=== PATIENT | female | born 1930 | race Caucasian/White ===

== ENCOUNTER 2017-10-07 18:07 | Inpatient (IN) | payer OTHER, BC ==
[2017-10-07] MEDS ORDERED: METOPROLOL TARTRATE 5 MG/5 ML VIAL IVPUSH ONE (18:26)
[2017-10-07] MEDS ORDERED: METOPROLOL TARTRATE 5 MG/5 ML VIAL ONE (18:34)
--- NOTE | 2017-10-07 18:34 | PDOC ---
Attending Attestation - Resident Resident Name: JovanmicahelJoey - ED Attending Attestation I have performed the following: I have examined & evaluated the patient, The case was reviewed & discussed with the resident, I agree w/resident's findings & plan, Exceptions are as noted - HPI HPI: 10/07/17 18:33 86-year-old female in no onset rapid A. fib. Brought in by ambulance from Dr. Martínez's office. Patient has complaint of dyspnea. She states she's had intermittently for the past 2 weeks. Past medical history significant for coronary artery disease, hypertension, hypothyroidism and glaucoma. PCP is Dr. Bailee Lopez - Physicial Exam PE: 10/07/17 18:33 Alert and conversant, 86-year-old female presents with complaint of dyspnea. Head normocephalic/atraumatic. Neck is supple, no JVD. Lungs clear to auscultation. There is no wheezing and no Rales CVS tachycardia. Abdomen protuberant but nontender. skin she has intertrigo underneath her left breast abd protuberant ,nontender no cva tenderness ext no pitting edema neuro axox3,moving all extremities ,motor strenght 5/5 b/l psych appropriate - Medical Decision Making 10/07/17 18:45 Impressions: new onset A. fib. Plan anticoagulation, beta blockers, also Cardizem, EKG, coronary skin, CBC, comp, coags and admit tele
--- NOTE | 2017-10-07 18:37 | PDOC ---
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 The patient states that she's had 2 weeks of mild lightheadedness and mild shortness of breath with exertion. She denies any CP, fever, chills, nausea, vomiting, cough, rashes or swelling. Past History - Past Medical History Allergies/Adverse Reactions: Allergies Allergy/AdvReac Type Severity Reaction Status Date / Time No Known Allergies Allergy Verified 07/12/15 10:25 Home Medications: Ambulatory Orders Amlodipine Besylate/Benazepril [Lotrel 5-20 mg Capsule] 20 mg PO BID 09/03/12 Ca Cmb No.1/Vit D3/B-6/FA/B12 [Vitamin D3 1,000 Unit Tablet] 1 each PO DAILY Calcium Carbonate/Vitamin D3 [[place] 500-Vit D3 200 Tablet] 1 each PO DAILY 09/03 Cyanocobalamin/FA/Pyridoxine [B Complex-Folic Acid Tablet] 1 each PO DAILY 09/03 Isosorbide Mononitrate [Isosorbide Mononitrate ER] 30 mg PO DAILY 09/03/12 Levothyroxine [Synthroid -] 125 mcg PO DAILY 09/03/12 Meclizine HCl [Antivert -] 25 mg PO TID PRN #20 tablet 09/03/12 Metoprolol Succinate [Toprol XL -] 25 mg PO DAILY 09/03/12 Pitavastatin Calcium [Livalo] 2 mg PO DAILY 09/03/12 Anemia: No Asthma: No Cancer: No Cardiac Disorders: No CVA: No COPD: No CHF: No Dementia: No Diabetes: No GI Disorders: No Disorders: No HTN: Yes Hypercholesterolemia: No Liver Disease: No Seizures: No Thyroid Disease: Yes - Surgical History Abdominal Surgery: Yes (hernia sx) - Suicide/Smoking/Psychosocial Hx Smoking Status: No Smoking History: Never smoked Have you smoked in the past 12 months: No Number of Cigarettes Smoked Daily: 0 Hx Alcohol Use: No Drug/Substance Use Hx: No Substance Use Type: None Hx Substance Use Treatment: No Review of Systems - Review of Systems Able to Perform ROS?: Yes Comments:: 10/07/17 18:35 GENERAL/CONSTITUTIONAL: No fever or chills. No weakness. HEAD, EYES, EARS, NOSE AND THROAT: No change in vision. No ear pain or discharge. No sore throat. CARDIOVASCULAR: Positive for lightheadedness. No chest pain or palpitations. RESPIRATORY: Positive for shortness of breath. No cough, wheezing, or hemoptysis. GASTROINTESTINAL: No nausea, vomiting, diarrhea, constipation, or abdominal pain. GENITOURINARY: No dysuria, frequency, hematuria, or change in urination. MUSCULOSKELETAL: No joint or muscle swelling or pain. No neck or back pain. SKIN: No rash or lesions. NEUROLOGIC: No headache, numbness, tingling, weakness, loss of consciousness, or change in strength/sensation. ENDOCRINE: No increased thirst. No abnormal weight change. HEMATOLOGIC/LYMPHATIC: No anemia, easy bleeding, or history of blood clots. ALLERGIC/IMMUNOLOGIC: No hives or skin allergy. Is the patient limited Spanish proficient: No *Physical Exam - Physical Exam Comments: 10/07/17 18:37 GENERAL: Well developed, well nourished. Awake and alert. No acute distress. HEENT: Normocephalic, atraumatic. Hearing grossly normal. Moist mucous membranes. PERRLA, EOMI. No conjunctival pallor. Sclera are non-icteric. NECK: Supple. Full ROM. CARDIOVASCULAR: Regular rate and rhythm. No murmurs, rubs, or gallops. PULMONARY: No evidence of respiratory distress. Lungs clear to auscultation bilaterally. No wheezing, rales or rhonchi. ABDOMINAL: Soft. Non-tender. Non-distended. No rebound or guarding. MUSCULOSKELETAL: Normal range of motion at all joints. No bony deformities or tenderness. EXTREMITIES: No cyanosis. No clubbing. 2+ pitting edema. No calf tenderness or swelling. SKIN: Warm and dry. Normal capillary refill. No rashes. No jaundice. NEUROLOGICAL: Alert, awake, appropriate. Cranial nerves 2-12 intact. Normal speech. Gait is normal without ataxia. PSYCHIATRIC: Cooperative. Good eye contact. Appropriate mood and affect. Heart Score/ECG Review #1 ECG reviewed & interpreted by me at: 18:36 General ECG Interpretation: Sinus Rhythm, Normal Rate, Normal Intervals, No acute ischemic changes Compared to previous ECG there are: Changes noted 10/07/17 18:38 A-fib w/ vent rate 145 (RVR) MI - QRS 64 QRc 484 L axis deviation New onset a-fib Prior is 05/2014 which was NSR No ADILIA or STD noted. No signs of acute ischemia. 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 She was not given any medications. Estimated onset was 2 weeks ago. She has mild symptoms of SOB and lightheadedness. Pending labs. Will give 5 metoprolol t IVP and monitor HR. 10/07/17 19:59 Pt responded to metoprolol IVP. Given PO 25 metoprolol. Case d/w Dr. Martínez at bedside. 10/07/17 20:04 I have endorsed the pt to Dr. Vaughn for admission. Dr. Martínez recommends adding diltiazem for rate control. Order placed. 10/07/17 20:55 I have discussed the pt with Dr. Bragg, ICU resident, for admission to ICU because of heparin drip and cardizem drip. *DC/Admit/Observation/Transfer Diagnosis at time of Disposition: New onset atrial fibrillation - Discharge Dispostion Condition at time of disposition: Guarded Decision to Admit order: Yes - Referrals Referrals: Jane Vaughn [Primary Care Provider] - - Patient Instructions - Post Discharge Activity
[2017-10-07 18:46] LABS: BASO % 0.5 % (0-2.0); EOS % 0.7 % (0-4.5); HEMATOCRIT 43.6 % (32.4-45.2); HEMOGLOBIN 14.2 GM/dL (10.7-15.3); LYMPH % 19.3 % (8-40); MCH 29.5 pg (25.7-33.7); MCHC 32.7 g/dl (32.0-36.0); MEAN CELL VOLUME 90.3 fl (80-96); MEAN PLT VOLUME 8.4 fl (7.5-11.1); MONO % 8.4 % (3.8-10.2); NEUT % 71.1 % (42.8-82.8); PLATELET COUNT 308 K/MM3 (134-434); RBC 4.83 M/mm3 (3.60-5.2); RDW 14.1 % (11.6-15.6); WHITE BLOOD COUNT 9.3 K/mm3 (4.0-10.0)
[2017-10-07] MEDS ORDERED: METOPROLOL TARTRATE 25 MG TABLET (FP) PO ONE (18:48)
[2017-10-07] MEDS ORDERED: METOPROLOL TARTRATE 25 MG TABLET (FP) ONE (18:57)
[2017-10-07 18:59] LABS: INR 1.15 (0.82-1.09)
[2017-10-07 19:09] LABS: ALBUMIN 3.4 g/dl (3.4-5.0); ANION GAP 9 (8-16); BILIRUBIN,TOTAL 0.4 mg/dL (0.2-1.0); BLOOD UREA NITROGEN 23 mg/dL (7-18); CALCIUM 8.8 mg/dL (8.5-10.1); CHLORIDE 111 mmol/L (98-107); CO2 25 mmol/L (21-32); CREATININE 0.8 mg/dL (0.55-1.02); GLUCOSE,RANDOM 130 mg/dL (74-106); POTASSIUM 3.9 mmol/L (3.5-5.1); SGOT/AST 11 U/L (15-37); SGPT/ALT 21 U/L (12-78); SODIUM 145 mmol/L (136-145); TOT PROT 6.6 g/dl (6.4-8.2)
[2017-10-07 19:11] LABS: ALK PHOS 91 U/L (45-117); N-TERMINAL BNP 1664.38 pg/ml (5-450)
[2017-10-07] MEDS ORDERED: FUROSEMIDE 40 MG/4 ML INJECTABLE VIAL IVPUSH ONE (19:32)
[2017-10-07] MEDS ORDERED: FUROSEMIDE 40 MG/4 ML INJECTABLE VIAL ONE (19:49)
[2017-10-07] MEDS ORDERED: dilTIAZem HCL 50 MG/10 ML - 10 ML VIAL IVPUSH ONE (20:02)
[2017-10-07] MEDS ORDERED: dilTIAZem HCL 125 MG/25 ML - 25 ML VIAL ONE (20:08)
[2017-10-07] MEDS ORDERED: HEPARIN NA (PORCINE) 5,000 UNITS/ML 1ML VIAL IVPUSH PRN ×2 (20:17)
[2017-10-07] MEDS ORDERED: MECLIZINE HCL 25 MG TABLET (FP) PO PRN (20:33)
[2017-10-07] MEDS ORDERED: HEPARIN NA (PORCINE) 5,000 UNITS/ML 1ML VIAL ONE (21:19)
[2017-10-07] MEDS ORDERED: HEPARIN INFUSION - 25,000 UNITS/500 ML INFUS.BAG IVPB ONE (21:19)
--- NOTE | 2017-10-07 21:41 | CONSULT ---
Consultation: REQUESTING PROVIDER: CONSULT REQUEST: We have been asked to medically evaluate this patient for ( intensive care). 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 Patient states that she is feeling lightheaded and sob from 1 year which is progressively getting worse. Get sob on taking 4 stairs up. Denies paroxysmal nocturanal dyspnea, orthopnea, sleeps with one pillow. Denies palpitations, chest pain, swelling in legs. Denies change in frequency and burning micturation , denies change in weight, blood in stool or diarrhoea, Don't know when was last TSH was checked. States she is complaint with her meds. Denies fever and hills. In er got of Metoprolol push and po 25 mg and later on started on cardiazem drip , HR decreased from 160 to 130 PMH as above PSH eye surgery and left wrist surgery. social: non smoker, no alcohol REVIEW OF SYSTEMS: as above PHYSICAL EXAMINATION Vital Signs - 24 hr 10/07/17 10/07/17 10/07/17 18:30 18:45 18:59 Temperature 98 F Pulse Rate 147 H Pulse Rate [ 110 H Apical] Respiratory 20 22 Rate Blood Pressure 120/93 120/93 Blood Pressure 123/86 [Right Arm] O2 Sat by Pulse 96 98 100 Oximetry (%) 10/07/17 20:12 Temperature Pulse Rate Pulse Rate [ 138 H Apical] Respiratory 22 Rate Blood Pressure Blood Pressure 120/91 [Right Arm] O2 Sat by Pulse 96 Oximetry (%) GENERAL: Awake, alert, and fully oriented, in no acute distress. HEAD: Normal with no signs of trauma. EYES: chronic swelling of right eye NECK: Normal range of motion, supple without lymphadenopathy, JVD, or masses. LUNGS: Breath sounds equal, clear to auscultation bilaterally, decrease air entry at bases, mild crackels at base No accessory muscle use. HEART: irregularly irregular, no murmur ABDOMEN: Soft, nontender, not distended, normoactive bowel sounds, no guarding, no rebound, no masses. UPPER EXTREMITIES: 2+ pulses, warm, well-perfused. No cyanosis. LOWER EXTREMITIES: 2+ pulses, warm, well-perfused. No calf tenderness. peripheral edema 1+ PSYCHIATRIC: Cooperative. Good eye contact. Appropriate mood and affect. SKIN: Warm, dry, Laboratory Results - last 24 hr 10/07/17 10/07/17 10/07/17 18:40 18:40 18:40 WBC 9.3 RBC 4.83 Hgb 14.2 Hct 43.6 MCV 90.3 MCH 29.5 MCHC 32.7 RDW 14.1 Plt Count 308 MPV 8.4 Absolute Neuts (auto) 6.6 Neutrophils % 71.1 Lymphocytes % 19.3 Monocytes % 8.4 Eosinophils % 0.7 Basophils % 0.5 Nucleated RBC % 0 PT with INR 13.00 INR 1.15 H PTT (Actin FS) Sodium 145 Potassium 3.9 Chloride 111 H Carbon Dioxide 25 Anion Gap 9 BUN 23 H Creatinine 0.8 Creat Clearance w eGFR > 60 Random Glucose 130 H Calcium 8.8 Total Bilirubin 0.4 AST 11 L ALT 21 Alkaline Phosphatase 91 Creatine Kinase 36 Troponin I < 0.02 B-Natriuretic Peptide 1664.38 H Total Protein 6.6 Albumin 3.4 10/07/17 18:40 WBC RBC Hgb Hct MCV MCH MCHC RDW Plt Count MPV Absolute Neuts (auto) Neutrophils % Lymphocytes % Monocytes % Eosinophils % Basophils % Nucleated RBC % PT with INR INR PTT (Actin FS) 29.4 Sodium Potassium Chloride Carbon Dioxide Anion Gap BUN Creatinine Creat Clearance w eGFR Random Glucose Calcium Total Bilirubin AST ALT Alkaline Phosphatase Creatine Kinase Troponin I B-Natriuretic Peptide Total Protein Albumin Active Medications Generic Name Dose Route Start Last Admin Trade Name Freq PRN Reason Stop Dose Admin Atorvastatin Calcium 10 mg 10/07/17 22:00 Lipitor - PO HS CLAUDIA Heparin Sodium (Porcine) 1,000 unit 10/07/17 20:17 Heparin - IVPUSH PRN PRN Heparin Heparin Sodium (Porcine) 5,000 unit 10/07/17 20:17 Heparin - IVPUSH PRN PRN Heparin Diltiazem HCl 125 mg/ Sodium 125 mls @ 5 mls/hr 10/07/17 20:15 Chloride IVPB TITR [facility] Protocol 5 MG/HR Heparin Sodium/Dextrose 25,000 units in 500 mls @ 20 mls/hr 10/07/17 20:30 Heparin Infusion - IVPB TITR [facility] Protocol 1,000 UNITS/HR Isosorbide Mononitrate 30 mg 10/08/17 10:00 Imdur - PO DAILY CLAUDIA Levothyroxine Sodium 125 mcg 10/08/17 07:00 Synthroid - PO DAILY@0700 CLAUDIA Meclizine HCl 25 mg 10/07/17 20:33 Antivert - PO Q8H PRN VERTIGO Metoprolol Succinate 25 mg 10/08/17 10:00 Toprol Xl - PO DAILY CLAUDIA ASSESSMENT/PLAN: new afib with sob with diastolic heart failure. pulmonary edema. ?Left ventricle diastolic dysfunction htn hld hypothyroidism glaucoma Plan cardiac monitoring rate control on cardiazem drip keep below 110 AC , heparin drip, with aptt monitoring and watch for bleed. ECHO Thyroid function test. daily weight. low salt diet. monitor intake and output. cardiology consult. UA repeat CXR in am oxygen to keep spo2> 90. keep head end elevated. spirometry. monitor viatls. icu care. Dispo: We will continue to follow the patient. Thank you for this consultative opportunity. Visit type - Emergency Visit Emergency Visit: Yes ED Registration Date: 10/07/17 Care time: The patient presented to the Emergency Department on the above date and was hospitalized for further evaluation of their emergent condition. - New Patient This patient is new to me today: Yes Date on this admission: 10/08/17 - Critical Care Critical Care patient: Yes Total Critical Care Time (in minutes): 45 Critical Care Statement: The care of this patient involved high complexity decision making to prevent further life threatening deterioration of the patient 's condition and/or to evaluate & treat vital organ system(s) failure or risk of failure.
[2017-10-07] MEDS: DILTIAZEM INJECTION 125 MG in SODIUM CHLORIDE 100 ML IVPB SCH (21:44)
[2017-10-07] MEDS: HEPARIN INFUSION - 25,000 UNITS/500 ML INFUS.BAG IVPB SCH (21:45)
[2017-10-07 22:43] LABS: URINE APPEARANCE CLEAR; URINE BILIRUBIN NEGATIVE (<2.0 mg/dL); URINE COLOR STRAW; URINE GLUCOSE (UA) NEGATIVE (NEGATIVE); URINE KETONE NEGATIVE (NEGATIVE); URINE NITRITE NEGATIVE (NEGATIVE); URINE PROTEIN NEGATIVE (NEGATIVE); URINE UROBILINOGEN NEGATIVE mg/dL (0.2-1.0)
[2017-10-07 22:44] LABS: URINE LEUK ESTERASE 1+ (NEGATIVE)
[2017-10-07] MEDS ORDERED: ACETAMINOPHEN 325 MG TABLET (FP) PO ONE (22:44)
[2017-10-07 22:46] LABS: EPI CELLS RARE /HPF (FEW); URINE HYALINE CAST 3 /lpf; URINE MUCUS RARE
[2017-10-07] MEDS ORDERED: ATORVASTATIN CA 10 MG TABLET (FP) ONE (22:57)
[2017-10-07] MEDS ORDERED: ACETAMINOPHEN 325 MG TABLET (FP) ONE (22:57)
[2017-10-08] MEDS: ATORVASTATIN CA 10 MG TABLET (FP) PO SCH ×2 (00:05→22:16)
[2017-10-08] MEDS ORDERED: LEVOTHYROXINE NA 125 MCG TABLET (FP) PO SCH (07:00)
--- NOTE | 2017-10-08 09:45 | CONS ---
DATE OF CONSULTATION: 10/07/2017 TIME OF CONSULTATION: 7:30 p.m. to 9:20 p.m. LOCATION: Emergency room. CHIEF COMPLAINT: 1. Postural lightheadedness. 2. Recent onset of dyspnea with exertion. The patient is an 86-year-old female who hails from [place], has longstanding history of hypertension, hypertensive cardiovascular disease, hypercholesterolemia, history of glaucoma, hypothyroidism, history of vertigo. Patient noticed that she was becoming progressively lightheaded on standing and would feel that she may fall down. She also started becoming dyspneic on exertion and decided to the office for an evaluation. Patient was found to be in atrial fibrillation with a rapid ventricular response. She denies having chest pain or discomfort either at rest or with exertion. There is no history of paroxysmal nocturnal dyspnea or orthopnea. According to her son, she was able to walk only short distances before becoming dyspneic. There is no history of diabetes mellitus. PAST HISTORY: As mentioned in the history of present illness. History of fracture of the left wrist. 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 SURGICAL HISTORY: Status post left cataract extraction. History of section x1. History of a buckle involving the right eye. SOCIAL HISTORY: She is a . She is retired, has 2 sons and 2 daughters who are healthy. One of the daughters has Farrell syndrome. She has never smoked and does not drink. FAMILY HISTORY: Father at age 79 of unknown cause. Mother at age 75 of a brain tumor. She was the only child. ALLERGIES: None reported. MEDICATION: Patient presented a list which included the following medications. 1. Amlodipine 5 mg 2 tablets p.o. daily. 2. Livalo 2 mg 1 tablet 3 times a week. 3. Synthroid, dose is uncertain, but previously, she was on 125 mcg p.o. daily. 4. Isosorbide mononitrate 30 mg p.o. daily. 5. Aspirin 81 mg p.o. daily. 6. She is on ophthalmic solutions for glaucoma, names are not available. REVIEW OF SYSTEMS: Constitutional: No history of chills, fever, or night sweats reported. No history of unintentional weight loss. HEENT: No history of headaches. History of blindness involving the right eye. History of disruption of the buckle with recurring episodes of extrusion of pieces of the buckle associated with excessive tearing. No history of epistaxis or hoarseness. No history of tinnitus. History of deafness involving the right ear. Respiratory: No history of cough, expectoration, or hemoptysis. See history of present illness. Cardiovascular: See history of present illness. Gastrointestinal: No history of nausea, vomiting, melena, or hematemesis. No history of change in bowel habits and denies having abdominal pain or discomfort. Neurological: History of lightheadedness. No history of focal weakness. No history of seizures. Genitourinary: No history of dysuria, frequency, or hematuria. Endocrine: See history of present illness. No history of polyuria or polydipsia. No history of intolerance to cold or warm weather. Musculoskeletal: History of arthritis involving both shoulders and hands. Hematological: No history of anemia, ecchymosis, or bleeding. Lymphatics: No history of lymphadenopathy. PHYSICAL EXAMINATION: General: An 86-year-old, alert female was in moderate distress. No pallor, cyanosis, clubbing, or jaundice. Vital Signs: Blood pressure 120/91 mmHg. Pulse 138 beats per minute and irregularly irregular. Respirations 22 beats per minute. Oxygen saturation 96% on 2 L of oxygen. Neck: Supple. No jugular venous distention. Hepatojugular reflux was negative. Carotids were 2+. Upstrokes were normal. No bruits were appreciated. There was no thyromegaly. Heart: PMI was not localized. No heaves or thrills. Heart sounds were distant. No murmur or gallops were appreciated. Lungs: Fine crepitations at the right base. Abdomen: Obese, soft, and nontender. No hepatosplenomegaly or palpable masses were felt. Bowel sounds were active. No bruits were heard. Extremities: No calf tenderness or dependent edema. Femoral pulses were 1+ to 2+. Dorsalis pedis pulses: The left was 2+. Right was 1+. Posterior tibial pulses could not be palpated. LABORATORY DATA: CBC: WBC count 9300. Hemoglobin was 14.2 g. Platelet count was 308.000. Differential was grossly normal. Chemistry: Sodium 145, potassium 3.9, chloride 111. CO2 of 25. BUN 23. Creatinine 0.8 mg/dL. Random glucose 130 mg/dL. Liver function tests were grossly normal. Her troponins were less than 0.02. BNP was elevated at 1664.38. X-ray chest was reported to have cardiomegaly, possible mild congestion. ECG revealed atrial fibrillation with rapid ventricular response, left axis deviation consistent with left anterior hemiblock, early transition in V1 and V2, generalized low voltage. Nonspecific ST and T-wave abnormalities. No previous ECG was available for comparison. IMPRESSION: 1. New-onset atrial fibrillation with rapid ventricular response. 2. Left ventricular failure was precipitated by atrial fibrillation/rapid ventricular response. 3. Hypertension, hypertensive cardiovascular disease. 4. Hypothyroidism, on replacement therapy. 5. History of hypercholesterolemia. 6. Coronary artery disease needs exclusion. 7. History of osteoarthritis. 8. Glaucoma. 9. Postural lightheadedness, most likely related to postural change in blood pressure precipitated by atrial fibrillation. 10. Exogenous obesity. RECOMMENDATIONS: 1. I concur with the use of IV furosemide. 2. Rate control with IV Cardizem, followed by Cardizem drip. 3. Heparinization. 4. Serial EKG and enzymes. 5. Further suggestions will depend upon the results of the above-mentioned tests. PROGNOSIS: Guarded. Thank you for your referral. Yours sincerely, HOLLI NG M.D. [id number]
[2017-10-08 09:57] LABS: BASO % 0.7 % (0-2.0); EOS % 0.9 % (0-4.5); HEMATOCRIT 45.1 % (32.4-45.2); HEMOGLOBIN 14.9 GM/dL (10.7-15.3); LYMPH % 14.5 % (8-40); MCH 30.1 pg (25.7-33.7); MCHC 33.1 g/dl (32.0-36.0); MEAN CELL VOLUME 90.9 fl (80-96); MEAN PLT VOLUME 9.3 fl (7.5-11.1); MONO % 7.5 % (3.8-10.2); NEUT % 76.4 % (42.8-82.8); PLATELET COUNT 277 K/MM3 (134-434); RBC 4.96 M/mm3 (3.60-5.2); RDW 14.3 % (11.6-15.6); WHITE BLOOD COUNT 13.9 K/mm3 (4.0-10.0)
[2017-10-08] MEDS ORDERED: PATIENT'S OWN MEDICATION (NON-FORMULARY) (Pitavastatin Calcium [Livalo] 2 MG) PO SCH (10:00)
[2017-10-08 10:11] LABS: CHLORIDE 109 mmol/L (98-107); SODIUM 144 mmol/L (136-145)
[2017-10-08 10:26] LABS: ALBUMIN 3.5 g/dl (3.4-5.0); ALK PHOS 96 U/L (45-117); ANION GAP 12 (8-16); BILIRUBIN,TOTAL 0.7 mg/dL (0.2-1.0); BLOOD UREA NITROGEN 19 mg/dL (7-18); CALCIUM 9.1 mg/dL (8.5-10.1); CO2 23 mmol/L (21-32); CREATININE 0.7 mg/dL (0.55-1.02); GLUCOSE,RANDOM 106 mg/dL (74-106); PHOSPHOROUS 3.7 mg/dL (2.5-4.9); SGPT/ALT 21 U/L (12-78); TOT PROT 7.1 g/dl (6.4-8.2)
[2017-10-08 10:28] LABS: MAGNESIUM 2.1 mg/dL (1.8-2.4); POTASSIUM 3.9 mmol/L (3.5-5.1); SGOT/AST 18 U/L (15-37)
[2017-10-08] MEDS ORDERED: dilTIAZem HCL 25 MG/5 ML - 5 ML VIAL ONE ×2 (10:47→20:21)
--- NOTE | 2017-10-08 10:50 | HP ---
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 The patient states that she's had 2 weeks of mild lightheadedness and mild shortness of breath with exertion. She denies any CP, fever, chills, nausea, vomiting, cough, rashes or swelling. History Source: Patient Limitations to Obtaining History: No Limitations - Past Medical History Cardiovascular: Yes: CAD, HTN Endocrine: Yes: Hypothyroidism - Past Surgical History Past Surgical History: Yes: Hernia Repair - Smoking History Smoking history: Never smoked Have you smoked in the past 12 months: No Aproximately how many cigarettes per day: 0 - Alcohol/Substance Use Hx Alcohol Use: No History of Substance Use: reports: None - Social History Usual Living Arrangement: Yes: Alone ADL: Independent History of Recent Travel: No Home Medications - Allergies Allergies/Adverse Reactions: Allergies Allergy/AdvReac Type Severity Reaction Status Date / Time No Known Allergies Allergy Verified 07/12/15 10:25 - Home Medications Home Medications: Ambulatory Orders Amlodipine Besylate/Benazepril [Lotrel 5-20 mg Capsule] 20 mg PO BID 09/03/12 Ca Cmb No.1/Vit D3/B-6/FA/B12 [Vitamin D3 1,000 Unit Tablet] 1 each PO DAILY Calcium Carbonate/Vitamin D3 [[place] 500-Vit D3 200 Tablet] 1 each PO DAILY 09/03 Cyanocobalamin/FA/Pyridoxine [B Complex-Folic Acid Tablet] 1 each PO DAILY 09/03 Isosorbide Mononitrate [Isosorbide Mononitrate ER] 30 mg PO DAILY 09/03/12 Levothyroxine [Synthroid -] 125 mcg PO DAILY 09/03/12 Meclizine HCl [Antivert -] 25 mg PO TID PRN #20 tablet 09/03/12 Metoprolol Succinate [Toprol XL -] 25 mg PO DAILY 09/03/12 Pitavastatin Calcium [Livalo] 2 mg PO DAILY 09/03/12 Family Disease History - Family Disease History Family History: Unremarkable Review of Systems - Review of Systems Constitutional: denies: Chills, Fever Eyes: denies: Blind Spots, Blurred Vision HENT: denies: Difficult Swallowing, Ear Pain Neck: denies: Stiffness, Tenderness Cardiovascular: reports: Palpitations. denies: Chest Pain, Shortness of Breath Respiratory: denies: Cough, SOB Gastrointestinal: denies: Abdominal Pain, Bloating, Constipation, Diarrhea, Vomiting Genitourinary: denies: Burning, Dysuria, Flank Pain, Frequency Musculoskeletal: denies: Back Pain, Joint Pain Integumentary: denies: Bruising, Eczema, Rash, Wound Neurological: reports: Dizziness. denies: Change in LOC, Change in Speech, Confusion, Pre-Existing Deficit, Seizure, Syncope, Tremors, Weakness Endocrine: denies: Unexplained Weight Gain, Unexplained Weight Loss Hematology/Lymphatic: denies: Easily Bruised, Excessive Bleeding Psychiatric: denies: Altered Sleep Pattern, Anxiety, Depression, Suicidal Physical Examination Vital Signs: Vital Signs Temperature 98.8 F 10/08/17 06:00 Pulse Rate 102 H 10/08/17 08:00 Respiratory Rate 22 10/08/17 08:00 Blood Pressure 127/114 10/08/17 08:00 O2 Sat by Pulse Oximetry (%) 99 10/08/17 04:16 Constitutional: Yes: No Distress, Calm Eyes: Yes: Conjunctiva Clear, Other (R exophtalmia chronic after trauma many years ago) HENT: Yes: Atraumatic Neck: Yes: Supple Cardiovascular: Yes: Tachycardia, Pulse Irregular. No: Regular Rate and Rhythm Respiratory: Yes: Regular, CTA Bilaterally. No: Wheezes Gastrointestinal: Yes: Soft. No: Distention, Tenderness Renal/: No: CVA Tenderness - Left, CVA Tenderness - Right, Hematuria Musculoskeletal: No: Back Pain, Joint Swelling Extremities: No: Calf Tenderness, Cold, Cool, Cyanosis Edema: No Peripheral Pulses WNL: Yes Integumentary: No: Bruising, Rash, Venous Stasis Changes Neurological: Yes: WNL, Alert, Oriented ...Motor Strength: WNL Psychiatric: Yes: WNL, Alert, Oriented. No: Agitated, Suicidal Ideation Labs: CBC, BMP 10/08/17 09:10 10/08/17 09:10 Imaging - Results Chest X-ray: Report Reviewed Other: Report Reviewed Assessment/Plan 86F with a PMH of Vertigo, HTN, CAD, Hypothyroidism, who presents to the ER from her public health service officer's office for new onset rapid a-fib. IV cardizem, IV heaprin admit to ICU/CCU tests meds consults reviewed and d/w pt cardiology eval check TFTs check echocardiogram f/u labs d/w pt and staff prognosis guarded T luisito 80 min
[2017-10-08] MEDS: metoPROLOL SUCCINATE 25 MG TAB.SR.24H (FP) PO SCH (11:10)
[2017-10-08] MEDS: ISOSORBIDE MONONITRATE 30 MG TAB.SR.24H (FP) PO SCH (11:10)
[2017-10-08] MEDS: FUROSEMIDE 40 MG/4 ML INJECTABLE VIAL IVPUSH SCH (11:10)
[2017-10-08] MEDS: MUPIROCIN 2% TOPICAL OINTMENT FOR DECOLONIZATION NS SCH ×2 (11:10→22:17)
--- NOTE | 2017-10-08 11:39 | PN ---
Teaching Attending Note Name of Resident: Dilshad Ricketts ATTENDING PHYSICIAN STATEMENT I saw and evaluated the patient. I reviewed the resident's note and discussed the case with the resident. I agree with the resident's findings and plan as documented. SUBJECTIVE: Patient seen and examined in the ICU. Awake and alert. Reports breathing is better. No CP. Remains on IV Cardizem for rate control. Intake & Output 10/05/17 10/06/17 10/07/17 10/08/17 23:59 23:59 23:59 23:59 Intake Total 110 Output Total 0 Balance 110 Weight 216 lb 214 lb 8 oz Last Vital Signs Temp Pulse Resp BP Pulse Ox 98.8 F 102 H 22 127/114 99 10/08/17 06:00 10/08/17 08:00 10/08/17 08:00 10/08/17 08:00 10/08/17 04:16 Active Medications Atorvastatin Calcium (Lipitor -) 10 mg PO HS CLAUDIA Last Admin: 10/08/17 00:05 Dose: Not Given Chlorhexidine Gluconate (Hibiclens For Decolonization -) 1 applic TP HS CLAUDIA Furosemide (Lasix Injection -) 40 mg IVPUSH DAILY CLAUDIA Last Admin: 10/08/17 11:10 Dose: 40 mg Heparin Sodium (Porcine) (Heparin -) 1,000 unit IVPUSH PRN PRN PRN Reason: Heparin Heparin Sodium (Porcine) (Heparin -) 5,000 unit IVPUSH PRN PRN PRN Reason: Heparin Last Admin: 10/07/17 21:45 Dose: 5,000 unit Diltiazem HCl 125 mg/ Sodium (Chloride) 125 mls @ 5 mls/hr IVPB TITR CLAUDIA; Protocol Last Titration: 10/08/17 04:10 Dose: 10 mg/hr, 10 mls/hr Heparin Sodium/Dextrose (Heparin Infusion -) 25,000 units in 500 mls @ 20 mls/ hr IVPB TITR CLAUDIA; Protocol Last Admin: 10/07/17 21:45 Dose: 1,000 units/hr, 20 mls/hr Isosorbide Mononitrate (Imdur -) 30 mg PO DAILY CLAUDIA Last Admin: 10/08/17 11:10 Dose: 30 mg Levothyroxine Sodium (Synthroid -) 125 mcg PO DAILY@0700 CLAUDIA Last Admin: 10/08/17 07:36 Dose: 125 mcg Meclizine HCl (Antivert -) 25 mg PO Q8H PRN PRN Reason: VERTIGO Metoprolol Succinate (Toprol Xl -) 25 mg PO DAILY [facility] Last Admin: 10/08/17 11:10 Dose: 25 mg Miconazole Nitrate (Miconazole Nitrate) 1 applic TP BID [facility] Mupirocin (Bactroban Ointment (For Decolonization) -) 1 applic NS BID [facility] Stop: 10/13/17 09:59 Last Admin: 10/08/17 11:10 Dose: 1 applic GENERAL: Awake, alert, and fully oriented, in no acute distress. HEAD: Normal with no signs of trauma. EYES: chronic swelling of right eye NECK: Normal range of motion, supple without lymphadenopathy, JVD, or masses. LUNGS: Bibasilar rales, no wheeze. No accessory muscle use. HEART: irregularly irregular, no murmur ABDOMEN: Soft, nontender, not distended, normoactive bowel sounds, no guarding, no rebound, no masses. UPPER EXTREMITIES: 2+ pulses, warm, well-perfused. No cyanosis. LOWER EXTREMITIES: 2+ pulses, warm, well-perfused. No calf tenderness. peripheral edema 1+ PSYCHIATRIC: Cooperative. Good eye contact. Appropriate mood and affect. SKIN: Warm, dry, Laboratory Results - last 24 hr 10/07/17 10/07/17 10/07/17 18:40 18:40 18:40 WBC 9.3 RBC 4.83 Hgb 14.2 Hct 43.6 MCV 90.3 MCH 29.5 MCHC 32.7 RDW 14.1 Plt Count 308 MPV 8.4 Absolute Neuts (auto) 6.6 Neutrophils % 71.1 Lymphocytes % 19.3 Monocytes % 8.4 Eosinophils % 0.7 Basophils % 0.5 Nucleated RBC % 0 PT with INR 13.00 INR 1.15 H PTT (Actin FS) Sodium 145 Potassium 3.9 Chloride 111 H Carbon Dioxide 25 Anion Gap 9 BUN 23 H Creatinine 0.8 Creat Clearance w eGFR > 60 Random Glucose 130 H Calcium 8.8 Phosphorus Magnesium Total Bilirubin 0.4 AST 11 L ALT 21 Alkaline Phosphatase 91 Creatine Kinase 36 Troponin I < 0.02 B-Natriuretic Peptide 1664.38 H Total Protein 6.6 Albumin 3.4 TSH Free T4 Urine Color Urine Appearance Urine pH Ur Specific [place] Urine Protein Urine Glucose (UA) Urine Ketones Urine Blood Urine Nitrite Urine Bilirubin Urine Urobilinogen Ur Leukocyte Esterase Urine WBC (Auto) Urine RBC (Auto) Ur Epithelial Cells Hyaline Casts Urine Mucus 10/07/17 10/07/17 10/08/17 18:40 22:25 03:55 WBC RBC Hgb Hct MCV MCH MCHC RDW Plt Count MPV Absolute Neuts (auto) Neutrophils % Lymphocytes % Monocytes % Eosinophils % Basophils % Nucleated RBC % PT with INR INR PTT (Actin FS) 29.4 55.9 H D Sodium Potassium Chloride Carbon Dioxide Anion Gap BUN Creatinine Creat Clearance w eGFR Random Glucose Calcium Phosphorus Magnesium Total Bilirubin AST ALT Alkaline Phosphatase Creatine Kinase Troponin I B-Natriuretic Peptide Total Protein Albumin TSH Free T4 Urine Color Straw Urine Appearance Clear Urine pH 5.0 Ur Specific [place] 1.008 Urine Protein Negative Urine Glucose (UA) Negative Urine Ketones Negative Urine Blood 1+ H Urine Nitrite Negative Urine Bilirubin Negative Urine Urobilinogen Negative Ur Leukocyte Esterase 1+ H D Urine WBC (Auto) 7 Urine RBC (Auto) 1 Ur Epithelial Cells Rare Hyaline Casts 3 Urine Mucus Rare 10/08/17 10/08/17 10/08/17 09:10 09:10 09:19 WBC 13.9 H RBC 4.96 Hgb 14.9 Hct 45.1 MCV 90.9 MCH 30.1 MCHC 33.1 RDW 14.3 Plt Count 277 MPV 9.3 D Absolute Neuts (auto) 10.6 Neutrophils % 76.4 Lymphocytes % 14.5 D Monocytes % 7.5 Eosinophils % 0.9 Basophils % 0.7 Nucleated RBC % 0 PT with INR INR PTT (Actin FS) Sodium 144 Potassium 3.9 Chloride 109 H Carbon Dioxide 23 Anion Gap 12 BUN 19 H Creatinine 0.7 Creat Clearance w eGFR > 60 Random Glucose 106 Calcium 9.1 Phosphorus 3.7 Cancelled Magnesium 2.1 Cancelled Total Bilirubin 0.7 AST 18 ALT 21 Alkaline Phosphatase 96 Creatine Kinase 72 Cancelled Troponin I < 0.02 Cancelled B-Natriuretic Peptide Total Protein 7.1 Albumin 3.5 TSH 0.84 Free T4 1.68 H Urine Color Urine Appearance Urine pH Ur Specific [place] Urine Protein Urine Glucose (UA) Urine Ketones Urine Blood Urine Nitrite Urine Bilirubin Urine Urobilinogen Ur Leukocyte Esterase Urine WBC (Auto) Urine RBC (Auto) Ur Epithelial Cells Hyaline Casts Urine Mucus ASSESSMENT/PLAN: New onset AFib Pulmonary edema. HTN HPL Hypothyroidism Glaucoma Plan Rate control on cardiazem drip keep below 110 AC with heparin drip Check ECHO Check thyroid function test. Daily weight. Strict I & O Follow CXR O2 to maintain saturation Cardiology consult Dr Ruvalcaba Critical care time spent in reviewing chart, evaluating patient and formulating plan - 36 minutes.
[2017-10-08] MEDS: MICONAZOLE NITRATE 28 GM TUBE TP SCH ×2 (12:00→22:17)
--- NOTE | 2017-10-08 12:01 | ECHO ---
Name: DAVE LINDA Exam:Adult Echocardiogram Study Date: 10/08/2017 08:07 AM Age: 86 yrs Reason For Study: NEW ATRIAL FIBRILLATION Height: 65 in Weight: 216 lb BSA: 2.0 m2 BP: 127/114 mmHg MMode/2D Measurements & Calculations IVSd: 0.87 cm Ao root diam: 3.2 cm LVIDd: 5.6 cm LA dimension: 4.1 cm LVIDs: 3.8 cm LVPWd: 0.84 cm EDV(Teich): 152.3 ml TAPSE: 1.3 cm ESV(Teich): 63.6 ml RV S Marco Antonio: 8.4 cm/sec Doppler Measurements & Calculations MV E max marco antonio: 108.2 cm/sec Ao V2 max: 118.1 cm/sec MV A max marco antonio: 37.8 cm/sec Ao max P.6 mmHg MV E/A: 2.9 Ao V2 mean: 71.9 cm/sec MV dec time: 0.23 sec Ao mean P.6 mmHg Ao V2 VTI: 20.8 cm AI P1/2t: 522.6 msec AI max marco antonio: 380.1 cm/sec LV V1 max P.7 mmHg AI max P.8 mmHg LV V1 mean P.91 mmHg LV V1 max: 64.8 cm/sec AI dec slope: 213.0 cm/sec2 LV V1 mean: 44.6 cm/sec LV V1 VTI: 12.1 cm MR max marco antonio: 452.7 cm/sec TR max marco antonio: 282.7 cm/sec MR max P.0 mmHg TR max P.2 mmHg PI end-d marco antonio: 183.2 cm/sec Med Peak E' Marco Antonio: 5.7 cm/sec Med E/e': 19.1 Lat Peak E' Marco Antonio: 5.3 cm/sec Lat E/e': 20.6 Procedure A two-dimensional transthoracic echocardiogram with color flow and Doppler was performed. The study w as technically difficult with many images being suboptimal in quality. The patient was in atrial fibrill ation with controlled ventricular rate during the exam. Left Ventricle The left ventricle is not well visualized. Left ventricular systolic function is grossly normal. Right Ventricle The right ventricle is not well visualized. The right ventricular systolic function is grossly normal . Atria The left atrium is mildly dilated. The right atrium is moderately dilated. Mitral Valve The mitral valve is not well visualized. There is mild mitral annular calcification. There is no mitr al regurgitation noted. Tricuspid Valve The tricuspid valve is not well visualized, but is grossly normal. There is mild tricuspid regurgitat ion. Aortic Valve The aortic valve is not well visualized. The aortic valve opens well. The aortic valve is trileaflet. Trace aortic regurgitation. Pulmonic Valve The pulmonic valve is not well visualized. The pulmonic valve is not well seen, but is grossly normal . There is no pulmonic valvular regurgitation. Great Vessels The aortic root is normal size. Pericardium/Pleura Possible small pericardial effusion versus anterior fat pad that is not well visualized. Interpretation Summary The study was technically difficult with many images being suboptimal in quality. Possible small pericardial effusion versus anterior fat pad that is not well visualized. Left ventricular systolic function is grossly normal. The right ventricular systolic function is grossly normal. The left atrium is mildly dilated. The right atrium is moderately dilated. There is mild mitral annular calcification. There is mild tricuspid regurgitation. The aortic valve opens well. Trace aortic regurgitation. MD Da Espinosa 10/08/2017 12:00 PM
--- NOTE | 2017-10-08 12:14 | PN ---
Physical Exam: SUBJECTIVE: Patient is an 86 y/o lady seen and examined today in icu for afib. Resting in bed comfortably. Denies cp, magallon, sob, dizziness, nausea, confusion, or vomiting. OBJECTIVE: Vital Signs Period Temp Pulse Resp BP Sys/[place] Pulse Ox Last 24 Hr 98 F-98.8 F 96-147 18-25 106-143/63-114 92-100 GENERAL: AAOx3. HEAD: NC/AT EYES: RIGHT EYE ERYTHEMA, GLAUCOMA. ENT: MMM NECK: No JVD. LUNGS: Decreased BS at bases. HEART: Irregular ABDOMEN: Nt, ND, No HSM. EXTREMITIES: No CCE. NEUROLOGICAL: No Neuro Deficits PSYCH: Normal mood, normal affect. SKIN: Warm, no edema. Laboratory Results - last 24 hr 10/07/17 10/07/17 10/07/17 18:40 18:40 18:40 WBC 9.3 RBC 4.83 Hgb 14.2 Hct 43.6 MCV 90.3 MCH 29.5 MCHC 32.7 RDW 14.1 Plt Count 308 MPV 8.4 Absolute Neuts (auto) 6.6 Neutrophils % 71.1 Lymphocytes % 19.3 Monocytes % 8.4 Eosinophils % 0.7 Basophils % 0.5 Nucleated RBC % 0 PT with INR 13.00 INR 1.15 H PTT (Actin FS) Sodium 145 Potassium 3.9 Chloride 111 H Carbon Dioxide 25 Anion Gap 9 BUN 23 H Creatinine 0.8 Creat Clearance w eGFR > 60 Random Glucose 130 H Calcium 8.8 Phosphorus Magnesium Total Bilirubin 0.4 AST 11 L ALT 21 Alkaline Phosphatase 91 Creatine Kinase 36 Troponin I < 0.02 B-Natriuretic Peptide 1664.38 H Total Protein 6.6 Albumin 3.4 TSH Free T4 Urine Color Urine Appearance Urine pH Ur Specific [place] Urine Protein Urine Glucose (UA) Urine Ketones Urine Blood Urine Nitrite Urine Bilirubin Urine Urobilinogen Ur Leukocyte Esterase Urine WBC (Auto) Urine RBC (Auto) Ur Epithelial Cells Hyaline Casts Urine Mucus 10/07/17 10/07/17 10/08/17 18:40 22:25 03:55 WBC RBC Hgb Hct MCV MCH MCHC RDW Plt Count MPV Absolute Neuts (auto) Neutrophils % Lymphocytes % Monocytes % Eosinophils % Basophils % Nucleated RBC % PT with INR INR PTT (Actin FS) 29.4 55.9 H D Sodium Potassium Chloride Carbon Dioxide Anion Gap BUN Creatinine Creat Clearance w eGFR Random Glucose Calcium Phosphorus Magnesium Total Bilirubin AST ALT Alkaline Phosphatase Creatine Kinase Troponin I B-Natriuretic Peptide Total Protein Albumin TSH Free T4 Urine Color Straw Urine Appearance Clear Urine pH 5.0 Ur Specific [place] 1.008 Urine Protein Negative Urine Glucose (UA) Negative Urine Ketones Negative Urine Blood 1+ H Urine Nitrite Negative Urine Bilirubin Negative Urine Urobilinogen Negative Ur Leukocyte Esterase 1+ H D Urine WBC (Auto) 7 Urine RBC (Auto) 1 Ur Epithelial Cells Rare Hyaline Casts 3 Urine Mucus Rare 10/08/17 10/08/17 10/08/17 09:10 09:10 09:19 WBC 13.9 H RBC 4.96 Hgb 14.9 Hct 45.1 MCV 90.9 MCH 30.1 MCHC 33.1 RDW 14.3 Plt Count 277 MPV 9.3 D Absolute Neuts (auto) 10.6 Neutrophils % 76.4 Lymphocytes % 14.5 D Monocytes % 7.5 Eosinophils % 0.9 Basophils % 0.7 Nucleated RBC % 0 PT with INR INR PTT (Actin FS) Sodium 144 Potassium 3.9 Chloride 109 H Carbon Dioxide 23 Anion Gap 12 BUN 19 H Creatinine 0.7 Creat Clearance w eGFR > 60 Random Glucose 106 Calcium 9.1 Phosphorus 3.7 Cancelled Magnesium 2.1 Cancelled Total Bilirubin 0.7 AST 18 ALT 21 Alkaline Phosphatase 96 Creatine Kinase 72 Cancelled Troponin I < 0.02 Cancelled B-Natriuretic Peptide Total Protein 7.1 Albumin 3.5 TSH 0.84 Free T4 1.68 H Urine Color Urine Appearance Urine pH Ur Specific [place] Urine Protein Urine Glucose (UA) Urine Ketones Urine Blood Urine Nitrite Urine Bilirubin Urine Urobilinogen Ur Leukocyte Esterase Urine WBC (Auto) Urine RBC (Auto) Ur Epithelial Cells Hyaline Casts Urine Mucus Active Medications Generic Name Dose Route Start Last Admin Trade Name Freq PRN Reason Stop Dose Admin Atorvastatin Calcium 10 mg 10/07/17 22:00 10/08/17 00:05 Lipitor - PO Not Given HS CLAUDIA Chlorhexidine Gluconate 1 applic 10/08/17 22:00 Hibiclens For Decolonization - TP HS CLAUDIA Furosemide 40 mg 10/08/17 10:00 10/08/17 11:10 Lasix Injection - IVPUSH 40 mg DAILY CLAUDIA Administration Heparin Sodium (Porcine) 1,000 unit 10/07/17 20:17 Heparin - IVPUSH PRN PRN Heparin Heparin Sodium (Porcine) 5,000 unit 10/07/17 20:17 10/07/17 21:45 Heparin - IVPUSH 5,000 unit PRN PRN Administration Heparin Diltiazem HCl 125 mg/ Sodium 125 mls @ 5 mls/hr 10/07/17 20:15 10/08/17 04:10 Chloride IVPB 10 mg/hr TITR CLAUDIA 10 mls/hr Titration Protocol 5 MG/HR Heparin Sodium/Dextrose 25,000 units in 500 mls @ 20 mls/hr 10/07/17 20:30 21:45 Heparin Infusion - IVPB 1,000 units/hr TITR CLAUDIA 20 mls/hr Administration Protocol 1,000 UNITS/HR Isosorbide Mononitrate 30 mg 10/08/17 10:00 10/08/17 11:10 Imdur - PO 30 mg DAILY CLAUDIA Administration Levothyroxine Sodium 125 mcg 10/08/17 07:00 10/08/17 07:36 Synthroid - PO 125 mcg DAILY@0700 CLAUDIA Administration Meclizine HCl 25 mg 10/07/17 20:33 Antivert - PO Q8H PRN VERTIGO Metoprolol Succinate 25 mg 10/08/17 10:00 10/08/17 11:10 Toprol Xl - PO 25 mg DAILY CLAUDIA Administration Miconazole Nitrate 1 applic 10/08/17 10:00 Miconazole Nitrate TP BID CLAUDIA Mupirocin 1 applic 10/08/17 10:00 10/08/17 11:10 Bactroban Ointment (For Decolonization) - NS 10/13/17 09:59 1 applic BID CLAUDIA Administration ASSESSMENT/PLAN: 86 y/o f with PMH of HTN, hld, hypothyroid, glaucoma R eye, was sent by her on awake counselor for new onset of afib with sob. Cardio AFib, HTN IV Cardizem for rate control. 125 mls @ 5 mls/hr Cardizem 240 MG PO Daily---> Started today. Toprol Xl 25 mg PO DAILY Isosorbide Mononitrate 30 mg PO Daily Furosemide 40 mg IVPUSH ECHO today 10/08/17 ---> Possible small pericardial effusion vs anterior fat pad that is not well visualized. Left atrium mildly dilated. Right atrium mildly dilated. Mild mitral annular calcification. Mild tricuspid regurg, Trace aortic regurgiation. EKG 10/07/17---> AFIB W/ RVR. LEFT AXIS DEVIATION. INFERIOR INFARCT (OLD) Endo: Hypothyroidism Synthroid 125 mcg PO Daily FEN No Fluids Monitor Electrolytes Regular Diet DVT ppx: Heparin gtt Dispo: Continue to monitor in icu Visit type - Emergency Visit Emergency Visit: Yes ED Registration Date: 10/07/17 Care time: The patient presented to the Emergency Department on the above date and was hospitalized for further evaluation of their emergent condition. - New Patient This patient is new to me today: Yes Date on this admission: 10/08/17 - Critical Care Critical Care patient: Yes Total Critical Care Time (in minutes): 36 Critical Care Statement: The care of this patient involved high complexity decision making to prevent further life threatening deterioration of the patient 's condition and/or to evaluate & treat vital organ system(s) failure or risk of failure.
[2017-10-08] MEDS ORDERED: ACETAMINOPHEN 325 MG TABLET (FP) PO PRN (12:17)
--- NOTE | 2017-10-08 13:55 | EKG ---
Test Reason : Blood Pressure : / mmHG Vent. Rate : 145 BPM Atrial Rate : 147 BPM P-R Int : 000 ms QRS Dur : 064 ms QT Int : 312 ms P-R-T Axes : 000 -43 055 degrees QTc Int : 484 ms ATRIAL FIBRILLATION WITH RAPID VENTRICULAR RESPONSE LEFT AXIS DEVIATION INFERIOR INFARCT (CITED ON OR BEFORE 03-SEP-2012) ABNORMAL ECG Confirmed by Nadeem Dukes MD ([id number]) on 10/08/2017 1:55:20 PM Referred By: Confirmed By:Nadeem Dukes MD
--- NOTE | 2017-10-08 19:45 | PN ---
Progress Note (short form) - Note Progress Note: 86 year old female admitted with new onset atrial fibrillation with rapid ventricular response and acute LV failure, known case of hypertension/HCVD, hypercholesterolemia and h/o hypothyroidism. No further SOB, no chest pain or discomfort. In atrial fib/flutter with controlled ventricular response. Active Medications Acetaminophen (Tylenol -) 325 mg PO Q4H PRN PRN Reason: PAIN LEVEL 6-10 Last Admin: 10/08/17 12:48 Dose: 325 mg Atorvastatin Calcium (Lipitor -) 10 mg PO HS [facility] Last Admin: 10/08/17 00:05 Dose: Not Given Chlorhexidine Gluconate (Hibiclens For Decolonization -) 1 applic TP HS [facility] Diltiazem HCl (Cardizem Cd -) 240 mg PO DAILY [facility] Last Admin: 10/08/17 12:47 Dose: 240 mg Furosemide (Lasix Injection -) 40 mg IVPUSH DAILY [facility] Last Admin: 10/08/17 11:10 Dose: 40 mg Heparin Sodium (Porcine) (Heparin -) 1,000 unit IVPUSH PRN PRN PRN Reason: Heparin Heparin Sodium (Porcine) (Heparin -) 5,000 unit IVPUSH PRN PRN PRN Reason: Heparin Last Admin: 10/07/17 21:45 Dose: 5,000 unit Diltiazem HCl 125 mg/ Sodium (Chloride) 125 mls @ 5 mls/hr IVPB TITR [facility]; Protocol Last Titration: 10/08/17 18:05 Dose: 12 mg/hr, 12 mls/hr Heparin Sodium/Dextrose (Heparin Infusion -) 25,000 units in 500 mls @ 20 mls/ hr IVPB TITR [facility]; Protocol Last Admin: 10/07/17 21:45 Dose: 1,000 units/hr, 20 mls/hr Isosorbide Mononitrate (Imdur -) 30 mg PO DAILY [facility] Last Admin: 10/08/17 11:10 Dose: 30 mg Levothyroxine Sodium (Synthroid -) 125 mcg PO DAILY@0700 [facility] Last Admin: 10/08/17 07:36 Dose: 125 mcg Meclizine HCl (Antivert -) 25 mg PO Q8H PRN PRN Reason: VERTIGO Metoprolol Succinate (Toprol Xl -) 25 mg PO DAILY [facility] Last Admin: 10/08/17 11:10 Dose: 25 mg Miconazole Nitrate (Miconazole Nitrate) 1 applic TP BID [facility] Last Admin: 10/08/17 12:00 Dose: Not Given Mupirocin (Bactroban Ointment (For Decolonization) -) 1 applic NS BID [facility] Stop: 10/13/17 09:59 Last Admin: 10/08/17 11:10 Dose: 1 applic 86 year old female in no acute distress, no pallor, no cyanosis, clubbing or jaundice. Last Vital Signs Temp Pulse Resp BP Pulse Ox 98.7 F 61 irregularly irregular 20 114/86 99 10/08/17 16:22 10/08/17 19:00 10/08/17 19:00 10/08/17 19:00 10/08/17 10:00 Intake & Output 10/05/17 10/06/17 10/07/17 10/08/17 23:59 23:59 23:59 23:59 Intake Total 110 Output Total 1999 Balance -1890 Weight 216 lb 214 lb 8 oz NECK: supple, no JVD, -ve HJR, carotids 2+, no bruits appreciated. HEART: PMI, not localised, no heaves or thrills. S1 is variable, S2 normal. grade I/ MAI at 2nd Rt. ICS, no diastolic murmur or gallops heard. LUNGS; Clear on auscultation. ABDOMEN: Soft, obese and nontender, no organomegaly or palppable masses felt. EXTERMITIES: No calf tenderness ot dependent edema. CBC, BMP 10/08/17 09:10 10/08/17 09:10 IMPRESSION: 1. New onset atrial fib, currently in controlled ventricular response. 2. Acute LV failure ppted by rapid vent. response. 3. Hypertension/HCVD. 4. Hypothyroidism, on relpacement therapy. RECOMMENDATIONS: 1.Would recommend coumadization rather than NOACs in this elderly and extremely obese lady. 2.Taper off IV cardizem starting in AM and metropolol, provided the ventricular response is controlled. 3.OOB in chair. 4.F/u EKG and BMP in am. Time Spent 45mins.
[2017-10-08] MEDS: DILTIAZEM INJECTION 125 MG in SODIUM CHLORIDE 100 ML IVPB SCH (20:25)
[2017-10-08] MEDS: HEPARIN INFUSION - 25,000 UNITS/500 ML INFUS.BAG IVPB SCH (20:29)
[2017-10-08] MEDS ORDERED: CHLORHEXIDINE GLUCONATE 4% CLEANSER FOR DECOLONIZATION TP SCH (22:00)
--- NOTE | 2017-10-09 00:13 | CONSULT ---
Consult Consult Specialty:: endocrine Referred by:: pcp Reason for Consultation:: hypothyroidism/ abnormal tfts - History of Present Illness Chief Complaint: palpitation History of Present Illness: 86 y/o f with PMH of HTN, hld, hypothyroid, glaucoma R eye, admitted with new onset of afib and dyspnea.she had been feeling lightheaded and sob occasionally , which is progressively getting worse , she sleeps with one pillow. Denies palpitations, chest pain, swelling in legs. Denies change in frequency and burning micturation, denies change in weight, or diarrhoea, she takes thyroid medication daily,. States she is complaint with her meds. Denies fever and chills. - History Source History Provided By: Patient - Past Medical History Cardio/Vascular: Yes: CAD, HTN Endocrine: Yes: Hypothyroidism - Past Surgical History Past Surgical History: Yes: Hernia Repair - Alcohol/Substance Use Hx Alcohol Use: No - Smoking History Smoking history: Never smoked Have you smoked in the past 12 months: No Aproximately how many cigarettes per day: 0 Home Medications - Allergies Allergies/Adverse Reactions: Allergies Allergy/AdvReac Type Severity Reaction Status Date / Time No Known Allergies Allergy Verified 07/12/15 10:25 - Home Medications Home Medications: Ambulatory Orders Amlodipine Besylate/Benazepril [Lotrel 5-20 mg Capsule] 20 mg PO BID 09/03/12 Ca Cmb No.1/Vit D3/B-6/FA/B12 [Vitamin D3 1,000 Unit Tablet] 1 each PO DAILY Calcium Carbonate/Vitamin D3 [[place] 500-Vit D3 200 Tablet] 1 each PO DAILY 09/03 Cyanocobalamin/FA/Pyridoxine [B Complex-Folic Acid Tablet] 1 each PO DAILY 09/03 Isosorbide Mononitrate [Isosorbide Mononitrate ER] 30 mg PO DAILY 09/03/12 Levothyroxine [Synthroid -] 125 mcg PO DAILY 09/03/12 Meclizine HCl [Antivert -] 25 mg PO TID PRN #20 tablet 09/03/12 Metoprolol Succinate [Toprol XL -] 25 mg PO DAILY 09/03/12 Pitavastatin Calcium [Livalo] 2 mg PO DAILY 09/03/12 Review of Systems - Review of Systems Constitutional: reports: Lethargy, Weakness Eyes: reports: No Symptoms HENT: reports: No Symptoms Neck: reports: No Symptoms Cardiovascular: reports: Shortness of Breath Respiratory: reports: Exercise Intolerance, SOB on Exertion Gastrointestinal: reports: Bloating Breasts: reports: No Symptoms Reported Musculoskeletal: reports: Muscle Weakness Endocrine: reports: Unexplained Weight Gain Physical Exam Vital Signs: Vital Signs Temperature 98.7 F 10/08/17 16:22 Pulse Rate 78 10/08/17 20:25 Respiratory Rate 20 10/08/17 19:00 Blood Pressure 110/58 10/08/17 20:25 O2 Sat by Pulse Oximetry (%) 99 10/08/17 22:00 Constitutional: Yes: Calm Eyes: Yes: EOM Intact HENT: Yes: Normocephalic Neck: Yes: Trachea Midline Cardiovascular: Yes: Pulse Irregular Respiratory: Yes: CTA Bilaterally Gastrointestinal: Yes: Normal Bowel Sounds ...Rectal Exam: Yes: Deferred Renal/: Yes: WNL Musculoskeletal: Yes: WNL Extremities: Yes: WNL Neurological: Yes: Alert, Oriented Labs: CBC, BMP 10/08/17 09:10 10/08/17 09:10 Problem List - Problems (1) Hypothyroidism Code(s): E03.9 - HYPOTHYROIDISM, UNSPECIFIED (2) New onset atrial fibrillation Code(s): I48.91 - UNSPECIFIED ATRIAL FIBRILLATION (3) Fall at home Code(s): W19.XXXA - UNSPECIFIED FALL, INITIAL ENCOUNTER; Y92.099 - UNSP PLACE IN [facility]IT[facility]IDENCE PL[facility] Qualifiers: Encounter type: initial encounter Qualified Code(s): W19.XXXA - Unspecified fall, initial encounter (4) Traumatic hematoma of forehead Code(s): S00.83XA - CONTUSION OF OTHER PART OF HEAD, INITIAL ENCOUNTER Qualifiers: Encounter type: initial encounter Qualified Code(s): S00.83XA - Contusion of other part of head, initial encounter (5) Vertigo Code(s): R42 - DIZZINESS AND GIDDINESS Assessment/Plan Current Active Problems hypothyroidism elise \ abnormal tfts likely euthyoid Abnormal Lab Results 10/08/17 10/08/17 10/08/17 03:55 09:10 09:10 WBC 13.9 H PTT (Actin FS) 55.9 H D Chloride 109 H BUN 19 H Free T4 1.68 H New onset atrial fibrillation (Acute) plan: reduce synthroid dose 100mcg give dose am alone
[2017-10-09 05:52] LABS: BASO % 0.4 % (0-2.0); EOS % 1.3 % (0-4.5); HEMATOCRIT 41.3 % (32.4-45.2); HEMOGLOBIN 13.7 GM/dL (10.7-15.3); LYMPH % 13.7 % (8-40); MCHC 33.3 g/dl (32.0-36.0); MEAN CELL VOLUME 90.2 fl (80-96); NEUT % 75.6 % (42.8-82.8); PLATELET COUNT 254 K/MM3 (134-434); RBC 4.58 M/mm3 (3.60-5.2); RDW 14.3 % (11.6-15.6); WHITE BLOOD COUNT 10.5 K/mm3 (4.0-10.0)
[2017-10-09 06:00] LABS: INR 1.14 (0.82-1.09); PROTHROMBIN TIME (PATIENT) 12.9 SEC (9.7-13.0)
[2017-10-09 06:14] LABS: ANION GAP 7 (8-16); BLOOD UREA NITROGEN 21 mg/dL (7-18); CALCIUM 8.4 mg/dL (8.5-10.1); CHLORIDE 105 mmol/L (98-107); CO2 29 mmol/L (21-32); GLUCOSE,RANDOM 108 mg/dL (74-106); POTASSIUM 3.6 mmol/L (3.5-5.1); SODIUM 141 mmol/L (136-145)
[2017-10-09 06:18] LABS: ALK PHOS 90 U/L (45-117); BILIRUBIN,TOTAL 0.5 mg/dL (0.2-1.0); CREATININE 0.7 mg/dL (0.55-1.02); PHOSPHOROUS 4.3 mg/dL (2.5-4.9); SGOT/AST 13 U/L (15-37); SGPT/ALT 21 U/L (12-78); TOT PROT 6.2 g/dl (6.4-8.2)
[2017-10-09] MEDS ORDERED: LEVOTHYROXINE NA 100 MCG TABLET (FP) PO SCH (07:00)
--- NOTE | 2017-10-09 07:08 | PN ---
Progress Note, Physician Chief Complaint: in ICU still tachycardic but HR better no CP/SOB; occasional palpitations no dizziness no BM x 2 days pt does not want any meds at this point, said she will drink water and eat fruits; no N/V/C/D/ abdominal pain. - Current Medication List Current Medications: Active Medications Acetaminophen (Tylenol -) 325 mg PO Q4H PRN PRN Reason: PAIN LEVEL 6-10 Last Admin: 10/08/17 12:48 Dose: 325 mg Atorvastatin Calcium (Lipitor -) 10 mg PO HS [facility] Last Admin: 10/08/17 22:16 Dose: 10 mg Chlorhexidine Gluconate (Hibiclens For Decolonization -) 1 applic TP HS [facility] Last Admin: 10/08/17 22:17 Dose: 1 applic Diltiazem HCl (Cardizem Cd -) 240 mg PO DAILY [facility] Last Admin: 10/08/17 12:47 Dose: 240 mg Furosemide (Lasix Injection -) 40 mg IVPUSH DAILY [facility] Last Admin: 10/08/17 11:10 Dose: 40 mg Heparin Sodium (Porcine) (Heparin -) 1,000 unit IVPUSH PRN PRN PRN Reason: Heparin Heparin Sodium (Porcine) (Heparin -) 5,000 unit IVPUSH PRN PRN PRN Reason: Heparin Last Admin: 10/07/17 21:45 Dose: 5,000 unit Heparin Sodium/Dextrose (Heparin Infusion -) 25,000 units in 500 mls @ 20 mls/ hr IVPB TITR [facility]; Protocol Last Admin: 10/08/17 20:29 Dose: 1,000 units/hr, 20 mls/hr Isosorbide Mononitrate (Imdur -) 30 mg PO DAILY [facility] Last Admin: 10/08/17 11:10 Dose: 30 mg Levothyroxine Sodium (Synthroid -) 100 mcg PO DAILY@0700 [facility] Last Admin: 10/09/17 06:44 Dose: 100 mcg Meclizine HCl (Antivert -) 25 mg PO Q8H PRN PRN Reason: VERTIGO Metoprolol Succinate (Toprol Xl -) 25 mg PO DAILY [facility] Last Admin: 10/08/17 11:10 Dose: 25 mg Miconazole Nitrate (Miconazole Nitrate) 1 applic TP BID [facility] Last Admin: 10/08/17 22:17 Dose: 1 applic Mupirocin (Bactroban Ointment (For Decolonization) -) 1 applic NS BID [facility] Stop: 10/13/17 09:59 Last Admin: 10/08/17 22:17 Dose: 1 applic - Objective Vital Signs: Vital Signs Temperature 98.8 F 10/09/17 06:00 Pulse Rate 69 10/09/17 06:00 Respiratory Rate 22 10/09/17 06:00 Blood Pressure 108/64 10/09/17 06:00 O2 Sat by Pulse Oximetry (%) 99 10/08/17 22:00 Constitutional: Yes: No Distress, Calm Eyes: Yes: Conjunctiva Clear HENT: Yes: Atraumatic Neck: Yes: Supple Cardiovascular: Yes: Tachycardia, Pulse Irregular. No: Regular Rate and Rhythm , JVD Respiratory: Yes: CTA Bilaterally Gastrointestinal: Yes: Soft. No: Distention, Tenderness Genitourinary: No: CVA Tenderness - Left, CVA Tenderness - Right Musculoskeletal: No: Joint Stiffness, Joint Swelling Extremities: No: Cold, Cool, Cyanosis Edema: No Integumentary: No: Rash, Venous Stasis Changes Neurological: Yes: WNL, Alert, Oriented ...Motor Strength: WNL Psychiatric: Yes: WNL, Alert, Oriented. 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 IV cardizem, IV heaprin admitted to ICU/CCU Pulm ICU f/u cardiology eval abNL TFT, adjust synthroid dose, endocrine eval constipation: high fiber diet; po water intake, if not better by tomorrow could add miralax/ colace check echocardiogram f/u labs and CXR d/w pt and staff prognosis guarded T luisito 36 min
[2017-10-09] MEDS: MICONAZOLE NITRATE 28 GM TUBE TP SCH ×2 (09:58→21:55)
[2017-10-09] MEDS: ISOSORBIDE MONONITRATE 30 MG TAB.SR.24H (FP) PO SCH (09:58)
[2017-10-09] MEDS: FUROSEMIDE 40 MG/4 ML INJECTABLE VIAL IVPUSH SCH (09:58)
[2017-10-09] MEDS: metoPROLOL SUCCINATE 25 MG TAB.SR.24H (FP) PO SCH (09:58)
[2017-10-09] MEDS: MUPIROCIN 2% TOPICAL OINTMENT FOR DECOLONIZATION NS SCH ×2 (09:59→21:54)
--- NOTE | 2017-10-09 10:28 | PN ---
Progress Note (short form) - Note Progress Note: 86 year old female admitted with new onset atrial fibrillation with rapid ventricular response and acute LV failure, known case of hypertension/HCVD, hypercholesterolemia and h/o hypothyroidism. Patient is out of bed in a chair, no SOB, chest pain or discomfort. Heart rate is well controlled. Patient has converted to sinus rhythm. Active Medications Acetaminophen (Tylenol -) 325 mg PO Q4H PRN PRN Reason: PAIN LEVEL 6-10 Last Admin: 10/08/17 12:48 Dose: 325 mg Atorvastatin Calcium (Lipitor -) 10 mg PO HS [facility] Last Admin: 10/08/17 22:16 Dose: 10 mg Chlorhexidine Gluconate (Hibiclens For Decolonization -) 1 applic TP HS [facility] Last Admin: 10/08/17 22:17 Dose: 1 applic Diltiazem HCl (Cardizem Cd -) 240 mg PO DAILY [facility] Last Admin: 10/09/17 09:58 Dose: 240 mg Furosemide (Lasix Injection -) 40 mg IVPUSH DAILY [facility] Last Admin: 10/09/17 09:58 Dose: 40 mg Heparin Sodium (Porcine) (Heparin -) 1,000 unit IVPUSH PRN PRN PRN Reason: Heparin Last Admin: 10/09/17 08:48 Dose: 1,000 unit Heparin Sodium (Porcine) (Heparin -) 5,000 unit IVPUSH PRN PRN PRN Reason: Heparin Last Admin: 10/07/17 21:45 Dose: 5,000 unit Heparin Sodium/Dextrose (Heparin Infusion -) 25,000 units in 500 mls @ 20 mls/ hr IVPB TITR [facility]; Protocol Last Titration: 10/09/17 08:30 Dose: 1,100 units/hr, 22 mls/hr Isosorbide Mononitrate (Imdur -) 30 mg PO DAILY [facility] Last Admin: 10/09/17 09:58 Dose: 30 mg Levothyroxine Sodium (Synthroid -) 100 mcg PO DAILY@0700 [facility] Last Admin: 10/09/17 06:44 Dose: 100 mcg Meclizine HCl (Antivert -) 25 mg PO Q8H PRN PRN Reason: VERTIGO Metoprolol Succinate (Toprol Xl -) 25 mg PO DAILY [facility] Last Admin: 10/09/17 09:58 Dose: 25 mg Miconazole Nitrate (Miconazole Nitrate) 1 applic TP BID [facility] Last Admin: 10/09/17 09:58 Dose: 1 applic Mupirocin (Bactroban Ointment (For Decolonization) -) 1 applic NS BID [facility] Stop: 10/13/17 09:59 Last Admin: 10/09/17 09:59 Dose: 1 applic 86 year old female in no acute distress, no pallor, no cyanosis, clubbing or jaundice. Last Vital Signs Temp Pulse Resp BP Pulse Ox 98.8 F 74 Irregularly Irregular 18 112/56 99 10/09/17 10:00 10/09/17 10:00 10/09/17 10:00 10/09/17 10:00 10/08/17 22:00 Intake & Output 10/06/17 10/07/17 10/08/17 10/09/17 23:59 23:59 23:59 23:59 Intake Total 210 550 Output Total 1999 Balance -1790 550 Weight 216 lb 214 lb 8 oz 212 lb 8 oz NECK: supple, no JVD, -ve HJR, carotids 2+, no bruits appreciated. HEART: PMI, not localized, no heaves or thrills. S1 and S2 normal. grade I/ systolic ejection murmur at 2nd right intercostal space no diastolic murmur or gallops heard. LUNGS; Clear on auscultation. ABDOMEN: Soft, obese and non-tender, no organomegaly or palpable masses felt. EXTREMITIES: No calf tenderness ot dependent edema. CBC, BMP 10/09/17 05:30 10/09/17 05:30 Laboratory Results - last 24 hr 10/08/17 10/08/17 10/09/17 09:10 09:10 05:30 WBC RBC Hgb Hct MCV MCH MCHC RDW Plt Count MPV Absolute Neuts (auto) Neutrophils % Lymphocytes % Monocytes % Eosinophils % Basophils % Nucleated RBC % PT with INR INR PTT (Actin FS) 44.3 H Sodium 144 Potassium 3.9 Chloride 109 H Carbon Dioxide 23 Anion Gap 12 BUN 19 H Creatinine 0.7 Creat Clearance w eGFR > 60 Random Glucose 106 Calcium 9.1 Phosphorus 3.7 Magnesium 2.1 Total Bilirubin 0.7 AST 18 ALT 21 Alkaline Phosphatase 96 Creatine Kinase 72 Troponin I < 0.02 Total Protein 7.1 Albumin 3.5 TSH 0.84 Free T4 1.68 H Free T3 2.4 10/09/17 10/09/17 10/09/17 05:30 05:30 05:30 WBC 10.5 H RBC 4.58 Hgb 13.7 Hct 41.3 MCV 90.2 MCH 30.0 MCHC 33.3 RDW 14.3 Plt Count 254 MPV 9.0 Absolute Neuts (auto) 7.9 Neutrophils % 75.6 Lymphocytes % 13.7 Monocytes % 9.0 Eosinophils % 1.3 Basophils % 0.4 Nucleated RBC % 0 PT with INR 12.90 INR 1.14 PTT (Actin FS) Sodium 141 Potassium 3.6 Chloride 105 Carbon Dioxide 29 Anion Gap 7 L BUN 21 H Creatinine 0.7 Creat Clearance w eGFR > 60 Random Glucose 108 H Calcium 8.4 L Phosphorus 4.3 Magnesium 2.0 Total Bilirubin 0.5 AST 13 L ALT 21 Alkaline Phosphatase 90 Creatine Kinase Troponin I Total Protein 6.2 L Albumin 3.0 L TSH Free T4 Free T3 IMPRESSION: 1. Paroxysmal atrial fibrillation, currently in controlled ventricular response. 2. Acute LV failure (resolved). Secondary to atrial fibrillation with rapid ventricular response. 3. Hypertension/HCVD. 4. Hypothyroidism, on replacement therapy. RECOMMENDATIONS: 1. Would recommend coumadization rather than NOACs in this elderly lady. 2. Repeat ECG. 3. Daily weight. 4. Could be transferred to telemetry. Documentation provided by Torrie Carr, acting as a medical record assistant for Herberth Martínez MD. Problem List - Problems (1) Hypertension Code(s): I10 - ESSENTIAL (PRIMARY) HYPERTENSION (2) Hypothyroidism Code(s): E03.9 - HYPOTHYROIDISM, UNSPECIFIED (3) New onset atrial fibrillation Code(s): I48.91 - UNSPECIFIED ATRIAL FIBRILLATION (4) Congestive heart failure Code(s): I50.9 - HEART FAILURE, UNSPECIFIED (5) Acute left ventricular failure Code(s): I50.1 - LEFT VENTRICULAR FAILURE, UNSPECIFIED (6) Mitral valve replaced Code(s): Z95.2 - PRESENCE OF PROSTHETIC HEART VALVE
[2017-10-09 11:10] VITALS: BMI 34.2
--- NOTE | 2017-10-09 11:30 | PN ---
Teaching Attending Note Name of Resident: Dilshad Ricketts ATTENDING PHYSICIAN STATEMENT I saw and evaluated the patient. I reviewed the resident's note and discussed the case with the resident. I agree with the resident's findings and plan as documented. SUBJECTIVE: Patient seen and examined in the ICU. Awake and alert. Reports breathing is better. Now in NSR. No CP. Currently off IV Cardizem. CXR: Improving CHF pattern Intake & Output 10/06/17 10/07/17 10/08/17 10/09/17 23:59 23:59 23:59 23:59 Intake Total 210 550 Output Total 1999 Balance -1790 550 Weight 216 lb 214 lb 8 oz 212 lb Last Vital Signs Temp Pulse Resp BP Pulse Ox 98.8 F 74 18 112/56 99 10/09/17 10:00 10/09/17 10:00 10/09/17 10:00 10/09/17 10:00 10/08/17 22:00 Active Medications Acetaminophen (Tylenol -) 325 mg PO Q4H PRN PRN Reason: PAIN LEVEL 6-10 Last Admin: 10/08/17 12:48 Dose: 325 mg Atorvastatin Calcium (Lipitor -) 10 mg PO HS [facility] Last Admin: 10/08/17 22:16 Dose: 10 mg Chlorhexidine Gluconate (Hibiclens For Decolonization -) 1 applic TP HS [facility] Last Admin: 10/08/17 22:17 Dose: 1 applic Diltiazem HCl (Cardizem Cd -) 240 mg PO DAILY [facility] Last Admin: 10/09/17 09:58 Dose: 240 mg Furosemide (Lasix Injection -) 40 mg IVPUSH DAILY [facility] Last Admin: 10/09/17 09:58 Dose: 40 mg Heparin Sodium (Porcine) (Heparin -) 1,000 unit IVPUSH PRN PRN PRN Reason: Heparin Last Admin: 10/09/17 08:48 Dose: 1,000 unit Heparin Sodium (Porcine) (Heparin -) 5,000 unit IVPUSH PRN PRN PRN Reason: Heparin Last Admin: 10/07/17 21:45 Dose: 5,000 unit Heparin Sodium/Dextrose (Heparin Infusion -) 25,000 units in 500 mls @ 20 mls/ hr IVPB TITR [facility]; Protocol Last Titration: 10/09/17 08:30 Dose: 1,100 units/hr, 22 mls/hr Isosorbide Mononitrate (Imdur -) 30 mg PO DAILY [facility] Last Admin: 10/09/17 09:58 Dose: 30 mg Levothyroxine Sodium (Synthroid -) 100 mcg PO DAILY@0700 [facility] Last Admin: 10/09/17 06:44 Dose: 100 mcg Meclizine HCl (Antivert -) 25 mg PO Q8H PRN PRN Reason: VERTIGO Metoprolol Succinate (Toprol Xl -) 25 mg PO DAILY [facility] Last Admin: 10/09/17 09:58 Dose: 25 mg Miconazole Nitrate (Miconazole Nitrate) 1 applic TP BID [facility] Last Admin: 10/09/17 09:58 Dose: 1 applic Mupirocin (Bactroban Ointment (For Decolonization) -) 1 applic NS BID [facility] Stop: 10/13/17 09:59 Last Admin: 10/09/17 09:59 Dose: 1 applic Warfarin Sodium (Coumadin -) 7.5 mg PO DAILY@1800 [facility] GENERAL: Awake, alert, and fully oriented, in no acute distress. HEAD: Normal with no signs of trauma. EYES: chronic swelling of right eye NECK: Normal range of motion, supple without lymphadenopathy, JVD, or masses. LUNGS: Bibasilar rales, no wheeze. No accessory muscle use. HEART: Regular S1S2, no murmur ABDOMEN: Soft, nontender, not distended, normoactive bowel sounds, no guarding, no rebound, no masses. UPPER EXTREMITIES: 2+ pulses, warm, well-perfused. No cyanosis. LOWER EXTREMITIES: 2+ pulses, warm, well-perfused. No calf tenderness. peripheral edema 1+ PSYCHIATRIC: Cooperative. Good eye contact. Appropriate mood and affect. SKIN: Warm, dry, Laboratory Results - last 24 hr 10/08/17 10/09/17 10/09/17 09:10 05:30 05:30 WBC 10.5 H RBC 4.58 Hgb 13.7 Hct 41.3 MCV 90.2 MCH 30.0 MCHC 33.3 RDW 14.3 Plt Count 254 MPV 9.0 Absolute Neuts (auto) 7.9 Neutrophils % 75.6 Lymphocytes % 13.7 Monocytes % 9.0 Eosinophils % 1.3 Basophils % 0.4 Nucleated RBC % 0 PT with INR INR PTT (Actin FS) 44.3 H Sodium Potassium Chloride Carbon Dioxide Anion Gap BUN Creatinine Creat Clearance w eGFR Random Glucose Calcium Phosphorus Magnesium Total Bilirubin AST ALT Alkaline Phosphatase Total Protein Albumin Free T3 2.4 10/09/17 10/09/17 05:30 05:30 WBC RBC Hgb Hct MCV MCH MCHC RDW Plt Count MPV Absolute Neuts (auto) Neutrophils % Lymphocytes % Monocytes % Eosinophils % Basophils % Nucleated RBC % PT with INR 12.90 INR 1.14 PTT (Actin FS) Sodium 141 Potassium 3.6 Chloride 105 Carbon Dioxide 29 Anion Gap 7 L BUN 21 H Creatinine 0.7 Creat Clearance w eGFR > 60 Random Glucose 108 H Calcium 8.4 L Phosphorus 4.3 Magnesium 2.0 Total Bilirubin 0.5 AST 13 L ALT 21 Alkaline Phosphatase 90 Total Protein 6.2 L Albumin 3.0 L Free T3 ASSESSMENT/PLAN: New onset AFib Pulmonary edema. HTN HPL Hypothyroidism Glaucoma Plan Titrate PO meds for rate control AC with heparin drip / coumadin bridge Daily weight. Strict I & O O2 to maintain saturation Cardiac Telemetry monitoring Dr Ruvalcaba Critical care time spent in reviewing chart, evaluating patient and formulating plan - 36 minutes.
--- NOTE | 2017-10-09 13:01 | EKG ---
Test Reason : Blood Pressure : / mmHG Vent. Rate : 074 BPM Atrial Rate : 074 BPM P-R Int : 202 ms QRS Dur : 070 ms QT Int : 428 ms P-R-T Axes : 071 -32 044 degrees QTc Int : 475 ms NORMAL SINUS RHYTHM LEFT AXIS DEVIATION INFERIOR INFARCT (CITED ON OR BEFORE 03-SEP-2012) ABNORMAL ECG WHEN COMPARED WITH ECG OF 07-OCT-2017 18:20, SINUS RHYTHM HAS REPLACED ATRIAL FIBRILLATION VENT. RATE HAS DECREASED BY 71 BPM PATIENT SITTING IN CHAIR DURING EKG Confirmed by JARROD RUBIO, LEWIS ([id number]) on 10/09/2017 1:01:15 PM Referred By: Halle TABARES Confirmed By:LEWIS GARAY MD
[2017-10-09] MEDS ORDERED: MECLIZINE HCL 25 MG TABLET (FP) PO PRN (16:49)
[2017-10-09] MEDS ORDERED: ACETAMINOPHEN 325 MG TABLET (FP) PO PRN (16:49)
[2017-10-09] MEDS ORDERED: HEPARIN NA (PORCINE) 5,000 UNITS/ML 1ML VIAL IVPUSH PRN ×4 (16:49)
[2017-10-09] MEDS: HEPARIN INFUSION - 25,000 UNITS/500 ML INFUS.BAG IVPB SCH (17:34)
[2017-10-09] MEDS ORDERED: WARFARIN NA 7.5 MG TABLET (FP) PO SCH ×2 (18:00)
--- NOTE | 2017-10-09 19:04 | PN ---
Physical Exam: SUBJECTIVE: Patient seen and examined OBJECTIVE: Pt seen and examined this am and evening in icu. Pt laying in bed w/ daughter at bedside. In very bright spirits. Complaining of food not having enough salt. Denies any cp, magallon, nausea, fever, sob. Vital Signs Period Temp Pulse Resp BP Sys/[place] Pulse Ox Last 24 Hr 98 F-98.8 F 61-78 18-24 86-128/47-86 99-99 GENERAL: AAOx3. Resting in bed comfortably. HEAD: NC/AT EYES: RIGHT EYE ERYTHEMA, GLAUCOMA. ENT: MMM NECK: No JVD. LUNGS: Decreased BS at bases. HEART: Irregular. ABDOMEN: Nt, ND, No HSM. EXTREMITIES: No CCE. NEUROLOGICAL: No Neuro Deficits PSYCH: Normal mood, normal affect. SKIN: Warm, no edema. Laboratory Results - last 24 hr 10/08/17 10/09/17 10/09/17 09:10 05:30 05:30 WBC 10.5 H RBC 4.58 Hgb 13.7 Hct 41.3 MCV 90.2 MCH 30.0 MCHC 33.3 RDW 14.3 Plt Count 254 MPV 9.0 Absolute Neuts (auto) 7.9 Neutrophils % 75.6 Lymphocytes % 13.7 Monocytes % 9.0 Eosinophils % 1.3 Basophils % 0.4 Nucleated RBC % 0 PT with INR INR PTT (Actin FS) 44.3 H Sodium Potassium Chloride Carbon Dioxide Anion Gap BUN Creatinine Creat Clearance w eGFR Random Glucose Calcium Phosphorus Magnesium Total Bilirubin AST ALT Alkaline Phosphatase Total Protein Albumin Free T3 2.4 10/09/17 10/09/17 10/09/17 05:30 05:30 15:20 WBC RBC Hgb Hct MCV MCH MCHC RDW Plt Count MPV Absolute Neuts (auto) Neutrophils % Lymphocytes % Monocytes % Eosinophils % Basophils % Nucleated RBC % PT with INR 12.90 INR 1.14 PTT (Actin FS) 56.8 H Sodium 141 Potassium 3.6 Chloride 105 Carbon Dioxide 29 Anion Gap 7 L BUN 21 H Creatinine 0.7 Creat Clearance w eGFR > 60 Random Glucose 108 H Calcium 8.4 L Phosphorus 4.3 Magnesium 2.0 Total Bilirubin 0.5 AST 13 L ALT 21 Alkaline Phosphatase 90 Total Protein 6.2 L Albumin 3.0 L Free T3 Active Medications Generic Name Dose Route Start Last Admin Trade Name Freq PRN Reason Stop Dose Admin Acetaminophen 325 mg 10/09/17 16:49 Tylenol - PO Q4H PRN PAIN LEVEL 6-10 Atorvastatin Calcium 10 mg 10/09/17 22:00 Lipitor - PO HS [facility] Chlorhexidine Gluconate 1 applic 10/09/17 22:00 Hibiclens For Decolonization - TP HS [facility] Diltiazem HCl 240 mg 10/10/17 10:00 Cardizem Cd - PO DAILY [facility] Furosemide 40 mg 10/10/17 10:00 Lasix Injection - IVPUSH DAILY [facility] Heparin Sodium (Porcine) 1,000 unit 10/09/17 16:49 Heparin - IVPUSH PRN PRN Heparin Heparin Sodium (Porcine) 5,000 unit 10/09/17 16:49 Heparin - IVPUSH PRN PRN Heparin Heparin Sodium/Dextrose 25,000 units in 500 mls @ 20 mls/hr 10/09/17 16:49 17:34 Heparin Infusion - IVPB 1,100 units/hr TITR [facility] 22 mls/hr Administration Protocol 1,000 UNITS/HR Isosorbide Mononitrate 30 mg 10/10/17 10:00 Imdur - PO DAILY [facility] Levothyroxine Sodium 100 mcg 10/10/17 07:00 Synthroid - PO DAILY@0700 [facility] Meclizine HCl 25 mg 10/09/17 16:49 Antivert - PO Q8H PRN [facility]O Metoprolol Succinate 25 mg 10/10/17 10:00 Toprol Xl - PO DAILY [facility] Miconazole Nitrate 1 applic 10/09/17 22:00 Miconazole Nitrate TP BID [facility] Mupirocin 1 applic 10/09/17 22:00 Bactroban Ointment (For Decolonization) - NS 10/13/17 09:59 BID [facility] Warfarin Sodium 7.5 mg 10/09/17 18:00 10/09/17 17:33 Coumadin - PO 7.5 mg DAILY@1800 [facility] Administration ASSESSMENT/PLAN: 86 y/o f with PMH of HTN, hld, hypothyroid, glaucoma R eye, was sent by her hair spring cutter for new onset of afib with sob. Cardio AFib, HTN IV Cardizem for rate control. 125 mls @ 5 mls/hr Cardizem 240 MG PO Daily---> Started today. Toprol Xl 25 mg PO DAILY Isosorbide Mononitrate 30 mg PO Daily Furosemide 40 mg IVPUSH EKG Today 10/09/17---> Left [place] Deviation, Inferior Infarct ( on/before 09/03/12) , Sinus rythm has replaced AFIB, Vent rate decreased by 71 BPM. TODAY---> Pt being bridged from heparin to warfarin per Dr Martínez. Pt not good candidate for NOAC due to weight. Chest X-Ray today---> lung bases appear better aerated compared to xray 10/07. Again noted is large heart with prominent left perihilar markings. Endo: Hypothyroidism Synthroid 125 mcg PO Daily FEN No Fluids Monitor Electrolytes Regular Diet DVT ppx: Heparin gtt 25,000 units in 500 mls @ 20 mls/hr Dispo: Pt to be transferred to telemetry. Visit type - Emergency Visit Emergency Visit: Yes ED Registration Date: 10/07/17 Care time: The patient presented to the Emergency Department on the above date and was hospitalized for further evaluation of their emergent condition. - New Patient This patient is new to me today: No - Critical Care Critical Care patient: Yes Total Critical Care Time (in minutes): 35 Critical Care Statement: The care of this patient involved high complexity decision making to prevent further life threatening deterioration of the patient 's condition and/or to evaluate & treat vital organ system(s) failure or risk of failure.
[2017-10-09] MEDS ORDERED: ATORVASTATIN CA 10 MG TABLET (FP) PO SCH (22:00)
[2017-10-09] MEDS ORDERED: CHLORHEXIDINE GLUCONATE 4% CLEANSER FOR DECOLONIZATION TP SCH (22:00)
[2017-10-10 06:33] LABS: BASO % 0.5 % (0-2.0); EOS % 2.6 % (0-4.5); HEMATOCRIT 38.8 % (32.4-45.2); LYMPH % 16.1 % (8-40); MCH 30.4 pg (25.7-33.7); MCHC 33.6 g/dl (32.0-36.0); MEAN CELL VOLUME 90.5 fl (80-96); MEAN PLT VOLUME 9.2 fl (7.5-11.1); MONO % 9.7 % (3.8-10.2); NEUT % 71.1 % (42.8-82.8); PLATELET COUNT 226 K/MM3 (134-434); RBC 4.29 M/mm3 (3.60-5.2); RDW 13.7 % (11.6-15.6)
[2017-10-10 06:43] LABS: INR 1.16 (0.82-1.09); PROTHROMBIN TIME (PATIENT) 13.1 SEC (9.7-13.0)
[2017-10-10 06:54] LABS: ALBUMIN 2.8 g/dl (3.4-5.0); ANION GAP 7 (8-16); BILIRUBIN,TOTAL 0.6 mg/dL (0.2-1.0); BLOOD UREA NITROGEN 21 mg/dL (7-18); CALCIUM 8.5 mg/dL (8.5-10.1); CHLORIDE 104 mmol/L (98-107); CO2 30 mmol/L (21-32); CREATININE 0.7 mg/dL (0.55-1.02); GLUCOSE,RANDOM 92 mg/dL (74-106); PHOSPHOROUS 3.8 mg/dL (2.5-4.9); POTASSIUM 3.7 mmol/L (3.5-5.1); SGOT/AST 8 U/L (15-37); SGPT/ALT 18 U/L (12-78); SODIUM 141 mmol/L (136-145); TOT PROT 5.8 g/dl (6.4-8.2)
[2017-10-10 06:58] LABS: ALK PHOS 85 U/L (45-117)
[2017-10-10] MEDS ORDERED: LEVOTHYROXINE NA 100 MCG TABLET (FP) PO SCH (07:00)
--- NOTE | 2017-10-10 07:37 | PN ---
Progress Note, Physician Chief Complaint: in ICU on IV heparin, HR better controlled on po toprol and cardizem; started po coumadin, will f/u INR CXR c/w mild CHF; on lasix po still no BM; will add miralax - Current Medication List Current Medications: Active Medications Acetaminophen (Tylenol -) 325 mg PO Q4H PRN PRN Reason: PAIN LEVEL 6-10 Atorvastatin Calcium (Lipitor -) 10 mg PO HS [facility] Last Admin: 10/09/17 21:54 Dose: 10 mg Chlorhexidine Gluconate (Hibiclens For Decolonization -) 1 applic TP HS [facility] Last Admin: 10/09/17 21:55 Dose: 1 applic Diltiazem HCl (Cardizem Cd -) 240 mg PO DAILY [facility] Furosemide (Lasix Injection -) 40 mg IVPUSH DAILY [facility] Heparin Sodium (Porcine) (Heparin -) 1,000 unit IVPUSH PRN PRN PRN Reason: Heparin Heparin Sodium (Porcine) (Heparin -) 5,000 unit IVPUSH PRN PRN PRN Reason: Heparin Heparin Sodium/Dextrose (Heparin Infusion -) 25,000 units in 500 mls @ 20 mls/ hr IVPB TITR [facility]; Protocol Last Admin: 10/09/17 17:34 Dose: 1,100 units/hr, 22 mls/hr Isosorbide Mononitrate (Imdur -) 30 mg PO DAILY [facility] Levothyroxine Sodium (Synthroid -) 100 mcg PO DAILY@0700 [facility] Last Admin: 10/10/17 06:35 Dose: 100 mcg Meclizine HCl (Antivert -) 25 mg PO Q8H PRN PRN Reason: VERTIGO Metoprolol Succinate (Toprol Xl -) 25 mg PO DAILY [facility] Miconazole Nitrate (Miconazole Nitrate) 1 applic TP BID [facility] Last Admin: 10/09/17 21:55 Dose: 1 applic Mupirocin (Bactroban Ointment (For Decolonization) -) 1 applic NS BID [facility] Stop: 10/13/17 09:59 Last Admin: 10/09/17 21:54 Dose: 1 applic Warfarin Sodium (Coumadin -) 7.5 mg PO DAILY@1800 [facility] Last Admin: 10/09/17 17:33 Dose: 7.5 mg - Objective Vital Signs: Vital Signs Temperature 98.1 F 10/10/17 06:00 Pulse Rate 69 07/26/18 06:00 Respiratory Rate 19 10/10/17 06:00 Blood Pressure 109/51 10/10/17 06:00 O2 Sat by Pulse Oximetry (%) 99 10/08/17 22:00 Constitutional: Yes: No Distress, Calm Eyes: Yes: Conjunctiva Clear HENT: Yes: Atraumatic Neck: Yes: Supple Cardiovascular: Yes: Pulse Irregular. No: Regular Rate and Rhythm, Tachycardia Respiratory: Yes: Diminished Gastrointestinal: Yes: Soft. No: Distention, Tenderness Genitourinary: No: CVA Tenderness - Left, CVA Tenderness - Right Musculoskeletal: No: Joint Stiffness, Joint Swelling Extremities: No: Cold, Cool, Cyanosis, Deformity Edema: No Integumentary: No: Rash, Skin Tear Neurological: Yes: WNL, Alert, Oriented ...Motor Strength: WNL Psychiatric: Yes: WNL, Alert, Oriented. No: Agitated, Suicidal Ideation Labs: CBC, BMP 10/10/17 05:30 10/10/17 05:30 INR, PTT INR 1.16 (0.82-1.09) H 10/10/17 05:30 - ....Imaging Other: Report Reviewed Assessment/Plan 86F with a PMH of Vertigo, HTN, CAD, Hypothyroidism, who presents to the ER from her stand in's office for new onset rapid a-fib. IV cardizem, IV heparin admitted to ICU/CCU Pulm ICU f/u, cardiology f/u coumadin per INR; IV heparin meanwhile constipation: add miralax or colace echocardiogram noted f/u labs and CXR d/w pt and staff prognosis guarded T luisito 38 min
[2017-10-10] MEDS ORDERED: PT OWN MED DRAWER 7, Y5N ONE (09:02)
[2017-10-10] MEDS: MUPIROCIN 2% TOPICAL OINTMENT FOR DECOLONIZATION NS SCH (09:11)
[2017-10-10] MEDS: MICONAZOLE NITRATE 28 GM TUBE TP SCH ×2 (09:17→21:19)
[2017-10-10] MEDS ORDERED: FUROSEMIDE 40 MG/4 ML INJECTABLE VIAL IVPUSH SCH (10:00)
[2017-10-10] MEDS ORDERED: metoPROLOL SUCCINATE 25 MG TAB.SR.24H (FP) PO SCH (10:00)
[2017-10-10] MEDS ORDERED: ISOSORBIDE MONONITRATE 30 MG TAB.SR.24H (FP) PO SCH (10:00)
--- NOTE | 2017-10-10 10:33 | PN ---
Progress Note (short form) - Note Progress Note: 86 year old female admitted with new onset atrial fibrillation with rapid ventricular response and acute LV failure, known case of hypertension/HCVD, hypercholesterolemia and h/o hypothyroidism. No Palpitations, SOB, chest pain or discomfort. remains in sinus rhythm. Active Medications Acetaminophen (Tylenol -) 325 mg PO Q4H PRN PRN Reason: PAIN LEVEL 6-10 Atorvastatin Calcium (Lipitor -) 10 mg PO HS [facility] Last Admin: 10/09/17 21:54 Dose: 10 mg Chlorhexidine Gluconate (Hibiclens For Decolonization -) 1 applic TP HS [facility] Last Admin: 10/09/17 21:55 Dose: 1 applic Diltiazem HCl (Cardizem Cd -) 240 mg PO DAILY [facility] Last Admin: 10/10/17 09:12 Dose: 240 mg Furosemide (Lasix Injection -) 40 mg IVPUSH DAILY [facility] Last Admin: 10/10/17 09:12 Dose: 40 mg Heparin Sodium (Porcine) (Heparin -) 1,000 unit IVPUSH PRN PRN PRN Reason: Heparin Heparin Sodium (Porcine) (Heparin -) 5,000 unit IVPUSH PRN PRN PRN Reason: Heparin Heparin Sodium/Dextrose (Heparin Infusion -) 25,000 units in 500 mls @ 20 mls/ hr IVPB TITR [facility]; Protocol Last Admin: 10/09/17 17:34 Dose: 1,100 units/hr, 22 mls/hr Isosorbide Mononitrate (Imdur -) 30 mg PO DAILY [facility] Last Admin: 10/10/17 09:12 Dose: 30 mg Levothyroxine Sodium (Synthroid -) 100 mcg PO DAILY@0700 [facility] Last Admin: 10/10/17 06:35 Dose: 100 mcg Meclizine HCl (Antivert -) 25 mg PO Q8H PRN PRN Reason: VERTIGO Metoprolol Succinate (Toprol Xl -) 25 mg PO DAILY [facility] Last Admin: 10/10/17 09:14 Dose: 25 mg Miconazole Nitrate (Miconazole Nitrate) 1 applic TP BID [facility] Last Admin: 10/10/17 09:17 Dose: 1 applic Mupirocin (Bactroban Ointment (For Decolonization) -) 1 applic NS BID [facility] Stop: 10/13/17 09:59 Last Admin: 10/10/17 09:11 Dose: 1 applic Warfarin Sodium (Coumadin -) 7.5 mg PO DAILY@1800 [facility] Last Admin: 10/09/17 17:33 Dose: 7.5 mg 86 year old female in no acute distress, no pallor, no cyanosis, clubbing or jaundice. Last Vital Signs Temp Pulse Resp BP Pulse Ox 98.1 F 73 23 115/60 99 10/10/17 06:00 10/10/17 08:00 10/10/17 08:16 10/10/17 08:00 10/10/17 08:26 Intake & Output 10/07/17 10/08/17 10/09/17 10/10/17 23:59 23:59 23:59 23:59 Intake Total 210 1130 720 Output Total 1999 Balance -1790 1130 720 Weight 216 lb 214 lb 8 oz 212 lb 213 lb 6.519 oz NECK: supple, no JVD, -ve HJR, carotids 2+, no bruits appreciated. HEART: PMI, not localized, no heaves or thrills. S1 and S2 normal. grade I/ systolic ejection murmur at 2nd right intercostal space no diastolic murmur or gallops heard. LUNGS; Clear on auscultation. ABDOMEN: Soft, obese and non-tender, no organomegaly or palpable masses felt. EXTREMITIES: No calf tenderness ot dependent edema. CBC, BMP 10/10/17 05:30 10/10/17 05:30 INR, PTT INR 1.16 (0.82-1.09) H 10/10/17 05:30 IMPRESSION: 1. Paroxysmal atrial fib, currently in sinus rhythm. 2. Acute LV failure (resolved). Secondary to atrial fibrillation with rapid ventricular response. 3. Hypertension/HCVD. 4. Hypothyroidism, on replacement therapy. RECOMMENDATIONS: 1. Would recommend coumadization rather than NOACs in this elderly lady. 2. Repeat ECG. 3. Daily weight. 4. Awaiting transfer to telemetry. Problem List - Problems (1) Hypertension Code(s): I10 - ESSENTIAL (PRIMARY) HYPERTENSION (2) Hypothyroidism Code(s): E03.9 - HYPOTHYROIDISM, UNSPECIFIED (3) New onset atrial fibrillation Code(s): I48.91 - UNSPECIFIED ATRIAL FIBRILLATION (4) Congestive heart failure Code(s): I50.9 - HEART FAILURE, UNSPECIFIED (5) Acute left ventricular failure Code(s): I50.1 - LEFT VENTRICULAR FAILURE, UNSPECIFIED (6) Mitral valve replaced Code(s): Z95.2 - PRESENCE OF PROSTHETIC HEART VALVE
--- NOTE | 2017-10-10 13:32 | PN ---
Teaching Attending Note Name of Resident: Dilshad Ricketts ATTENDING PHYSICIAN STATEMENT I saw and evaluated the patient. I reviewed the resident's note and discussed the case with the resident. I agree with the resident's findings and plan as documented. SUBJECTIVE: Patient seen and examined in the ICU. Awake and alert. Reports breathing is better. Remains in NSR. No CP. CXR: Poor film quality / no gross change 2 Intake & Output 10/07/17 10/08/17 10/09/17 10/10/17 23:59 23:59 23:59 23:59 Intake Total 210 1130 720 Output Total 1999 Balance -1790 1130 720 Weight 216 lb 214 lb 8 oz 212 lb 213 lb 6.519 oz Last Vital Signs Temp Pulse Resp BP Pulse Ox 98.1 F 73 23 115/60 99 10/10/17 06:00 10/10/17 08:00 10/10/17 08:16 10/10/17 08:00 10/10/17 08:26 Active Medications Acetaminophen (Tylenol -) 325 mg PO Q4H PRN PRN Reason: PAIN LEVEL 6-10 Atorvastatin Calcium (Lipitor -) 10 mg PO HS [facility] Last Admin: 10/09/17 21:54 Dose: 10 mg Chlorhexidine Gluconate (Hibiclens For Decolonization -) 1 applic TP HS [facility] Last Admin: 10/09/17 21:55 Dose: 1 applic Diltiazem HCl (Cardizem Cd -) 240 mg PO DAILY [facility] Last Admin: 10/10/17 09:12 Dose: 240 mg Furosemide (Lasix Injection -) 40 mg IVPUSH DAILY [facility] Last Admin: 10/10/17 09:12 Dose: 40 mg Heparin Sodium (Porcine) (Heparin -) 1,000 unit IVPUSH PRN PRN PRN Reason: Heparin Heparin Sodium (Porcine) (Heparin -) 5,000 unit IVPUSH PRN PRN PRN Reason: Heparin Heparin Sodium/Dextrose (Heparin Infusion -) 25,000 units in 500 mls @ 20 mls/ hr IVPB TITR [facility]; Protocol Last Titration: 10/10/17 07:00 Dose: 1,200 units/hr, 24 mls/hr Isosorbide Mononitrate (Imdur -) 30 mg PO DAILY [facility] Last Admin: 10/10/17 09:12 Dose: 30 mg Levothyroxine Sodium (Synthroid -) 100 mcg PO DAILY@0700 [facility] Last Admin: 10/10/17 06:35 Dose: 100 mcg Meclizine HCl (Antivert -) 25 mg PO Q8H PRN PRN Reason: VERTIGO Metoprolol Succinate (Toprol Xl -) 25 mg PO DAILY [facility] Last Admin: 10/10/17 09:14 Dose: 25 mg Miconazole Nitrate (Miconazole Nitrate) 1 applic TP BID [facility] Last Admin: 10/10/17 09:17 Dose: 1 applic Mupirocin (Bactroban Ointment (For Decolonization) -) 1 applic NS BID [facility] Stop: 10/13/17 09:59 Last Admin: 10/10/17 09:11 Dose: 1 applic Warfarin Sodium (Coumadin -) 7.5 mg PO DAILY@1800 [facility] Last Admin: 10/09/17 17:33 Dose: 7.5 mg GENERAL: Awake, alert, and fully oriented, in no acute distress. HEAD: Normal with no signs of trauma. EYES: chronic swelling of right eye NECK: Normal range of motion, supple without lymphadenopathy, JVD, or masses. LUNGS: Bibasilar rales, no wheeze. No accessory muscle use. HEART: Regular S1S2, no murmur ABDOMEN: Soft, nontender, not distended, normoactive bowel sounds, no guarding, no rebound, no masses. UPPER EXTREMITIES: 2+ pulses, warm, well-perfused. No cyanosis. LOWER EXTREMITIES: 2+ pulses, warm, well-perfused. No calf tenderness. peripheral edema 1+ PSYCHIATRIC: Cooperative. Good eye contact. Appropriate mood and affect. SKIN: Warm, dry, Laboratory Results - last 24 hr 10/09/17 10/10/17 10/10/17 15:20 05:30 05:30 WBC RBC Hgb Hct MCV MCH MCHC RDW Plt Count MPV Absolute Neuts (auto) Neutrophils % Lymphocytes % Monocytes % Eosinophils % Basophils % Nucleated RBC % PT with INR 13.10 H INR 1.16 H PTT (Actin FS) 56.8 H 48.1 H Sodium Potassium Chloride Carbon Dioxide Anion Gap BUN Creatinine Creat Clearance w eGFR Random Glucose Calcium Phosphorus Magnesium Total Bilirubin AST ALT Alkaline Phosphatase Total Protein Albumin 10/10/17 10/10/17 05:30 05:30 WBC 10.0 RBC 4.29 Hgb 13.0 Hct 38.8 MCV 90.5 MCH 30.4 MCHC 33.6 RDW 13.7 Plt Count 226 MPV 9.2 Absolute Neuts (auto) 7.1 Neutrophils % 71.1 Lymphocytes % 16.1 Monocytes % 9.7 Eosinophils % 2.6 D Basophils % 0.5 Nucleated RBC % 0 PT with INR INR PTT (Actin FS) Sodium 141 Potassium 3.7 Chloride 104 Carbon Dioxide 30 Anion Gap 7 L BUN 21 H Creatinine 0.7 Creat Clearance w eGFR > 60 Random Glucose 92 Calcium 8.5 Phosphorus 3.8 Magnesium 2.0 Total Bilirubin 0.6 AST 8 L ALT 18 Alkaline Phosphatase 85 Total Protein 5.8 L Albumin 2.8 L ASSESSMENT/PLAN: New onset AFib Pulmonary edema. HTN HPL Hypothyroidism Glaucoma Plan Titrate PO meds for rate control AC with heparin drip / coumadin bridge Daily weight. Strict I & O O2 to maintain saturation Cardiac Telemetry monitoring Dr Ruavlcaba Critical care time spent in reviewing chart, evaluating patient and formulating plan - 36 minutes.
[2017-10-10] MEDS: HEPARIN INFUSION - 25,000 UNITS/500 ML INFUS.BAG IVPB SCH (15:44)
[2017-10-10] MEDS ORDERED: HEPARIN NA (PORCINE) 5,000 UNITS/ML 1ML VIAL IVPUSH PRN ×5 (17:29→17:47)
[2017-10-10] MEDS ORDERED: HEPARIN INFUSION - 25,000 UNITS/500 ML INFUS.BAG IVPB SCH (17:29)
[2017-10-10] MEDS ORDERED: ACETAMINOPHEN 325 MG TABLET (FP) PO PRN (17:29)
[2017-10-10] MEDS ORDERED: MECLIZINE HCL 25 MG TABLET (FP) PO PRN (17:29)
[2017-10-10] MEDS: HEPARIN - 25,000 UNIT in SODIUM CHLORIDE 495 ML IV SCH (17:40)
--- NOTE | 2017-10-10 18:15 | PN ---
Physical Exam: SUBJECTIVE: Patient seen and examined today in icu. Pt sitting in chair at bedside. Offers no complaints. Denies cp, magallon, sob, lightheadedness, nausea, or vomiting. OBJECTIVE: Vital Signs Period Temp Pulse Resp BP Sys/Macias Pulse Ox Last 24 Hr 98.1 F-99.2 F 69-79 16-24 104-119/42-85 99-99 GENERAL: AAOx3. Sitting in chair comfortably. HEAD: NC/AT EYES: RIGHT EYE ERYTHEMA, GLAUCOMA. ENT: MMM NECK: No JVD. LUNGS: Decreased BS at bases. HEART: RRR, No MRG ABDOMEN: Nt, ND, No HSM. EXTREMITIES: No CCE. NEUROLOGICAL: No Neuro Deficits PSYCH: Normal mood, normal affect. SKIN: Warm, no edema. Laboratory Results - last 24 hr 10/10/17 10/10/17 10/10/17 05:30 05:30 05:30 WBC RBC Hgb Hct MCV MCH MCHC RDW Plt Count MPV Absolute Neuts (auto) Neutrophils % Lymphocytes % Monocytes % Eosinophils % Basophils % Nucleated RBC % PT with INR 13.10 H INR 1.16 H PTT (Actin FS) 48.1 H Sodium 141 Potassium 3.7 Chloride 104 Carbon Dioxide 30 Anion Gap 7 L BUN 21 H Creatinine 0.7 Creat Clearance w eGFR > 60 Random Glucose 92 Calcium 8.5 Phosphorus 3.8 Magnesium 2.0 Total Bilirubin 0.6 AST 8 L ALT 18 Alkaline Phosphatase 85 Total Protein 5.8 L Albumin 2.8 L 10/10/17 10/10/17 05:30 15:00 WBC 10.0 RBC 4.29 Hgb 13.0 Hct 38.8 MCV 90.5 MCH 30.4 MCHC 33.6 RDW 13.7 Plt Count 226 MPV 9.2 Absolute Neuts (auto) 7.1 Neutrophils % 71.1 Lymphocytes % 16.1 Monocytes % 9.7 Eosinophils % 2.6 D Basophils % 0.5 Nucleated RBC % 0 PT with INR INR PTT (Actin FS) 48.7 H Sodium Potassium Chloride Carbon Dioxide Anion Gap BUN Creatinine Creat Clearance w eGFR Random Glucose Calcium Phosphorus Magnesium Total Bilirubin AST ALT Alkaline Phosphatase Total Protein Albumin Active Medications Generic Name Dose Route Start Last Admin Trade Name Freq PRN Reason Stop Dose Admin Acetaminophen 325 mg 10/10/17 17:29 Tylenol - PO Q4H PRN PAIN LEVEL 6-10 Atorvastatin Calcium 10 mg 10/10/17 22:00 Lipitor - PO HS [facility] Diltiazem HCl 240 mg 10/11/17 10:00 Cardizem Cd - PO DAILY [facility] Furosemide 40 mg 10/11/17 10:00 Lasix Injection - IVPUSH DAILY [facility] Heparin Sodium (Porcine) 5,000 unit 10/10/17 17:29 Heparin - IVPUSH PRN PRN Heparin Heparin Sodium (Porcine) 1,000 unit 10/10/17 17:47 Heparin - IVPUSH PRN PRN Heparin Heparin Sodium (Porcine) 25, 500 mls @ 20 mls/hr 10/10/17 17:45 000 unit/ Sodium Chloride IV TITR [facility] Protocol 1,000 UNIT/HR Isosorbide Mononitrate 30 mg 10/11/17 10:00 Imdur - PO DAILY [facility] Levothyroxine Sodium 100 mcg 10/11/17 07:00 Synthroid - PO DAILY@0700 [facility] Meclizine HCl 25 mg 10/10/17 17:29 Antivert - PO Q8H PRN VERTIGO Metoprolol Succinate 25 mg 10/11/17 10:00 Toprol Xl - PO DAILY [facility] Miconazole Nitrate 1 applic 10/10/17 22:00 Miconazole Nitrate TP BID [facility] Warfarin Sodium 7.5 mg 10/10/17 18:00 Coumadin - PO DAILY@1800 [facility] ASSESSMENT/PLAN: 86 y/o f with PMH of HTN, hld, hypothyroid, glaucoma R eye, was sent by her data assistant for new onset of afib with sob. Cardio AFib, HTN Cardizem 240 MG PO Daily Toprol Xl 25 mg PO DAILY Isosorbide Mononitrate 30 mg PO Daily Furosemide 40 mg IVPUSH EKG 10/09/17---> Left [place] Deviation, Inferior Infarct ( on/before 09/03/12), Sinus rythm has replaced AFIB, Vent rate decreased by 71 BPM. Pt being bridged from heparin to warfarin per Dr Martínez. Pt not good candidate for NOAC due to weight. Chest X-Ray today 10/10/17---> Widened mediastinum w/ large heart. Apical lordotic projection, dense breast soft tissue, old rib trauma, left perihilar infiltrate. Endo: Hypothyroidism Synthroid 125 mcg PO Daily FEN No Fluids Monitor Electrolytes Regular Diet DVT ppx: Heparin gtt 25,000 units in 500 mls @ 20 mls/hr Dispo: Pt to be transferred to telemetry today. Visit type - Emergency Visit Emergency Visit: Yes ED Registration Date: 10/07/17 Care time: The patient presented to the Emergency Department on the above date and was hospitalized for further evaluation of their emergent condition. - New Patient This patient is new to me today: No - Critical Care Critical Care patient: Yes Total Critical Care Time (in minutes): 35 Critical Care Statement: The care of this patient involved high complexity decision making to prevent further life threatening deterioration of the patient 's condition and/or to evaluate & treat vital organ system(s) failure or risk of failure.
[2017-10-10] MEDS: WARFARIN NA 7.5 MG TABLET (FP) PO SCH (18:59)
[2017-10-10] MEDS: ATORVASTATIN CA 10 MG TABLET (FP) PO SCH (21:19)
[2017-10-11] MEDS: LEVOTHYROXINE NA 100 MCG TABLET (FP) PO SCH (06:26)
[2017-10-11 06:34] LABS: HEMATOCRIT 39.7 % (32.4-45.2); HEMOGLOBIN 13.4 GM/dL (10.7-15.3); MCH 30.2 pg (25.7-33.7); MCHC 33.8 g/dl (32.0-36.0); MEAN CELL VOLUME 89.2 fl (80-96); MEAN PLT VOLUME 8.5 fl (7.5-11.1); PLATELET COUNT 257 K/MM3 (134-434); RBC 4.45 M/mm3 (3.60-5.2); RDW 13.7 % (11.6-15.6); WHITE BLOOD COUNT 9.3 K/mm3 (4.0-10.0)
[2017-10-11 08:33] LABS: INR 1.24 (0.82-1.09)
[2017-10-11] MEDS ORDERED: PT OWN MED DRAWER 7, Y5N ONE (10:40)
[2017-10-11] MEDS: metoPROLOL SUCCINATE 25 MG TAB.SR.24H (FP) PO SCH (10:42)
[2017-10-11] MEDS: FUROSEMIDE 40 MG/4 ML INJECTABLE VIAL IVPUSH SCH (10:42)
[2017-10-11] MEDS: ISOSORBIDE MONONITRATE 30 MG TAB.SR.24H (FP) PO SCH (10:42)
[2017-10-11] MEDS: MICONAZOLE NITRATE 28 GM TUBE TP SCH ×2 (10:43→21:04)
--- NOTE | 2017-10-11 10:46 | PN ---
Progress Note (short form) - Note Progress Note: 86 year old female admitted with new onset atrial fibrillation with rapid ventricular response and acute LV failure, known case of hypertension/HCVD, hypercholesterolemia and h/o hypothyroidism. Transferred to telemetry.remains. No SOB, chest pain or discomfort.Tolerating her therapy and remains in sinus rhythm. Active Medications Acetaminophen (Tylenol -) 325 mg PO Q4H PRN PRN Reason: PAIN LEVEL 6-10 Last Admin: 10/10/17 19:19 Dose: 325 mg Atorvastatin Calcium (Lipitor -) 10 mg PO HS [facility] Last Admin: 10/10/17 21:19 Dose: 10 mg Diltiazem HCl (Cardizem Cd -) 240 mg PO DAILY [facility] Furosemide (Lasix Injection -) 40 mg IVPUSH DAILY [facility] Heparin Sodium (Porcine) (Heparin -) 5,000 unit IVPUSH PRN PRN PRN Reason: Heparin Heparin Sodium (Porcine) (Heparin -) 1,000 unit IVPUSH PRN PRN PRN Reason: Heparin Last Admin: 10/10/17 19:01 Dose: 1,000 unit Heparin Sodium (Porcine) 25, (000 unit/ Sodium Chloride) 500 mls @ 20 mls/hr IV TITR [facility]; Protocol Last Titration: 10/10/17 18:30 Dose: 1,300 unit/hr, 26 mls/hr Isosorbide Mononitrate (Imdur -) 30 mg PO DAILY [facility] Levothyroxine Sodium (Synthroid -) 100 mcg PO DAILY@0700 [facility] Last Admin: 10/11/17 06:26 Dose: 100 mcg Meclizine HCl (Antivert -) 25 mg PO Q8H PRN PRN Reason: VERTIGO Metoprolol Succinate (Toprol Xl -) 25 mg PO DAILY [facility] Miconazole Nitrate (Miconazole Nitrate) 1 applic TP BID [facility] Last Admin: 10/10/17 21:19 Dose: 1 applic Warfarin Sodium (Coumadin -) 7.5 mg PO DAILY@1800 [facility] Last Admin: 10/10/17 18:59 Dose: 7.5 mg 86 year old female in no acute distress, no pallor, no cyanosis, clubbing or jaundice. Last Vital Signs Temp Pulse Resp BP Pulse Ox 98.2 F 64 22 101/44 94 L 10/11/17 08:00 10/11/17 08:00 10/11/17 09:00 10/11/17 08:00 10/11/17 09:00 Intake & Output 10/08/17 10/09/17 10/10/17 10/11/17 23:59 23:59 23:59 23:59 Intake Total 210 1130 1010 362 Output Total 2000 1000 Balance -1790 1130 10 362 Weight 214 lb 8 oz 212 lb 213 lb 6.519 oz NECK: supple, no JVD, -ve HJR, carotids 2+, no bruits appreciated. HEART: PMI, not localized, no heaves or thrills. S1 and S2 normal. grade I/ systolic ejection murmur at 2nd right intercostal space no diastolic murmur or gallops heard. LUNGS; Clear on auscultation. ABDOMEN: Soft, obese and non-tender, no organomegaly or palpable masses felt. EXTREMITIES: No calf tenderness ot dependent edema. CBC, BMP 10/11/17 05:30 10/10/17 05:30 INR, PTT INR 1.24 (0.82-1.09) H 10/11/17 05:30 IMPRESSION: 1. Paroxysmal atrial fib, currently in sinus rhythm. 2. Acute LV failure (resolved). Secondary to atrial fibrillation with rapid ventricular response. 3. Hypertension/HCVD. 4. Hypothyroidism, on replacement therapy. RECOMMENDATIONS: 1. Coumadization in progress. 2. Increase ambulation with assistance. 3. Current therapy. Problem List - Problems (1) Hypertension Code(s): I10 - ESSENTIAL (PRIMARY) HYPERTENSION (2) Hypothyroidism Code(s): E03.9 - HYPOTHYROIDISM, UNSPECIFIED (3) New onset atrial fibrillation Code(s): I48.91 - UNSPECIFIED ATRIAL FIBRILLATION (4) Congestive heart failure Code(s): I50.9 - HEART FAILURE, UNSPECIFIED (5) Acute left ventricular failure Code(s): I50.1 - LEFT VENTRICULAR FAILURE, UNSPECIFIED (6) Mitral valve replaced Code(s): Z95.2 - PRESENCE OF PROSTHETIC HEART VALVE
--- NOTE | 2017-10-11 10:51 | PN ---
Progress Note, Physician History of Present Illness: PULMONARY ALERT,NO DISTRESS,-SOB,-CP - Current Medication List Current Medications: Active Medications Acetaminophen (Tylenol -) 325 mg PO Q4H PRN PRN Reason: PAIN LEVEL 6-10 Last Admin: 10/10/17 19:19 Dose: 325 mg Atorvastatin Calcium (Lipitor -) 10 mg PO HS [facility] Last Admin: 10/10/17 21:19 Dose: 10 mg Diltiazem HCl (Cardizem Cd -) 240 mg PO DAILY [facility] Last Admin: 10/11/17 10:42 Dose: 240 mg Furosemide (Lasix Injection -) 40 mg IVPUSH DAILY [facility] Last Admin: 10/11/17 10:42 Dose: 40 mg Heparin Sodium (Porcine) (Heparin -) 5,000 unit IVPUSH PRN PRN PRN Reason: Heparin Heparin Sodium (Porcine) (Heparin -) 1,000 unit IVPUSH PRN PRN PRN Reason: Heparin Last Admin: 10/10/17 19:01 Dose: 1,000 unit Heparin Sodium (Porcine) 25, (000 unit/ Sodium Chloride) 500 mls @ 20 mls/hr IV TITR [facility]; Protocol Last Titration: 10/10/17 18:30 Dose: 1,300 unit/hr, 26 mls/hr Isosorbide Mononitrate (Imdur -) 30 mg PO DAILY [facility] Last Admin: 10/11/17 10:42 Dose: 30 mg Levothyroxine Sodium (Synthroid -) 100 mcg PO DAILY@0700 [facility] Last Admin: 10/11/17 06:26 Dose: 100 mcg Meclizine HCl (Antivert -) 25 mg PO Q8H PRN PRN Reason: VERTIGO Metoprolol Succinate (Toprol Xl -) 25 mg PO DAILY [facility] Last Admin: 10/11/17 10:42 Dose: 25 mg Miconazole Nitrate (Miconazole Nitrate) 1 applic TP BID [facility] Last Admin: 10/11/17 10:43 Dose: 1 applic Warfarin Sodium (Coumadin -) 7.5 mg PO DAILY@1800 [facility] Last Admin: 10/10/17 18:59 Dose: 7.5 mg - Objective Vital Signs: Vital Signs Temperature 98.2 F 10/11/17 08:00 Pulse Rate 64 10/11/17 08:00 Respiratory Rate 22 10/11/17 09:00 Blood Pressure 101/44 10/11/17 08:00 O2 Sat by Pulse Oximetry (%) 94 L 10/11/17 09:00 Constitutional: Yes: Well Nourished, Calm Eyes: Yes: WNL HENT: Yes: WNL Neck: Yes: WNL Cardiovascular: Yes: Regular Rate and Rhythm, S1, S2 Gastrointestinal: Yes: Normal Bowel Sounds, Soft Extremities: Yes: WNL Edema: Yes Labs: CBC, BMP 10/11/17 05:30 10/10/17 05:30 INR, PTT INR 1.24 (0.82-1.09) H 10/11/17 05:30 - ....Imaging Chest X-ray: Report Reviewed, Image Reviewed (left perihilar infiltrate) Assessment/Plan ASSESSMENT/PLAN: New onset AFib Pulmonary edema resolved HTN HPL Hypothyroidism Glaucoma Plan Titrate PO meds for rate control AC with heparin drip / coumadin bridge Daily weight. Strict I & O O2 chest x-ray DR CARMONA
--- NOTE | 2017-10-11 10:51 | PN ---
Progress Note, Physician Chief Complaint: in bed NAD VSS afebrile no CP/SOB no palpitations, no BM yet will decide about miralax if she does not have BM today, prefers to increase dietary fibers - Current Medication List Current Medications: Active Medications Acetaminophen (Tylenol -) 325 mg PO Q4H PRN PRN Reason: PAIN LEVEL 6-10 Last Admin: 10/10/17 19:19 Dose: 325 mg Atorvastatin Calcium (Lipitor -) 10 mg PO HS [facility] Last Admin: 10/10/17 21:19 Dose: 10 mg Diltiazem HCl (Cardizem Cd -) 240 mg PO DAILY [facility] Last Admin: 10/11/17 10:42 Dose: 240 mg Furosemide (Lasix Injection -) 40 mg IVPUSH DAILY [facility] Last Admin: 10/11/17 10:42 Dose: 40 mg Heparin Sodium (Porcine) (Heparin -) 5,000 unit IVPUSH PRN PRN PRN Reason: Heparin Heparin Sodium (Porcine) (Heparin -) 1,000 unit IVPUSH PRN PRN PRN Reason: Heparin Last Admin: 10/10/17 19:01 Dose: 1,000 unit Heparin Sodium (Porcine) 25, (000 unit/ Sodium Chloride) 500 mls @ 20 mls/hr IV TITR [facility]; Protocol Last Titration: 10/10/17 18:30 Dose: 1,300 unit/hr, 26 mls/hr Isosorbide Mononitrate (Imdur -) 30 mg PO DAILY [facility] Last Admin: 10/11/17 10:42 Dose: 30 mg Levothyroxine Sodium (Synthroid -) 100 mcg PO DAILY@0700 [facility] Last Admin: 10/11/17 06:26 Dose: 100 mcg Meclizine HCl (Antivert -) 25 mg PO Q8H PRN PRN Reason: VERTIGO Metoprolol Succinate (Toprol Xl -) 25 mg PO DAILY [facility] Last Admin: 10/11/17 10:42 Dose: 25 mg Miconazole Nitrate (Miconazole Nitrate) 1 applic TP BID [facility] Last Admin: 10/11/17 10:43 Dose: 1 applic Warfarin Sodium (Coumadin -) 7.5 mg PO DAILY@1800 [facility] Last Admin: 10/10/17 18:59 Dose: 7.5 mg - Objective Vital Signs: Vital Signs Temperature 98.2 F 10/11/17 08:00 Pulse Rate 64 10/11/17 08:00 Respiratory Rate 22 10/11/17 09:00 Blood Pressure 101/44 10/11/17 08:00 O2 Sat by Pulse Oximetry (%) 94 L 10/11/17 09:00 Constitutional: Yes: No Distress, Calm Eyes: Yes: Conjunctiva Clear HENT: Yes: Atraumatic Neck: Yes: Supple Cardiovascular: Yes: Pulse Irregular. No: Regular Rate and Rhythm Respiratory: Yes: CTA Bilaterally Gastrointestinal: Yes: Soft. No: Tenderness Genitourinary: No: CVA Tenderness - Left, CVA Tenderness - Right Musculoskeletal: No: Joint Stiffness, Joint Swelling Extremities: No: Cold, Cool Edema: No Integumentary: No: Rash, Skin Tear, Venous Stasis Changes Neurological: Yes: WNL, Alert, Oriented ...Motor Strength: WNL Psychiatric: Yes: WNL, Alert, Oriented. 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 IV cardizem, IV heparin telemetry 4w Pulm ICU f/u, cardiology f/u IV plasix CHF coumadin per INR; IV heparin meanwhile constipation: d/w pt will add miralax or colace prn if dietary fibers do not help echocardiogram noted f/u labs and CXR d/w pt and staff prognosis guarded
[2017-10-11] MEDS: WARFARIN NA 7.5 MG TABLET (FP) PO SCH (17:37)
[2017-10-11] MEDS: HEPARIN - 25,000 UNIT in SODIUM CHLORIDE 495 ML IV SCH (19:45)
[2017-10-11] MEDS: ATORVASTATIN CA 10 MG TABLET (FP) PO SCH (21:04)
[2017-10-12 06:49] LABS: HEMATOCRIT 40.4 % (32.4-45.2); HEMOGLOBIN 13.6 GM/dL (10.7-15.3); MCH 30.4 pg (25.7-33.7); MCHC 33.7 g/dl (32.0-36.0); MEAN CELL VOLUME 90.1 fl (80-96); MEAN PLT VOLUME 8.6 fl (7.5-11.1); PLATELET COUNT 268 K/MM3 (134-434); RBC 4.48 M/mm3 (3.60-5.2); RDW 13.6 % (11.6-15.6); WHITE BLOOD COUNT 8.6 K/mm3 (4.0-10.0)
[2017-10-12] MEDS: LEVOTHYROXINE NA 100 MCG TABLET (FP) PO SCH (06:50)
[2017-10-12] MEDS: HEPARIN - 25,000 UNIT in SODIUM CHLORIDE 495 ML IV SCH ×2 (08:18→19:30)
--- NOTE | 2017-10-12 09:09 | PN ---
Progress Note, Physician History of Present Illness: PULMONARY ALERT,COMFORTABLE,SITTING UP IN BED,-RESP DISTRESS - Current Medication List Current Medications: Active Medications Acetaminophen (Tylenol -) 325 mg PO Q4H PRN PRN Reason: PAIN LEVEL 6-10 Last Admin: 10/10/17 19:19 Dose: 325 mg Atorvastatin Calcium (Lipitor -) 10 mg PO HS [facility]CLUDES [facility] Last Admin: 10/11/17 21:04 Dose: 10 mg Diltiazem HCl (Cardizem Cd -) 240 mg PO DAILY [facility]CLUDES [facility] Last Admin: 10/11/17 10:42 Dose: 240 mg Furosemide (Lasix Injection -) 40 mg IVPUSH DAILY [facility]CLUDES [facility] Last Admin: 10/11/17 10:42 Dose: 40 mg Heparin Sodium (Porcine) (Heparin -) 5,000 unit IVPUSH PRN PRN PRN Reason: Heparin Heparin Sodium (Porcine) (Heparin -) 1,000 unit IVPUSH PRN PRN PRN Reason: Heparin Last Admin: 10/10/17 19:01 Dose: 1,000 unit Heparin Sodium (Porcine) 25, (000 unit/ Sodium Chloride) 500 mls @ 20 mls/hr IV TITR [facility]CLUDES [facility]; Protocol Last Admin: 10/12/17 08:18 Dose: 1,300 unit/hr, 26 mls/hr Isosorbide Mononitrate (Imdur -) 30 mg PO DAILY [facility]CLUD[facility] Last Admin: 10/11/17 10:42 Dose: 30 mg Levothyroxine Sodium (Synthroid -) 100 mcg PO DAILY@0700 [facility] Last Admin: 10/12/17 06:50 Dose: 100 mcg Meclizine HCl (Antivert -) 25 mg PO Q8H PRN PRN Reason: VERTIGO Metoprolol Succinate (Toprol Xl -) 25 mg PO DAILY COUNT [facility]CLUDES [facility] Last Admin: 10/11/17 10:42 Dose: 25 mg Miconazole Nitrate (Miconazole Nitrate) 1 applic TP BID [facility]CLUD[facility] Last Admin: 10/11/17 21:04 Dose: 1 applic Warfarin Sodium (Coumadin -) 7.5 mg PO DAILY@1800 [facility] Last Admin: 10/11/17 17:37 Dose: 7.5 mg - Objective Vital Signs: Vital Signs Temperature 98.1 F 10/12/17 05:00 Pulse Rate 70 10/12/17 05:00 Respiratory Rate 17 10/12/17 05:00 Blood Pressure 131/60 10/12/17 05:00 O2 Sat by Pulse Oximetry (%) 94 L 10/11/17 21:00 Constitutional: Yes: Well Nourished, Calm Eyes: Yes: WNL HENT: Yes: WNL Neck: Yes: WNL Cardiovascular: Yes: Pulse Irregular, S1, S2 Respiratory: Yes: CTA Bilaterally Gastrointestinal: Yes: Normal Bowel Sounds, Soft Extremities: Yes: WNL Edema: No Labs: CBC, BMP 10/12/17 05:30 - ....Imaging Chest X-ray: Report Reviewed, Image Reviewed (- infiltrates,-effusions) Assessment/Plan ASSESSMENT/PLAN: New onset AFib Pulmonary edema resolved HTN HPL Hypothyroidism Glaucoma Plan rate control AC with heparin drip / coumadin bridge Daily weight. O2 as needed DR BRILL
--- NOTE | 2017-10-12 09:25 | PN ---
Progress Note, Physician Chief Complaint: OOB to chair no c/o except no BM will add miralax d/w pt and staff INR 1.7 - Current Medication List Current Medications: Active Medications Acetaminophen (Tylenol -) 325 mg PO Q4H PRN PRN Reason: PAIN LEVEL 6-10 Last Admin: 10/10/17 19:19 Dose: 325 mg Atorvastatin Calcium (Lipitor -) 10 mg PO HS [facility] Last Admin: 10/11/17 21:04 Dose: 10 mg Diltiazem HCl (Cardizem Cd -) 240 mg PO DAILY [facility] Last Admin: 10/11/17 10:42 Dose: 240 mg Furosemide (Lasix Injection -) 40 mg IVPUSH DAILY [facility] Last Admin: 10/11/17 10:42 Dose: 40 mg Heparin Sodium (Porcine) (Heparin -) 5,000 unit IVPUSH PRN PRN PRN Reason: Heparin Heparin Sodium (Porcine) (Heparin -) 1,000 unit IVPUSH PRN PRN PRN Reason: Heparin Last Admin: 10/10/17 19:01 Dose: 1,000 unit Heparin Sodium (Porcine) 25, (000 unit/ Sodium Chloride) 500 mls @ 20 mls/hr IV TITR [facility]; Protocol Last Admin: 10/12/17 08:18 Dose: 1,300 unit/hr, 26 mls/hr Isosorbide Mononitrate (Imdur -) 30 mg PO DAILY [facility] Last Admin: 10/11/17 10:42 Dose: 30 mg Levothyroxine Sodium (Synthroid -) 100 mcg PO DAILY@0700 [facility] Last Admin: 10/12/17 06:50 Dose: 100 mcg Meclizine HCl (Antivert -) 25 mg PO Q8H PRN PRN Reason: VERTIGO Metoprolol Succinate (Toprol Xl -) 25 mg PO DAILY [facility] Last Admin: 10/11/17 10:42 Dose: 25 mg Miconazole Nitrate (Miconazole Nitrate) 1 applic TP BID [facility] Last Admin: 10/11/17 21:04 Dose: 1 applic Warfarin Sodium (Coumadin -) 7.5 mg PO DAILY@1800 [facility] Last Admin: 10/11/17 17:37 Dose: 7.5 mg - Objective Vital Signs: Vital Signs Temperature 98.1 F 10/12/17 05:00 Pulse Rate 70 10/12/17 05:00 Respiratory Rate 17 10/12/17 05:00 Blood Pressure 131/60 10/12/17 05:00 O2 Sat by Pulse Oximetry (%) 94 L 10/11/17 21:00 Constitutional: Yes: No Distress, Calm Eyes: Yes: Conjunctiva Clear HENT: Yes: Atraumatic Neck: Yes: Supple Cardiovascular: Yes: Pulse Irregular. No: Regular Rate and Rhythm Respiratory: Yes: CTA Bilaterally Gastrointestinal: Yes: Soft. No: Distention Genitourinary: No: CVA Tenderness - Left, CVA Tenderness - Right, Hematuria Musculoskeletal: No: Joint Stiffness, Joint Swelling Extremities: No: Cold, Cool Edema: No Integumentary: No: Rash, Venous Stasis Changes Neurological: Yes: WNL, Alert, Oriented ...Motor Strength: WNL Psychiatric: Yes: WNL, Alert, Oriented. No: Agitated, Suicidal Ideation Labs: CBC, BMP 10/12/17 05:30 10/10/17 05:30 INR, PTT INR 1.24 (0.82-1.09) H 10/11/17 05:30 - ....Imaging Other: Report Reviewed Assessment/Plan 86F with a PMH of Vertigo, HTN, CAD, Hypothyroidism, who presents to the ER from her supervisor telephone information's office for new onset rapid a-fib. IV cardizem, IV heparin telemetry 4w Pulm and cardiology f/u IV lasix for CHF coumadin per INR; IV heparin meanwhile constipation: d/w pt will add miralax or colace prn if dietary fibers do not help f/u labs d/w pt and staff PT rehab for OOB
[2017-10-12 09:43] LABS: INR 1.71 (0.82-1.09); PROTHROMBIN TIME (PATIENT) 19.3 SEC (9.7-13.0)
[2017-10-12 09:50] LABS: ALBUMIN 3.1 g/dl (3.4-5.0); ALK PHOS 98 U/L (45-117); ANION GAP 4 (8-16); BILIRUBIN,TOTAL 0.4 mg/dL (0.2-1.0); BLOOD UREA NITROGEN 20 mg/dL (7-18); CHLORIDE 103 mmol/L (98-107); CO2 35 mmol/L (21-32); CREATININE 0.7 mg/dL (0.55-1.02); GLUCOSE,RANDOM 88 mg/dL (74-106); POTASSIUM 3.5 mmol/L (3.5-5.1); SGOT/AST 13 U/L (15-37); SGPT/ALT 22 U/L (12-78); SODIUM 142 mmol/L (136-145); TOT PROT 6.6 g/dl (6.4-8.2)
[2017-10-12] MEDS: ISOSORBIDE MONONITRATE 30 MG TAB.SR.24H (FP) PO SCH (09:54)
[2017-10-12] MEDS: MICONAZOLE NITRATE 28 GM TUBE TP SCH ×2 (09:54→23:02)
[2017-10-12] MEDS: FUROSEMIDE 40 MG/4 ML INJECTABLE VIAL IVPUSH SCH ×2 (09:54→09:57)
[2017-10-12] MEDS: metoPROLOL SUCCINATE 25 MG TAB.SR.24H (FP) PO SCH (09:54)
[2017-10-12] MEDS: WARFARIN NA 7.5 MG TABLET (FP) PO SCH (17:04)
[2017-10-12] MEDS: ATORVASTATIN CA 10 MG TABLET (FP) PO SCH (23:02)
[2017-10-13] MEDS: LEVOTHYROXINE NA 100 MCG TABLET (FP) PO SCH (06:05)
[2017-10-13 07:14] LABS: INR 2.27 (0.82-1.09); PROTHROMBIN TIME (PATIENT) 25.7 SEC (9.7-13.0)
[2017-10-13 07:54] LABS: HEMATOCRIT 41.6 % (32.4-45.2); HEMOGLOBIN 13.6 GM/dL (10.7-15.3); MCH 29.9 pg (25.7-33.7); MCHC 32.6 g/dl (32.0-36.0); MEAN CELL VOLUME 91.5 fl (80-96); MEAN PLT VOLUME 8.7 fl (7.5-11.1); PLATELET COUNT 274 K/MM3 (134-434); RBC 4.55 M/mm3 (3.60-5.2); RDW 14.2 % (11.6-15.6); WHITE BLOOD COUNT 8.8 K/mm3 (4.0-10.0)
--- NOTE | 2017-10-13 08:41 | PN ---
Progress Note, Physician History of Present Illness: pulmonary alert,oob-chair,less dyspneic,O2sat 92% on ra - Current Medication List Current Medications: Active Medications Acetaminophen (Tylenol -) 325 mg PO Q4H PRN PRN Reason: PAIN LEVEL 6-10 Last Admin: 10/10/17 19:19 Dose: 325 mg Atorvastatin Calcium (Lipitor -) 10 mg PO HS [facility] Last Admin: 10/12/17 23:02 Dose: 10 mg Diltiazem HCl (Cardizem Cd -) 240 mg PO DAILY [facility] Last Admin: 10/12/17 09:53 Dose: 240 mg Furosemide (Lasix Injection -) 40 mg IVPUSH DAILY [facility] Last Admin: 10/12/17 09:57 Dose: Not Given Heparin Sodium (Porcine) (Heparin -) 5,000 unit IVPUSH PRN PRN PRN Reason: Heparin Heparin Sodium (Porcine) (Heparin -) 1,000 unit IVPUSH PRN PRN PRN Reason: Heparin Last Admin: 10/10/17 19:01 Dose: 1,000 unit Heparin Sodium (Porcine) 25, (000 unit/ Sodium Chloride) 500 mls @ 20 mls/hr IV TITR [facility]; Protocol Last Admin: 10/12/17 19:30 Dose: Not Given Isosorbide Mononitrate (Imdur -) 30 mg PO DAILY [facility] Last Admin: 10/12/17 09:54 Dose: 30 mg Levothyroxine Sodium (Synthroid -) 100 mcg PO DAILY@0700 [facility] Last Admin: 10/13/17 06:05 Dose: 100 mcg Meclizine HCl (Antivert -) 25 mg PO Q8H PRN PRN Reason: VERTIGO Metoprolol Succinate (Toprol Xl -) 25 mg PO DAILY [facility] Last Admin: 10/12/17 09:54 Dose: 25 mg Miconazole Nitrate (Miconazole Nitrate) 1 applic TP BID [facility] Last Admin: 10/12/17 23:02 Dose: 1 applic Polyethylene Glycol (Miralax (For Bowel Prep) -) 17 gm PO DAILY [facility] Warfarin Sodium (Coumadin -) 7.5 mg PO DAILY@1800 [facility] Last Admin: 10/12/17 17:04 Dose: 7.5 mg - Objective Vital Signs: Vital Signs Temperature 97.5 F L 10/13/17 05:00 Pulse Rate 77 10/13/17 05:00 Respiratory Rate 18 10/13/17 05:00 Blood Pressure 153/71 10/13/17 05:00 O2 Sat by Pulse Oximetry (%) 98 10/12/17 21:00 Constitutional: Yes: Well Nourished, Calm Eyes: Yes: WNL HENT: Yes: WNL Neck: Yes: WNL Cardiovascular: Yes: Pulse Irregular, S1, S2 Respiratory: Yes: Diminished Gastrointestinal: Yes: Normal Bowel Sounds, Soft Extremities: Yes: WNL Edema: Yes Labs: CBC, BMP 10/13/17 05:30 Assessment/Plan ASSESSMENT/PLAN: New onset AFib Pulmonary edema resolved HTN HPL Hypothyroidism Glaucoma Plan rate control coumadin Daily weight. O2 as needed DR CARMONA
--- NOTE | 2017-10-13 09:58 | PN ---
Progress Note, Physician Chief Complaint: no CP/SOB, no BM yet no N/V/ abdominal pain, eats OK INR therapeutic, DC IV heparin, continue po coumadin per INR - Current Medication List Current Medications: Active Medications Acetaminophen (Tylenol -) 325 mg PO Q4H PRN PRN Reason: PAIN LEVEL 6-10 Last Admin: 10/10/17 19:19 Dose: 325 mg Atorvastatin Calcium (Lipitor -) 10 mg PO HS [facility] Last Admin: 10/12/17 23:02 Dose: 10 mg Bisacodyl (Dulcolax -) 5 mg PO DAILY PRN PRN Reason: CONSTIPATION Diltiazem HCl (Cardizem Cd -) 240 mg PO DAILY [facility] Last Admin: 10/12/17 09:53 Dose: 240 mg Furosemide (Lasix Injection -) 40 mg IVPUSH DAILY [facility] Last Admin: 10/12/17 09:57 Dose: Not Given Isosorbide Mononitrate (Imdur -) 30 mg PO DAILY [facility] Last Admin: 10/12/17 09:54 Dose: 30 mg Levothyroxine Sodium (Synthroid -) 100 mcg PO DAILY@0700 [facility] Last Admin: 10/13/17 06:05 Dose: 100 mcg Meclizine HCl (Antivert -) 25 mg PO Q8H PRN PRN Reason: VERTIGO Metoprolol Succinate (Toprol Xl -) 25 mg PO DAILY [facility] Last Admin: 10/12/17 09:54 Dose: 25 mg Miconazole Nitrate (Miconazole Nitrate) 1 applic TP BID [facility] Last Admin: 10/12/17 23:02 Dose: 1 applic Polyethylene Glycol (Miralax (For Bowel Prep) -) 17 gm PO BID [facility] Potassium Chloride (K-Dur -) 10 meq PO DAILY [facility] Warfarin Sodium (Coumadin -) 7.5 mg PO DAILY@1800 [facility] Last Admin: 10/12/17 17:04 Dose: 7.5 mg - Objective Vital Signs: Vital Signs Temperature 97.5 F L 10/13/17 05:00 Pulse Rate 77 10/13/17 05:00 Respiratory Rate 18 10/13/17 05:00 Blood Pressure 153/71 10/13/17 05:00 O2 Sat by Pulse Oximetry (%) 98 10/12/17 21:00 Constitutional: Yes: No Distress, Calm Eyes: Yes: Conjunctiva Clear HENT: Yes: Atraumatic Neck: Yes: Supple Cardiovascular: No: Regular Rate and Rhythm Respiratory: Yes: CTA Bilaterally Gastrointestinal: Yes: Soft. No: Distention, Tenderness Genitourinary: No: CVA Tenderness - Left, CVA Tenderness - Right Musculoskeletal: No: Joint Stiffness, Joint Swelling Extremities: No: Cold, Cool, Cyanosis Edema: No Integumentary: No: Rash, Venous Stasis Changes Neurological: Yes: WNL, Alert, Oriented ...Motor Strength: WNL Psychiatric: Yes: WNL, Alert, Oriented. No: Agitated, Suicidal Ideation Labs: CBC, BMP 10/13/17 05:30 10/12/17 09:32 INR, PTT INR 2.27 (0.82-1.09) H D 10/13/17 05:30 - ....Imaging Other: Report Reviewed Assessment/Plan 86F with a PMH of Vertigo, HTN, CAD, Hypothyroidism, who presents to the ER from her drugless physician's office for new onset rapid a-fib. po cardizem, DC IV heparin, po coumadin telemetry 4w Pulm and cardiology f/u po lasix for CHF constipation: added miralax ; advised to see GI outpt dr Umaña after DC home f/u labs d/w pt and staff PT rehab for OOB
[2017-10-13] MEDS: FUROSEMIDE 40 MG/4 ML INJECTABLE VIAL IVPUSH SCH (09:59)
[2017-10-13] MEDS: metoPROLOL SUCCINATE 25 MG TAB.SR.24H (FP) PO SCH (09:59)
[2017-10-13] MEDS: ISOSORBIDE MONONITRATE 30 MG TAB.SR.24H (FP) PO SCH (09:59)
[2017-10-13] MEDS ORDERED: POLYETHYLENE GLYCOL 3350 255 GM BTL PO SCH (10:00)
[2017-10-13] MEDS: POTASSIUM CHLORIDE TABS 10 MEQ TABLET.ER (FP) PO SCH (10:56)
[2017-10-13] MEDS: POLYETHYLENE GLYCOL 3350 255 GM BTL PO SCH ×2 (10:57→21:18)
[2017-10-13] MEDS: MICONAZOLE NITRATE 28 GM TUBE TP SCH ×2 (10:58→21:17)
[2017-10-13] MEDS: WARFARIN NA 7.5 MG TABLET (FP) PO SCH (17:12)
[2017-10-13] MEDS: BISACODYL 5 MG TABLET.DR (FP) PO PRN (17:24)
[2017-10-13] MEDS: ATORVASTATIN CA 10 MG TABLET (FP) PO SCH (21:17)
[2017-10-14 06:22] LABS: BASO % 0.6 % (0-2.0); EOS % 2.9 % (0-4.5); HEMATOCRIT 41.5 % (32.4-45.2); LYMPH % 16.6 % (8-40); MCH 30.5 pg (25.7-33.7); MCHC 33.8 g/dl (32.0-36.0); MEAN CELL VOLUME 90.1 fl (80-96); MEAN PLT VOLUME 8.3 fl (7.5-11.1); MONO % 8.5 % (3.8-10.2); NEUT % 71.4 % (42.8-82.8); PLATELET COUNT 297 K/MM3 (134-434); RBC 4.61 M/mm3 (3.60-5.2); WHITE BLOOD COUNT 8.6 K/mm3 (4.0-10.0)
[2017-10-14] MEDS: LEVOTHYROXINE NA 100 MCG TABLET (FP) PO SCH (06:32)
[2017-10-14 06:36] LABS: INR 2.98 (0.82-1.09); PROTHROMBIN TIME (PATIENT) 33.7 SEC (9.7-13.0)
[2017-10-14 06:57] LABS: ANION GAP 8 (8-16); BLOOD UREA NITROGEN 16 mg/dL (7-18); CALCIUM 9.5 mg/dL (8.5-10.1); CHLORIDE 104 mmol/L (98-107); CO2 30 mmol/L (21-32); CREATININE 0.8 mg/dL (0.55-1.02); GLUCOSE,RANDOM 119 mg/dL (74-106); POTASSIUM 4.2 mmol/L (3.5-5.1); SODIUM 142 mmol/L (136-145)
--- NOTE | 2017-10-14 07:51 | DS ---
Physical Examination Vital Signs: Vital Signs Temperature 98.3 F 10/14/17 05:00 Pulse Rate 74 10/14/17 05:00 Respiratory Rate 20 10/14/17 05:00 Blood Pressure 132/84 10/14/17 05:00 O2 Sat by Pulse Oximetry (%) 96 10/13/17 22:00 Findings/Remarks: feels better no CP/SOB; had a small BM but still needs to go; ate OK no N/V/ abdominal pain. cleared by cardio for DC home Constitutional: Yes: No Distress, Calm Eyes: Yes: Conjunctiva Clear HENT: Yes: Atraumatic Neck: Yes: Supple Cardiovascular: No: Regular Rate and Rhythm Respiratory: Yes: CTA Bilaterally Gastrointestinal: Yes: Soft. No: Distention Renal/: No: CVA Tenderness - Left, CVA Tenderness - Right Musculoskeletal: No: Joint Stiffness, Joint Swelling Extremities: No: Cold, Cool, Cyanosis Edema: No Integumentary: No: Rash, Venous Stasis Changes Neurological: Yes: WNL, Alert, Oriented ...Motor Strength: WNL Psychiatric: Yes: WNL, Alert, Oriented. No: Agitated, Suicidal Ideation Labs: CBC, BMP 10/14/17 05:30 10/14/17 05:30 Discharge Summary Reason For Visit: NEW ONSET ATRIAL FIBRILLATION Current Active Problems Acute left ventricular failure (Acute) Congestive heart failure (Acute) Hypertension (Acute) Hypothyroidism (Acute) Mitral valve replaced (Acute) New onset atrial fibrillation (Acute) Procedures: Principal: admitted with new onset rapid AFib, admitted to ICU for IV cardizem for HR control and IV heparin for AC; lasix for CHF / pulm edema. Other Procedures: seen by cardiology dr Martínez and pulm ICU dr Ruvalcaba;. low TSH h.o hypothyroidism on synthroid; dose adjusted per endocrine;. had echocardiogram, EKG and CE Hospital Course: improved with above; switched to po meds; coumadin per INR DC home with VNS, f/u as advised Condition: Guarded - Instructions Diet, Activity, Other Instructions: f/u with PCP and cardiology in 1-2 weeks check INR in 3 days falls PFX RTER if worse or recurrent c/o take meds as ordered Referrals: Jane Vaughn [Primary Care Provider] - Herberth Martínez MD [Staff Physician] - Disposition: VNS/HOME HEALTH CARE - Home Medications Comprehensive Discharge Medication List: Ambulatory Orders Amlodipine Besylate/Benazepril [Lotrel 5-20 mg Capsule] 20 mg PO BID 09/03/12 Ca Cmb No.1/Vit D3/B-6/FA/B12 [Vitamin D3 1,000 Unit Tablet] 1 each PO DAILY Calcium Carbonate/Vitamin D3 [Oysco 500-Vit D3 200 Tablet] 1 each PO DAILY 09/03 Cyanocobalamin/FA/Pyridoxine [B Complex-Folic Acid Tablet] 1 each PO DAILY 09/03 Isosorbide Mononitrate [Isosorbide Mononitrate ER] 30 mg PO DAILY 09/03/12 Levothyroxine [Synthroid -] 125 mcg PO DAILY 09/03/12 Meclizine HCl [Antivert -] 25 mg PO TID PRN #20 tablet 09/03/12 Metoprolol Succinate [Toprol XL -] 25 mg PO DAILY 09/03/12 Pitavastatin Calcium [Livalo] 2 mg PO DAILY 09/03/12
[2017-10-14] MEDS ORDERED: PT OWN MED DRAWER 7, Y5N ONE (08:56)
[2017-10-14] MEDS: POTASSIUM CHLORIDE TABS 10 MEQ TABLET.ER (FP) PO SCH (09:12)
[2017-10-14] MEDS: FUROSEMIDE 40 MG/4 ML INJECTABLE VIAL IVPUSH SCH (09:13)
[2017-10-14] MEDS: ISOSORBIDE MONONITRATE 30 MG TAB.SR.24H (FP) PO SCH (09:13)
[2017-10-14] MEDS: metoPROLOL SUCCINATE 25 MG TAB.SR.24H (FP) PO SCH (09:13)
[2017-10-14] MEDS: BISACODYL 5 MG TABLET.DR (FP) PO PRN (09:15)
[2017-10-14] MEDS: POLYETHYLENE GLYCOL 3350 255 GM BTL PO SCH (09:16)
--- NOTE | 2017-10-14 10:28 | PN ---
Progress Note (short form) - Note Progress Note: 86 year old female admitted with new onset atrial fibrillation with rapid ventricular response and acute LV failure, known case of hypertension/HCVD, hypercholesterolemia and h/o hypothyroidism. Patient is coumadinized, ambulating, remains in sinus rhythm, no SOB, chest pain or discomfort. Active Medications Generic Name Dose Route Start Last Admin Trade Name Freq PRN Reason Stop Dose Admin Acetaminophen 325 mg 10/10/17 17:29 10/10/17 19:19 Tylenol - PO 325 mg Q4H PRN Administration PAIN LEVEL 6-10 Atorvastatin Calcium 10 mg 10/10/17 22:00 10/13/17 21:17 Lipitor - PO 10 mg HS [facility]UDIA Administration Bisacodyl 5 mg 10/13/17 09:56 10/14/17 09:15 Dulcolax - PO 5 mg DAILY PRN Administration CONSTIPATION Diltiazem HCl 240 mg 10/11/17 10:00 10/14/17 09:14 Cardizem Cd - PO 240 mg DAILY [facility] Administration Furosemide 40 mg 10/11/17 10:00 10/14/17 09:13 Lasix Injection - IVPUSH 40 mg DAILY [facility] Administration Isosorbide Mononitrate 30 mg 10/11/17 10:00 10/14/17 09:13 Imdur - PO 30 mg DAILY [facility] Administration Levothyroxine Sodium 100 mcg 10/11/17 07:00 10/14/17 06:32 Synthroid - PO 100 mcg DAILY@0700 [facility]IA Administration Meclizine HCl 25 mg 10/10/17 17:29 Antivert - PO Q8H PRN VERTIGO Metoprolol Succinate 25 mg 10/11/17 10:00 10/14/17 09:13 Toprol Xl - PO 25 mg DAILY [facility] Administration Miconazole Nitrate 1 applic 10/10/17 22:00 10/13/17 21:17 Miconazole Nitrate TP Not Given BID [facility]UDIA Polyethylene Glycol 17 gm 10/13/17 10:00 10/14/17 09:16 Miralax (For Bowel Prep) - PO 17 gm BID [facility] Administration Potassium Chloride 10 meq 10/13/17 10:00 10/14/17 09:12 K-Dur - PO 10 meq DAILY [facility] Administration Warfarin Sodium 7.5 mg 10/10/17 18:00 10/13/17 17:12 Coumadin - PO 7.5 mg DAILY@1800 [facility]IA Administration 86 year old female in no acute distress, no pallor, no cyanosis, clubbing or jaundice. Last Vital Signs Temp Pulse Resp BP Pulse Ox 98.3 F 74 20 132/84 96 10/14/17 05:00 10/14/17 05:00 10/14/17 05:00 10/14/17 05:00 10/13/17 22:00 Intake & Output 10/11/17 10/12/17 10/13/17 10/14/17 23:59 23:59 23:59 23:59 Intake Total 900 1054 692 Output Total 700 Balance 900 1054 -8 Weight 213 lb 6.4 oz 217 lb 4 oz 214 lb 6.4 oz NECK: supple, no JVD, -ve HJR, carotids 2+, no bruits appreciated. HEART: PMI, not localized, no heaves or thrills. S1 and S2 normal. grade I/ systolic ejection murmur at 2nd right intercostal space no diastolic murmur or gallops heard. LUNGS; Clear on auscultation. ABDOMEN: Soft, obese and non-tender, no organomegaly or palpable masses felt. EXTREMITIES: No calf tenderness ot dependent edema. CBC, BMP 10/14/17 05:30 10/14/17 05:30 INR, PTT INR 2.98 (0.82-1.09) H D 10/14/17 05:30 IMPRESSION: 1. Paroxysmal atrial fib, currently in sinus rhythm. 2. S/p acute LV failure, Secondary to atrial fibrillation with rapid ventricular response. 3. Hypertension/HCVD. 4. Hypothyroidism, on replacement therapy. RECOMMENDATIONS: 1. Continue current therapy. 2. Close f/u of INR. 3. Dose of warfarin may need to be titrated downwords. 4. F/u CBC and BMP. 5. Could be discharged, if medically stable. Problem List - Problems (1) Hypertension Code(s): I10 - ESSENTIAL (PRIMARY) HYPERTENSION (2) Hypothyroidism Code(s): E03.9 - HYPOTHYROIDISM, UNSPECIFIED (3) New onset atrial fibrillation Code(s): I48.91 - UNSPECIFIED ATRIAL FIBRILLATION (4) Congestive heart failure Code(s): I50.9 - HEART FAILURE, UNSPECIFIED (5) Acute left ventricular failure Code(s): I50.1 - LEFT VENTRICULAR FAILURE, UNSPECIFIED (6) Mitral valve replaced Code(s): Z95.2 - PRESENCE OF PROSTHETIC HEART VALVE
[2017-10-14 10:45] VITALS: BP 140/76; TEMP 98.2
[2017-10-14 11:48] VITALS: PULSE 82
--- NOTE | 2017-10-14 13:01 | PN ---
Progress Note (short form) - Note Progress Note: PULMONARY Denies shortness of breath or chest pain. Vital Signs Period Temp Pulse Resp BP Sys/Macias Pulse Ox Last 24 Hr 97.3 F-98.3 F 64-86 18-20 112-146/59-84 90-96 Gen: NAD at rest Heart: RRR Lung: decreased breath sounds at the bases Abd: soft, nontender Ext: distal edema CBC, BMP 10/14/17 05:30 10/14/17 05:30 Active Medications Acetaminophen (Tylenol -) 325 mg PO Q4H PRN PRN Reason: PAIN LEVEL 6-10 Last Admin: 10/10/17 19:19 Dose: 325 mg Atorvastatin Calcium (Lipitor -) 10 mg PO HS [facility] Last Admin: 10/13/17 21:17 Dose: 10 mg Bisacodyl (Dulcolax -) 5 mg PO DAILY PRN PRN Reason: CONSTIPATION Last Admin: 10/14/17 09:15 Dose: 5 mg Diltiazem HCl (Cardizem Cd -) 240 mg PO DAILY [facility] Last Admin: 10/14/17 09:14 Dose: 240 mg Furosemide (Lasix Injection -) 40 mg IVPUSH DAILY [facility] Last Admin: 10/14/17 09:13 Dose: 40 mg Isosorbide Mononitrate (Imdur -) 30 mg PO DAILY [facility] Last Admin: 10/14/17 09:13 Dose: 30 mg Levothyroxine Sodium (Synthroid -) 100 mcg PO DAILY@0700 [facility] Last Admin: 10/14/17 06:32 Dose: 100 mcg Meclizine HCl (Antivert -) 25 mg PO Q8H PRN PRN Reason: VERTIGO Metoprolol Succinate (Toprol Xl -) 25 mg PO DAILY [facility] Last Admin: 10/14/17 09:13 Dose: 25 mg Miconazole Nitrate (Miconazole Nitrate) 1 applic TP BID [facility] Last Admin: 10/13/17 21:17 Dose: Not Given Polyethylene Glycol (Miralax (For Bowel Prep) -) 17 gm PO BID [facility] [place] Last Admin: 10/14/17 09:16 Dose: 17 gm Potassium Chloride (K-Dur -) 10 meq PO DAILY [facility] Last Admin: 10/14/17 09:12 Dose: 10 meq Warfarin Sodium (Coumadin -) 7.5 mg PO DAILY@1800 [facility] Last Admin: 10/13/17 17:12 Dose: 7.5 mg A/P New Onset Atrial Fibrillation Acute Diastolic Heart Failure resolved HTN Hyperlipidemia Hypothyroidism - rate controlled - continue anticoagulation - O2 as needed - can d/c home from pulmonary standpoint
== END 2017-10-14 14:59 | disposition home health service (06) | DRG 308 ==
LOC: JER 18:07 → JERBED 20:05 → JICU 10-08 04:51 → J4W 10-10 16:41
PROVIDERS: ADMIT Internal Medicine; ATTEND Internal Medicine
DX: I48.0 Paroxysmal atrial fibrillation (principal); I50.31 Acute diastolic (congestive) heart failure; I25.10 Atherosclerotic heart disease of native coronary artery without angina pectoris; E03.9 Hypothyroidism, unspecified; E78.5 Hyperlipidemia, unspecified; I11.0 Hypertensive heart disease with heart failure; H40.9 Unspecified glaucoma; K59.00 Constipation, unspecified; Z95.2 Presence of prosthetic heart valve
CPT/HCPCS: 36415; 71045-TC-FY; 80048; 80053; 81003; 81015; 82550; 83735; 83880; 84100; 84439; 84443; 84481; 84484; 85025; 85027; 85610; 85730; 87086; 93005; 93010; 93306-TC; 94761; 97116-GP; 97161-GP; 99285-25; J1644

== ENCOUNTER 2017-12-01 13:40 | Inpatient (IN) | payer OTHER, BC ==
--- NOTE | 2017-12-01 13:47 | PDOC ---
History of Present Illness - General Stated Complaint: SOB Time Seen by Provider: 12/01/17 13:47 - History of Present Illness Initial Comments: 87 year old female with PMH of Vertigo, HTN, CAD, Hypothyroidism, and new diagnosis of afib presenting from home with shortness of breath on exertion and palpitations. States that she was up and walking about when she had noticed increased SOB and palpitations. She denies fevers, chills, lightheadedness, chest pain, visual symptoms, cough, recent illness, or decreased food intake. She is also compliant with all of her medication and saw Dr. Martínez a few days prior who gave her bal for her birthday. She took her Cardizem this AM and takes her toprol in the evening. 12/01/17 14:15 Past History - Past Medical History Allergies/Adverse Reactions: Allergies Allergy/AdvReac Type Severity Reaction Status Date / Time No Known Allergies Allergy Verified 12/01/17 15:04 Home Medications: Ambulatory Orders Ca Cmb No.1/Vit D3/B-6/FA/B12 [Vitamin D3 1,000 Unit Tablet] 1 each PO DAILY Calcium Carbonate/Vitamin D3 [Oysco 500-Vit D3 200 Tablet] 1 each PO DAILY 09/03 Cyanocobalamin/FA/Pyridoxine [B Complex-Folic Acid Tablet] 1 each PO DAILY 09/03 Isosorbide Mononitrate [Isosorbide Mononitrate ER] 30 mg PO DAILY 09/03/12 Meclizine HCl [Antivert -] 25 mg PO TID PRN #20 tablet 09/03/12 Metoprolol Succinate [Toprol XL -] 25 mg PO DAILY 09/03/12 Pitavastatin Calcium [Livalo] 2 mg PO DAILY 09/03/12 Acetaminophen [Tylenol .Regular Strength -] 325 mg PO Q4H PRN tablet 10/14/17 Atorvastatin Ca [Lipitor] 10 mg PO HS #90 tablet 10/14/17 Bisacodyl [Bisacodyl -] 5 mg PO DAILY PRN tablet. 10/14/17 Diltiazem Cd [Cardizem Cd -] 240 mg PO DAILY #90 cap.cd.24h 10/14/17 Furosemide [Lasix -] 20 mg PO DAILY #90 tablet 10/14/17 Levothyroxine [Synthroid -] 100 mcg PO DAILY@0700 #90 tablet 10/14/17 Miconazole Nitrate [Miconazole Nitrate -] 1 applic TP BID tube 10/14/17 Polyethylene Glycol 3350 [Miralax 255 gm Btl -] 17 gm PO DAILY btl 10/14/17 Potassium Chloride [K-Dur -] 10 meq PO DAILY #90 tablet.er 10/14/17 Warfarin Sodium 5 mg PO DAILY #90 tablet 10/14/17 Anemia: No Asthma: No Cancer: No Cardiac Disorders: No CVA: No COPD: No CHF: No Dementia: No Diabetes: No GI Disorders: No Disorders: No HTN: Yes Hypercholesterolemia: No Liver Disease: No Seizures: No Thyroid Disease: Yes - Surgical History Abdominal Surgery: Yes (hernia sx) Orthopedic Surgery: Yes (wrist) - Suicide/Smoking/Psychosocial Hx Smoking Status: No Smoking History: Never smoked Have you smoked in the past 12 months: No Number of Cigarettes Smoked Daily: 0 Hx Alcohol Use: No Drug/Substance Use Hx: No Substance Use Type: None Hx Substance Use Treatment: No Review of Systems - Review of Systems Constitutional: No: Chills, Diaphoresis, Fever, Loss of Appetite HEENTM: No: Blurred Vision, Tearing, Recent change in vision Respiratory: Yes: Shortness of Breath. No: Cough, Orthopnea Cardiac (ROS): Yes: Irregular Heart Rate, Palpitations. No: Edema, Lightheadedness, Syncope, Chest Tightness ABD/GI: No: Diarrhea, Nausea, Vomiting : No: Dysuria, Discharge, Frequency Integumentary: No: Lumps, Pallor, Rash Neurological: No: Numbness, Paresthesia, Tingling Psychiatric: No: Anxiety, Depression Endocrine: No: Flushing, Increased Thirst Hematologic/Lymphatic: No: Anemia, Blood Clots, Easy Bleeding *Physical Exam - Physical Exam General Appearance: Yes: Nourished, Appropriately Dressed. No: Apparent Distress HEENT: positive: EOMI, JUVENTINO, Normal ENT Inspection, Normal Voice Neck: positive: Trachea midline, Normal Thyroid, Supple. negative: Tender, Rigid Respiratory/Chest: negative: Chest Tender, Lungs Clear (diminished overall particularly at the bases), Normal Breath Sounds, Respiratory Distress, Accessory Muscle Use Cardiovascular: positive: Tachycardia, Irregularly Irregular. negative: Regular Rhythm, Regular Rate, Edema Gastrointestinal/Abdominal: positive: Normal Bowel Sounds, Flat, Soft. negative : Tender Musculoskeletal: positive: Normal Inspection. negative: Decreased Range of Motion Extremity: positive: Normal Capillary Refill, Normal Inspection, Normal Range of Motion. negative: Tender Integumentary: positive: Normal Color, Dry, Warm Neurologic: positive: Fully Oriented, Alert, Normal Mood/Affect, Normal Response , Motor Strength / ED Treatment Course - LABORATORY CBC & Chemistry Diagram: 12/01/17 14:19 12/01/17 14:19 Medical Decision Making - Medical Decision Making 87 year old in afib with RVR for unknown reason. Patient's rate was controlled after Cardizem IV 10 and then 30 PO. CXR demonstrating bilateral basilar atelectasis / congestion with read elucidating fluid at the bases as well. BNP elevated as well, all corroborating heart failure which could have preceded and incited her atrial fibrillation in RVR or be a result of this syndrome. 12/01/17 16:[address] Martínez and Dr. Vaughn who will happily admit her and follow her. 12/01/17 17:17 *DC/Admit/Observation/Transfer Diagnosis at time of Disposition: Atrial fibrillation with controlled ventricular rate, Shortness of breath, Elevated brain natriuretic peptide (BNP) level, TSH elevation CHF (congestive heart failure) Qualifiers: Heart failure type: unspecified Heart failure chronicity: acute on chronic Qualified Code(s): I50.9 - Heart failure, unspecified Hypothyroidism Qualifiers: Hypothyroidism type: unspecified Qualified Code(s): E03.9 - Hypothyroidism, unspecified - Discharge Dispostion Condition at time of disposition: Improved Decision to Admit order: Yes - Referrals Referrals: Jane Vaughn [Primary Care Provider] - - Patient Instructions - Post Discharge Activity
[2017-12-01 14:28] LABS: BASO % 0.8 % (0-2.0); EOS % 1.2 % (0-4.5); HEMATOCRIT 44.2 % (32.4-45.2); HEMOGLOBIN 14.6 GM/dL (10.7-15.3); LYMPH % 18.2 % (8-40); MCH 30.3 pg (25.7-33.7); MCHC 33.2 g/dl (32.0-36.0); MEAN CELL VOLUME 91.5 fl (80-96); MEAN PLT VOLUME 8.4 fl (7.5-11.1); MONO % 8.8 % (3.8-10.2); PLATELET COUNT 311 K/MM3 (134-434); RBC 4.82 M/mm3 (3.60-5.2); RDW 14.9 % (11.6-15.6); WHITE BLOOD COUNT 9.5 K/mm3 (4.0-10.0)
[2017-12-01] MEDS ORDERED: dilTIAZem HCL 50 MG/10 ML - 10 ML VIAL IVPUSH ONE (14:28)
--- NOTE | 2017-12-01 14:30 | PDOC ---
Attending Attestation - Resident Resident Name: Rodrigo Ritter - ED Attending Attestation I have performed the following: I have examined & evaluated the patient, The case was reviewed & discussed with the resident, I agree w/resident's findings & plan, Exceptions are as noted - HPI HPI: 12/01/17 14:23 87yo F hx HTN, CAD, AF on coumadin and cardizem/toprol, CHF, hypothyroidism, COPD presents to the ED with SOB and palpitations. Pt found to be in AF with RVR to 130s. SOB is worse with exertion. Pt also experiencing palpitations. Denies CP, cough, fevers, chills, N/V/D, abd pain, LE edema. Reports compliance with toprol and cardizem. - Physicial Exam PE: 12/01/17 14:30 agree with resident exam - Medical Decision Making 12/01/17 14:30 87yo F with MMP including AF on coumadin and toprol/cardizem for rate control presents to the ED with SOB, palpitations, and JARA. Found to be in AF w RVR to 130s. EKG with no ADILIA. Unclear what is triggering RVR, however will consider CHF exacerbation vs ischemia vs infection. No wheezing to suggest COPD. Plan -tele -IV dilt 15mg (BP 130s systolic) -labs -CXR -admit Heart Score/ECG Review #1 12/01/17 14:31 Twelve-lead EKG was performed and reviewed by me. Atrial fibrillation with rapid ventricular response, rate 144. Left axis deviation. No ST elevations.
[2017-12-01] MEDS ORDERED: dilTIAZem HCL 125 MG/25 ML - 25 ML VIAL ONE (14:33)
[2017-12-01 15:00] LABS: INR 2.35 (0.83-1.09); PROTHROMBIN TIME (PATIENT) 26.6 SEC (9.7-13.0)
[2017-12-01] MEDS ORDERED: dilTIAZem HCL 30 MG TABLET (FP) PO ONE (15:27)
[2017-12-01] MEDS ORDERED: dilTIAZem HCL 30 MG TABLET (FP) ONE (15:29)
[2017-12-01 15:56] LABS: ANION GAP 13 MMOL/L (8-16); BLOOD UREA NITROGEN 17 mg/dL (7-18); CALCIUM 8.9 mg/dL (8.5-10.1); CHLORIDE 106 mmol/L (98-107); CO2 25 mmol/L (21-32); CREATININE 0.7 mg/dL (0.55-1.3); GLUCOSE,RANDOM 121 mg/dL (74-106); PHOSPHOROUS 4.2 mg/dL (2.5-4.9); POTASSIUM 4.1 mmol/L (3.5-5.1); SODIUM 144 mmol/L (136-145)
[2017-12-01 15:57] LABS: ALBUMIN 3.3 g/dl (3.4-5.0); ALK PHOS 122 U/L (45-117); BILIRUBIN,TOTAL 0.6 mg/dL (0.2-1.0); N-TERMINAL BNP 2952 pg/ml (5-450); SGOT/AST 20 U/L (15-37); SGPT/ALT 27 U/L (13-61)
[2017-12-01 16:44] LABS: URINE APPEARANCE SLCLOUDY; URINE BILIRUBIN NEGATIVE (<2.0 mg/dL); URINE COLOR YELLOW; URINE GLUCOSE (UA) NEGATIVE (NEGATIVE); URINE KETONE NEGATIVE (NEGATIVE); URINE NITRITE NEGATIVE (NEGATIVE); URINE PROTEIN NEGATIVE (NEGATIVE); URINE UROBILINOGEN NEGATIVE mg/dL (0.2-1.0)
[2017-12-01 16:51] LABS: EPI CELLS RARE /HPF (FEW); URINE BACTERIA RARE /hpf (NONE SEEN); URINE HYALINE CAST 8 /lpf; URINE LEUK ESTERASE 3+ (NEGATIVE); URINE MUCUS RARE
[2017-12-01 19:02] VITALS: BMI 34.2
[2017-12-01] MEDS ORDERED: MECLIZINE HCL 25 MG TABLET (FP) PO PRN ×2 (20:23→20:34)
[2017-12-01] MEDS ORDERED: BISACODYL 5 MG TABLET.DR (FP) PO PRN (20:23)
[2017-12-01] MEDS: ATORVASTATIN CA 10 MG TABLET (FP) PO SCH (21:06)
[2017-12-01] MEDS: MICONAZOLE NITRATE 14 GM/TUBE TUBE TP SCH (21:06)
--- NOTE | 2017-12-01 21:08 | EKG ---
Test Reason : Blood Pressure : / mmHG Vent. Rate : 144 BPM Atrial Rate : 178 BPM P-R Int : 000 ms QRS Dur : 068 ms QT Int : 332 ms P-R-T Axes : 000 -52 063 degrees QTc Int : 514 ms ATRIAL FIBRILLATION WITH RAPID VENTRICULAR RESPONSE LEFT AXIS DEVIATION INFERIOR INFARCT (CITED ON OR BEFORE 03-SEP-2012) ABNORMAL ECG WHEN COMPARED WITH ECG OF 09-OCT-2017 10:50, ATRIAL FIBRILLATION HAS REPLACED SINUS RHYTHM VENT. RATE HAS INCREASED BY 70 BPM Confirmed by ANNALISE CHUA MD ([id number]) on 12/01/2017 9:07:57 PM Referred By: Confirmed By:ANNALISE CHUA MD
[2017-12-02] MEDS: ACETAMINOPHEN 325 MG TABLET (FP) PO PRN (01:27)
[2017-12-02] MEDS: LEVOTHYROXINE NA 100 MCG TABLET (FP) PO SCH (06:01)
[2017-12-02] MEDS: metoPROLOL SUCCINATE 25 MG TAB.SR.24H (FP) PO SCH (06:01)
[2017-12-02 06:43] LABS: BASO % 0.8 % (0-2.0); EOS % 1.5 % (0-4.5); HEMATOCRIT 42.3 % (32.4-45.2); HEMOGLOBIN 13.8 GM/dL (10.7-15.3); LYMPH % 17.5 % (8-40); MCHC 32.7 g/dl (32.0-36.0); MEAN CELL VOLUME 91.6 fl (80-96); MEAN PLT VOLUME 8.2 fl (7.5-11.1); MONO % 8.6 % (3.8-10.2); NEUT % 71.6 % (42.8-82.8); PLATELET COUNT 279 K/MM3 (134-434); RBC 4.62 M/mm3 (3.60-5.2); RDW 15.2 % (11.6-15.6); WHITE BLOOD COUNT 8.3 K/mm3 (4.0-10.0)
[2017-12-02 07:08] LABS: ALBUMIN 3.1 g/dl (3.4-5.0); ANION GAP 12 MMOL/L (8-16); BLOOD UREA NITROGEN 19 mg/dL (7-18); CALCIUM 8.9 mg/dL (8.5-10.1); CHLORIDE 106 mmol/L (98-107); CO2 27 mmol/L (21-32); GLUCOSE,RANDOM 109 mg/dL (74-106); SODIUM 145 mmol/L (136-145)
[2017-12-02 07:19] LABS: ALK PHOS 105 U/L (45-117); BILIRUBIN,TOTAL 0.8 mg/dL (0.2-1.0); CREATININE 0.7 mg/dL (0.55-1.3); SGOT/AST 11 U/L (15-37); SGPT/ALT 22 U/L (13-61); TOT PROT 6.4 g/dl (6.4-8.2)
--- NOTE | 2017-12-02 08:05 | HP ---
Admitting History and Physical - Primary Care Physician PCP: Jane Vaughn S - Admission Chief Complaint: SOB palpitations History of Present Illness: 87 year old female with PMH of Vertigo, HTN, CAD, Hypothyroidism, and new diagnosis of afib presenting from home with shortness of breath on exertion and palpitations. States that she was up and walking about when she had noticed increased SOB and palpitations. She denies fevers, chills, lightheadedness, chest pain, visual symptoms, cough, recent illness, or decreased food intake. She is compliant with all of her medications, is on coumadin with a therapeutic INR, but is non compliant with diet - ate some hot-dogs recently which had "a lot of salt" then developed some SOB and palpitations. In ER found to be fluid overload, rapid Afib; adm itted to telemetry for further w/u and treatment. History Source: Patient Limitations to Obtaining History: No Limitations - Past Medical History [employer]: Yes: Vertigo Cardiovascular: Yes: AFIB, CAD, HTN Endocrine: Yes: Hypothyroidism - Past Surgical History Past Surgical History: Yes: Hernia Repair - Smoking History Smoking history: Never smoked Have you smoked in the past 12 months: No Aproximately how many cigarettes per day: 0 - Alcohol/Substance Use Hx Alcohol Use: No History of Substance Use: reports: None - Social History Usual Living Arrangement: Yes: Alone ADL: Independent History of Recent Travel: No Home Medications - Allergies Allergies/Adverse Reactions: Allergies Allergy/AdvReac Type Severity Reaction Status Date / Time No Known Allergies Allergy Verified 12/01/17 15:04 - Home Medications Home Medications: Ambulatory Orders Ca Cmb No.1/Vit D3/B-6/FA/B12 [Vitamin D3 1,000 Unit Tablet] 1 each PO DAILY Calcium Carbonate/Vitamin D3 [Oysco 500-Vit D3 200 Tablet] 1 each PO DAILY 09/03 Cyanocobalamin/FA/Pyridoxine [B Complex-Folic Acid Tablet] 1 each PO DAILY 09/03 Isosorbide Mononitrate [Isosorbide Mononitrate ER] 30 mg PO DAILY 09/03/12 Meclizine HCl [Antivert -] 25 mg PO TID PRN #20 tablet 09/03/12 Metoprolol Succinate [Toprol XL -] 25 mg PO DAILY 09/03/12 Pitavastatin Calcium [Livalo] 2 mg PO DAILY 09/03/12 Atorvastatin Ca [Lipitor] 10 mg PO HS #90 tablet 10/14/17 Bisacodyl [Bisacodyl -] 5 mg PO DAILY PRN tablet.dr 10/14/17 Diltiazem Cd [Cardizem Cd -] 240 mg PO DAILY #90 cap.cd.24h 10/14/17 Furosemide [Lasix -] 20 mg PO DAILY #90 tablet 10/14/17 Levothyroxine [Synthroid -] 100 mcg PO DAILY@0700 #90 tablet 10/14/17 Polyethylene Glycol 3350 [Miralax 255 gm Btl -] 17 gm PO DAILY btl 10/14/17 Potassium Chloride [K-Dur -] 10 meq PO DAILY #90 tablet.er 10/14/17 Warfarin Sodium 5 mg PO DAILY #90 tablet 10/14/17 Acetaminophen [Tylenol] 650 mg PO Q4H PRN 12/02/17 Family Disease History - Family Disease History Family History: Unremarkable Review of Systems - Review of Systems Constitutional: denies: Chills, Fever Eyes: reports: Other (chronic R eye problems, blindness) Neck: denies: Pain on Movement, Stiffness Cardiovascular: reports: Palpitations, Shortness of Breath. denies: Chest Pain , Edema Respiratory: reports: SOB, SOB on Exertion. denies: Cough Gastrointestinal: denies: Abdominal Pain, Constipation, Diarrhea, Vomiting Genitourinary: denies: Dysuria, Flank Pain Musculoskeletal: denies: Back Pain, Muscle Pain, Muscle Cramps Integumentary: denies: Rash, Wound Neurological: reports: Dizziness (chronic), Unsteady Gait. denies: Change in LOC, Change in Speech, Confusion, Seizure, Syncope Hematology/Lymphatic: denies: Easily Bruised, Excessive Bleeding Psychiatric: denies: Altered Sleep Pattern, Anxiety, Depression, Hallucinations , Panic, Paranoia, Suicidal Physical Examination Vital Signs: Vital Signs Temperature 98.0 F 12/02/17 06:00 Pulse Rate 125 H 12/02/17 06:00 Respiratory Rate 19 12/02/17 06:00 Blood Pressure 123/65 12/02/17 06:00 O2 Sat by Pulse Oximetry (%) 93 L 12/01/17 22:00 Constitutional: Yes: No Distress, Calm Eyes: Yes: Conjunctiva Clear HENT: Yes: Atraumatic Neck: Yes: Supple Cardiovascular: Yes: Tachycardia, Pulse Irregular. No: Regular Rate and Rhythm Respiratory: Yes: CTA Bilaterally Gastrointestinal: Yes: Soft. No: Distention Renal/: No: CVA Tenderness - Left, CVA Tenderness - Right Musculoskeletal: No: Joint Stiffness, Joint Swelling Extremities: No: Cold, Cool, Cyanosis Edema: No Integumentary: No: Rash, Venous Stasis Changes Neurological: Yes: WNL, Alert, Oriented ...Motor Strength: WNL Psychiatric: Yes: WNL, Alert, Oriented. No: Agitated, Suicidal Ideation Labs: CBC, BMP 12/02/17 06:00 12/02/17 06:00 Imaging - Results Chest X-ray: Report Reviewed Other: Report Reviewed Assessment/Plan 87 year old female with PMH of Vertigo, HTN, CAD, Hypothyroidism, and new diagnosis of afib presenting from home with shortness of breath on exertion and palpitations. Seems to be compliant with medications but not with diet. Found to be in Rapid AFib and fluid overload possibly sec to salt intake or to Tachycardia, SHD, worsening CHF;will also check TFTs admit to telemetry CEx3; BNP; TSH IV lasix coumadin per INR daily weight cardiology eval falls PFX d/w pt and staff; d/w pt importance to be compliant with LS diet
[2017-12-02 08:33] LABS: INR 2.32 (0.83-1.09); PROTHROMBIN TIME (PATIENT) 26.2 SEC (9.7-13.0)
[2017-12-02] MEDS: POLYETHYLENE GLYCOL 3350 119 GM BTL PO SCH (09:18)
[2017-12-02] MEDS: FUROSEMIDE 40 MG/4 ML INJECTABLE VIAL IVPUSH SCH (09:19)
[2017-12-02] MEDS: CALCIUM 500MG/VIT-D 200 UNITS COMBO TABLET (FP) PO SCH (09:19)
[2017-12-02] MEDS: MICONAZOLE NITRATE 14 GM/TUBE TUBE TP SCH ×2 (09:20→22:00)
[2017-12-02] MEDS: ISOSORBIDE MONONITRATE 30 MG TAB.SR.24H (FP) PO SCH (09:20)
[2017-12-02] MEDS: POTASSIUM CHLORIDE TABS 10 MEQ TABLET.ER (FP) PO SCH (09:20)
[2017-12-02] MEDS ORDERED: PATIENT'S OWN MEDICATION (NON-FORMULARY) (Pitavastatin Calcium [Livalo] 2 MG) PO SCH (10:00)
--- NOTE | 2017-12-02 10:00 | EKG ---
Test Reason : Blood Pressure : / mmHG Vent. Rate : 089 BPM Atrial Rate : 340 BPM P-R Int : 000 ms QRS Dur : 064 ms QT Int : 408 ms P-R-T Axes : 085 -33 -12 degrees QTc Int : 496 ms ATRIAL FIBRILLATION LEFT AXIS DEVIATION NONSPECIFIC ST AND T WAVE ABNORMALITY ABNORMAL ECG WHEN COMPARED WITH ECG OF 01-DEC-2017 14:00, VENT. RATE HAS DECREASED Confirmed by GREGORIO KEITH MD ([id number]) on 12/02/2017 10:00:19 AM Referred By: Confirmed By:GREGORIO KEITH MD
--- NOTE | 2017-12-02 14:03 | CONS ---
DATE OF CONSULTATION: 12/02/2017 REQUESTING PHYSICIAN: Jane Vaughn MD CHIEF COMPLAINT: Shortness of breath. HISTORY: An 87-year-old female with a longstanding history of hypertension, cardiovascular disease, paroxysmal atrial fibrillation, hypothyroidism, hypercholesterolemia, history of chest pain syndrome, status post congestive heart failure. The patient was admitted with increasing dyspnea with minimal exertion. No history of paroxysmal or nocturnal dyspnea or orthopnea. Denies having palpitations. No history of chest pain or discomfort either at rest or with exertion. No cough or expectoration. Denies having pedal edema. She has chronic lightheadedness, dizziness, which is related to chronic postural vertigo. She was found to have a rapid heartbeat in the emergency room requiring IV Cardizem and beta-blockers. BMP was elevated. PAST MEDICAL HISTORY: As mentioned in the history of present illness. History of traumatic blindness involving the right eye. PAST SURGICAL HISTORY: Surgery on the right eye. SOCIAL HISTORY: . Retired. Has 2 sons and a daughter who are healthy. One of the daughters has tunnel syndrome. She does not smoke or drink. FAMILY HISTORY: Father at age 79 of an unknown cause. Mother at age 75 of brain tumor. She has no siblings. ALLERGIES: None reported. MEDICATIONS: 1. Warfarin 5 mg p.o. daily. 2. Levaquin 250 mg p.o. daily. 3. Tylenol 325 mg q.4 hours p.r.n. 4. Meclizine 25 mg q.8 hours. 5. Toprol XL 25 mg p.o. daily. 6. Diltiazem 240 mg p.o. daily. 7. Dulcolax 5 mg p.o. daily. 8. MiraLAX 17 mg p.o. daily. 9. Atorvastatin 10 mg p.o. daily. 10. Furosemide 40 mg IV. 11. Isosorbide mononitrate 30 mg p.o. daily. 12. Potassium supplements 10 mEq p.o. daily. 13. Os-Jaylan 500 plus vitamin D 1 p.o. daily. 14. Levothyroxine 100 mcg p.o. daily. REVIEW OF SYSTEMS: Constitutional: No history of chills, fever, or night sweats. No history of unintentional weight loss. HEENT: No history of headaches. History of blindness involving right eye. No history of hoarseness or epistaxis. No history of tinnitus or deafness reported. Cardiovascular: See history of present illness. Respiratory: See history of present illness. No history of cough, expectoration, or hemoptysis. Gastrointestinal: No history of nausea, vomiting, melena, or hemoptysis. History of constipation. No history of abdominal pain or discomfort. Musculoskeletal: Denies having myalgias or arthralgias. Endocrine: See history of present illness. No history of intolerance to cold or warm weather. No history of polyuria or polydipsia. Hematological: No history of bleeding, ecchymosis, or anemia. PHYSICAL EXAMINATION: General: An 87-year-old female who is in no acute distress. No pallor, cyanosis, clubbing, or jaundice. Vital Signs: Weight is not available. Blood pressure 116/66 mmHg, pulse 130 beats per minute and irregularly irregular, temperature 97.8 degrees Fahrenheit, oxygen saturation 95% on 3 L of oxygen, respirations 20 per minute. Neck: Supple. No jugular venous distention. Hepatojugular reflexes negative. Carotids are 2+. Upstrokes are normal. No bruits are heard, and no thyromegaly is present. Heart: PMI is in the 5th intercostal space. No heaves or thrills. S1 is variable. S2 is normal. No murmur or gallops are heard. Lungs: Clear on auscultation. Abdomen: Soft, protuberant, nontender. No hepatosplenomegaly or palpable masses are felt. Extremities: No calf tenderness or dependent edema. Pulses are equal. DIAGNOSTIC DATA: ECG revealed atrial flutter/fibrillation with rapid ventricular response. Generalized low voltage. Left anterior hemiblock. Nonspecific ST- and T-wave abnormalities. Dated December 01, 2017 at 1400 hours. Repeat ECG at 1723 on December 01 reveals atrial fibrillation with moderate ventricular response compared to earlier tracing. T-wave abnormalities are recorded in the right precordial leads. CBC: WBC count on December 02 was 8300, hemoglobin 13.8 g, platelet count 279,000. Normal differential. INR 2.32. Chemistry December 02, 2017: Sodium 145, potassium 4, chloride 106, CO2 is 27 mmol/L, BUN 19, creatinine 0.7 mg/dL. Random glucose 109 mg/dL. BNP on admission on December 01 was 2952, repeat was 2020.98. TSH on December 02 was 3.65. X-ray chest: Single AP view of the chest is submitted. There is slight widening of the mediastinum with some new bibasilar atelectasis, infiltrative changes with fluid since the prior study on December 12, 2017. ASSESSMENT: 1. Congestive heart failure, [place] Heart Classification 3. 2. Atrial fibrillation with rapid ventricular response. 3. Hypertension, hypertensive cardiovascular disease. 4. Hypercholesterolemia. 5. Hypothyroidism, replacement therapy. 6. Glaucoma. 7. History of vitamin D deficiency. 8. History of vitamin B12 deficiency. 9. History of hyperactive bladder. 10. Recurring postural vertigo. 11. Coronary artery disease. RECOMMENDATIONS: 1. Concur with current line of medications. 2. Resume ophthalmic solution (Travatan Z 0.004% one drop each eye daily). 3. If the patient continues to have a rapid ventricular response, consider adding digoxin initially starting at 0.25 mg p.o. daily. 4. If the patient is on digoxin, she will need close follow up digoxin level. 5. Counseled regarding her dietary restrictions especially curtailing her sodium intake (the patient was eating hot dogs). 6. Follow up x-ray chest PA and lateral. 7. Daily weight. 8. Prognosis guarded. Thank you for your referral. HOLLI NG M.D. [id number]
--- NOTE | 2017-12-02 14:31 | EKG ---
Test Reason : Blood Pressure : / mmHG Vent. Rate : 126 BPM Atrial Rate : 340 BPM P-R Int : 000 ms QRS Dur : 064 ms QT Int : 332 ms P-R-T Axes : 000 -33 036 degrees QTc Int : 480 ms ATRIAL FLUTTER WITH VARIABLE A-V BLOCK LEFT AXIS DEVIATION INFERIOR INFARCT , AGE UNDETERMINED ABNORMAL ECG WHEN COMPARED WITH ECG OF 01-DEC-2017 17:23, COMPARED TO EKG NO SIGNIFICANT CHANGE IS FOUND Confirmed by MUNA AMARO MD ([id number]) on 12/02/2017 2:31:11 PM Referred By: Confirmed By:MUNA AMARO MD
[2017-12-02] MEDS: WARFARIN NA 5 MG TABLET (UD) PO SCH (18:01)
[2017-12-03] MEDS: ERYTHROMYCIN 0.5% OPHTHALMIC OINTMENT 3.5 GM TUBE OD SCH ×3 (00:01→21:46)
[2017-12-03] MEDS: LATANOPROST 0.005% OPHTH SOLN 2.5ML BOTTLE OU SCH ×2 (00:02→21:46)
[2017-12-03] MEDS: ATORVASTATIN CA 10 MG TABLET (FP) PO SCH ×2 (00:02→21:46)
[2017-12-03] MEDS: LEVOTHYROXINE NA 100 MCG TABLET (FP) PO SCH (06:34)
[2017-12-03 06:43] LABS: BASO % 0.8 % (0-2.0); EOS % 1.6 % (0-4.5); HEMATOCRIT 41.3 % (32.4-45.2); HEMOGLOBIN 13.6 GM/dL (10.7-15.3); LYMPH % 16.9 % (8-40); MCH 30.1 pg (25.7-33.7); MCHC 32.9 g/dl (32.0-36.0); MEAN CELL VOLUME 91.5 fl (80-96); MEAN PLT VOLUME 8.4 fl (7.5-11.1); MONO % 8.7 % (3.8-10.2); PLATELET COUNT 267 K/MM3 (134-434); RBC 4.51 M/mm3 (3.60-5.2); WHITE BLOOD COUNT 8.1 K/mm3 (4.0-10.0)
[2017-12-03 06:56] LABS: INR 2.29 (0.83-1.09); PROTHROMBIN TIME (PATIENT) 25.9 SEC (9.7-13.0)
[2017-12-03 07:11] LABS: ANION GAP 6 MMOL/L (8-16); BLOOD UREA NITROGEN 19 mg/dL (7-18); CALCIUM 8.7 mg/dL (8.5-10.1); CHLORIDE 103 mmol/L (98-107); CO2 31 mmol/L (21-32); CREATININE 0.8 mg/dL (0.55-1.3); GLUCOSE,RANDOM 101 mg/dL (74-106); POTASSIUM 4.2 mmol/L (3.5-5.1); SODIUM 140 mmol/L (136-145)
--- NOTE | 2017-12-03 07:53 | PN ---
Progress Note, Physician Chief Complaint: in bed NAD; still tachycardic;' will adjust meds History of Present Illness: still tachycardic - Current Medication List Current Medications: Active Medications Acetaminophen (Tylenol -) 325 mg PO Q4H PRN PRN Reason: PAIN LEVEL 6-10 Last Admin: 12/02/17 01:27 Dose: 325 mg Atorvastatin Calcium (Lipitor -) 10 mg PO HS [facility] Last Admin: 12/03/17 00:02 Dose: 10 mg Bisacodyl (Dulcolax -) 5 mg PO DAILY PRN PRN Reason: CONSTIPATION Brimonidine Tartrate (Alphagan P 0.1% -) 1 drop OU BID [facility] Last Admin: 12/03/17 00:00 Dose: 1 drop Calcium Carbonate/Cholecalciferol (Os-Jaylan 500+D -) 1 tab PO DAILY [facility] Last Admin: 12/02/17 09:19 Dose: 1 tab Diltiazem HCl (Cardizem Cd -) 240 mg PO DAILY [facility] Last Admin: 12/02/17 09:19 Dose: 240 mg Erythromycin (Erythromycin 0.5% Eye Ointment) 1 applic OD BID [facility] Last Admin: 12/03/17 00:01 Dose: 1 applic Furosemide (Lasix Injection -) 40 mg IVPUSH DAILY [facility] Last Admin: 12/02/17 09:19 Dose: 40 mg Isosorbide Mononitrate (Imdur -) 30 mg PO DAILY [facility] Last Admin: 12/02/17 09:20 Dose: 30 mg Latanoprost (Xalatan 0.005% Eye Drops -) 1 drop OU [facility] Last Admin: 12/03/17 00:02 Dose: 1 drop Levofloxacin (Levaquin -) 250 mg PO DAILY@0600 [facility] Last Admin: 12/03/17 06:35 Dose: 250 mg Levothyroxine Sodium (Synthroid -) 100 mcg PO DAILY@0700 [facility] Last Admin: 12/03/17 06:34 Dose: 100 mcg Meclizine HCl (Antivert -) 25 mg PO Q8H PRN PRN Reason: VERTIGO Metoprolol Succinate (Toprol Xl -) 25 mg PO DAILY [facility] Last Admin: 12/02/17 06:01 Dose: 25 mg Miconazole Nitrate (Monistat Topical Cream -) 1 applic TP BID [facility] Last Admin: 12/02/17 22:00 Dose: Not Given Polyethylene Glycol (Miralax (For Daily Use) -) 17 gm PO DAILY [facility] Last Admin: 12/02/17 09:18 Dose: 17 gm Potassium Chloride (K-Dur -) 10 meq PO DAILY [facility] Last Admin: 12/02/17 09:20 Dose: 10 meq Warfarin Sodium (Coumadin -) 5 mg PO DAILY@1800 [facility] Last Admin: 12/02/17 18:01 Dose: 5 mg - Objective Vital Signs: Vital Signs Temperature 98.2 F 12/03/17 06:00 Pulse Rate 112 H 12/03/17 06:00 Respiratory Rate 12/03/17 06:00 Blood Pressure 118/75 12/03/17 06:00 O2 Sat by Pulse Oximetry (%) 95 12/02/17 22:00 Constitutional: Yes: No Distress, Calm Eyes: Yes: Conjunctiva Clear HENT: Yes: Atraumatic Neck: Yes: Supple Cardiovascular: No: Regular Rate and Rhythm Respiratory: Yes: Diminished Gastrointestinal: Yes: Soft. No: Tenderness Genitourinary: No: CVA Tenderness - Left, CVA Tenderness - Right Musculoskeletal: No: Joint Stiffness, Joint Swelling Extremities: No: Cold, Cool, Cyanosis Edema: Yes Integumentary: No: Rash, Venous Stasis Changes Neurological: Yes: WNL, Alert, Oriented ...Motor Strength: WNL Psychiatric: Yes: WNL, Alert, Oriented. No: Agitated, Suicidal Ideation Labs: CBC, BMP 12/03/17 06:00 12/03/17 06:00 INR, PTT INR 2.29 (0.83-1.09) H 12/03/17 06:00 - ....Imaging Other: Report Reviewed Assessment/Plan 87 year old female with PMH of Vertigo, HTN, CAD, Hypothyroidism, and new diagnosis of afib presenting from home with shortness of breath on exertion and palpitations. Seems to be compliant with medications but not with diet. Found to be in Rapid AFib and fluid overload possibly sec to salt intake or to Tachycardia, SHD, worsening CHF;will also check TFTs admit to telemetry CEx3; BNP; TSH IV lasix coumadin per INR daily weight cardiology f/u; cardizem CD and metoprolol XL falls PFX d/w pt and staff; d/w pt importance to be compliant with LS diet
[2017-12-03] MEDS ORDERED: PT OWN MED DRAWER 7, Y5N ONE ×4 (09:06→22:11)
[2017-12-03] MEDS: FUROSEMIDE 40 MG/4 ML INJECTABLE VIAL IVPUSH SCH (09:11)
[2017-12-03] MEDS: BRIMONIDINE TARTRATE 0.1% OPHTHALMIC 5 ML BOTTLE OU SCH ×3 (09:11→21:45)
[2017-12-03] MEDS: CALCIUM 500MG/VIT-D 200 UNITS COMBO TABLET (FP) PO SCH (09:13)
[2017-12-03] MEDS: metoPROLOL SUCCINATE 25 MG TAB.SR.24H (FP) PO SCH (09:13)
[2017-12-03] MEDS: POTASSIUM CHLORIDE TABS 10 MEQ TABLET.ER (FP) PO SCH (09:13)
[2017-12-03] MEDS: ISOSORBIDE MONONITRATE 30 MG TAB.SR.24H (FP) PO SCH (09:13)
[2017-12-03] MEDS: MICONAZOLE NITRATE 14 GM/TUBE TUBE TP SCH ×2 (09:14→23:46)
[2017-12-03] MEDS: POLYETHYLENE GLYCOL 3350 119 GM BTL PO SCH (09:14)
--- NOTE | 2017-12-03 09:46 | PN ---
Progress Note (short form) - Note Progress Note: Patient denies having SOB, no palpitations but has periods of rapid ventricular rapid ventricular response. Active Medications Acetaminophen (Tylenol -) 325 mg PO Q4H PRN PRN Reason: PAIN LEVEL 6-10 Last Admin: 12/02/17 01:27 Dose: 325 mg Atorvastatin Calcium (Lipitor -) 10 mg PO HS [facility] Last Admin: 12/03/17 00:02 Dose: 10 mg Bisacodyl (Dulcolax -) 5 mg PO DAILY PRN PRN Reason: CONSTIPATION Last Admin: 12/03/17 09:13 Dose: 5 mg Brimonidine Tartrate (Alphagan P 0.1% -) 1 drop OU BID [facility] Last Admin: 12/03/17 09:11 Dose: 1 drop Calcium Carbonate/Cholecalciferol (Os-Jaylan 500+D -) 1 tab PO DAILY [facility] Last Admin: 12/03/17 09:13 Dose: 1 tab Diltiazem HCl (Cardizem Cd -) 240 mg PO DAILY [facility] Last Admin: 12/03/17 09:13 Dose: 240 mg Erythromycin (Erythromycin 0.5% Eye Ointment) 1 applic OD BID [facility] Last Admin: 12/03/17 09:11 Dose: 1 applic Furosemide (Lasix Injection -) 40 mg IVPUSH DAILY [facility] Last Admin: 12/03/17 09:11 Dose: 40 mg Isosorbide Mononitrate (Imdur -) 30 mg PO DAILY [facility] Last Admin: 12/03/17 09:13 Dose: 30 mg Latanoprost (Xalatan 0.005% Eye Drops -) 1 drop OU HS [facility] Last Admin: 12/03/17 00:02 Dose: 1 drop Levofloxacin (Levaquin -) 250 mg PO DAILY@0600 [facility] Last Admin: 12/03/17 06:35 Dose: 250 mg Levothyroxine Sodium (Synthroid -) 100 mcg PO DAILY@0700 [facility] Last Admin: 12/03/17 06:34 Dose: 100 mcg Meclizine HCl (Antivert -) 25 mg PO Q8H PRN PRN Reason: VERTIGO Metoprolol Succinate (Toprol Xl -) 25 mg PO DAILY [facility] Last Admin: 12/03/17 09:13 Dose: 25 mg Miconazole Nitrate (Monistat Topical Cream -) 1 applic TP BID [facility] Last Admin: 12/03/17 09:14 Dose: Not Given Polyethylene Glycol (Miralax (For Daily Use) -) 17 gm PO DAILY [facility] Last Admin: 12/03/17 09:14 Dose: 17 gm Potassium Chloride (K-Dur -) 10 meq PO DAILY [facility] Last Admin: 12/03/17 09:13 Dose: 10 meq Warfarin Sodium (Coumadin -) 5 mg PO DAILY@1800 [facility] Last Admin: 12/02/17 18:01 Dose: 5 mg OOB, in no distress, no pallor, cyanosis or jaundice. Last Vital Signs Temp Pulse Resp BP Pulse Ox 97.7 F 138 irregular 20 101/70 95 12/03/17 09:31 12/03/17 09:31 12/03/17 09:31 12/03/17 09:31 12/02/17 22:00 Intake & Output 11/30/17 12/01/17 12/02/17 12/03/17 23:59 23:59 23:59 23:59 Intake Total 10 1020 100 Balance 10 1020 100 Weight 212 lb 4 oz NECK: Supple, no JVD, -ve HJR, carotids 2+ HEART: PMI in the 5th ICS, no heaves, S1 variable, S2 normal, no murmur or gallop heard. LUNGS: Clear. ABDOMEN: Obese, nontender, no organomegaly appreciated. EXTREMITIES: No edema or calf tenderness. CBC, BMP 12/03/17 06:00 12/03/17 06:00 IMPRESSION: 1. Hypertension,HCVD. 2. Acute LV failure, resolved. 3. Presistent Atrial fibrillation with rapid ventricular response. RECOMMENDATIONS: 1. Increase dose of Toprol to 50mg. BID for control of heart rate. 2. If patient does not tolerate Toprol consider digitalization.
[2017-12-03] MEDS ORDERED: metoPROLOL SUCCINATE 25 MG TAB.SR.24H (FP) PO ONE (10:30)
[2017-12-03] MEDS: ACETAMINOPHEN 325 MG TABLET (FP) PO PRN (16:46)
[2017-12-03] MEDS: WARFARIN NA 5 MG TABLET (UD) PO SCH (17:32)
[2017-12-04] MEDS: LEVOTHYROXINE NA 100 MCG TABLET (FP) PO SCH (06:09)
[2017-12-04 06:44] LABS: INR 2.27 (0.83-1.09); PROTHROMBIN TIME (PATIENT) 25.7 SEC (9.7-13.0)
--- NOTE | 2017-12-04 06:46 | PN ---
Progress Note, Physician Chief Complaint: HR better controlled but has few episodes of tachycardia; seen by cardiology. - Current Medication List Current Medications: Active Medications Acetaminophen (Tylenol -) 325 mg PO Q4H PRN PRN Reason: PAIN LEVEL 6-10 Last Admin: 12/03/17 16:46 Dose: 325 mg Atorvastatin Calcium (Lipitor -) 10 mg PO HS [facility] Last Admin: 12/03/17 21:46 Dose: 10 mg Bisacodyl (Dulcolax -) 5 mg PO DAILY PRN PRN Reason: CONSTIPATION Last Admin: 12/03/17 09:13 Dose: 5 mg Brimonidine Tartrate (Alphagan P 0.1% -) 1 drop OU BID [facility] Last Admin: 12/03/17 21:45 Dose: 1 drop Calcium Carbonate/Cholecalciferol (Os-Jaylan 500+D -) 1 tab PO DAILY [facility] Last Admin: 12/03/17 09:13 Dose: 1 tab Diltiazem HCl (Cardizem Cd -) 240 mg PO DAILY [facility] Last Admin: 12/03/17 09:13 Dose: 240 mg Erythromycin (Erythromycin 0.5% Eye Ointment) 1 applic OD BID [facility] Last Admin: 12/03/17 21:46 Dose: 1 applic Furosemide (Lasix Injection -) 40 mg IVPUSH DAILY [facility] Last Admin: 12/03/17 09:11 Dose: 40 mg Isosorbide Mononitrate (Imdur -) 30 mg PO DAILY [facility] Last Admin: 12/03/17 09:13 Dose: 30 mg Latanoprost (Xalatan 0.005% Eye Drops -) 1 drop OU HS [facility] Last Admin: 12/03/17 21:46 Dose: 1 drop Levofloxacin (Levaquin -) 250 mg PO DAILY@0600 [facility] Last Admin: 12/04/17 05:50 Dose: 250 mg Levothyroxine Sodium (Synthroid -) 100 mcg PO DAILY@0700 [facility] Last Admin: 12/04/17 06:09 Dose: 100 mcg Meclizine HCl (Antivert -) 25 mg PO Q8H PRN PRN Reason: VERTIGO Metoprolol Succinate (Toprol Xl -) 50 mg PO BID [facility] Last Admin: 12/03/17 21:46 Dose: 50 mg Miconazole Nitrate (Monistat Topical Cream -) 1 applic TP BID [facility] Last Admin: 12/03/17 23:46 Dose: Not Given Polyethylene Glycol (Miralax (For Daily Use) -) 17 gm PO DAILY [facility] Last Admin: 12/03/17 09:14 Dose: 17 gm Potassium Chloride (K-Dur -) 10 meq PO DAILY [facility] Last Admin: 12/03/17 09:13 Dose: 10 meq Warfarin Sodium (Coumadin -) 5 mg PO DAILY@1800 [facility] Last Admin: 12/03/17 17:32 Dose: 5 mg - Objective Vital Signs: Vital Signs Temperature 98 F 12/04/17 05:49 Pulse Rate 120 H 12/04/17 05:49 Respiratory Rate 18 12/04/17 05:49 Blood Pressure 105/68 12/04/17 05:49 O2 Sat by Pulse Oximetry (%) 96 12/03/17 22:00 Constitutional: Yes: No Distress, Calm Eyes: Yes: Conjunctiva Clear HENT: Yes: Atraumatic Neck: Yes: Supple Cardiovascular: No: Regular Rate and Rhythm Respiratory: Yes: Diminished Gastrointestinal: Yes: Soft. No: Tenderness Genitourinary: No: CVA Tenderness - Left, CVA Tenderness - Right Musculoskeletal: No: Joint Stiffness, Joint Swelling Extremities: No: Cold, Cool Edema: Yes Integumentary: No: Rash, Venous Stasis Changes Neurological: Yes: WNL, Alert, Oriented ...Motor Strength: WNL Psychiatric: Yes: WNL, Alert, Oriented. No: Agitated Labs: CBC, BMP 12/03/17 06:00 INR, PTT INR 2.29 (0.83-1.09) H 12/03/17 06:00 - ....Imaging Other: Report Reviewed Assessment/Plan 87 year old female with PMH of Vertigo, HTN, CAD, Hypothyroidism, and new diagnosis of afib presenting from home with shortness of breath on exertion and palpitations. Seems to be compliant with medications but not with diet. Found to be in Rapid AFib and fluid overload possibly sec to salt intake or to Tachycardia, SHD, worsening CHF;will also check TFTs admitted to telemetry continue IV lasix coumadin per INR daily weight cardiology f/u; cardizem CD and metoprolol XL falls PFX d/w pt and staff; d/w pt importance to be compliant with LS diet pre and post O2 sat/RA when pt stable
[2017-12-04 06:59] LABS: CHLORIDE 102 mmol/L (98-107); POTASSIUM 4.5 mmol/L (3.5-5.1); SODIUM 140 mmol/L (136-145)
[2017-12-04 07:05] LABS: ANION GAP 3 MMOL/L (8-16); BLOOD UREA NITROGEN 17 mg/dL (7-18); CALCIUM 8.9 mg/dL (8.5-10.1); CO2 35 mmol/L (21-32); CREATININE 0.8 mg/dL (0.55-1.3); GLUCOSE,RANDOM 96 mg/dL (74-106)
[2017-12-04] MEDS ORDERED: PT OWN MED DRAWER 7, Y5N ONE ×2 (09:37→19:27)
[2017-12-04] MEDS: CALCIUM 500MG/VIT-D 200 UNITS COMBO TABLET (FP) PO SCH (09:42)
[2017-12-04] MEDS: ISOSORBIDE MONONITRATE 30 MG TAB.SR.24H (FP) PO SCH (09:43)
[2017-12-04] MEDS: POTASSIUM CHLORIDE TABS 10 MEQ TABLET.ER (FP) PO SCH (09:43)
[2017-12-04] MEDS: ERYTHROMYCIN 0.5% OPHTHALMIC OINTMENT 3.5 GM TUBE OD SCH ×2 (09:44→21:07)
[2017-12-04] MEDS: BRIMONIDINE TARTRATE 0.1% OPHTHALMIC 5 ML BOTTLE OU SCH ×2 (09:44→21:07)
[2017-12-04] MEDS: POLYETHYLENE GLYCOL 3350 119 GM BTL PO SCH (09:45)
[2017-12-04] MEDS: MICONAZOLE NITRATE 14 GM/TUBE TUBE TP SCH ×2 (09:53→21:08)
[2017-12-04] MEDS: FUROSEMIDE 40 MG/4 ML INJECTABLE VIAL IVPUSH SCH (11:35)
--- NOTE | 2017-12-04 12:14 | PN ---
Progress Note (short form) - Note Progress Note: Patient denies having SOB, no palpitations and heart rate is controlled since dose of toprol was increased. Active Medications Acetaminophen (Tylenol -) 325 mg PO Q4H PRN PRN Reason: PAIN LEVEL 6-10 Last Admin: 12/03/17 16:46 Dose: 325 mg Atorvastatin Calcium (Lipitor -) 10 mg PO HS [facility] Last Admin: 12/03/17 21:46 Dose: 10 mg Bisacodyl (Dulcolax -) 5 mg PO DAILY PRN PRN Reason: CONSTIPATION Last Admin: 12/03/17 09:13 Dose: 5 mg Brimonidine Tartrate (Alphagan P 0.1% -) 1 drop OU BID [facility] Last Admin: 12/04/17 09:44 Dose: 1 drop Calcium Carbonate/Cholecalciferol (Os-Jaylan 500+D -) 1 tab PO DAILY [facility] Last Admin: 12/04/17 09:42 Dose: 1 tab Diltiazem HCl (Cardizem Cd -) 240 mg PO DAILY [facility] Last Admin: 12/04/17 09:43 Dose: 240 mg Erythromycin (Erythromycin 0.5% Eye Ointment) 1 applic OD BID [facility] Last Admin: 12/04/17 09:44 Dose: 1 applic Furosemide (Lasix Injection -) 40 mg IVPUSH DAILY [facility] Last Admin: 12/04/17 11:35 Dose: 40 mg Isosorbide Mononitrate (Imdur -) 30 mg PO DAILY [facility] Last Admin: 12/04/17 09:43 Dose: 30 mg Latanoprost (Xalatan 0.005% Eye Drops -) 1 drop OU [facility] Last Admin: 12/03/17 21:46 Dose: 1 drop Levofloxacin (Levaquin -) 250 mg PO DAILY@0600 [facility] Last Admin: 12/04/17 05:50 Dose: 250 mg Levothyroxine Sodium (Synthroid -) 100 mcg PO DAILY@0700 [facility] Last Admin: 12/04/17 06:09 Dose: 100 mcg Meclizine HCl (Antivert -) 25 mg PO Q8H PRN PRN Reason: VERTIGO Metoprolol Succinate (Toprol Xl -) 50 mg PO BID [facility] Last Admin: 12/04/17 09:43 Dose: 50 mg Miconazole Nitrate (Monistat Topical Cream -) 1 applic TP BID [facility] Last Admin: 12/04/17 09:53 Dose: Not Given Polyethylene Glycol (Miralax (For Daily Use) -) 17 gm PO DAILY [facility] Last Admin: 12/04/17 09:45 Dose: 17 gm Potassium Chloride (K-Dur -) 10 meq PO DAILY [facility] Last Admin: 12/04/17 09:43 Dose: 10 meq Warfarin Sodium (Coumadin -) 5 mg PO DAILY@1800 [facility] Last Admin: 12/03/17 17:32 Dose: 5 mg Patient is no distress, no pallor, cyanosis or jaundice. Last Vital Signs Temp Pulse Resp BP Pulse Ox 98 F 76 irregular 18 105/68 96 12/04/17 05:49 12/04/17 05:49 12/04/17 05:49 12/04/17 05:49 12/03/17 22:00 NECK: Supple, no JVD, -ve HJR, carotids 2+ HEART: PMI in the 5th ICS, no heaves, S1 variable, S2 normal, no murmur or gallop heard. LUNGS: Clear. ABDOMEN: Obese, nontender, no organomegaly appreciated. EXTREMITIES: No edema or calf tenderness. CBC, BMP 12/03/17 06:00 12/04/17 06:00 IMPRESSION: 1. Hypertension,HCVD. 2. Acute LV failure, resolved. 3. Presistent Atrial fibrillation with controlled ventricular response. RECOMMENDATIONS: 1. Increase ambulation. 2. Continue current therapy. 3. Discharge when medically stable.
[2017-12-04] MEDS: ACETAMINOPHEN 325 MG TABLET (FP) PO PRN (14:11)
[2017-12-04] MEDS: WARFARIN NA 5 MG TABLET (UD) PO SCH (17:05)
[2017-12-04] MEDS: ATORVASTATIN CA 10 MG TABLET (FP) PO SCH (21:07)
[2017-12-04] MEDS: LATANOPROST 0.005% OPHTH SOLN 2.5ML BOTTLE OU SCH (21:08)
[2017-12-05] MEDS: LEVOTHYROXINE NA 100 MCG TABLET (FP) PO SCH (06:06)
[2017-12-05] MEDS ORDERED: PT OWN MED DRAWER 7, Y5N ONE ×6 (08:33→22:17)
[2017-12-05] MEDS: ISOSORBIDE MONONITRATE 30 MG TAB.SR.24H (FP) PO SCH (09:18)
[2017-12-05] MEDS: FUROSEMIDE 40 MG/4 ML INJECTABLE VIAL IVPUSH SCH (09:18)
--- NOTE | 2017-12-05 09:18 | DS ---
Physical Examination Vital Signs: Vital Signs Temperature 98.3 F 12/05/17 06:00 Pulse Rate 117 H 12/05/17 06:00 Respiratory Rate 20 12/05/17 06:00 Blood Pressure 103/67 12/05/17 06:00 O2 Sat by Pulse Oximetry (%) 97 12/04/17 22:00 Findings/Remarks: feeling better urnates a lot but no change in weight; HR better controlled but still has some tachycardia episodes HR 115-120 Constitutional: Yes: No Distress, Calm Eyes: Yes: Conjunctiva Clear HENT: Yes: Atraumatic Neck: Yes: Supple Cardiovascular: No: Regular Rate and Rhythm Respiratory: Yes: CTA Bilaterally Gastrointestinal: Yes: Soft. No: Tenderness Renal/: No: CVA Tenderness - Left, CVA Tenderness - Right Musculoskeletal: No: Joint Stiffness, Joint Swelling Extremities: No: Cold, Cool, Cyanosis Edema: Yes (1+ pedal bilat) Integumentary: No: Rash, Venous Stasis Changes Neurological: Yes: WNL, Alert, Oriented ...Motor Strength: WNL Psychiatric: Yes: WNL, Alert, Oriented. No: Agitated Labs: CBC, BMP 12/03/17 06:00 12/04/17 06:00 Discharge Summary Reason For Visit: ATRIAL FIBRILLATION Current Active Problems Atrial fibrillation with controlled ventricular rate (Acute) Congestive heart failure (Acute) Elevated brain natriuretic peptide (BNP) level (Acute) Hypothyroidism (Acute) Shortness of breath (Acute) TSH elevation (Acute) Procedures: Principal: admitted with tachycardia, SOB and heart failure exacerbation sec to dietary indiscretion, also h/o AFib; started on IV lasix; cardized CD< toprol XL doses adjusted Other Procedures: cardiology eval dr Martínez; CE negative Hospital Course: improved with above; DC home with PCP and cardio f/u; coumadin per INR Condition: Improved - Instructions Diet, Activity, Other Instructions: f/u PCP and cardiology in 1-2 weeks; LS diet; take meds as prescribed;check wieght everyday, call MD if > 2 lbs difference; RTER if CP/SOB/ palpitations;check INR 1-2 weeks falls PFX. Referrals: Jane Vaughn [Primary Care Provider] - Disposition: VNS/HOME HEALTH CARE - Home Medications Comprehensive Discharge Medication List: Ambulatory Orders Ca Cmb No.1/Vit D3/B-6/FA/B12 [Vitamin D3 1,000 Unit Tablet] 1 each PO DAILY Calcium Carbonate/Vitamin D3 [[place] 500-Vit D3 200 Tablet] 1 each PO DAILY 09/03 Cyanocobalamin/FA/Pyridoxine [B Complex-Folic Acid Tablet] 1 each PO DAILY 09/03 Isosorbide Mononitrate [Isosorbide Mononitrate ER] 30 mg PO DAILY 09/03/12 Meclizine HCl [Antivert -] 25 mg PO TID PRN #20 tablet 09/03/12 Pitavastatin Calcium [Livalo] 2 mg PO DAILY 09/03/12 Atorvastatin Ca [Lipitor] 10 mg PO HS #90 tablet 10/14/17 Bisacodyl [Bisacodyl -] 5 mg PO DAILY PRN tablet.dr 10/14/17 Diltiazem Cd [Cardizem Cd -] 240 mg PO DAILY #90 cap.cd.24h 10/14/17 Levothyroxine [Synthroid -] 100 mcg PO DAILY@0700 #90 tablet 10/14/17 Polyethylene Glycol 3350 [Miralax 255 gm Btl -] 17 gm PO DAILY btl 10/14/17 Potassium Chloride [K-Dur -] 10 meq PO DAILY #90 tablet.er 10/14/17 Warfarin Sodium 5 mg PO DAILY #90 tablet 10/14/17 Acetaminophen [Tylenol] 650 mg PO Q4H PRN 12/02/17 Acetaminophen [Tylenol .Regular Strength -] 325 mg PO Q4H PRN tablet 12/04/17 Brimonidine Tartrate [Alphagan P 0.1% -] 1 drop OU BID drops 12/04/17 Erythromycin 0.5% Eye Ointment [Erythromycin 0.5% Eye Ointment -] 1 applic OD BID tube 12/04/17 Furosemide [Lasix -] 20 mg PO BID #90 tablet 12/04/17 Latanoprost 0.005% Eye Drops [Xalatan 0.005% Eye Drops -] 1 drop OU HS drops Metoprolol Succinate [Toprol XL -] 50 mg PO BID #180 tab.sr.24h 12/04/17 Miconazole Nitrate [Monistat -] 1 applic TP BID tube 12/04/17
[2017-12-05] MEDS: POTASSIUM CHLORIDE TABS 10 MEQ TABLET.ER (FP) PO SCH (09:19)
[2017-12-05] MEDS: CALCIUM 500MG/VIT-D 200 UNITS COMBO TABLET (FP) PO SCH (09:19)
[2017-12-05] MEDS: MICONAZOLE NITRATE 14 GM/TUBE TUBE TP SCH ×2 (09:25→21:23)
[2017-12-05] MEDS: ERYTHROMYCIN 0.5% OPHTHALMIC OINTMENT 3.5 GM TUBE OD SCH ×2 (09:27→21:22)
[2017-12-05] MEDS: BRIMONIDINE TARTRATE 0.1% OPHTHALMIC 5 ML BOTTLE OU SCH ×2 (09:27→21:22)
[2017-12-05] MEDS: POLYETHYLENE GLYCOL 3350 119 GM BTL PO SCH (11:00)
[2017-12-05] MEDS: METOLAZONE 2.5 MG TABLET (FP) PO SCH (13:10)
[2017-12-05] MEDS: WARFARIN NA 5 MG TABLET (UD) PO SCH (17:26)
--- NOTE | 2017-12-05 19:36 | PN ---
Progress Note (short form) - Note Progress Note: Patient denies having SOB or palpitations, heart is better controlled. Dose of cardizem was increased. Active Medications Acetaminophen (Tylenol -) 325 mg PO Q4H PRN PRN Reason: PAIN LEVEL 6-10 Last Admin: 12/04/17 14:11 Dose: 325 mg Atorvastatin Calcium (Lipitor -) 10 mg PO HS [facility] Last Admin: 12/04/17 21:07 Dose: 10 mg Bisacodyl (Dulcolax -) 5 mg PO DAILY PRN PRN Reason: CONSTIPATION Last Admin: 12/03/17 09:13 Dose: 5 mg Brimonidine Tartrate (Alphagan P 0.1% -) 1 drop OU BID [facility] Last Admin: 12/05/17 09:27 Dose: Not Given Calcium Carbonate/Cholecalciferol (Os-Jaylan 500+D -) 1 tab PO DAILY [facility] Last Admin: 12/05/17 09:19 Dose: 1 tab Diltiazem HCl (Cardizem Cd -) 300 mg PO DAILY [facility] Last Admin: 12/05/17 11:00 Dose: 300 mg Erythromycin (Erythromycin 0.5% Eye Ointment) 1 applic OD BID [facility] Last Admin: 12/05/17 09:27 Dose: Not Given Furosemide (Lasix Injection -) 40 mg IVPUSH DAILY [facility] Last Admin: 12/05/17 09:18 Dose: 40 mg Isosorbide Mononitrate (Imdur -) 30 mg PO DAILY [facility] Last Admin: 12/05/17 09:18 Dose: 30 mg Latanoprost (Xalatan 0.005% Eye Drops -) 1 drop OU [facility] Last Admin: 12/04/17 21:08 Dose: Not Given Levofloxacin (Levaquin -) 250 mg PO DAILY@0600 [facility] Last Admin: 12/05/17 06:06 Dose: 250 mg Levothyroxine Sodium (Synthroid -) 100 mcg PO DAILY@0700 [facility] Last Admin: 12/05/17 06:06 Dose: 100 mcg Meclizine HCl (Antivert -) 25 mg PO Q8H PRN PRN Reason: VERTIGO Metolazone (Zaroxolyn -) 2.5 mg PO DAILY@0930 [facility] Last Admin: 12/05/17 13:10 Dose: 2.5 mg Metoprolol Succinate (Toprol Xl -) 50 mg PO BID [facility] Last Admin: 12/05/17 09:19 Dose: 50 mg Miconazole Nitrate (Monistat Topical Cream -) 1 applic TP BID [facility] Last Admin: 12/05/17 09:25 Dose: 1 applic Polyethylene Glycol (Miralax (For Daily Use) -) 17 gm PO DAILY [facility] Last Admin: 12/05/17 11:00 Dose: 17 gm Potassium Chloride (K-Dur -) 10 meq PO DAILY [facility] Last Admin: 12/05/17 09:19 Dose: 10 meq Warfarin Sodium (Coumadin -) 5 mg PO DAILY@1800 [facility] Last Admin: 12/05/17 17:26 Dose: 5 mg Patient is no distress, no pallor, cyanosis or jaundice. Last Vital Signs Temp Pulse Resp BP Pulse Ox 97.9 F 71 19 100/56 91 L 12/05/17 18:00 12/05/17 18:00 12/05/17 18:00 12/05/17 18:00 12/05/17 14:56 NECK: Supple, no JVD, -ve HJR, carotids 2+ HEART: PMI in the 5th ICS, no heaves, S1 variable, S2 normal, no murmur or gallop heard. LUNGS: Clear. ABDOMEN: Obese, nontender, no organomegaly appreciated. EXTREMITIES: 1+ edema no calf tenderness. CBC, BMP 12/03/17 06:00 12/04/17 06:00 IMPRESSION: 1. Persistent atrial fib. with periods of rapid ventricular response.. 2. Acute LV failure, resolved. 3. Hypertension/HCVD. RECOMMENDATIONS: 1. Increase ambulation. 2. Continue current therapy. 3. Check heart during ambulation.
[2017-12-05] MEDS: ATORVASTATIN CA 10 MG TABLET (FP) PO SCH (21:22)
[2017-12-05] MEDS: LATANOPROST 0.005% OPHTH SOLN 2.5ML BOTTLE OU SCH (21:22)
[2017-12-06] MEDS: LEVOTHYROXINE NA 100 MCG TABLET (FP) PO SCH (06:45)
[2017-12-06] MEDS ORDERED: PT OWN MED DRAWER 7, Y5N ONE (09:07)
[2017-12-06] MEDS: CALCIUM 500MG/VIT-D 200 UNITS COMBO TABLET (FP) PO SCH (09:10)
[2017-12-06] MEDS: METOLAZONE 2.5 MG TABLET (FP) PO SCH (09:10)
[2017-12-06] MEDS: BRIMONIDINE TARTRATE 0.1% OPHTHALMIC 5 ML BOTTLE OU SCH (09:11)
[2017-12-06] MEDS: ERYTHROMYCIN 0.5% OPHTHALMIC OINTMENT 3.5 GM TUBE OD SCH (09:11)
[2017-12-06] MEDS: ISOSORBIDE MONONITRATE 30 MG TAB.SR.24H (FP) PO SCH (09:11)
[2017-12-06] MEDS: POTASSIUM CHLORIDE TABS 10 MEQ TABLET.ER (FP) PO SCH (09:11)
[2017-12-06] MEDS: POLYETHYLENE GLYCOL 3350 119 GM BTL PO SCH (09:12)
[2017-12-06] MEDS: MICONAZOLE NITRATE 14 GM/TUBE TUBE TP SCH (09:18)
--- NOTE | 2017-12-06 09:49 | PN ---
Progress Note, Physician Chief Complaint: meds adjusted; HR and CHF better; will DC home today does not need home O2 to have home PT VNS and home blood draw for INR (called [facility]). - Current Medication List Current Medications: Active Medications Acetaminophen (Tylenol -) 325 mg PO Q4H PRN PRN Reason: PAIN LEVEL 6-10 Last Admin: 12/04/17 14:11 Dose: 325 mg Atorvastatin Calcium (Lipitor -) 10 mg PO HS [facility] Last Admin: 12/05/17 21:22 Dose: 10 mg Bisacodyl (Dulcolax -) 5 mg PO DAILY PRN PRN Reason: CONSTIPATION Last Admin: 12/03/17 09:13 Dose: 5 mg Brimonidine Tartrate (Alphagan P 0.1% -) 1 drop OU BID [facility] Last Admin: 12/06/17 09:11 Dose: 1 drop Calcium Carbonate/Cholecalciferol (Os-Jaylan 500+D -) 1 tab PO DAILY [facility] Last Admin: 12/06/17 09:10 Dose: 1 tab Diltiazem HCl (Cardizem Cd -) 300 mg PO DAILY [facility] Last Admin: 12/06/17 09:12 Dose: 300 mg Erythromycin (Erythromycin 0.5% Eye Ointment) 1 applic OD BID [facility] Last Admin: 12/06/17 09:11 Dose: 1 applic Furosemide (Lasix Injection -) 40 mg IVPUSH DAILY [facility] Last Admin: 12/05/17 09:18 Dose: 40 mg Isosorbide Mononitrate (Imdur -) 30 mg PO DAILY [facility] Last Admin: 12/06/17 09:11 Dose: 30 mg Latanoprost (Xalatan 0.005% Eye Drops -) 1 drop OU [facility] Last Admin: 12/05/17 21:22 Dose: 1 drop Levofloxacin (Levaquin -) 250 mg PO DAILY@0600 [facility] Last Admin: 12/06/17 06:45 Dose: 250 mg Levothyroxine Sodium (Synthroid -) 100 mcg PO DAILY@0700 [facility] Last Admin: 12/06/17 06:45 Dose: 100 mcg Meclizine HCl (Antivert -) 25 mg PO Q8H PRN PRN Reason: VERTIGO Metolazone (Zaroxolyn -) 2.5 mg PO DAILY@30 [facility] Last Admin: 12/06/17 09:10 Dose: 2.5 mg Metoprolol Succinate (Toprol Xl -) 50 mg PO BID [facility] Last Admin: 12/06/17 09:11 Dose: 50 mg Miconazole Nitrate (Monistat Topical Cream -) 1 applic TP BID [facility] Last Admin: 12/06/17 09:18 Dose: Not Given Polyethylene Glycol (Miralax (For Daily Use) -) 17 gm PO DAILY [facility] Last Admin: 12/06/17 09:12 Dose: 17 gm Potassium Chloride (K-Dur -) 10 meq PO DAILY [facility] Last Admin: 12/06/17 09:11 Dose: 10 meq Warfarin Sodium (Coumadin -) 5 mg PO DAILY@1800 [facility] Last Admin: 12/05/17 17:26 Dose: 5 mg - Objective Vital Signs: Vital Signs Temperature 97.8 F 12/06/17 06:00 Pulse Rate 90 12/06/17 06:00 Respiratory Rate 19 12/06/17 06:00 Blood Pressure 109/66 12/06/17 06:00 O2 Sat by Pulse Oximetry (%) 91 L 12/06/17 00:26 Constitutional: Yes: No Distress, Calm Eyes: Yes: Conjunctiva Clear HENT: Yes: Atraumatic Neck: Yes: Supple Cardiovascular: No: Regular Rate and Rhythm Respiratory: Yes: Diminished Gastrointestinal: Yes: Soft. No: Tenderness Genitourinary: No: CVA Tenderness - Left, CVA Tenderness - Right Musculoskeletal: No: Joint Stiffness, Joint Swelling Extremities: No: Cold, Cool Edema: No Integumentary: No: Rash, Venous Stasis Changes Neurological: Yes: WNL, Alert, Oriented ...Motor Strength: WNL Psychiatric: Yes: WNL, Alert, Oriented. No: Agitated, Suicidal Ideation Labs: CBC, BMP 12/03/17 06:00 12/04/17 06:00 INR, PTT INR 2.27 (0.83-1.09) H 12/04/17 06:00 - ....Imaging Other: Report Reviewed Assessment/Plan 87 year old female with PMH of Vertigo, HTN, CAD, Hypothyroidism, and new diagnosis of afib presenting from home with shortness of breath on exertion and palpitations.Found to be in Rapid AFib and fluid overload Tachycardia, ASHD, worsening CHF; lasix and zaroxolyn po; increase cardizem CD and metoprolol dose coumadin per INR daily weight cardiology f/u; falls PFX d/w pt and staff; d/w pt importance to be compliant with LS diet DC home and f/u as advised dw pt and staff
[2017-12-06] MEDS: FUROSEMIDE 40 MG/4 ML INJECTABLE VIAL IVPUSH SCH (10:31)
[2017-12-06 11:46] VITALS: BP 112/52; PULSE 102; TEMP 98
== END 2017-12-06 14:52 | disposition home health service (06) | DRG 308 ==
LOC: JER 13:40 → JERBED 16:21 → J4S 18:30
PROVIDERS: ADMIT Internal Medicine; ATTEND Internal Medicine
DX: I48.1 Persistent atrial fibrillation (principal); I50.33 Acute on chronic diastolic (congestive) heart failure; J98.11 Atelectasis; I11.0 Hypertensive heart disease with heart failure; I25.10 Atherosclerotic heart disease of native coronary artery without angina pectoris; E03.9 Hypothyroidism, unspecified; J44.9 Chronic obstructive pulmonary disease, unspecified; R00.0 Tachycardia, unspecified; Z79.01 Long term (current) use of anticoagulants
CPT/HCPCS: 36415; 71045-TC-FY; 80048; 80053; 81003; 81015; 82550; 83735; 83880; 84100; 84439; 84443; 84481; 84484; 85025; 85610; 87086; 93005; 93010; 94761; 97116-GP; 97161-GP; 99285-25

== ENCOUNTER 2017-12-15 17:58 | Inpatient (IN) | payer OTHER, BC ==
--- NOTE | 2017-12-15 18:15 | PDOC ---
History of Present Illness - General Chief Complaint: Lightheaded Stated Complaint: DIZZY Time Seen by Provider: 12/15/17 18:01 - History of Present Illness Initial Comments: 12/15/17 18:14 87 yo F h/o HTN, HLD, vertigo, hypothyroidism, CAD, COPD, CHF, A-Fib ( Coumadin and Cardizem/Toprol for rate control),BIBA with dizziness. EMS reports patient noted to be hypotensie to 89/56 on arrival, administered 200 cc NS. Patient reports two days of "swaying" sensation, with ambulation. Symptoms slightly improved with rest. Also endorses 2 days of [place], symptoms resolved at rest. Patient denies N/V, F/C, CP, palpitations, PND, Orthopnea, leg pain/swelling, cough, wheezing, hemoptysis, urinary complaints, hematuria, abdominal pain, diarrhea, BPR, constipation, weakness, sensory changes. Recent admission to [facility] (12/01-12/06) for rapid A-fib, and acute on chronic CHF. On Lasix,Zaroxolyn, Cardizem, Metoprolol PMHx: as noted above ROS: as noted SHx: Denies Etoh, IVDA, tobacco Allergies: NKDA Past History - Past Medical History Allergies/Adverse Reactions: Allergies Allergy/AdvReac Type Severity Reaction Status Date / Time No Known Allergies Allergy Verified 12/01/17 15:04 Home Medications: Ambulatory Orders Ca Cmb No.1/Vit D3/B-6/FA/B12 [Vitamin D3 1,000 Unit Tablet] 1 each PO DAILY Calcium Carbonate/Vitamin D3 [Oysco 500-Vit D3 200 Tablet] 1 each PO DAILY 09/03 Cyanocobalamin/FA/Pyridoxine [B Complex-Folic Acid Tablet] 1 each PO DAILY 09/03 Isosorbide Mononitrate [Isosorbide Mononitrate ER] 30 mg PO DAILY 09/03/12 Meclizine HCl [Antivert -] 25 mg PO TID PRN #20 tablet 09/03/12 Pitavastatin Calcium [Livalo] 2 mg PO DAILY 09/03/12 Atorvastatin Ca [Lipitor] 10 mg PO HS #90 tablet 10/14/17 Bisacodyl [Bisacodyl -] 5 mg PO DAILY PRN tablet. 10/14/17 Levothyroxine [Synthroid -] 100 mcg PO DAILY@0700 #90 tablet 10/14/17 Polyethylene Glycol 3350 [Miralax 255 gm Btl -] 17 gm PO DAILY btl 10/14/17 Potassium Chloride [K-Dur -] 10 meq PO DAILY #90 tablet.er 10/14/17 Warfarin Sodium 5 mg PO DAILY #90 tablet 10/14/17 Acetaminophen [Tylenol] 650 mg PO Q4H PRN 12/02/17 Brimonidine Tartrate [Alphagan P 0.1% -] 1 drop OU BID drops 12/04/17 Erythromycin 0.5% Eye Ointment [Erythromycin 0.5% Eye Ointment -] 1 applic OD BID tube 12/04/17 Furosemide [Lasix -] 20 mg PO BID #90 tablet 12/04/17 Latanoprost 0.005% Eye Drops [Xalatan 0.005% Eye Drops -] 1 drop OU HS drops Metoprolol Succinate [Toprol XL -] 50 mg PO BID #180 tab.sr.24h 12/04/17 Miconazole Nitrate [Monistat -] 1 applic TP BID tube 12/04/17 Diltiazem Cd [Cardizem Cd -] 300 mg PO DAILY #90 cap.cd.24h 12/06/17 Metolazone [Zaroxolyn -] 2.5 mg PO DAILY@0930 #90 tablet 12/06/17 Anemia: No Asthma: No Cancer: No Cardiac Disorders: Yes (CAD, AF) CVA: No COPD: Yes CHF: No Dementia: No Diabetes: No GI Disorders: No Disorders: No HTN: Yes Hypercholesterolemia: No Liver Disease: No Seizures: No Thyroid Disease: Yes (hypo) - Surgical History Abdominal Surgery: Yes (hernia sx) Orthopedic Surgery: Yes (wrist) - Immunization History Immunization Up to Date: Yes - Suicide/Smoking/Psychosocial Hx Smoking Status: No Smoking History: Never smoked Have you smoked in the past 12 months: No Number of Cigarettes Smoked Daily: 0 Hx Alcohol Use: No Drug/Substance Use Hx: No Substance Use Type: None Hx Substance Use Treatment: No Cardiac Specific PMH - Complaint Specific PMHX Pacemaker: No Review of Systems - Review of Systems Comments:: 12/15/17 18:16 GENERAL/CONSTITUTIONAL: No fever or chills. No weakness. HEAD, EYES, EARS, NOSE AND THROAT: No change in vision. No ear pain or discharge. No sore throat. CARDIOVASCULAR: No chest pain or shortness of breath RESPIRATORY: No cough, wheezing, or hemoptysis. GASTROINTESTINAL: No nausea, vomiting, diarrhea or constipation. GENITOURINARY: No dysuria, frequency, or change in urination. MUSCULOSKELETAL: No joint or muscle swelling or pain. No neck or back pain. SKIN: No rash NEUROLOGIC: No headache, vertigo, loss of consciousness, or change in strength/ sensation. ENDOCRINE: No increased thirst. No abnormal weight change HEMATOLOGIC/LYMPHATIC: No anemia, easy bleeding, or history of blood clots. ALLERGIC/IMMUNOLOGIC: No hives or skin allergy. *Physical Exam - Vital Signs Last Vital Signs Temp Pulse Resp BP Pulse Ox 98.4 F 20 139/99 95 12/15/17 18:00 12/15/17 19:25 12/15/17 18:00 12/15/17 19:25 - Physical Exam Comments: 12/15/17 18:16 GENERAL: Awake, alert, and fully oriented, in no acute distress HEAD: No signs of trauma, normocephalic, atraumatic EYES: PERRLA, EOMI, sclera anicteric, conjunctiva clear ENT: Auricles normal inspection, hearing grossly normal, nares patent, oropharynx clear without exudates. Moist mucosa NECK: Normal ROM, supple, no lymphadenopathy, JVD, or masses LUNGS: No distress, speaks full sentences, clear to auscultation bilaterally HEART: Regular rate and rhythm, normal S1 and S2, no murmurs, rubs or gallops, peripheral pulses normal and equal bilaterally. ABDOMEN: Soft, nontender, normoactive bowel sounds. No guarding, no rebound. No masses EXTREMITIES : Normal inspection, Normal range of motion, no edema. No clubbing or cyanosis. NEUROLOGICAL: Cranial nerves II through XII grossly intact. Normal speech, normal gait, no focal sensorimotor deficits SKIN: Warm, Dry, normal turgor, no rashes or lesions noted ED Treatment Course - LABORATORY CBC & Chemistry Diagram: 12/15/17 18:41 12/15/17 18:41 - ADDITIONAL ORDERS Additional order review: Laboratory Results 12/15/17 12/15/17 18:41 18:41 PT with INR 19.50 H INR 1.64 H Sodium 135 L Potassium 3.6 Chloride 88 L Carbon Dioxide 34 H Anion Gap 13 BUN 53 H Creatinine 1.5 H Creat Clearance w eGFR 33.00 Random Glucose 106 Calcium 9.4 Total Bilirubin 0.8 AST 15 ALT 20 Alkaline Phosphatase 111 Creatine Kinase 34 Troponin I < 0.02 B-Natriuretic Peptide 1759.6 H Total Protein 7.6 Albumin 3.7 12/15/17 18:41 RBC 5.66 H MCV 90.3 MCHC 32.7 RDW 14.6 MPV 8.4 Neutrophils % 61.7 Lymphocytes % 25.1 D Monocytes % 11.1 H Eosinophils % 1.4 Basophils % 0.7 - RADIOLOGY Radiology Studies Ordered: Category Date Time Status HEAD CT WITHOUT CONTRAST [CT] Stat CT Scan 12/15/17 19:48 Taken CXRPORT [CHEST X-RAY PORTABLE*] [RAD] Stat Radiology 12/15/17 18:06 Taken Medical Decision Making - Medical Decision Making 12/15/17 18:44 87 yo F h/o HTN, HLD, vertigo, hypothyroidism, CAD, COPD, CHF, A-Fib ( Coumadin and Cardizem/Toprol for rate control),BIBA with dizziness, noted to be hypotensive at rest. Dizziness described as "swaying sensation." Likely vertigo peripheral vs. central. ACS/[place] r/o. Will assess for VBI, TIA, hypoglycemia, hypovolemia, cardiac dyssarythmia, electrolyte abnml, metabolic or toxic derangement, acid-base disturbances, infection. ED Course: CBC, CMP, Cardiac Pr. UA, Urine Cx. EKG, CXR CTH 12/15/17 20:23 BUN/Cr: 55/1.5 CBC: Unremarkable 12/15/17 20:23 BNP: 1759 12/15/17 21:10 EKG: A-fib with Rate 90, LAD. Absent ADILIA, STD. 12/15/17 21:20 Radiology reports subacute hypoattentuation in asymmetric left frontal lobe white matter concerning for ischemia. Recommends MRI. 12/15/17 21:[address] Jane Vaughn answering service. Awaiting call back. 12/15/17 21:[address] Godwin Vaughn, admit to obs/hospitalist and obtain MRI in AM. 12/15/17 22:30 Pt. admitted to [facility]. Tele/Obs. *DC/Admit/Observation/Transfer Diagnosis at time of Disposition: Vertigo, REY (acute kidney injury) - Discharge Dispostion Condition at time of disposition: Stable Decision to Admit order: Yes Decision to Admit order Date/Time: Decision to Admit Order Category Date Time Status Decision to Admit to Hospital Routine Admission 12/15/17 21:35 Active - Referrals Referrals: Jane Vaughn [Primary Care Provider] - - Patient Instructions Printed Discharge Instructions: DI for Vertigo Additional Instructions: Please return to the emergency department with any new or worsening symptoms or concerns. Please follow up with your primary care physician within 72 hours. - Post Discharge Activity - Attestations Physician Attestion: 12/15/17 20:25 I attest to the information provided in this note.
[2017-12-15 19:00] LABS: BASO % 0.7 % (0-2.0); EOS % 1.4 % (0-4.5); HEMATOCRIT 51.2 % (32.4-45.2); HEMOGLOBIN 16.7 GM/dL (10.7-15.3); LYMPH % 25.1 % (8-40); MCH 29.5 pg (25.7-33.7); MCHC 32.7 g/dl (32.0-36.0); MEAN CELL VOLUME 90.3 fl (80-96); MEAN PLT VOLUME 8.4 fl (7.5-11.1); MONO % 11.1 % (3.8-10.2); NEUT % 61.7 % (42.8-82.8); PLATELET COUNT 365 K/MM3 (134-434); RBC 5.66 M/mm3 (3.60-5.2); RDW 14.6 % (11.6-15.6); WHITE BLOOD COUNT 11.8 K/mm3 (4.0-10.0)
[2017-12-15 19:13] LABS: INR 1.64 (0.83-1.09); PROTHROMBIN TIME (PATIENT) 19.5 SEC (9.7-13.0)
[2017-12-15 19:25] LABS: ALBUMIN 3.7 g/dl (3.4-5.0); ALK PHOS 111 U/L (45-117); ANION GAP 13 MMOL/L (8-16); BILIRUBIN,TOTAL 0.8 mg/dL (0.2-1); BLOOD UREA NITROGEN 53 mg/dL (7-18); CALCIUM 9.4 mg/dL (8.5-10.1); CHLORIDE 88 mmol/L (98-107); CO2 34 mmol/L (21-32); CREATININE 1.5 mg/dL (0.55-1.3); GLUCOSE,RANDOM 106 mg/dL (74-106); N-TERMINAL BNP 1759.6 pg/ml (5-450); POTASSIUM 3.6 mmol/L (3.5-5.1); SGOT/AST 15 U/L (15-37); SGPT/ALT 20 U/L (13-61); SODIUM 135 mmol/L (136-145); TOT PROT 7.6 g/dl (6.4-8.2)
--- NOTE | 2017-12-15 19:48 | PDOC ---
Attending Attestation - HPI HPI: 12/15/17 20:10 The patient is a 87 yo Female with a significant PMHx of HTN, HLD, vertigo, hypothyroidism, CAD, COPD, CHF, A-Fib (Coumadin and Cardizem/Toprol for rate control),who presents to the emergency department [facility] with complaint of dizziness for two days. The patient reports the dizziness as a "swaying" sensation which is exacerbated by ambulation and alleviated with rest. She also reports associated shortness of breath with walking. She denies pleuritic pain. Recent admission to [facility] (12/01-12/06) for rapid A-fib, and acute on chronic CHF. On Lasix,Zaroxolyn, Cardizem, Metoprolol The patient denies chest pain, shortness of breath, headache and dizziness. The patient denies fever, chills, nausea, vomit, diarrhea and constipation. The patient denies dysuria, frequency, urgency and hematuria. Social Hx: Denies tobacco, Etoh, IVDA Allergies: NKDA PCP: Dr. Vaughn - Physicial Exam PE: 12/15/17 20:10 GENERAL: Well-appearing, well-nourished. No apparent distress. HEENT: Normocephalic, atraumatic. PERRL, EOM intact. CARDIOVASCULAR: Normal S1, S2. Regular rate and rhythm. PULMONARY: Clear to auscultation bilaterally. ABDOMEN: Protuberant abdomen. Soft, non-distended, non-tender. EXTREMITIES: Normal ROM in all four extremities. No gross deformities. SKIN: Warm, dry. No rash. NO evidence of cellulitis. No decubitus/sacral ulcers. NEUROLOGICAL: No focal neurological deficits. - Medical Decision Making 12/15/17 20:10 Documentation prepared by Ca Sellers, acting as medical scheduler for Danay Romo MD 12/15/17 21:14 87 yo F with a Hx of Vertigo presenting for SOB, palpitations, and dizziness described as "fuzzy feeling". 12/15/17 21:14 Chronic renal insufficiency Subtherapeutic INR 1.[address] at this time. 12/15/2017 21:16 EXAM: CT head without contrast HISTORY: Dizziness COMPARISON: None. FINDINGS: There is moderately advanced diffuse cortical atrophy present. Chronic small vessel ischemic changes noted in the white matter. There is a region of diminished attenuation noted in the left frontal lobe white matter which appears asymmetric to the left. Cannot exclude subacute ischemia here. There is no acute hemorrhage seen. Follow-up evaluation with brain MR may be helpful in this case and is recommended. There is no mass lesion seen. There is no skull fracture is seen. Small mucous retention cyst noted in the right sphenoid sinus. There is no free fluid in the sinus cavities. Mastoid air cells are normally pneumatized. Individualized dose optimization techniques were used for this CT. THIS DOCUMENT HAS BEEN ELECTRONICALLY SIGNED Yinka Stubbs MD <Ca Sellers - Last Filed: 12/15/17 22:04> - Resident Resident Name: Edgardo Peters - ED Attending Attestation I have performed the following: I have examined & evaluated the patient, The case was reviewed & discussed with the resident, I agree w/resident's findings & plan, Exceptions are as noted - Medical Decision Making 12/16/17 00:59 pt admitted for further evaluation with an MRI of the brain in the morning <Danay Romo - Last Filed: 12/16/17 01:00>
--- NOTE | 2017-12-15 22:22 | PN ---
Teaching Attending Note Name of Resident: Dilshad Mccall ATTENDING PHYSICIAN STATEMENT I saw and evaluated the patient. I reviewed the resident's note and discussed the case with the resident. I agree with the resident's findings and plan as documented. SUBJECTIVE: Patient is an 87 year old woman with a PMH of HTN, HLD, vertigo, hypothyroidism , CAD, COPD, CHF, and A-fib who presents to the ER with complaint of dizziness for two days. The patient reports the dizziness as a "swaying" sensation which is exacerbated by ambulation and alleviated with rest. She also reports associated shortness of breath with walking. She denies pleuritic pain. Recent admission to [facility] (12/01-12/06) for rapid A-fib, and acute on chronic CHF. On coumadin. Denies chest pain, shortness of breath, chills, nausea, vomit, diarrhea or dysuria. OBJECTIVE: Alert Vital Signs Period Temp Pulse Resp BP Sys/Macias Pulse Ox Last 24 Hr 98.4 F 20-20 139/99 91-95 HEENT: No Jaundice, eye redness or discharge, PERRLA, EOMI. Normocephalic, atraumatic. External ears are normal and hearing is grossly intact. No nasal discharge. Neck: Supple, nontender. No palpable adenopathy or thyromegaly. No JVD Chest: Good effort. Clear to auscultation and percussion. Heart: Regular. No S3, rub or murmur Abdomen: Not distended, soft, nontender and no HSM. No rebound or guarding. Normoactive bowel sounds. Ext: Peripheral pulses intact. No leg edema. Skin: Warm and dry. No petechiae, rash or ecchymosis. Neuro: Alert. Oriented x3. CN 2-12 grossly intact. Sensation grossly intact in all four extremities and DTR are symmetric. Home Medications Medication Instructions Recorded Ca Cmb No.1/Vit D3/B-6/FA/B12 1 each PO DAILY 09/03/12 [Vitamin D3 1,000 Unit Tablet] Calcium Carbonate/Vitamin D3 1 each PO DAILY 09/03/12 [Oysco 500-Vit D3 200 Tablet] Cyanocobalamin/FA/Pyridoxine [B 1 each PO DAILY 09/03/12 Complex-Folic Acid Tablet] Isosorbide Mononitrate [Isosorbide 30 mg PO DAILY 09/03/12 Mononitrate ER] Meclizine HCl [Antivert -] 25 mg PO TID PRN #20 tablet 09/03/12 Pitavastatin Calcium [Livalo] 2 mg PO DAILY 09/03/12 Atorvastatin Ca [Lipitor] 10 mg PO HS #90 tablet 10/14/17 Bisacodyl [Bisacodyl -] 5 mg PO DAILY PRN tablet. 10/14/17 Levothyroxine [Synthroid -] 100 mcg PO DAILY@0700 #90 tablet 10/14/17 Polyethylene Glycol 3350 [Miralax 17 gm PO DAILY btl 10/14/17 255 gm Btl -] Potassium Chloride [K-Dur -] 10 meq PO DAILY #90 tablet.er 10/14/17 Warfarin Sodium 5 mg PO DAILY #90 tablet 10/14/17 Acetaminophen [Tylenol] 650 mg PO Q4H PRN 12/02/17 Brimonidine Tartrate [Alphagan P 1 drop OU BID drops 12/04/17 0.1% -] Erythromycin 0.5% Eye Ointment 1 applic OD BID tube 12/04/17 [Erythromycin 0.5% Eye Ointment -] Furosemide [Lasix -] 20 mg PO BID #90 tablet 12/04/17 Latanoprost 0.005% Eye Drops 1 drop OU HS drops 12/04/17 [Xalatan 0.005% Eye Drops -] Metoprolol Succinate [Toprol XL -] 50 mg PO BID #180 tab.sr.24h 12/04/17 Miconazole Nitrate [Monistat -] 1 applic TP BID tube 12/04/17 Diltiazem Cd [Cardizem Cd -] 300 mg PO DAILY #90 cap.cd.24h 12/06/17 Metolazone [Zaroxolyn -] 2.5 mg PO DAILY@0930 #90 tablet 12/06/17 Abnormal Lab Results 12/15/17 12/15/17 12/15/17 18:41 18:41 18:41 WBC 11.8 H RBC 5.66 H Hgb 16.7 H Hct 51.2 H D Monocytes % 11.1 H PT with INR 19.50 H INR 1.64 H Sodium 135 L Chloride 88 L Carbon Dioxide 34 H BUN 53 H Creatinine 1.5 H B-Natriuretic Peptide 1759.6 H ASSESSMENT AND PLAN: 1. Dizziness - 2. REY - Will consult nephrology and avoid nephrotoxic agents such as NSAIDS, aminoglycosides, contrast dyes and certain Alternative medicine products. 3. Obesity - Will provide patient all the necessary assistance , counseling and positive reinforcement to facilitate weight loss. Consult junior brand manager. 4. DVT prophylaxis - On Coumadin 5. Advance directives - Full code
--- NOTE | 2017-12-15 23:42 | HP ---
CHIEF COMPLAINT: Dizziness PCP: Dr Halle Vaughn HISTORY OF PRESENT ILLNESS: Pt is a pleasant 87 y/o lady with a significant past medical history of HTN, HLD, Verigo, hypothyroidism, CAD, CHF, and AFIB presented to [facility] via ambulance c/o dizziness for the past 2 days. Pt describes her dizziness as a "swaying" sensation which is becomes worse when she rises from a seated position as well as when she tries to ambulate. Pt endorses that she has been experiencing vertiginous symptoms for the past 1 year but that her most recent episodes have been worse. Pt was recently started on Meclizine 25 mg po tid by her power superintendent but states this has not assuaged her vertiginous symptoms. Per EMS, pt's blood pressure was 89/56 today when they first came to her assistance. Pt also endorsing increased dyspnea on exertion. Pt was recently admitted to [facility] on December 01 of this year for rapid A-fib, and acute on chronic CHF. Pt states that her INR is checked once a week by a nurse who visits her home and draws her blood. Denies changes in vision, nausea, vomiting , palpitations, confusion, headache, fever, or loss of consciousness during these episodes. ER course was notable for: (1) 200 cc NS Bolus (2) Creatinine 1.5. (3) CT Head--> Subacute hypoattentuation in asymmetric left frontal lobe white matter concerning for ischemia. Recent Travel: Denies PAST MEDICAL HISTORY: Per HPI PAST SURGICAL HISTORY: Right eye surgery s/p mechanical injury, hernia repair. Social History: Smoking: Denies Alcohol: Denies Drugs: Denies Family History: Allergies No Known Allergies Allergy (Verified 12/01/17 15:04) HOME MEDICATIONS: Home Medications Medication Instructions Recorded Ca Cmb No.1/Vit D3/B-6/FA/B12 1 each PO DAILY 09/03/12 [Vitamin D3 1,000 Unit Tablet] Calcium Carbonate/Vitamin D3 1 each PO DAILY 09/03/12 [Oysco 500-Vit D3 200 Tablet] Cyanocobalamin/FA/Pyridoxine [B 1 each PO DAILY 09/03/12 Complex-Folic Acid Tablet] Isosorbide Mononitrate [Isosorbide 30 mg PO DAILY 09/03/12 Mononitrate ER] Meclizine HCl [Antivert -] 25 mg PO TID PRN #20 tablet 09/03/12 Pitavastatin Calcium [Livalo] 2 mg PO DAILY 09/03/12 Atorvastatin Ca [Lipitor] 10 mg PO HS #90 tablet 10/14/17 Bisacodyl [Bisacodyl -] 5 mg PO DAILY PRN tablet. 10/14/17 Levothyroxine [Synthroid -] 100 mcg PO DAILY@0700 #90 tablet 10/14/17 Polyethylene Glycol 3350 [Miralax 17 gm PO DAILY btl 10/14/17 255 gm Btl -] Potassium Chloride [K-Dur -] 10 meq PO DAILY #90 tablet.er 10/14/17 Warfarin Sodium 5 mg PO DAILY #90 tablet 10/14/17 Acetaminophen [Tylenol] 650 mg PO Q4H PRN 12/02/17 Brimonidine Tartrate [Alphagan P 1 drop OU BID drops 12/04/17 0.1% -] Erythromycin 0.5% Eye Ointment 1 applic OD BID tube 12/04/17 [Erythromycin 0.5% Eye Ointment -] Furosemide [Lasix -] 20 mg PO BID #90 tablet 12/04/17 Latanoprost 0.005% Eye Drops 1 drop OU HS drops 12/04/17 [Xalatan 0.005% Eye Drops -] Metoprolol Succinate [Toprol XL -] 50 mg PO BID #180 tab.sr.24h 12/04/17 Miconazole Nitrate [Monistat -] 1 applic TP BID tube 12/04/17 Diltiazem Cd [Cardizem Cd -] 300 mg PO DAILY #90 cap.cd.24h 12/06/17 Metolazone [Zaroxolyn -] 2.5 mg PO DAILY@0930 #90 tablet 12/06/17 REVIEW OF SYSTEMS CONSTITUTIONAL: Absent: fever, chills, diaphoresis, generalized weakness, malaise, loss of appetite, weight change HEENT: Absent: rhinorrhea, nasal congestion, throat pain, throat swelling, difficulty swallowing, mouth swelling, ear pain, eye pain, visual changes CARDIOVASCULAR: Absent: chest pain, syncope, palpitations, irregular heart rate, lightheadedness , peripheral edema RESPIRATORY: PRESENT: dyspnea with exertion GASTROINTESTINAL: Absent: abdominal pain, abdominal distension, nausea, vomiting, diarrhea, constipation, melena, hematochezia GENITOURINARY: Absent: dysuria, frequency, urgency, hesitancy, hematuria, flank pain, genital pain MUSCULOSKELETAL: Absent: myalgia, arthralgia, joint swelling, back pain, neck pain SKIN: Absent: rash, itching, pallor HEMATOLOGIC/IMMUNOLOGIC: Absent: easy bleeding, easy bruising, lymphadenopathy, frequent infections ENDOCRINE: Absent: unexplained weight gain, unexplained weight loss, heat intolerance, cold intolerance NEUROLOGIC: PRESENT: dizziness, unsteady gait, PSYCHIATRIC: Absent: anxiety, depression, suicidal or homicidal ideation, hallucinations. PHYSICAL EXAMINATION Vital Signs - 24 hr 12/15/17 12/15/17 18:00 19:25 Temperature 98.4 F Respiratory 20 20 Rate Blood Pressure 139/99 O2 Sat by Pulse 91 L 95 Oximetry (%) GENERAL: aaoX3, nad, no facial grimacing or signs of discomfort HEAD: NC/AT EYES: R Eye no eyesight, conjunctiva erythematous R eye, EOMI. EARS, NOSE, THROAT: MMM. NECK: Supple LUNGS:CTA b/L, no wheezing, rhonchi, or rales appreciated. Chest nontender to palpation. HEART: Irregularly irregular ABDOMEN: NT, ND, No HSM. BS+. MUSCULOSKELETAL: Full ROM throughout UPPER EXTREMITIES: No CCE LOWER EXTREMITIES: Distal pulses 1+ b/l . NEUROLOGICAL: CN 2-12 intact. PSYCHIATRIC: Cooperative. Good eye contact. Appropriate mood and affect. SKIN: Warm, no rashes or lesions appreciated. Laboratory Results - last 24 hr 12/15/17 12/15/17 12/15/17 18:41 18:41 18:41 WBC 11.8 H RBC 5.66 H Hgb 16.7 H Hct 51.2 H D MCV 90.3 MCH 29.5 MCHC 32.7 RDW 14.6 Plt Count 365 D MPV 8.4 Absolute Neuts (auto) 7.3 Neutrophils % 61.7 Lymphocytes % 25.1 D Monocytes % 11.1 H Eosinophils % 1.4 Basophils % 0.7 Nucleated RBC % 0 PT with INR 19.50 H INR 1.64 H Sodium 135 L Potassium 3.6 Chloride 88 L Carbon Dioxide 34 H Anion Gap 13 BUN 53 H Creatinine 1.5 H Creat Clearance w eGFR 33.00 Random Glucose 106 Calcium 9.4 Total Bilirubin 0.8 AST 15 ALT 20 Alkaline Phosphatase 111 Creatine Kinase 34 Troponin I < 0.02 B-Natriuretic Peptide 1759.6 H Total Protein 7.6 Albumin 3.7 ASSESSMENT/PLAN: Pt is a pleasant 87 y/o lady with a significant past medical history of HTN, HLD , Verigo, hypothyroidism, CAD, CHF, and AFIB presented to [facility] via ambulance c /o dizziness for the past 2 days. #Dizziness -Orthostatics in ED--94/55 supine..90/60 upright - Hold lasix -Head Ct w/o Contrast--> Subacute hypoattentuation in asymmetric left frontal lobe white matter concerning for ischemia. MRI in am. -Consult Neurology - Hold Imdur--> Vaso and Venodilation, dizziness known adverse affect. - Hold Diltiazam, Furosemide, reduce toprol xl to once a day #REY - Bun/Cr 53/1.5..0.8 last visit. Most likely due to hypoperfusion 2/2 hypovolemia 2/2 diuretics. -Hold Lasix - Renal/Bladder Sonogram - Urinalysis--> 1 + Leukocyte Esterase. Consider Macrobid 500 mg BD. - Avoid Nephrotoxic agents #Atrial fibrillation -EKG shows afib with no significant ST-T wave changes. -INR 1.64, subtherapeutic. Will give one 5 mg coumadin dose and then resume daily Warfarin dose - Will resume rate control medications once BP WNL FEN NS@ 30cc/Hr Monitor Electrolyes Sodium diet DVT ppx Coumadin 5 mg PO Daily Dispo: Monitor on floors Visit type - Emergency Visit Emergency Visit: Yes ED Registration Date: 12/16/17 Care time: The patient presented to the Emergency Department on the above date and was hospitalized for further evaluation of their emergent condition. - New Patient This patient is new to me today: Yes Date on this admission: 12/16/17 - Critical Care Critical Care patient: No
[2017-12-16] MEDS: SODIUM CHLORIDE 1,000 ML IV SCH (00:23)
--- NOTE | 2017-12-16 00:33 | PN ---
Teaching Attending Note Name of Resident: Dilshad Ricketts ATTENDING PHYSICIAN STATEMENT I saw and evaluated the patient. I reviewed the resident's note and discussed the case with the resident. I agree with the resident's findings and plan as documented. SUBJECTIVE: SUBJECTIVE: Patient is an 87 year old woman with a PMH of HTN, HLD, vertigo, hypothyroidism , CAD, COPD, CHF, and A-fib who presents to the ER with complaint of dizziness for two days. The patient reports the dizziness as a "swaying" sensation which is exacerbated by ambulation and alleviated with rest. She also reports associated shortness of breath with walking. She denies pleuritic pain. Recent admission to [facility] (12/01-12/06) for rapid A-fib, and acute on chronic CHF. On coumadin. Denies chest pain, shortness of breath, chills, nausea, vomit, diarrhea or dysuria. OBJECTIVE: Alert. No orthostasis but systolic B <96 mmHg Vital Signs Period Temp Pulse Resp BP Sys/Macias Pulse Ox Last 24 Hr 98.4 F 20-20 139/99 91-95 HEENT: No Jaundice, blind in the right eye; no discharge, PERRLA, EOMI. Normocephalic, atraumatic. External ears are normal and hearing is grossly intact. No nasal discharge. Neck: Supple, nontender. No palpable adenopathy or thyromegaly. No JVD Chest: Good effort. Clear to auscultation and percussion. Heart: Irregular. No S3, rub or murmur Abdomen: Not distended, soft, nontender and no HSM. No rebound or guarding. Normoactive bowel sounds. Ext: Peripheral pulses intact. No leg edema. Skin: Warm and dry. No petechiae, rash or ecchymosis. Neuro: Alert. Oriented x3. CN 2-12 grossly intact. Sensation grossly intact in all four extremities and DTR are symmetric. Current Medications Generic Name Dose Route Start Last Admin Trade Name Freq PRN Reason Stop Dose Admin Sodium Chloride 1,000 mls @ 30 mls/hr 12/15/17 23:45 12/16/17 00:23 Normal Saline - IV 30 mls/hr ASDIR CLAUDIA Administration Home Medications Medication Instructions Recorded Ca Cmb No.1/Vit D3/B-6/FA/B12 1 each PO DAILY 09/03/12 [Vitamin D3 1,000 Unit Tablet] Calcium Carbonate/Vitamin D3 1 each PO DAILY 09/03/12 [Oysco 500-Vit D3 200 Tablet] Cyanocobalamin/FA/Pyridoxine [B 1 each PO DAILY 09/03/12 Complex-Folic Acid Tablet] Isosorbide Mononitrate [Isosorbide 30 mg PO DAILY 09/03/12 Mononitrate ER] Meclizine HCl [Antivert -] 25 mg PO TID PRN #20 tablet 09/03/12 Pitavastatin Calcium [Livalo] 2 mg PO DAILY 09/03/12 Atorvastatin Ca [Lipitor] 10 mg PO HS #90 tablet 10/14/17 Bisacodyl [Bisacodyl -] 5 mg PO DAILY PRN tablet. 10/14/17 Levothyroxine [Synthroid -] 100 mcg PO DAILY@0700 #90 tablet 10/14/17 Polyethylene Glycol 3350 [Miralax 17 gm PO DAILY btl 10/14/17 255 gm Btl -] Potassium Chloride [K-Dur -] 10 meq PO DAILY #90 tablet.er 10/14/17 Warfarin Sodium 5 mg PO DAILY #90 tablet 10/14/17 Acetaminophen [Tylenol] 650 mg PO Q4H PRN 12/02/17 Brimonidine Tartrate [Alphagan P 1 drop OU BID drops 12/04/17 0.1% -] Erythromycin 0.5% Eye Ointment 1 applic OD BID tube 12/04/17 [Erythromycin 0.5% Eye Ointment -] Furosemide [Lasix -] 20 mg PO BID #90 tablet 12/04/17 Latanoprost 0.005% Eye Drops 1 drop OU HS drops 12/04/17 [Xalatan 0.005% Eye Drops -] Metoprolol Succinate [Toprol XL -] 50 mg PO BID #180 tab.sr.24h 12/04/17 Miconazole Nitrate [Monistat -] 1 applic TP BID tube 12/04/17 Diltiazem Cd [Cardizem Cd -] 300 mg PO DAILY #90 cap.cd.24h 12/06/17 Metolazone [Zaroxolyn -] 2.5 mg PO DAILY@0930 #90 tablet 12/06/17 Abnormal Lab Results 12/15/17 12/15/17 12/15/17 18:41 18:41 18:41 WBC 11.8 H RBC 5.66 H Hgb 16.7 H Hct 51.2 H D Monocytes % 11.1 H PT with INR 19.50 H INR 1.64 H Sodium 135 L Chloride 88 L Carbon Dioxide 34 H BUN 53 H Creatinine 1.5 H B-Natriuretic Peptide 1759.6 H ASSESSMENT AND PLAN: 1. Dizziness - Head CT scan shows low attenuation in the left frontal lobe white matter - will get MRI to rule out infarct. UA is pending to rule out UTI. Hypotension as well as dehydration due to over medication are likely culprits. Will hold diuretics, cardiazem and reduce toprol XL to once a day and hydrate her gently. Will get carotid doppler, consult neurology for suitability of meclizine 25 mg tid. Will give extra dose of coumadin to attain therapeutic INR. Monitor on telemetry, check Mg, phosphate and implement fall precautions. Consult PT. CXR shows wide mediastinum, cardiomegaly and bibasilar atelectasis - all chronic. EKG shows afib with no significant ST-T wave changes. 2. REY - Likely due to dehydration. Get kidney sonogram and avoid nephrotoxic agents such as NSAIDS, aminoglycosides, contrast dyes and certain Alternative medicine products. 3. Obesity - Will provide patient all the necessary assistance , counseling and positive reinforcement to facilitate weight loss. Consult dredge boat engineer. 4. DVT prophylaxis - On Coumadin 5. Advance directives - Full code
[2017-12-16] MEDS ORDERED: WARFARIN NA 5 MG TABLET (UD) PO ONE (00:36)
[2017-12-16] MEDS ORDERED: ACETAMINOPHEN 325 MG TABLET (FP) PO ONE (00:44)
[2017-12-16 00:47] LABS: URINE APPEARANCE CLEAR; URINE BILIRUBIN NEGATIVE (<2.0 mg/dL); URINE COLOR LTYELLOW; URINE GLUCOSE (UA) NEGATIVE (NEGATIVE); URINE KETONE NEGATIVE (NEGATIVE); URINE NITRITE NEGATIVE (NEGATIVE); URINE PROTEIN NEGATIVE (NEGATIVE); URINE UROBILINOGEN NEGATIVE mg/dL (0.2-1.0)
[2017-12-16 00:48] LABS: URINE LEUK ESTERASE 1+ (NEGATIVE)
[2017-12-16 00:53] LABS: URINE BACTERIA FEW /hpf (NONE SEEN); URINE HYALINE CAST 2 /lpf; URINE MUCUS FEW
[2017-12-16] MEDS ORDERED: ACETAMINOPHEN 325 MG TABLET (FP) ONE (01:44)
[2017-12-16] MEDS ORDERED: WARFARIN NA 5 MG TABLET (UD) ONE (01:44)
[2017-12-16 02:17] LABS: BASO % 1.3 % (0-2.0); EOS % 1.2 % (0-4.5); HEMATOCRIT 48.3 % (32.4-45.2); HEMOGLOBIN 15.9 GM/dL (10.7-15.3); LYMPH % 22.4 % (8-40); MCH 29.7 pg (25.7-33.7); MCHC 32.9 g/dl (32.0-36.0); MEAN CELL VOLUME 90.1 fl (80-96); MEAN PLT VOLUME 8.2 fl (7.5-11.1); MONO % 9.2 % (3.8-10.2); NEUT % 65.9 % (42.8-82.8); PLATELET COUNT 339 K/MM3 (134-434); RBC 5.35 M/mm3 (3.60-5.2); RDW 14.6 % (11.6-15.6); WHITE BLOOD COUNT 11.9 K/mm3 (4.0-10.0)
[2017-12-16 02:34] LABS: INR 1.72 (0.83-1.09); PROTHROMBIN TIME (PATIENT) 20.4 SEC (9.7-13.0)
[2017-12-16 02:37] LABS: ACTIVATED PTT 31.4 SECONDS (25.2-36.5)
[2017-12-16 02:38] LABS: ANION GAP 8 MMOL/L (8-16); BLOOD UREA NITROGEN 52 mg/dL (7-18); CALCIUM 8.9 mg/dL (8.5-10.1); CHLORIDE 92 mmol/L (98-107); CO2 38 mmol/L (21-32); CREATININE 1.3 mg/dL (0.55-1.3); GLUCOSE,RANDOM 103 mg/dL (74-106); MAGNESIUM 2.6 mg/dL (1.8-2.4); PHOSPHOROUS 3.6 mg/dL (2.5-4.9); POTASSIUM 3.2 mmol/L (3.5-5.1); SODIUM 137 mmol/L (136-145)
[2017-12-16] MEDS ORDERED: BISACODYL 5 MG TABLET.DR (FP) PO PRN (02:53)
[2017-12-16 05:01] VITALS: BMI 32.8
[2017-12-16] MEDS: LEVOTHYROXINE NA 100 MCG TABLET (FP) PO SCH (06:34)
--- NOTE | 2017-12-16 09:32 | CONSULT ---
Consult - text type - Consultation Consultation Note: Neurology CHIEF COMPLAINT: Dizziness HISTORY OF PRESENT ILLNESS: 87 y/o lady with a significant past medical history of HTN, HLD, Verigo, hypothyroidism, CAD, CHF, and AFIB presented to [facility] via ambulance c/o dizziness for the past 2 days. Pt describes her dizziness as a "swaying" sensation which is becomes worse when she rises from a seated position as well as when she tries to ambulate. Pt endorsed that she has been experiencing vertiginous symptoms for the past 1 year but that her most recent episodes have been worse. 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 Per EMS, pt's blood pressure was 89/56 when they first came to her assistance. Pt also endorsed increased dyspnea on exertion. Pt was recently admitted to [facility] on December 01 of this year for rapid A-fib, and acute on chronic CHF. Pt stated that her INR is checked once a week by a nurse who visits her home and draws her blood. 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 Is on Statin and AC. Patient denies room spinning sensation, per nurse, orthostatic on blood pressure readings. Advised increased hydration. Description is more of lightheadness than dizziness. PAST MEDICAL HISTORY: Per HPI PAST SURGICAL HISTORY: Right eye surgery s/p mechanical injury, hernia repair. Social History: Smoking: Denies Alcohol: Denies Drugs: Denies Family History: Allergies No Known Allergies Allergy (Verified 12/01/17 15:04) HOME MEDICATIONS: Home Medications Medication Instructions Recorded Ca Cmb No.1/Vit D3/B-6/FA/B12 1 each PO DAILY 09/03/12 [Vitamin D3 1,000 Unit Tablet] Calcium Carbonate/Vitamin D3 1 each PO DAILY 09/03/12 [Oysco 500-Vit D3 200 Tablet] Cyanocobalamin/FA/Pyridoxine [B 1 each PO DAILY 09/03/12 Complex-Folic Acid Tablet] Isosorbide Mononitrate [Isosorbide 30 mg PO DAILY 09/03/12 Mononitrate ER] Meclizine HCl [Antivert -] 25 mg PO TID PRN #20 tablet 09/03/12 Pitavastatin Calcium [Livalo] 2 mg PO DAILY 06/19/13 Atorvastatin Ca [Lipitor] 10 mg PO HS #90 tablet 10/14/17 Bisacodyl [Bisacodyl -] 5 mg PO DAILY PRN tablet. 10/14/17 Levothyroxine [Synthroid -] 100 mcg PO DAILY@0700 #90 tablet 10/14/17 Polyethylene Glycol 3350 [Miralax 17 gm PO DAILY btl 10/14/17 255 gm Btl -] Potassium Chloride [K-Dur -] 10 meq PO DAILY #90 tablet.er 10/14/17 Warfarin Sodium 5 mg PO DAILY #90 tablet 10/14/17 Acetaminophen [Tylenol] 650 mg PO Q4H PRN 12/02/17 Brimonidine Tartrate [Alphagan P 1 drop OU BID drops 12/04/17 0.1% -] Erythromycin 0.5% Eye Ointment 1 applic OD BID tube 12/04/17 [Erythromycin 0.5% Eye Ointment -] Furosemide [Lasix -] 20 mg PO BID #90 tablet 12/04/17 Latanoprost 0.005% Eye Drops 1 drop OU HS drops 12/04/17 [Xalatan 0.005% Eye Drops -] Metoprolol Succinate [Toprol XL -] 50 mg PO BID #180 tab.sr.24h 12/04/17 Miconazole Nitrate [Monistat -] 1 applic TP BID tube 12/04/17 Diltiazem Cd [Cardizem Cd -] 300 mg PO DAILY #90 cap.cd.24h 12/06/17 Metolazone [Zaroxolyn -] 2.5 mg PO DAILY@0930 #90 tablet 12/06/17 REVIEW OF SYSTEMS CONSTITUTIONAL: Absent: fever, chills, diaphoresis, generalized weakness, malaise, loss of appetite, weight change HEENT: Absent: rhinorrhea, nasal congestion, throat pain, throat swelling, difficulty swallowing, mouth swelling, ear pain, eye pain, visual changes CARDIOVASCULAR: Absent: chest pain, syncope, palpitations, irregular heart rate, lightheadedness , peripheral edema RESPIRATORY: PRESENT: dyspnea with exertion GASTROINTESTINAL: Absent: abdominal pain, abdominal distension, nausea, vomiting, diarrhea, constipation, melena, hematochezia GENITOURINARY: Absent: dysuria, frequency, urgency, hesitancy, hematuria, flank pain, genital pain MUSCULOSKELETAL: Absent: myalgia, arthralgia, joint swelling, back pain, neck pain SKIN: Absent: rash, itching, pallor HEMATOLOGIC/IMMUNOLOGIC: Absent: easy bleeding, easy bruising, lymphadenopathy, frequent infections ENDOCRINE: Absent: unexplained weight gain, unexplained weight loss, heat intolerance, cold intolerance NEUROLOGIC: PRESENT: dizziness, unsteady gait, PSYCHIATRIC: Absent: anxiety, depression, suicidal or homicidal ideation, hallucinations. PHYSICAL EXAMINATION Vital Signs Period Temp Pulse Resp BP Sys/Macias Pulse Ox Last 24 Hr 97.9 F-98.4 F 101-112 18-20 93-139/57-99 91-96 GENERAL: aaoX3, nad, no facial grimacing or signs of discomfort HEAD: NC/AT EYES: R Eye no eyesight, conjunctiva erythematous R eye, EOMI. EARS, NOSE, THROAT: MMM. NECK: Supple LUNGS:CTA b/L, no wheezing, rhonchi, or rales appreciated. Chest nontender to palpation. HEART: Irregularly irregular ABDOMEN: NT, ND, No HSM. BS+. MUSCULOSKELETAL: Full ROM throughout UPPER EXTREMITIES: No CCE LOWER EXTREMITIES: Distal pulses 1+ b/l . NEUROLOGICAL: CN 2-12 intact, no slurred speech, no facial droop, sensory intact, finger to nose normal, moves all extremities equally, gait deferred PSYCHIATRIC: Cooperative. Good eye contact. Appropriate mood and affect. SKIN: Warm, no rashes or lesions appreciated. Laboratory Results - last 24 hr 12/15/17 12/15/17 12/15/17 18:41 18:41 18:41 WBC 11.8 H RBC 5.66 H Hgb 16.7 H Hct 51.2 H D MCV 90.3 MCH 29.5 MCHC 32.7 RDW 14.6 Plt Count 365 D MPV 8.4 Absolute Neuts (auto) 7.3 Neutrophils % 61.7 Lymphocytes % 25.1 D Monocytes % 11.1 H Eosinophils % 1.4 Basophils % 0.7 Nucleated RBC % 0 PT with INR 19.50 H INR 1.64 H Sodium 135 L Potassium 3.6 Chloride 88 L Carbon Dioxide 34 H Anion Gap 13 BUN 53 H Creatinine 1.5 H Creat Clearance w eGFR 33.00 Random Glucose 106 Calcium 9.4 Total Bilirubin 0.8 AST 15 ALT 20 Alkaline Phosphatase 111 Creatine Kinase 34 Troponin I < 0.02 B-Natriuretic Peptide 1759.6 H Total Protein 7.6 Albumin 3.7 ASSESSMENT/PLAN: 87 y/o lady with a significant past medical history of HTN, HLD, Verigo, hypothyroidism, CAD, CHF, and AFIB presented to [facility] via ambulance c/o dizziness for the past 2 days. Pt describes her dizziness as a "swaying" sensation which is becomes worse when she rises from a seated position as well as when she tries to ambulate. Pt endorsed that she has been experiencing vertiginous symptoms for the past 1 year but that her most recent episodes have been worse. 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 Per EMS, pt's blood pressure was 89/56 when they first came to her assistance. Pt also endorsed increased dyspnea on exertion. Pt was recently admitted to [facility] on December 01 of this year for rapid A-fib, and acute on chronic CHF. Pt stated that her INR is checked once a week by a nurse who visits her home and draws her blood. 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 Is on Statin and AC, can be continued. Patient denies room spinning sensation, per nurse, orthostatic on blood pressure readings. Advised increased hydration. Description is more of lightheadness than dizziness (but can give meclezine as needed). Cardiology follow up for Afib, AC as per cards. Monitor renal function.
[2017-12-16] MEDS ORDERED: MECLIZINE HCL 25 MG TABLET (FP) PO PRN (09:36)
[2017-12-16] MEDS: BRIMONIDINE TARTRATE 0.1% OPHTHALMIC 5 ML BOTTLE OU SCH ×2 (09:57→22:28)
[2017-12-16] MEDS: FOLIC ACID 1 MG TABLET (FP) PO SCH (09:58)
[2017-12-16] MEDS: ERYTHROMYCIN 0.5% OPHTHALMIC OINTMENT 3.5 GM TUBE OD SCH ×2 (09:58→22:28)
[2017-12-16] MEDS: VITAMIN B COMPLEX W/C COMBO TABLET (FP) PO SCH (09:59)
[2017-12-16] MEDS: PYRIDOXINE HCL (B-6) 50 MG TABLET (FP) PO SCH (09:59)
[2017-12-16] MEDS: CHOLECALCIFEROL (VITAMIN D3) 1,000 UNIT TABLET (FP) PO SCH (09:59)
[2017-12-16] MEDS: CALCIUM 500MG/VIT-D 200 UNITS COMBO TABLET (FP) PO SCH (09:59)
[2017-12-16] MEDS ORDERED: FLU VACCINE QUAD 60 MCG/0.5 ML (MDV 18-19) IM ONE (10:00)
[2017-12-16] MEDS ORDERED: POTASSIUM CHLORIDE TABS 10 MEQ TABLET.ER (FP) PO SCH (10:00)
[2017-12-16] MEDS: CYANOCOBALAMIN 1,000 MCG TABLET (FP) PO SCH (10:02)
[2017-12-16] MEDS: POLYETHYLENE GLYCOL 3350 255 GM BTL PO SCH (10:03)
--- NOTE | 2017-12-16 11:17 | PN ---
Progress Note, Physician Chief Complaint: admitted to hospitalist as OBS yesterday but converted to INPT this amd d/w Kaladjyan for RAFib and r/o TIA/CVA chart tests meds and consults reviewed and dw pt pt is in bed axao3 NAD less dizziness when lying down but feels dizzy when standing up - Current Medication List Current Medications: Active Medications Atorvastatin Calcium (Lipitor -) 10 mg PO HS CLAUDIA Atorvastatin Calcium (Lipitor -) 10 mg PO HS CLAUDIA Bisacodyl (Dulcolax -) 5 mg PO DAILY PRN PRN Reason: CONSTIPATION Brimonidine Tartrate (Alphagan P 0.1% -) 1 drop OU BID [facility] Last Admin: 12/16/17 09:57 Dose: 1 drop Calcium Carbonate/Cholecalciferol (Os-Jaylan 500+D -) 1 tab PO DAILY [facility] Last Admin: 12/16/17 09:59 Dose: 1 tab Cholecalciferol (Vitamin D3 -) 1,000 unit PO DAILY [facility] Last Admin: 12/16/17 09:59 Dose: 1,000 unit Cyanocobalamin (Vitamin B12 -) 1,000 mcg PO DAILY [facility] Last Admin: 12/16/17 10:02 Dose: 1,000 mcg Erythromycin (Erythromycin 0.5% Eye Ointment) 1 applic OD BID [facility] Last Admin: 12/16/17 09:58 Dose: 1 appful Folic Acid (Folic Acid -) 1 mg PO DAILY [facility] Last Admin: 12/16/17 09:58 Dose: 1 mg Sodium Chloride (Normal Saline -) 1,000 mls @ 30 mls/hr IV ASDIR [facility] Last Admin: 12/16/17 00:23 Dose: 30 mls/hr Latanoprost (Xalatan 0.005% Eye Drops -) 1 drop OU HS CLAUDIA Levothyroxine Sodium (Synthroid -) 100 mcg PO DAILY@0700 [facility] Last Admin: 12/16/17 06:34 Dose: 100 mcg Meclizine HCl (Antivert -) 25 mg PO TID PRN PRN Reason: VERTIGO Multivitamins (Total B With C -) 1 each PO DAILY [facility] Last Admin: 12/16/17 09:59 Dose: 1 each Polyethylene Glycol (Miralax (For Bowel Prep) -) 17 gm PO DAILY [facility] Last Admin: 12/16/17 10:03 Dose: 17 gm Potassium Chloride (K-Dur -) 10 meq PO DAILY [facility] Last Admin: 12/16/17 10:02 Dose: 10 meq Pyridoxine HCl (Vitamin B6 -) 50 mg PO DAILY [facility] Last Admin: 12/16/17 09:59 Dose: 50 mg Warfarin Sodium (Coumadin -) 5 mg PO DAILY@1800 [facility] - Objective Vital Signs: Vital Signs Temperature 97.9 F 12/16/17 04:56 Pulse Rate 112 H 12/16/17 04:56 Respiratory Rate 20 12/16/17 05:02 Blood Pressure 108/70 12/16/17 04:56 O2 Sat by Pulse Oximetry (%) 96 12/16/17 05:02 Constitutional: Yes: No Distress, Calm Eyes: Yes: Conjunctiva Clear HENT: Yes: Atraumatic Neck: Yes: Supple Cardiovascular: Yes: Tachycardia, Pulse Irregular Respiratory: Yes: Diminished Gastrointestinal: Yes: Soft. No: Distention Genitourinary: No: CVA Tenderness - Left, CVA Tenderness - Right Musculoskeletal: No: Joint Stiffness, Joint Swelling Extremities: No: Cold, Cool, Cyanosis, Deformity Edema: No Integumentary: No: Rash, Venous Stasis Changes Neurological: Yes: WNL, Alert, Oriented ...Motor Strength: WNL Psychiatric: Yes: WNL, Alert, Oriented. No: Agitated, Suicidal Ideation Labs: CBC, BMP 12/16/17 02:02 12/16/17 02:02 INR, PTT INR 1.72 (0.83-1.09) H 12/16/17 02:02 - ....Imaging Other: Report Reviewed Assessment/Plan Pt is a pleasant 87 y/o lady with a significant past medical history of HTN, HLD, Verigo, hypothyroidism, CAD, CHF, and AFIB admitted with worsening dizziness r/o TIA/CVA; also ARF/CRF dehydration?vcs worsening CHF; polycytemia points toward dehydration; abNL head CT. at admission had subtx INR (note 12/09 INR in office was 2.5) admit to telemetry, cardiology and neurology eval hold diuretics; started on low dose IVF 30 cc/h f/u labs HR control; started on dig f/u level check carotid US INR 2-3 PT rehab; falls PFX f/u labs dw/ pt and staff t time 40 min
[2017-12-16] MEDS: WARFARIN NA 5 MG TABLET (UD) PO SCH (17:55)
--- NOTE | 2017-12-16 20:52 | CONS ---
EXTENDED NOTE DATE OF CONSULTATION: 12/16/2017 CHIEF COMPLAINTS: Lightheadedness, slight dizziness. HISTORY OF PRESENT ILLNESS: An 87-year-old female who was recently discharged from the hospital, was readmitted with recurring lightheadedness and dizziness which would occur mostly on standing up from a recumbent position or if she was bending and straightened up. She denies having vertigo but has been experiencing these symptoms for over a year and had been evaluated by multiple specialties. Patient stated that today her symptoms became more pronounced, and 911 was summoned, and apparently, her blood pressure was 89 mm systolic. She has had no episodes of presyncope or syncope. There is no history of tinnitus. Patient, on her last admission, had atrial fibrillation with a rapid ventricular response and continues to have periods of rapid ventricular response. She recently had congestive heart failure in association with atrial fibrillation. No history of exertional dyspnea, paroxysmal nocturnal dyspnea, or orthopnea reported. CURRENT MEDICATIONS: 1. Warfarin 5 mg p.o. daily. 2. Meclizine 25 mg p.o. t.i.d. p.r.n. 3. Cardizem CD 120 mg p.o. b.i.d. 4. Sodium chloride 30 mL per hour. 5. Atorvastatin 10 mg p.o. daily. 6. Potassium chloride 20 mEq p.o. daily. 7. Levothyroxine 100 mcg p.o. daily. 8. Latanoprost 0.005% one drop left eye nightly. 9. Brimonidine tartrate (Alphagan) 0.1% one drop left eye b.i.d. 10. Erythromycin 0.5% ointment, apply right eye b.i.d. 11. MiraLAX 17 g p.o. daily. 12. Dulcolax 5 mg p.o. daily. 13. Os-Jaylan 500 mg +D 1 p.o. daily. 14. Vitamin B12 at 1000 mcg p.o. daily. 15. Folic acid 1 mg p.o. daily. 16. Multivitamin 1 p.o. daily. 17. Pyridoxine 50 mg p.o. daily. 18. Vitamin D3 at 1000 international units p.o. daily. Prior to admission, patient had also been on amiodarone. PHYSICAL EXAMINATION: General: An 87-year-old female, at the time of examination, was in no distress. No pallor, cyanosis, clubbing, or jaundice. Vital Signs: Blood pressure 95/59 mmHg, pulse 116 beats per minute and irregularly irregular, temperature 98.4 degrees Fahrenheit. O2 saturation 97% on 3 L of oxygen. Weight 203 pounds and 12.8 ounces. Neck: Supple. No jugular venous distention. Hepatojugular reflux was negative. Carotids were 2+. Upstrokes were normal. No bruits were heard. No thyromegaly was appreciated. Heart: PMI was in the fifth intercostal space. No heaves or thrills. Heart sounds were distant. No murmur or gallops were appreciated. Lungs: Clear on auscultation. Abdomen: Obese, soft, and nontender. No hepatosplenomegaly or palpable masses were felt. Bowel sounds are present. Extremities: No calf tenderness or dependent edema. LABORATORY DATA: CBC: WBC count 11,900; hemoglobin 15.9 g/dL. Differential was normal. Platelet count was 339,000. Chemistry: Sodium 137, potassium 3.2, chloride 92, bicarbonate 38 mmol/L. BUN 52, creatinine 1.3 mg/dL. Magnesium 2.6. BNP 1759.6. X-ray chest December 15, 2017: Since prior study of December 01, 2017, the bilateral pulmonary and pleural changes with widened mediastinum persists. Impression: No significant change. ECG is not available. IMPRESSION: 1. Recurring postural lightheadedness; etiology: A. Secondary to postural hypotension precipitated by combination of medications including diuretics, calcium channel blockers, beta-blockers, ophthalmic solutions, and dehydration. 2. Atrial fibrillation with rapid ventricular response is also contributing to her symptoms. 3. History of hypertension, hypertensive cardiovascular disease. 4. Hypothyroidism. 5. Congestive heart failure, clinically appears to be compensated. 6. Hypercholesterolemia. 7. History of B12 deficiency. 8. History of vitamin D deficiency. 9. 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 10. History of hyperactive bladder. 11. Exogenous obesity. RECOMMENDATIONS: 1. Kindly obtain all her medications for reconciliation. 2. In view of persistent rapid ventricular response, digitalization. 3. Patient is undergoing cautious hydration. 4. Echocardiogram for evaluation of left ventricular size and function. 5. Follow up thyroid function tests. 6. Obtain chest x-ray PA and lateral. 7. Further suggestions will depend upon the results of the above-mentioned tests. 8. Consider ophthalmic followup to determine if the ophthalmic solutions are also a contributing factor. PROGNOSIS: Guarded. Thank you for your referral. Yours sincerely, HOLLI NG M.D. SERAFIN/[id number]
[2017-12-16] MEDS ORDERED: ATORVASTATIN CA 10 MG TABLET (FP) PO SCH (22:00)
[2017-12-16] MEDS: DIGOXIN 0.25 MG TABLET (FP) PO SCH (22:23)
[2017-12-16] MEDS: LATANOPROST 0.005% OPHTH SOLN 2.5ML BOTTLE OU SCH (22:25)
[2017-12-16] MEDS: ATORVASTATIN CA 10 MG TABLET (FP) PO SCH (22:25)
[2017-12-17] MEDS: SODIUM CHLORIDE 1,000 ML IV SCH (06:27)
[2017-12-17] MEDS: LEVOTHYROXINE NA 100 MCG TABLET (FP) PO SCH (06:28)
[2017-12-17 06:43] LABS: BASO % 0.7 % (0-2.0); EOS % 2.1 % (0-4.5); HEMATOCRIT 46.9 % (32.4-45.2); HEMOGLOBIN 15.2 GM/dL (10.7-15.3); MCH 29.7 pg (25.7-33.7); MCHC 32.5 g/dl (32.0-36.0); MEAN CELL VOLUME 91.6 fl (80-96); MEAN PLT VOLUME 8.5 fl (7.5-11.1); MONO % 8.7 % (3.8-10.2); NEUT % 66.5 % (42.8-82.8); PLATELET COUNT 289 K/MM3 (134-434); RBC 5.12 M/mm3 (3.60-5.2); RDW 14.8 % (11.6-15.6); WHITE BLOOD COUNT 10.3 K/mm3 (4.0-10.0)
[2017-12-17 07:27] LABS: ALBUMIN 3.2 g/dl (3.4-5.0); ALK PHOS 98 U/L (45-117); ANION GAP 9 MMOL/L (8-16); BILIRUBIN,TOTAL 0.7 mg/dL (0.2-1); BLOOD UREA NITROGEN 38 mg/dL (7-18); CALCIUM 9.1 mg/dL (8.5-10.1); CHLORIDE 96 mmol/L (98-107); CO2 32 mmol/L (21-32); CREATININE 0.9 mg/dL (0.55-1.3); GLUCOSE,RANDOM 100 mg/dL (74-106); POTASSIUM 3.2 mmol/L (3.5-5.1); SGOT/AST 17 U/L (15-37); SGPT/ALT 18 U/L (13-61); SODIUM 137 mmol/L (136-145); TOT PROT 6.6 g/dl (6.4-8.2)
[2017-12-17 07:49] LABS: N-TERMINAL BNP 1912.5 pg/ml (5-450)
--- NOTE | 2017-12-17 08:47 | PN ---
Progress Note (short form) - Note Progress Note: Neurology HISTORY OF PRESENT ILLNESS: 87 y/o lady with a significant past medical history of HTN, HLD, Verigo, hypothyroidism, CAD, CHF, and AFIB presented to [facility] via ambulance c/o dizziness for the past 2 days. Pt describes her dizziness as a "swaying" sensation which is becomes worse when she rises from a seated position as well as when she tries to ambulate. Pt endorsed that she has been experiencing vertiginous symptoms for the past 1 year but that her most recent episodes have been worse. 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 Per EMS, pt's blood pressure was 89/56 when they first came to her assistance. Pt also endorsed increased dyspnea on exertion. Pt was recently admitted to [facility] on December 01 of this year for rapid A-fib, and acute on chronic CHF. Pt stated that her INR is checked once a week by a nurse who visits her home and draws her blood. 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 Is on Statin and AC. Patient denies room spinning sensation, some lightheadedness. Meclezine ordered but not having room spinning sensation. ADvised to continue hydration. Cardiology work up ongoing. Allergies No Known Allergies Allergy (Verified 12/01/17 15:04) Active Medications Atorvastatin Calcium (Lipitor -) 10 mg PO HS [facility] Last Admin: 12/16/17 22:24 Dose: 10 mg Atorvastatin Calcium (Lipitor -) 10 mg PO HS [facility] Last Admin: 12/16/17 22:25 Dose: Not Given Bisacodyl (Dulcolax -) 5 mg PO DAILY PRN PRN Reason: CONSTIPATION Brimonidine Tartrate (Alphagan P 0.1% -) 1 drop OU BID [facility] Last Admin: 12/16/17 22:28 Dose: Not Given Calcium Carbonate/Cholecalciferol (Os-Jaylan 500+D -) 1 tab PO DAILY [facility] Last Admin: 12/16/17 09:59 Dose: 1 tab Cholecalciferol (Vitamin D3 -) 1,000 unit PO DAILY [facility] Last Admin: 12/16/17 09:59 Dose: 1,000 unit Cyanocobalamin (Vitamin B12 -) 1,000 mcg PO DAILY [facility] Last Admin: 12/16/17 10:02 Dose: 1,000 mcg Digoxin (Lanoxin -) 0.25 mg PO DAILY [facility] Last Admin: 12/16/17 22:23 Dose: 0.25 mg Diltiazem HCl (Cardizem Cd -) 120 mg PO BID [facility] Last Admin: 12/16/17 22:24 Dose: 120 mg Erythromycin (Erythromycin 0.5% Eye Ointment) 1 applic OD BID [facility] Last Admin: 12/16/17 22:28 Dose: Not Given Folic Acid (Folic Acid -) 1 mg PO DAILY [facility] Last Admin: 12/16/17 09:58 Dose: 1 mg Sodium Chloride (Normal Saline -) 1,000 mls @ 30 mls/hr IV ASDIR [facility] Last Admin: 12/17/17 06:27 Dose: Not Given Latanoprost (Xalatan 0.005% Eye Drops -) 1 drop OU HS [facility] Last Admin: 12/16/17 22:25 Dose: 1 drop Levothyroxine Sodium (Synthroid -) 100 mcg PO DAILY@0700 [facility] Last Admin: 12/17/17 06:28 Dose: 100 mcg Meclizine HCl (Antivert -) 25 mg PO TID PRN PRN Reason: VERTIGO Multivitamins (Total B With C -) 1 each PO DAILY [facility] Last Admin: 12/16/17 09:59 Dose: 1 each Polyethylene Glycol (Miralax (For Bowel Prep) -) 17 gm PO DAILY [facility] Last Admin: 12/16/17 10:03 Dose: 17 gm Potassium Chloride (K-Dur -) 20 meq PO DAILY [facility] Pyridoxine HCl (Vitamin B6 -) 50 mg PO DAILY [facility] Last Admin: 12/16/17 09:59 Dose: 50 mg Warfarin Sodium (Coumadin -) 5 mg PO DAILY@1800 [facility] Last Admin: 12/16/17 17:55 Dose: 5 mg PHYSICAL EXAMINATION Vital Signs Period Temp Pulse Resp BP Sys/Macias Pulse Ox Last 24 Hr 97.8 F-98.4 F 78-140 20-20 92-134/50-73 97-97 GENERAL: aaoX3, nad, no facial grimacing or signs of discomfort HEAD: NC/AT EYES: R Eye no eyesight, conjunctiva erythematous R eye, EOMI. EARS, NOSE, THROAT: MMM. NECK: Supple LUNGS:CTA b/L, no wheezing, rhonchi, or rales appreciated. Chest nontender to palpation. HEART: Irregularly irregular ABDOMEN: NT, ND, No HSM. BS+. MUSCULOSKELETAL: Full ROM throughout UPPER EXTREMITIES: No CCE LOWER EXTREMITIES: Distal pulses 1+ b/l . NEUROLOGICAL: CN 2-12 intact, no slurred speech, no facial droop, sensory intact, finger to nose normal, moves all extremities equally, gait deferred PSYCHIATRIC: Cooperative. Good eye contact. Appropriate mood and affect. SKIN: Warm, no rashes or lesions appreciated. CBCD WBC 10.3 K/mm3 (4.0-10.0) H 12/17/17 05:30 RBC 5.12 M/mm3 (3.60-5.2) 12/17/17 05:30 Hgb 15.2 GM/dL (10.7-15.3) 12/17/17 05:30 Hct 46.9 % (32.4-45.2) H 12/17/17 05:30 MCV 91.6 fl (80-96) 12/17/17 05:30 MCHC 32.5 g/dl (32.0-36.0) 12/17/17 05:30 RDW 14.8 % (11.6-15.6) 12/17/17 05:30 Plt Count 289 K/MM3 (134-434) 12/17/17 05:30 MPV 8.5 fl (7.5-11.1) 12/17/17 05:30 CMP Sodium 137 mmol/L (136-145) 12/17/17 05:30 Potassium 3.2 mmol/L (3.5-5.1) L 12/17/17 05:30 Chloride 96 mmol/L (98-107) L 12/17/17 05:30 Carbon Dioxide 32 mmol/L (21-32) 12/17/17 05:30 Anion Gap 9 MMOL/L (8-16) 12/17/17 05:30 BUN 38 mg/dL (7-18) H 12/17/17 05:30 Creatinine 0.9 mg/dL (0.55-1.3) 12/17/17 05:30 Creat Clearance w eGFR 59.51 (>60) 12/17/17 05:30 Random Glucose 100 mg/dL (74-106) 12/17/17 05:30 Calcium 9.1 mg/dL (8.5-10.1) 12/17/17 05:30 Total Bilirubin 0.7 mg/dL (0.2-1) 12/17/17 05:30 AST 17 U/L (15-37) 12/17/17 05:30 ALT 18 U/L (13-61) 12/17/17 05:30 Alkaline Phosphatase 98 U/L (45-117) 12/17/17 05:30 Total Protein 6.6 g/dl (6.4-8.2) 12/17/17 05:30 Albumin 3.2 g/dl (3.4-5.0) L 12/17/17 05:30 CARDIAC ENZYMES Creatine Kinase 106 IU/L (26-192) 12/17/17 05:30 Troponin I < 0.02 ng/ml (0.00-0.05) 12/17/17 05:30 ASSESSMENT/PLAN: 87 y/o lady with a significant past medical history of HTN, HLD, Verigo, hypothyroidism, CAD, CHF, and AFIB presented to [facility] via ambulance c/o dizziness for the past 2 days. Pt describes her dizziness as a "swaying" sensation which is becomes worse when she rises from a seated position as well as when she tries to ambulate. Pt endorsed that she has been experiencing vertiginous symptoms for the past 1 year but that her most recent episodes have been worse. 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 Per EMS, pt's blood pressure was 89/56 when they first came to her assistance. Pt also endorsed increased dyspnea on exertion. Pt was recently admitted to [facility] on December 01 of this year for rapid A-fib, and acute on chronic CHF. Pt stated that her INR is checked once a week by a nurse who visits her home and draws her blood. 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 Is on Statin and AC, can be continued. Patient denies room spinning sensation, per nurse, orthostatic on blood pressure readings. Advised increased hydration. Description is more of lightheadness than dizziness (but can give meclezine as needed, ordered). Cardiology follow up for Afib, AC as per cards. Monitor renal function. Avoid sudden head movements.
[2017-12-17] MEDS: DIGOXIN 0.25 MG TABLET (FP) PO SCH (09:28)
[2017-12-17] MEDS: POTASSIUM CHLORIDE TABS 20 MEQ TABLET.ER (FP) PO SCH (09:28)
[2017-12-17] MEDS: CYANOCOBALAMIN 1,000 MCG TABLET (FP) PO SCH (09:29)
[2017-12-17] MEDS: FOLIC ACID 1 MG TABLET (FP) PO SCH (09:29)
[2017-12-17] MEDS: PYRIDOXINE HCL (B-6) 50 MG TABLET (FP) PO SCH (09:29)
[2017-12-17] MEDS: CALCIUM 500MG/VIT-D 200 UNITS COMBO TABLET (FP) PO SCH (09:29)
[2017-12-17] MEDS: CHOLECALCIFEROL (VITAMIN D3) 1,000 UNIT TABLET (FP) PO SCH (09:29)
[2017-12-17] MEDS: VITAMIN B COMPLEX W/C COMBO TABLET (FP) PO SCH (09:30)
[2017-12-17] MEDS: POLYETHYLENE GLYCOL 3350 255 GM BTL PO SCH (09:32)
[2017-12-17] MEDS: BRIMONIDINE TARTRATE 0.1% OPHTHALMIC 5 ML BOTTLE OU SCH ×2 (09:32→21:36)
[2017-12-17] MEDS: ERYTHROMYCIN 0.5% OPHTHALMIC OINTMENT 3.5 GM TUBE OD SCH ×2 (09:33→21:36)
--- NOTE | 2017-12-17 10:03 | PN ---
Progress Note, Physician Chief Complaint: in bed awake alert NAD no CP/SOB has intermittent RAFib with HR 120-130 eats and drinks po fluids OK - will DC IVF does NOT want lipitor or statins b/o ms aches; was on livalo at home will restart it here - Current Medication List Current Medications: Active Medications Atorvastatin Calcium (Lipitor -) 10 mg PO HS [facility] Last Admin: 12/16/17 22:24 Dose: 10 mg Atorvastatin Calcium (Lipitor -) 10 mg PO HS [facility] Last Admin: 12/16/17 22:25 Dose: Not Given Bisacodyl (Dulcolax -) 5 mg PO DAILY PRN PRN Reason: CONSTIPATION Brimonidine Tartrate (Alphagan P 0.1% -) 1 drop OU BID [facility] Last Admin: 12/17/17 09:32 Dose: 1 drop Calcium Carbonate/Cholecalciferol (Os-Jaylan 500+D -) 1 tab PO DAILY [facility] Last Admin: 12/17/17 09:29 Dose: 1 tab Cholecalciferol (Vitamin D3 -) 1,000 unit PO DAILY [facility] Last Admin: 12/17/17 09:29 Dose: 1,000 unit Cyanocobalamin (Vitamin B12 -) 1,000 mcg PO DAILY [facility] Last Admin: 12/17/17 09:29 Dose: 1,000 mcg Digoxin (Lanoxin -) 0.25 mg PO DAILY [facility] Last Admin: 12/17/17 09:28 Dose: 0.25 mg Diltiazem HCl (Cardizem Cd -) 120 mg PO BID [facility] Last Admin: 12/17/17 09:28 Dose: 120 mg Erythromycin (Erythromycin 0.5% Eye Ointment) 1 applic OD BID [facility] Last Admin: 12/17/17 09:33 Dose: 1 appful Folic Acid (Folic Acid -) 1 mg PO DAILY [facility] Last Admin: 12/17/17 09:29 Dose: 1 mg Sodium Chloride (Normal Saline -) 1,000 mls @ 30 mls/hr IV ASDIR [facility] Last Admin: 12/17/17 06:27 Dose: Not Given Latanoprost (Xalatan 0.005% Eye Drops -) 1 drop OU HS [facility] Last Admin: 12/16/17 22:25 Dose: 1 drop Levothyroxine Sodium (Synthroid -) 100 mcg PO DAILY@0700 [facility] Last Admin: 12/17/17 06:28 Dose: 100 mcg Meclizine HCl (Antivert -) 25 mg PO TID PRN PRN Reason: VERTIGO Multivitamins (Total B With C -) 1 each PO DAILY [facility] Last Admin: 12/17/17 09:30 Dose: 1 each Polyethylene Glycol (Miralax (For Bowel Prep) -) 17 gm PO DAILY [facility] Last Admin: 12/17/17 09:32 Dose: Not Given Potassium Chloride (K-Dur -) 20 meq PO DAILY [facility] Last Admin: 12/17/17 09:28 Dose: 20 meq Pyridoxine HCl (Vitamin B6 -) 50 mg PO DAILY [facility] Last Admin: 12/17/17 09:29 Dose: 50 mg Warfarin Sodium (Coumadin -) 5 mg PO DAILY@1800 [facility] Last Admin: 12/16/17 17:55 Dose: 5 mg - Objective Vital Signs: Vital Signs Temperature 97.8 F 12/17/17 05:25 Pulse Rate 90 12/17/17 09:28 Respiratory Rate 20 12/17/17 05:25 Blood Pressure 104/66 12/17/17 05:25 O2 Sat by Pulse Oximetry (%) 97 12/16/17 21:00 Constitutional: Yes: No Distress, Calm Eyes: Yes: Conjunctiva Clear HENT: Yes: Atraumatic Neck: Yes: Supple Cardiovascular: Yes: Tachycardia, Pulse Irregular. No: Regular Rate and Rhythm Respiratory: Yes: CTA Bilaterally Gastrointestinal: Yes: Soft. No: Distention Genitourinary: No: CVA Tenderness - Left, CVA Tenderness - Right, Hematuria Musculoskeletal: No: Joint Stiffness, Joint Swelling Extremities: No: Cold, Cool, Cyanosis Edema: No Integumentary: No: Rash, Venous Stasis Changes Neurological: Yes: WNL, Alert, Oriented ...Motor Strength: WNL Psychiatric: Yes: WNL, Alert, Oriented. No: Agitated, Suicidal Ideation Labs: CBC, BMP 12/17/17 05:30 12/17/17 05:30 INR, PTT INR 1.72 (0.83-1.09) H 12/16/17 02:02 - ....Imaging Other: Report Reviewed Assessment/Plan Pt is a pleasant 87 y/o lady with a significant past medical history of HTN, HLD, Verigo, hypothyroidism, CAD, CHF, and AFIB admitted with worsening dizziness, ARF/CRF dehydration, RAFib and worsening CHF; cardiology and neurology f/u HR control; started on dig f/u level INR 2-3 PT rehab; falls PFX f/u labs dw/ pt and staff
--- NOTE | 2017-12-17 10:47 | EKG ---
Test Reason : Blood Pressure : / mmHG Vent. Rate : 090 BPM Atrial Rate : 250 BPM P-R Int : 000 ms QRS Dur : 070 ms QT Int : 402 ms P-R-T Axes : 000 -50 019 degrees QTc Int : 491 ms POOR DATA QUALITY, INTERPRETATION MAY BE ADVERSELY AFFECTED ATRIAL FIBRILLATION LEFT AXIS DEVIATION NONSPECIFIC ST AND T WAVE ABNORMALITY ABNORMAL ECG Confirmed by Nadeem Dukes MD ([id number]) on 12/17/2017 10:47:05 AM Referred By: Confirmed By:Nadeem Dukes MD
[2017-12-17 17:22] LABS: INR 2.93 (0.83-1.09)
[2017-12-17] MEDS: WARFARIN NA 5 MG TABLET (UD) PO SCH (17:45)
--- NOTE | 2017-12-17 18:07 | PN ---
Progress Note (short form) - Note Progress Note: Patient still postural lightheadedness, decrease in heart rate on digoxin. no SOB or chest pain. Active Medications Atorvastatin Calcium (Lipitor -) 10 mg PO HS [facility] Last Admin: 12/16/17 22:25 Dose: Not Given Bisacodyl (Dulcolax -) 5 mg PO DAILY PRN PRN Reason: CONSTIPATION Brimonidine Tartrate (Alphagan P 0.1% -) 1 drop OU BID [facility] Last Admin: 12/17/17 09:32 Dose: 1 drop Calcium Carbonate/Cholecalciferol (Os-Jaylan 500+D -) 1 tab PO DAILY [facility] Last Admin: 12/17/17 09:29 Dose: 1 tab Cholecalciferol (Vitamin D3 -) 1,000 unit PO DAILY [facility] Last Admin: 12/17/17 09:29 Dose: 1,000 unit Cyanocobalamin (Vitamin B12 -) 1,000 mcg PO DAILY [facility] Last Admin: 12/17/17 09:29 Dose: 1,000 mcg Digoxin (Lanoxin -) 0.25 mg PO DAILY [facility] Last Admin: 12/17/17 09:28 Dose: 0.25 mg Diltiazem HCl (Cardizem Cd -) 120 mg PO BID [facility] Last Admin: 12/17/17 09:28 Dose: 120 mg Erythromycin (Erythromycin 0.5% Eye Ointment) 1 applic OD BID [facility] Last Admin: 12/17/17 09:33 Dose: 1 appful Folic Acid (Folic Acid -) 1 mg PO DAILY [facility] Last Admin: 12/17/17 09:29 Dose: 1 mg Latanoprost (Xalatan 0.005% Eye Drops -) 1 drop OU HS [facility] Last Admin: 12/16/17 22:25 Dose: 1 drop Levothyroxine Sodium (Synthroid -) 100 mcg PO DAILY@0700 [facility] Last Admin: 12/17/17 06:28 Dose: 100 mcg Meclizine HCl (Antivert -) 25 mg PO TID PRN PRN Reason: VERTIGO Multivitamins (Total B With C -) 1 each PO DAILY [facility] Last Admin: 12/17/17 09:30 Dose: 1 each Polyethylene Glycol (Miralax (For Bowel Prep) -) 17 gm PO DAILY [facility] Last Admin: 12/17/17 09:32 Dose: Not Given Potassium Chloride (K-Dur -) 20 meq PO DAILY [facility] Last Admin: 12/17/17 09:28 Dose: 20 meq Pyridoxine HCl (Vitamin B6 -) 50 mg PO DAILY [facility] Last Admin: 12/17/17 09:29 Dose: 50 mg Warfarin Sodium (Coumadin -) 5 mg PO DAILY@1800 [facility] Last Admin: 12/17/17 17:45 Dose: 5 mg Last Vital Signs Temp Pulse Resp BP Pulse Ox 98.2 F 92 irregular 18 118/64 96 12/17/17 13:50 12/17/17 13:50 12/17/17 13:50 12/17/17 13:50 12/17/17 09:00 NECK: Supple, no JVD, carotids 2+. HEART: PMI in the 5th ICS, distant heart sounds, grade I/ MAI, no gallops heard. LUNGS: Clear. ABDOMEN: Soft, nontender, no organomegaly. EXTREMITIES: no calf tenderness or dependent edema. CBC, BMP 12/17/17 05:30 12/17/17 05:30 IMPRESSION: 1. Persistent atrial fib. with periods of rapid response. 2. Postural dizziness, partly related to medication/ dehydration, 3. CHF, currently stable 4. HCVD. REVOMMENDATIOS: 1. Obtain all medications from home for reconciliation. 2. Caution hydration. 3. Daily weight. 4. Close f/u digoxin level.
[2017-12-17] MEDS ORDERED: PT OWN MED DRAWER 7, Y5N ONE (20:32)
[2017-12-17] MEDS: ATORVASTATIN CA 10 MG TABLET (FP) PO SCH (21:34)
[2017-12-17] MEDS: LATANOPROST 0.005% OPHTH SOLN 2.5ML BOTTLE OU SCH (21:37)
[2017-12-18] MEDS: LEVOTHYROXINE NA 100 MCG TABLET (FP) PO SCH (06:40)
[2017-12-18] MEDS: ACETAMINOPHEN 325 MG TABLET (FP) PO PRN (06:40)
[2017-12-18 08:14] LABS: ANION GAP 9 MMOL/L (8-16); BLOOD UREA NITROGEN 29 mg/dL (7-18); CALCIUM 8.9 mg/dL (8.5-10.1); CHLORIDE 95 mmol/L (98-107); CO2 32 mmol/L (21-32); GLUCOSE,RANDOM 114 mg/dL (74-106); POTASSIUM 3.8 mmol/L (3.5-5.1); SODIUM 136 mmol/L (136-145)
--- NOTE | 2017-12-18 09:14 | PN ---
Progress Note (short form) - Note Progress Note: Neurology HISTORY OF PRESENT ILLNESS: 87 y/o lady with a significant past medical history of HTN, HLD, Verigo, hypothyroidism, CAD, CHF, and AFIB presented to [facility] via ambulance c/o dizziness for the past 2 days. Pt describes her dizziness as a "swaying" sensation which is becomes worse when she rises from a seated position as well as when she tries to ambulate. Pt endorsed that she has been experiencing vertiginous symptoms for the past 1 year but that her most recent episodes have been worse. Pt was recently started on Meclizine 25 mg po tid by her basket person but stated this had not assuaged her symptoms. Per EMS, pt's blood pressure was 89/56 when they first came to her assistance. Pt also endorsed increased dyspnea on exertion. Pt was recently admitted to [facility] on December 01 of this year for rapid A-fib, and acute on chronic CHF. Pt stated that her INR is checked once a week by a nurse who visits her home and draws her blood. Is on Statin and AC. Patient denies room spinning sensation, some lightheadedness. Meclezine ordered but not having room spinning sensation. Advised to continue hydration. Cardiology work up ongoing. Carotid doppler reviewed and without HD significant stenosis. 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 Allergies No Known Allergies Allergy (Verified 12/01/17 15:04) Active Medications Acetaminophen (Tylenol -) 650 mg PO Q6H PRN PRN Reason: PAIN LEVEL 3 - 6 Last Admin: 12/18/17 06:40 Dose: 650 mg Atorvastatin Calcium (Lipitor -) 10 mg PO HS [facility] Last Admin: 12/17/17 21:34 Dose: 10 mg Bisacodyl (Dulcolax -) 5 mg PO DAILY PRN PRN Reason: CONSTIPATION Brimonidine Tartrate (Alphagan P 0.1% -) 1 drop OU BID [facility] Last Admin: 12/17/17 21:36 Dose: 1 drop Calcium Carbonate/Cholecalciferol (Os-Jaylan 500+D -) 1 tab PO DAILY [facility] Last Admin: 12/17/17 09:29 Dose: 1 tab Cholecalciferol (Vitamin D3 -) 1,000 unit PO DAILY [facility] Last Admin: 12/17/17 09:29 Dose: 1,000 unit Cyanocobalamin (Vitamin B12 -) 1,000 mcg PO DAILY [facility] Last Admin: 12/17/17 09:29 Dose: 1,000 mcg Digoxin (Lanoxin -) 0.25 mg PO DAILY [facility] Last Admin: 12/17/17 09:28 Dose: 0.25 mg Diltiazem HCl (Cardizem Cd -) 120 mg PO BID [facility] Last Admin: 12/17/17 21:35 Dose: 120 mg Erythromycin (Erythromycin 0.5% Eye Ointment) 1 applic OD BID [facility] Last Admin: 12/17/17 21:36 Dose: 1 appful Folic Acid (Folic Acid -) 1 mg PO DAILY [facility] Last Admin: 12/17/17 09:29 Dose: 1 mg Latanoprost (Xalatan 0.005% Eye Drops -) 1 drop OU HS [facility] Last Admin: 12/17/17 21:37 Dose: 1 drop Levothyroxine Sodium (Synthroid -) 100 mcg PO DAILY@0700 [facility] Last Admin: 12/18/17 06:40 Dose: 100 mcg Meclizine HCl (Antivert -) 25 mg PO TID PRN PRN Reason: VERTIGO Multivitamins (Total B With C -) 1 each PO DAILY [facility] Last Admin: 12/17/17 09:30 Dose: 1 each Polyethylene Glycol (Miralax (For Bowel Prep) -) 17 gm PO DAILY [facility] Last Admin: 12/17/17 09:32 Dose: Not Given Potassium Chloride (K-Dur -) 20 meq PO DAILY [facility] Last Admin: 12/17/17 09:28 Dose: 20 meq Pyridoxine HCl (Vitamin B6 -) 50 mg PO DAILY [facility] Last Admin: 12/17/17 09:29 Dose: 50 mg Warfarin Sodium (Coumadin -) 5 mg PO DAILY@1800 [facility] Last Admin: 12/17/17 17:45 Dose: 5 mg PHYSICAL EXAMINATION Vital Signs Temperature 98.0 F 12/18/17 06:00 Pulse Rate 92 H 12/18/17 06:05 Respiratory Rate 18 12/18/17 06:05 Blood Pressure 101/50 L 12/18/17 06:05 O2 Sat by Pulse Oximetry (%) 98 12/17/17 21:00 GENERAL: aaoX3, nad, no facial grimacing or signs of discomfort HEAD: NC/AT EYES: R Eye no eyesight, conjunctiva erythematous R eye, EOMI. EARS, NOSE, THROAT: MMM. NECK: Supple LUNGS:CTA b/L, no wheezing, rhonchi, or rales appreciated. Chest nontender to palpation. HEART: Irregularly irregular ABDOMEN: NT, ND, No HSM. BS+. MUSCULOSKELETAL: Full ROM throughout UPPER EXTREMITIES: No CCE LOWER EXTREMITIES: Distal pulses 1+ b/l . NEUROLOGICAL: CN 2-12 intact, no slurred speech, no facial droop, sensory intact, finger to nose normal, moves all extremities equally, gait deferred PSYCHIATRIC: Cooperative. Good eye contact. Appropriate mood and affect. SKIN: Warm, no rashes or lesions appreciated. CBCD WBC 10.3 K/mm3 (4.0-10.0) H 12/17/17 05:30 RBC 5.12 M/mm3 (3.60-5.2) 12/17/17 05:30 Hgb 15.2 GM/dL (10.7-15.3) 12/17/17 05:30 Hct 46.9 % (32.4-45.2) H 12/17/17 05:30 MCV 91.6 fl (80-96) 12/17/17 05:30 MCHC 32.5 g/dl (32.0-36.0) 12/17/17 05:30 RDW 14.8 % (11.6-15.6) 12/17/17 05:30 Plt Count 289 K/MM3 (134-434) 12/17/17 05:30 MPV 8.5 fl (7.5-11.1) 12/17/17 05:30 CMP Sodium 136 mmol/L (136-145) 12/18/17 06:48 Potassium 3.8 mmol/L (3.5-5.1) 12/18/17 06:48 Chloride 95 mmol/L (98-107) L 12/18/17 06:48 Carbon Dioxide 32 mmol/L (21-32) 12/18/17 06:48 Anion Gap 9 MMOL/L (8-16) 12/18/17 06:48 BUN 29 mg/dL (7-18) H 12/18/17 06:48 Creatinine 1.0 mg/dL (0.55-1.3) 12/18/17 06:48 Creat Clearance w eGFR 52.69 (>60) 12/18/17 06:48 Random Glucose 114 mg/dL (74-106) H 12/18/17 06:48 Calcium 8.9 mg/dL (8.5-10.1) 12/18/17 06:48 Total Bilirubin 0.7 mg/dL (0.2-1) 12/17/17 05:30 AST 17 U/L (15-37) 12/17/17 05:30 ALT 18 U/L (13-61) 12/17/17 05:30 Alkaline Phosphatase 98 U/L (45-117) 12/17/17 05:30 Total Protein 6.6 g/dl (6.4-8.2) 12/17/17 05:30 Albumin 3.2 g/dl (3.4-5.0) L 12/17/17 05:30 CARDIAC ENZYMES Creatine Kinase 106 IU/L (26-192) 12/17/17 05:30 Troponin I < 0.02 ng/ml (0.00-0.05) 12/17/17 05:30 ASSESSMENT/PLAN: 87 y/o lady with a significant past medical history of HTN, HLD, Verigo, hypothyroidism, CAD, CHF, and AFIB presented to [facility] via ambulance c/o dizziness for the past 2 days. Pt describes her dizziness as a "swaying" sensation which is becomes worse when she rises from a seated position as well as when she tries to ambulate. Pt endorsed that she has been experiencing vertiginous symptoms for the past 1 year but that her most recent episodes have been worse. Pt was recently started on Meclizine 25 mg po tid by her basket person but stated this had not assuaged her symptoms. Per EMS, pt's blood pressure was 89/56 when they first came to her assistance. Pt also endorsed increased dyspnea on exertion. Pt was recently admitted to [facility] on December 01 of this year for rapid A-fib, and acute on chronic CHF. Pt stated that her INR is checked once a week by a nurse who visits her home and draws her blood. 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 Is on Statin and AC, can be continued. Patient denies room spinning sensation, per nurse, orthostatic on blood pressure readings. Advised increased hydration. Description is more of lightheadness than dizziness (but can give meclezine as needed, ordered). 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 Avoid sudden head movements.
[2017-12-18] MEDS: CYANOCOBALAMIN 1,000 MCG TABLET (FP) PO SCH (10:29)
[2017-12-18] MEDS: FOLIC ACID 1 MG TABLET (FP) PO SCH (10:29)
[2017-12-18] MEDS: CHOLECALCIFEROL (VITAMIN D3) 1,000 UNIT TABLET (FP) PO SCH (10:29)
[2017-12-18] MEDS: POTASSIUM CHLORIDE TABS 20 MEQ TABLET.ER (FP) PO SCH (10:29)
[2017-12-18] MEDS: DIGOXIN 0.25 MG TABLET (FP) PO SCH (10:29)
[2017-12-18] MEDS: CALCIUM 500MG/VIT-D 200 UNITS COMBO TABLET (FP) PO SCH (10:29)
[2017-12-18] MEDS: VITAMIN B COMPLEX W/C COMBO TABLET (FP) PO SCH (10:30)
[2017-12-18] MEDS: PYRIDOXINE HCL (B-6) 50 MG TABLET (FP) PO SCH (10:30)
[2017-12-18] MEDS: ERYTHROMYCIN 0.5% OPHTHALMIC OINTMENT 3.5 GM TUBE OD SCH ×2 (10:37→21:22)
[2017-12-18] MEDS: POLYETHYLENE GLYCOL 3350 255 GM BTL PO SCH (10:37)
[2017-12-18] MEDS: BRIMONIDINE TARTRATE 0.1% OPHTHALMIC 5 ML BOTTLE OU SCH ×2 (10:37→21:22)
--- NOTE | 2017-12-18 11:04 | PN ---
Progress Note, Physician Chief Complaint: in bed awake alert NAD afebrile; daughter at bedsdie no CP/SOB; Tachycardia but HR better controlled; still A Fib - Current Medication List Current Medications: Active Medications Acetaminophen (Tylenol -) 650 mg PO Q6H PRN PRN Reason: PAIN LEVEL 3 - 6 Last Admin: 12/18/17 06:40 Dose: 650 mg Atorvastatin Calcium (Lipitor -) 10 mg PO HS [facility] Last Admin: 12/17/17 21:34 Dose: 10 mg Bisacodyl (Dulcolax -) 5 mg PO DAILY PRN PRN Reason: CONSTIPATION Brimonidine Tartrate (Alphagan P 0.1% -) 1 drop OU BID [facility] Last Admin: 12/18/17 10:37 Dose: 1 drop Calcium Carbonate/Cholecalciferol (Os-Jaylan 500+D -) 1 tab PO DAILY [facility] Last Admin: 12/18/17 10:29 Dose: 1 tab Cholecalciferol (Vitamin D3 -) 1,000 unit PO DAILY [facility] Last Admin: 12/18/17 10:29 Dose: 1,000 unit Cyanocobalamin (Vitamin B12 -) 1,000 mcg PO DAILY [facility] Last Admin: 12/18/17 10:29 Dose: 1,000 mcg Digoxin (Lanoxin -) 0.25 mg PO DAILY [facility] Last Admin: 12/18/17 10:29 Dose: 0.25 mg Diltiazem HCl (Cardizem Cd -) 120 mg PO BID [facility] Last Admin: 12/18/17 10:28 Dose: 120 mg Erythromycin (Erythromycin 0.5% Eye Ointment) 1 applic OD BID [facility] Last Admin: 12/18/17 10:37 Dose: 1 appful Folic Acid (Folic Acid -) 1 mg PO DAILY [facility] Last Admin: 12/18/17 10:29 Dose: 1 mg Latanoprost (Xalatan 0.005% Eye Drops -) 1 drop OU HS [facility] Last Admin: 12/17/17 21:37 Dose: 1 drop Levothyroxine Sodium (Synthroid -) 100 mcg PO DAILY@0700 [facility] Last Admin: 12/18/17 06:40 Dose: 100 mcg Meclizine HCl (Antivert -) 25 mg PO TID PRN PRN Reason: VERTIGO Multivitamins (Total B With C -) 1 each PO DAILY [facility] Last Admin: 12/18/17 10:30 Dose: 1 each Polyethylene Glycol (Miralax (For Bowel Prep) -) 17 gm PO DAILY [facility] Last Admin: 12/18/17 10:37 Dose: Not Given Potassium Chloride (K-Dur -) 20 meq PO DAILY [facility] Last Admin: 12/18/17 10:29 Dose: 20 meq Pyridoxine HCl (Vitamin B6 -) 50 mg PO DAILY [facility] Last Admin: 12/18/17 10:30 Dose: 50 mg Warfarin Sodium (Coumadin -) 5 mg PO DAILY@1800 [facility] Last Admin: 12/17/17 17:45 Dose: 5 mg - Objective Vital Signs: Vital Signs Temperature 98.0 F 12/18/17 06:00 Pulse Rate 120 H 12/18/17 10:29 Respiratory Rate 18 12/18/17 06:05 Blood Pressure 101/50 L 12/18/17 06:05 O2 Sat by Pulse Oximetry (%) 98 12/17/17 21:00 Constitutional: Yes: No Distress, Calm Eyes: Yes: Conjunctiva Clear HENT: Yes: Atraumatic Neck: Yes: Supple Cardiovascular: No: Regular Rate and Rhythm Respiratory: Yes: CTA Bilaterally Gastrointestinal: Yes: Soft. No: Distention Genitourinary: No: CVA Tenderness - Left, CVA Tenderness - Right Musculoskeletal: No: Joint Stiffness, Joint Swelling Extremities: No: Calf Tenderness, Cold, Cool, Cyanosis Edema: No Integumentary: No: Rash, Venous Stasis Changes Neurological: Yes: WNL, Alert, Oriented ...Motor Strength: WNL Psychiatric: Yes: WNL, Alert, Oriented. No: Agitated, Suicidal Ideation Labs: CBC, BMP 12/17/17 05:30 12/18/17 06:48 INR, PTT INR 2.93 (0.83-1.09) H 12/17/17 16:00 - ....Imaging Other: Report Reviewed Assessment/Plan Pt is a pleasant 87 y/o lady with a significant past medical history of HTN, HLD, Verigo, hypothyroidism, CAD, CHF, and AFIB admitted with worsening dizziness, ARF/CRF dehydration, RAFib and worsening acute on chronic CHF exac diastolic dysfunction; cardiology and neurology f/u; further management per cardiology HR control; started on dig f/u level INR 2-3 PT rehab; falls PFX f/u labs dw/ pt and staff
--- NOTE | 2017-12-18 15:57 | PN ---
Progress Note (short form) - Note Progress Note: Patient has mid lightheadedness,similar to her chronic symptoms. controlled ventricular response. Increase ambulation prior to considering discharge. Home mediations were physially reviewed: 1. Warfarin 5mg.tablet, dosr adjusted according to INR. 2. Meclizine 25mg. TID prn. 3. Metolazine 2.5mg. po daily. 4. Thyroxine 100 ugm po OD. 5. K+ supplement 10meq po od. 5. ToprolXL 50mg. po BID. 7. Lasix 20mg. po OD. 8. Cartia XT 240mg. po OD. 9. Livalo 2mg. po TIW. Active Medications Acetaminophen (Tylenol -) 650 mg PO Q6H PRN PRN Reason: PAIN LEVEL 3 - 6 Last Admin: 12/18/17 06:40 Dose: 650 mg Atorvastatin Calcium (Lipitor -) 10 mg PO HS [facility] Last Admin: 12/17/17 21:34 Dose: 10 mg Bisacodyl (Dulcolax -) 5 mg PO DAILY PRN PRN Reason: CONSTIPATION Brimonidine Tartrate (Alphagan P 0.1% -) 1 drop OU BID [facility] Last Admin: 12/18/17 10:37 Dose: 1 drop Calcium Carbonate/Cholecalciferol (Os-Jaylan 500+D -) 1 tab PO DAILY [facility] Last Admin: 12/18/17 10:29 Dose: 1 tab Cholecalciferol (Vitamin D3 -) 1,000 unit PO DAILY [facility] Last Admin: 12/18/17 10:29 Dose: 1,000 unit Cyanocobalamin (Vitamin B12 -) 1,000 mcg PO DAILY [facility] Last Admin: 12/18/17 10:29 Dose: 1,000 mcg Digoxin (Lanoxin -) 0.25 mg PO DAILY [facility] Last Admin: 12/18/17 10:29 Dose: 0.25 mg Diltiazem HCl (Cardizem Cd -) 120 mg PO BID [facility] Last Admin: 12/18/17 10:28 Dose: 120 mg Erythromycin (Erythromycin 0.5% Eye Ointment) 1 applic OD BID [facility] Last Admin: 12/18/17 10:37 Dose: 1 appful Folic Acid (Folic Acid -) 1 mg PO DAILY [facility] Last Admin: 12/18/17 10:29 Dose: 1 mg Latanoprost (Xalatan 0.005% Eye Drops -) 1 drop OU HS [facility] Last Admin: 12/17/17 21:37 Dose: 1 drop Levothyroxine Sodium (Synthroid -) 100 mcg PO DAILY@0700 [facility] Last Admin: 12/18/17 06:40 Dose: 100 mcg Meclizine HCl (Antivert -) 25 mg PO TID PRN PRN Reason: VERTIGO Multivitamins (Total B With C -) 1 each PO DAILY [facility] Last Admin: 12/18/17 10:30 Dose: 1 each Polyethylene Glycol (Miralax (For Bowel Prep) -) 17 gm PO DAILY [facility] Last Admin: 12/18/17 10:37 Dose: Not Given Potassium Chloride (K-Dur -) 20 meq PO DAILY [facility] Last Admin: 12/18/17 10:29 Dose: 20 meq Pyridoxine HCl (Vitamin B6 -) 50 mg PO DAILY [facility] Last Admin: 12/18/17 10:30 Dose: 50 mg Warfarin Sodium (Coumadin -) 5 mg PO DAILY@1800 [facility] Last Admin: 12/17/17 17:45 Dose: 5 mg Allergies: Intolerant to most of the statins. Last Vital Signs Temp Pulse Resp BP Pulse Ox 98.2 F 92 irregular 18 118/64 96 12/17/17 13:50 12/17/17 13:50 12/17/17 13:50 12/17/17 13:50 12/17/17 09:00 NECK: Supple, no JVD, carotids 2+. HEART: PMI in the 5th ICS, distant heart sounds, grade I/ MAI, no gallops heard. LUNGS: Clear. ABDOMEN: Soft, nontender, no organomegaly. EXTREMITIES: no calf tenderness or dependent edema. CBC, BMP 12/17/17 05:30 12/18/17 06:48 IMPRESSION: 1. Persistent atrial fib. with periods of rapid response. 2. Postural dizziness, partly related to medication/ dehydration, 3. CHF, currently stable 4. HCVD. RECOMMENDATIOS: 1. Obtain all medications from home for reconciliation. 2. Caution hydration. 3. Daily weight. 4. Close f/u digoxin level. 5. Digoxin level. 6. Check heart rate during and after ambulation.
[2017-12-18 17:47] LABS: INR 2.96 (0.83-1.09); PROTHROMBIN TIME (PATIENT) 35.3 SEC (9.7-13.0)
[2017-12-18] MEDS: WARFARIN NA 5 MG TABLET (UD) PO SCH (18:12)
[2017-12-18] MEDS: ATORVASTATIN CA 10 MG TABLET (FP) PO SCH (21:19)
[2017-12-18] MEDS: LATANOPROST 0.005% OPHTH SOLN 2.5ML BOTTLE OU SCH (21:26)
[2017-12-19] MEDS: ACETAMINOPHEN 325 MG TABLET (FP) PO PRN (01:16)
[2017-12-19] MEDS: LEVOTHYROXINE NA 100 MCG TABLET (FP) PO SCH (06:11)
[2017-12-19 07:20] LABS: BASO % 0.9 % (0-2.0); EOS % 1.9 % (0-4.5); HEMATOCRIT 44.6 % (32.4-45.2); HEMOGLOBIN 14.4 GM/dL (10.7-15.3); LYMPH % 18.9 % (8-40); MCH 29.6 pg (25.7-33.7); MCHC 32.3 g/dl (32.0-36.0); MEAN CELL VOLUME 91.5 fl (80-96); MEAN PLT VOLUME 8.6 fl (7.5-11.1); MONO % 8.7 % (3.8-10.2); NEUT % 69.6 % (42.8-82.8); PLATELET COUNT 278 K/MM3 (134-434); RBC 4.87 M/mm3 (3.60-5.2); RDW 14.7 % (11.6-15.6); WHITE BLOOD COUNT 9.1 K/mm3 (4.0-10.0)
[2017-12-19 07:51] LABS: ALK PHOS 95 U/L (45-117); ANION GAP 9 MMOL/L (8-16); BILIRUBIN,TOTAL 0.6 mg/dL (0.2-1); BLOOD UREA NITROGEN 26 mg/dL (7-18); CALCIUM 8.6 mg/dL (8.5-10.1); CHLORIDE 95 mmol/L (98-107); CO2 32 mmol/L (21-32); GLUCOSE,RANDOM 141 mg/dL (74-106); POTASSIUM 3.1 mmol/L (3.5-5.1); SGOT/AST 15 U/L (15-37); SGPT/ALT 17 U/L (13-61); SODIUM 136 mmol/L (136-145); TOT PROT 6.4 g/dl (6.4-8.2)
[2017-12-19 08:53] LABS: PROTHROMBIN TIME (PATIENT) 35.8 SEC (9.7-13.0)
--- NOTE | 2017-12-19 09:28 | PN ---
Progress Note (short form) - Note Progress Note: Neurology HISTORY OF PRESENT ILLNESS: 87 y/o lady with a significant past medical history of HTN, HLD, Verigo, hypothyroidism, CAD, CHF, and AFIB presented to [facility] via ambulance c/o dizziness for the past 2 days. Pt describes her dizziness as a "swaying" sensation which is becomes worse when she rises from a seated position as well as when she tries to ambulate. Pt endorsed that she has been experiencing vertiginous symptoms for the past 1 year but that her most recent episodes have been worse. 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 Per EMS, pt's blood pressure was 89/56 when they first came to her assistance. Pt also endorsed increased dyspnea on exertion. Pt was recently admitted to [facility] on December 01 of this year for rapid A-fib, and acute on chronic CHF. Pt stated that her INR is checked once a week by a nurse who visits her home and draws her blood. Is on Statin and AC. Patient denies room spinning sensation, some lightheadedness. Meclezine ordered but not having room spinning sensation. Advised to continue hydration. Cardiology work up ongoing. Carotid doppler reviewed and without HD significant stenosis. 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 Overnight, no new events. Plan for discharge, cardiology note reviewed. Active Medications Acetaminophen (Tylenol -) 650 mg PO Q6H PRN PRN Reason: PAIN LEVEL 3 - 6 Last Admin: 12/19/17 01:16 Dose: 650 mg Atorvastatin Calcium (Lipitor -) 10 mg PO HS [facility] Last Admin: 12/18/17 21:19 Dose: 10 mg Bisacodyl (Dulcolax -) 5 mg PO DAILY PRN PRN Reason: CONSTIPATION Brimonidine Tartrate (Alphagan P 0.1% -) 1 drop OU BID [facility] Last Admin: 12/18/17 21:22 Dose: 1 drop Calcium Carbonate/Cholecalciferol (Os-Jaylan 500+D -) 1 tab PO DAILY [facility] Last Admin: 12/18/17 10:29 Dose: 1 tab Cholecalciferol (Vitamin D3 -) 1,000 unit PO DAILY [facility] Last Admin: 12/18/17 10:29 Dose: 1,000 unit Cyanocobalamin (Vitamin B12 -) 1,000 mcg PO DAILY [facility] Last Admin: 12/18/17 10:29 Dose: 1,000 mcg Digoxin (Lanoxin -) 0.25 mg PO DAILY [facility] Last Admin: 12/18/17 10:29 Dose: 0.25 mg Diltiazem HCl (Cardizem Cd -) 120 mg PO BID [facility] Last Admin: 12/18/17 21:19 Dose: 120 mg Erythromycin (Erythromycin 0.5% Eye Ointment) 1 applic OD BID [facility] Last Admin: 12/18/17 21:22 Dose: 1 appful Folic Acid (Folic Acid -) 1 mg PO DAILY [facility] Last Admin: 12/18/17 10:29 Dose: 1 mg Latanoprost (Xalatan 0.005% Eye Drops -) 1 drop OU HS [facility] Last Admin: 12/18/17 21:26 Dose: 1 drop Levothyroxine Sodium (Synthroid -) 100 mcg PO DAILY@0700 [facility] Last Admin: 12/19/17 06:11 Dose: 100 mcg Meclizine HCl (Antivert -) 25 mg PO TID PRN PRN Reason: VERTIGO Multivitamins (Total B With C -) 1 each PO DAILY [facility] Last Admin: 12/18/17 10:30 Dose: 1 each Polyethylene Glycol (Miralax (For Bowel Prep) -) 17 gm PO DAILY [facility] Last Admin: 12/18/17 10:37 Dose: Not Given Potassium Chloride (K-Dur -) 20 meq PO DAILY [facility] Last Admin: 12/18/17 10:29 Dose: 20 meq Pyridoxine HCl (Vitamin B6 -) 50 mg PO DAILY [facility] Last Admin: 12/18/17 10:30 Dose: 50 mg Warfarin Sodium (Coumadin -) 5 mg PO DAILY@1800 [facility] Last Admin: 12/18/17 18:12 Dose: 5 mg PHYSICAL EXAMINATION Vital Signs Period Temp Pulse Resp BP Sys/Macias Pulse Ox Last 24 Hr 97.5 F-99 F 52-120 18-20 85-124/39-64 96 GENERAL: aaoX3, nad, no facial grimacing or signs of discomfort HEAD: NC/AT EYES: R Eye no eyesight, conjunctiva erythematous R eye, EOMI. EARS, NOSE, THROAT: MMM. NECK: Supple LUNGS:CTA b/L, no wheezing, rhonchi, or rales appreciated. Chest nontender to palpation. HEART: Irregularly irregular ABDOMEN: NT, ND, No HSM. BS+. MUSCULOSKELETAL: Full ROM throughout UPPER EXTREMITIES: No CCE LOWER EXTREMITIES: Distal pulses 1+ b/l . NEUROLOGICAL: CN 2-12 intact, no slurred speech, no facial droop, sensory intact, finger to nose normal, moves all extremities equally, gait deferred PSYCHIATRIC: Cooperative. Good eye contact. Appropriate mood and affect. SKIN: Warm, no rashes or lesions appreciated. CBCD WBC 9.1 K/mm3 (4.0-10.0) 12/19/17 05:30 RBC 4.87 M/mm3 (3.60-5.2) 12/19/17 05:30 Hgb 14.4 GM/dL (10.7-15.3) 12/19/17 05:30 Hct 44.6 % (32.4-45.2) 12/19/17 05:30 MCV 91.5 fl (80-96) 12/19/17 05:30 MCHC 32.3 g/dl (32.0-36.0) 12/19/17 05:30 RDW 14.7 % (11.6-15.6) 12/19/17 05:30 Plt Count 278 K/MM3 (134-434) 12/19/17 05:30 MPV 8.6 fl (7.5-11.1) 12/19/17 05:30 CMP Sodium 136 mmol/L (136-145) 12/19/17 05:30 Potassium 3.1 mmol/L (3.5-5.1) L 12/19/17 05:30 Chloride 95 mmol/L (98-107) L 12/19/17 05:30 Carbon Dioxide 32 mmol/L (21-32) 12/19/17 05:30 Anion Gap 9 MMOL/L (8-16) 12/19/17 05:30 BUN 26 mg/dL (7-18) H 12/19/17 05:30 Creatinine 1.0 mg/dL (0.55-1.3) 12/19/17 05:30 Creat Clearance w eGFR 52.69 (>60) 12/19/17 05:30 Calcium 8.6 mg/dL (8.5-10.1) 12/19/17 05:30 Total Bilirubin 0.6 mg/dL (0.2-1) 12/19/17 05:30 AST 15 U/L (15-37) 12/19/17 05:30 ALT 17 U/L (13-61) 12/19/17 05:30 Alkaline Phosphatase 95 U/L (45-117) 12/19/17 05:30 Total Protein 6.4 g/dl (6.4-8.2) 12/19/17 05:30 Albumin 3.0 g/dl (3.4-5.0) L 12/19/17 05:30 ASSESSMENT/PLAN: 87 y/o lady with a significant past medical history of HTN, HLD, Verigo, hypothyroidism, CAD, CHF, and AFIB presented to [facility] via ambulance c/o dizziness for the past 2 days. Pt describes her dizziness as a "swaying" sensation which is becomes worse when she rises from a seated position as well as when she tries to ambulate. Pt endorsed that she has been experiencing vertiginous symptoms for the past 1 year but that her most recent episodes have been worse. 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 Per EMS, pt's blood pressure was 89/56 when they first came to her assistance. Pt also endorsed increased dyspnea on exertion. Pt was recently admitted to [facility] on December 01 of this year for rapid A-fib, and acute on chronic CHF. Pt stated that her INR is checked once a week by a nurse who visits her home and draws her blood. 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 Is on Statin and AC, can be continued. Patient denies room spinning sensation, per nurse, orthostatic on blood pressure readings. Advised increased hydration. Description is more of lightheadness than dizziness (but can give meclezine as needed, ordered). 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 Neurologically stable for discharge.
[2017-12-19] MEDS: CHOLECALCIFEROL (VITAMIN D3) 1,000 UNIT TABLET (FP) PO SCH (10:07)
[2017-12-19] MEDS: CYANOCOBALAMIN 1,000 MCG TABLET (FP) PO SCH (10:07)
[2017-12-19] MEDS: DIGOXIN 0.25 MG TABLET (FP) PO SCH (10:07)
[2017-12-19] MEDS: BRIMONIDINE TARTRATE 0.1% OPHTHALMIC 5 ML BOTTLE OU SCH ×2 (10:08→21:38)
[2017-12-19] MEDS: VITAMIN B COMPLEX W/C COMBO TABLET (FP) PO SCH (10:08)
[2017-12-19] MEDS: POLYETHYLENE GLYCOL 3350 255 GM BTL PO SCH (10:08)
[2017-12-19] MEDS: PYRIDOXINE HCL (B-6) 50 MG TABLET (FP) PO SCH (10:08)
[2017-12-19] MEDS: POTASSIUM CHLORIDE TABS 20 MEQ TABLET.ER (FP) PO SCH ×3 (10:08→21:37)
[2017-12-19] MEDS: FOLIC ACID 1 MG TABLET (FP) PO SCH (10:08)
[2017-12-19] MEDS: CALCIUM 500MG/VIT-D 200 UNITS COMBO TABLET (FP) PO SCH (10:08)
[2017-12-19] MEDS: ERYTHROMYCIN 0.5% OPHTHALMIC OINTMENT 3.5 GM TUBE OD SCH ×2 (10:08→21:40)
--- NOTE | 2017-12-19 10:37 | PN ---
Progress Note (short form) - Note Progress Note: Patient has mid lightheadedness, similar to her chronic symptoms. controlled ventricular response.Increase heart rate with ambulation waiting to receive her morning medications. Able to ambulate the length of the corridor with symptoms. HR increasesd to 120BPM without symptoms. Home mediations were physially reviewed: 1. Warfarin 5mg.tablet, dosr adjusted according to INR. 2. Meclizine 25mg. TID prn. 3. Metolazine 2.5mg. po daily. 4. Thyroxine 100 ugm po OD. 5. K+ supplement 10meq po od. 5. Toprol XL 50mg. po BID. 7. Lasix 20mg. po OD. 8. Cartia XT 240mg. po OD. 9. Livalo 2mg. po TIW. Active Medications Active Medications Acetaminophen (Tylenol -) 650 mg PO Q6H PRN PRN Reason: PAIN LEVEL 3 - 6 Last Admin: 12/19/17 01:16 Dose: 650 mg Atorvastatin Calcium (Lipitor -) 10 mg PO [facility] Last Admin: 12/18/17 21:19 Dose: 10 mg Bisacodyl (Dulcolax -) 5 mg PO DAILY PRN PRN Reason: CONSTIPATION Brimonidine Tartrate (Alphagan P 0.1% -) 1 drop OU BID [facility] Last Admin: 12/19/17 10:08 Dose: 1 drop Calcium Carbonate/Cholecalciferol (Os-Jaylan 500+D -) 1 tab PO DAILY [facility] Last Admin: 12/19/17 10:08 Dose: 1 tab Cholecalciferol (Vitamin D3 -) 1,000 unit PO DAILY [facility] Last Admin: 12/19/17 10:07 Dose: 1,000 unit Cyanocobalamin (Vitamin B12 -) 1,000 mcg PO DAILY [facility] Last Admin: 12/19/17 10:07 Dose: 1,000 mcg Digoxin (Lanoxin -) 0.25 mg PO DAILY [facility] Last Admin: 12/19/17 10:07 Dose: 0.25 mg Diltiazem HCl (Cardizem Cd -) 120 mg PO BID [facility] Last Admin: 12/19/17 10:07 Dose: 120 mg Erythromycin (Erythromycin 0.5% Eye Ointment) 1 applic OD BID [facility] Last Admin: 12/19/17 10:08 Dose: 1 appful Folic Acid (Folic Acid -) 1 mg PO DAILY [facility] Last Admin: 12/19/17 10:08 Dose: 1 mg Latanoprost (Xalatan 0.005% Eye Drops -) 1 drop OU HS [facility] Last Admin: 12/18/17 21:26 Dose: 1 drop Levothyroxine Sodium (Synthroid -) 100 mcg PO DAILY@0700 [facility] Last Admin: 12/19/17 06:11 Dose: 100 mcg Meclizine HCl (Antivert -) 25 mg PO TID PRN PRN Reason: VERTIGO Multivitamins (Total B With C -) 1 each PO DAILY [facility] Last Admin: 12/19/17 10:08 Dose: 1 each Polyethylene Glycol (Miralax (For Bowel Prep) -) 17 gm PO DAILY [facility] Last Admin: 12/19/17 10:08 Dose: Not Given Potassium Chloride (K-Dur -) 20 meq PO DAILY [facility] Last Admin: 12/19/17 10:08 Dose: 20 meq Pyridoxine HCl (Vitamin B6 -) 50 mg PO DAILY [facility] Last Admin: 12/19/17 10:08 Dose: 50 mg Warfarin Sodium (Coumadin -) 5 mg PO DAILY@1800 [facility] Last Admin: 12/18/17 18:12 Dose: 5 mg NECK: Supple, no JVD, carotids 2+. HEART: PMI in the 5th ICS, distant heart sounds, grade I/ MAI, no gallops heard. LUNGS: Clear. ABDOMEN: Soft, nontender, no organomegaly. EXTREMITIES: no calf tenderness or dependent edema. CBC, BMP 12/17/17 05:30 12/18/17 06:48 IMPRESSION: 1. Persistent atrial fib. with periods of rapid response. 2. Postural dizziness, partly related to medication/ dehydration, 3. CHF, currently stable 4. HCVD. RECOMMENDATIOS: 1. If HR remains elevated after receiving her meds. may need to add low dose betablocker. 2. Caution hydration. 3. Daily weight. 4. Close f/u digoxin level. 5. Digoxin level. 6. Check heart rate during and after ambulation. 7. Check BP supine and standing. 8. Repeat digoxin level.
--- NOTE | 2017-12-19 13:35 | PN ---
Progress Note, Physician Chief Complaint: HR still high 120-131 just talking occasional SOB and occ palpitations; dizziness better - Current Medication List Current Medications: Active Medications Acetaminophen (Tylenol -) 650 mg PO Q6H PRN PRN Reason: PAIN LEVEL 3 - 6 Last Admin: 12/19/17 01:16 Dose: 650 mg Atorvastatin Calcium (Lipitor -) 10 mg PO HS [facility] Last Admin: 12/18/17 21:19 Dose: 10 mg Bisacodyl (Dulcolax -) 5 mg PO DAILY PRN PRN Reason: CONSTIPATION Brimonidine Tartrate (Alphagan P 0.1% -) 1 drop OU BID [facility] Last Admin: 12/19/17 10:08 Dose: 1 drop Calcium Carbonate/Cholecalciferol (Os-Jaylan 500+D -) 1 tab PO DAILY [facility] Last Admin: 12/19/17 10:08 Dose: 1 tab Cholecalciferol (Vitamin D3 -) 1,000 unit PO DAILY [facility] Last Admin: 12/19/17 10:07 Dose: 1,000 unit Cyanocobalamin (Vitamin B12 -) 1,000 mcg PO DAILY [facility] Last Admin: 12/19/17 10:07 Dose: 1,000 mcg Digoxin (Lanoxin -) 0.25 mg PO DAILY [facility] Last Admin: 12/19/17 10:07 Dose: 0.25 mg Diltiazem HCl (Cardizem Cd -) 180 mg PO BID [facility] Erythromycin (Erythromycin 0.5% Eye Ointment) 1 applic OD BID [facility] Last Admin: 12/19/17 10:08 Dose: 1 appful Folic Acid (Folic Acid -) 1 mg PO DAILY [facility] Last Admin: 12/19/17 10:08 Dose: 1 mg Latanoprost (Xalatan 0.005% Eye Drops -) 1 drop OU HS [facility] Last Admin: 12/18/17 21:26 Dose: 1 drop Levothyroxine Sodium (Synthroid -) 100 mcg PO DAILY@0700 [facility] Last Admin: 12/19/17 06:11 Dose: 100 mcg Meclizine HCl (Antivert -) 25 mg PO TID PRN PRN Reason: VERTIGO Metoprolol Succinate (Toprol Xl -) 50 mg PO BID [facility] Multivitamins (Total B With C -) 1 each PO DAILY [facility] Last Admin: 12/19/17 10:08 Dose: 1 each Polyethylene Glycol (Miralax (For Bowel Prep) -) 17 gm PO DAILY [facility] Last Admin: 12/19/17 10:08 Dose: Not Given Potassium Chloride (K-Dur -) 20 meq PO BID [facility] Pyridoxine HCl (Vitamin B6 -) 50 mg PO DAILY [facility] Last Admin: 12/19/17 10:08 Dose: 50 mg Warfarin Sodium (Coumadin -) 5 mg PO DAILY@1800 [facility] Last Admin: 12/18/17 18:12 Dose: 5 mg - Objective Vital Signs: Vital Signs Temperature 98.7 F 12/19/17 09:00 Pulse Rate 124 H 12/19/17 10:07 Respiratory Rate 22 H 12/19/17 09:00 Blood Pressure 113/62 12/19/17 09:00 O2 Sat by Pulse Oximetry (%) 94 L 12/19/17 09:00 Constitutional: Yes: No Distress, Calm Eyes: Yes: Conjunctiva Clear HENT: Yes: Atraumatic Neck: Yes: Supple Cardiovascular: Yes: Tachycardia, Pulse Irregular Respiratory: Yes: Diminished Gastrointestinal: Yes: Soft. No: Distention Genitourinary: No: CVA Tenderness - Left, CVA Tenderness - Right Musculoskeletal: No: Joint Stiffness, Joint Swelling Extremities: No: Cold, Cool Edema: No Integumentary: No: Rash, Venous Stasis Changes Neurological: Yes: WNL, Alert, Oriented ...Motor Strength: WNL Psychiatric: Yes: WNL, Alert, Oriented. No: Agitated, Suicidal Ideation Labs: CBC, BMP 12/19/17 05:30 12/19/17 05:30 INR, PTT INR 3.00 (0.83-1.09) H 12/19/17 05:30 - ....Imaging Other: Report Reviewed Assessment/Plan Pt is a pleasant 87 y/o lady with a significant past medical history of HTN, HLD, Verigo, hypothyroidism, CAD, CHF, and AFIB admitted with worsening dizziness, ARF/CRF dehydration, RAFib and worsening acute on chronic CHF exac diastolic dysfunction; cardiology and neurology f/u; further management per cardiology HR control; started on dig f/u level d.w cardio dr Martínez: po [place]; increase cardizem dose, continue dig check O2 sat/RA INR 2-3 PT rehab; falls PFX f/u labs dw/ pt and staff
[2017-12-19] MEDS: WARFARIN NA 5 MG TABLET (UD) PO SCH (18:18)
[2017-12-19] MEDS: LATANOPROST 0.005% OPHTH SOLN 2.5ML BOTTLE OU SCH (21:38)
[2017-12-19] MEDS: ATORVASTATIN CA 10 MG TABLET (FP) PO SCH (21:41)
[2017-12-20] MEDS: LEVOTHYROXINE NA 100 MCG TABLET (FP) PO SCH (06:19)
[2017-12-20 08:21] VITALS: BP 119/51; TEMP 98.4
--- NOTE | 2017-12-20 08:23 | DS ---
Physical Examination Vital Signs: Vital Signs Temperature 98.4 F 12/20/17 08:18 Pulse Rate 74 12/20/17 08:18 Respiratory Rate 20 12/20/17 08:18 Blood Pressure 119/51 L 12/20/17 08:18 O2 Sat by Pulse Oximetry (%) 93 L 12/20/17 08:18 Findings/Remarks: OOB to chair HR better <100 O2 sat/RA > 90% rest and exercise walked 200 feet wants to go home f/u with cardio next week, outpt cardioversion? per d/w cardio dr Martínez coumadin per [facility] PT and VNS d./w pt and staff scripts done d/w pt in detail all changes in meds, see written instructions pt's son will pick her up today to take home pt also has daughter who helps her home check labs INR next week t time 40 min Constitutional: Yes: No Distress, Calm Eyes: Yes: Conjunctiva Clear HENT: Yes: Atraumatic Neck: Yes: Supple Cardiovascular: Yes: Pulse Irregular. No: Tachycardia Respiratory: Yes: CTA Bilaterally Gastrointestinal: Yes: Soft. No: Distention Renal/: No: CVA Tenderness - Left, CVA Tenderness - Right Musculoskeletal: No: Joint Stiffness, Joint Swelling Extremities: No: Cold, Cool Edema: No Integumentary: No: Rash, Skin Tear, Venous Stasis Changes Neurological: Yes: WNL, Alert, Oriented ...Motor Strength: WNL Psychiatric: Yes: WNL, Alert, Oriented. No: Agitated, Suicidal Ideation Labs: CBC, BMP 12/19/17 05:30 12/19/17 05:30 Discharge Summary Reason For Visit: VERTIGO ACUTE KIDNEY INJURY Current Active Problems REY (acute kidney injury) (Acute) Vertigo (Acute) Procedures: Principal: admitted with dizziness r/o TIA/CVA rapid AFib CHF exac Other Procedures: telemetry monitoring; cardiology eval. meds adjusted per cardiology;. seen by neurology, head CT no new changes Hospital Course: improved with above; DC home f/u as advised Condition: Stable - Instructions Diet, Activity, Other Instructions: Please return to the emergency department with any new or worsening symptoms or concerns. Please follow up with your primary care physician within 72 hours. f/u PCP and cardiology in 1-2 weeks f.u neurology and eye dr 2-4 weeks coumadin per INR check INR and labs IN 3 DAYS check weight daily call MD if > 2 lbs difference home PT, VNS falls pfx Referrals: Jane Vaughn [Primary Care Provider] - Cecil Wall MD [Staff Physician] - Lucas Smith MD [Staff Physician] - Herberth Martínez MD [Staff Physician] - Disposition: VNS/HOME HEALTH CARE - Home Medications Comprehensive Discharge Medication List: Ambulatory Orders Ca Cmb No.1/Vit D3/B-6/FA/B12 [Vitamin D3 1,000 Unit Tablet] 1 each PO DAILY Calcium Carbonate/Vitamin D3 [Oysco 500-Vit D3 200 Tablet] 1 each PO DAILY 09/03 Cyanocobalamin/FA/Pyridoxine [B Complex-Folic Acid Tablet] 1 each PO DAILY 09/03 Isosorbide Mononitrate [Isosorbide Mononitrate ER] 30 mg PO DAILY 09/03/12 Meclizine HCl [Antivert -] 25 mg PO TID PRN #20 tablet 09/03/12 Pitavastatin Calcium [Livalo] 2 mg PO DAILY 09/03/12 Atorvastatin Ca [Lipitor] 10 mg PO HS #90 tablet 10/14/17 Bisacodyl [Bisacodyl -] 5 mg PO DAILY PRN tablet. 10/14/17 Levothyroxine [Synthroid -] 100 mcg PO DAILY@0700 #90 tablet 10/14/17 Polyethylene Glycol 3350 [Miralax 255 gm Btl -] 17 gm PO DAILY btl 10/14/17 Potassium Chloride [K-Dur -] 10 meq PO DAILY #90 tablet.er 10/14/17 Warfarin Sodium 5 mg PO DAILY #90 tablet 10/14/17 Acetaminophen [Tylenol] 650 mg PO Q4H PRN 12/02/17 Brimonidine Tartrate [Alphagan P 0.1% -] 1 drop OU BID drops 12/04/17 Erythromycin 0.5% Eye Ointment [Erythromycin 0.5% Eye Ointment -] 1 applic OD BID tube 12/04/17 Furosemide [Lasix -] 20 mg PO BID #90 tablet 12/04/17 Latanoprost 0.005% Eye Drops [Xalatan 0.005% Eye Drops -] 1 drop OU HS drops Metoprolol Succinate [Toprol XL -] 50 mg PO BID #180 tab.sr.24h 12/04/17 Miconazole Nitrate [Monistat -] 1 applic TP BID tube 12/04/17 Diltiazem Cd [Cardizem Cd -] 300 mg PO DAILY #90 cap.cd.24h 12/06/17 Metolazone [Zaroxolyn -] 2.5 mg PO DAILY@0930 #90 tablet 12/06/17
--- NOTE | 2017-12-20 09:04 | PN ---
Progress Note (short form) - Note Progress Note: Neurology HISTORY OF PRESENT ILLNESS: 87 y/o lady with a significant past medical history of HTN, HLD, Verigo, hypothyroidism, CAD, CHF, and AFIB presented to [facility] via ambulance c/o dizziness for the past 2 days. Pt describes her dizziness as a "swaying" sensation which is becomes worse when she rises from a seated position as well as when she tries to ambulate. Pt endorsed that she has been experiencing vertiginous symptoms for the past 1 year but that her most recent episodes have been worse. Pt was recently started on Meclizine 25 mg po tid by her equipment installer but stated this had not assuaged her symptoms. Per EMS, pt's blood pressure was 89/56 when they first came to her assistance. Pt also endorsed increased dyspnea on exertion. Pt was recently admitted to [facility] on December 01 of this year for rapid A-fib, and acute on chronic CHF. Pt stated that her INR is checked once a week by a nurse who visits her home and draws her blood. Is on Statin and AC. Patient denies room spinning sensation, some lightheadedness. Meclezine ordered but not having room spinning sensation. Advised to continue hydration. Cardiology work up ongoing. Carotid doppler reviewed and without HD significant stenosis. 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 Cardiology note reviewed, patient stable and no acute changes. Ok for discharge from neuro perspective. Active Medications Acetaminophen (Tylenol -) 650 mg PO Q6H PRN PRN Reason: PAIN LEVEL 3 - 6 Last Admin: 12/19/17 01:16 Dose: 650 mg Atorvastatin Calcium (Lipitor -) 10 mg PO HS [facility] Last Admin: 12/19/17 21:41 Dose: Not Given Bisacodyl (Dulcolax -) 5 mg PO DAILY PRN PRN Reason: CONSTIPATION Brimonidine Tartrate (Alphagan P 0.1% -) 1 drop OU BID [facility] Last Admin: 12/19/17 21:38 Dose: 1 drop Calcium Carbonate/Cholecalciferol (Os-Jaylan 500+D -) 1 tab PO DAILY [facility] Last Admin: 12/19/17 10:08 Dose: 1 tab Cholecalciferol (Vitamin D3 -) 1,000 unit PO DAILY [facility] Last Admin: 12/19/17 10:07 Dose: 1,000 unit Cyanocobalamin (Vitamin B12 -) 1,000 mcg PO DAILY [facility] Last Admin: 12/19/17 10:07 Dose: 1,000 mcg Digoxin (Lanoxin -) 0.25 mg PO DAILY [facility] Last Admin: 12/19/17 10:07 Dose: 0.25 mg Diltiazem HCl (Cardizem Cd -) 180 mg PO BID [facility] Last Admin: 12/19/17 21:38 Dose: 180 mg Erythromycin (Erythromycin 0.5% Eye Ointment) 1 applic OD BID [facility] Last Admin: 12/19/17 21:40 Dose: 1 appful Folic Acid (Folic Acid -) 1 mg PO DAILY [facility] Last Admin: 12/19/17 10:08 Dose: 1 mg Latanoprost (Xalatan 0.005% Eye Drops -) 1 drop OU HS [facility] Last Admin: 12/19/17 21:38 Dose: 1 drop Levothyroxine Sodium (Synthroid -) 100 mcg PO DAILY@0700 [facility] Last Admin: 12/20/17 06:19 Dose: 100 mcg Meclizine HCl (Antivert -) 25 mg PO TID PRN PRN Reason: VERTIGO Metoprolol Succinate (Toprol Xl -) 50 mg PO BID [facility] Last Admin: 12/19/17 21:38 Dose: 50 mg Multivitamins (Total B With C -) 1 each PO DAILY [facility] Last Admin: 12/19/17 10:08 Dose: 1 each Polyethylene Glycol (Miralax (For Bowel Prep) -) 17 gm PO DAILY [facility] Last Admin: 12/19/17 10:08 Dose: Not Given Potassium Chloride (K-Dur -) 20 meq PO BID [facility] Last Admin: 12/19/17 21:37 Dose: 20 meq Pyridoxine HCl (Vitamin B6 -) 50 mg PO DAILY [facility] Last Admin: 12/19/17 10:08 Dose: 50 mg Warfarin Sodium (Coumadin -) 5 mg PO DAILY@1800 [facility] Last Admin: 12/19/17 18:18 Dose: 5 mg PHYSICAL EXAMINATION Vital Signs Temperature 98.4 F 12/20/17 08:18 Pulse Rate 74 12/20/17 08:18 Respiratory Rate 20 12/20/17 08:18 Blood Pressure 119/51 L 12/20/17 08:18 O2 Sat by Pulse Oximetry (%) 93 L 12/20/17 08:18 GENERAL: aaoX3, nad, no facial grimacing or signs of discomfort HEAD: NC/AT EYES: R Eye no eyesight, conjunctiva erythematous R eye, EOMI. EARS, NOSE, THROAT: MMM. NECK: Supple LUNGS:CTA b/L, no wheezing, rhonchi, or rales appreciated. Chest nontender to palpation. HEART: Irregularly irregular ABDOMEN: NT, ND, No HSM. BS+. MUSCULOSKELETAL: Full ROM throughout UPPER EXTREMITIES: No CCE LOWER EXTREMITIES: Distal pulses 1+ b/l . NEUROLOGICAL: CN 2-12 intact, no slurred speech, no facial droop, sensory intact, finger to nose normal, moves all extremities equally, gait deferred PSYCHIATRIC: Cooperative. Good eye contact. Appropriate mood and affect. SKIN: Warm, no rashes or lesions appreciated. CBCD WBC 9.1 K/mm3 (4.0-10.0) 12/19/17 05:30 RBC 4.87 M/mm3 (3.60-5.2) 12/19/17 05:30 Hgb 14.4 GM/dL (10.7-15.3) 12/19/17 05:30 Hct 44.6 % (32.4-45.2) 12/19/17 05:30 MCV 91.5 fl (80-96) 12/19/17 05:30 MCHC 32.3 g/dl (32.0-36.0) 12/19/17 05:30 RDW 14.7 % (11.6-15.6) 12/19/17 05:30 Plt Count 278 K/MM3 (134-434) 12/19/17 05:30 MPV 8.6 fl (7.5-11.1) 12/19/17 05:30 CMP Sodium 136 mmol/L (136-145) 12/19/17 05:30 Potassium 3.1 mmol/L (3.5-5.1) L 12/19/17 05:30 Chloride 95 mmol/L (98-107) L 12/19/17 05:30 Carbon Dioxide 32 mmol/L (21-32) 12/19/17 05:30 Anion Gap 9 MMOL/L (8-16) 12/19/17 05:30 BUN 26 mg/dL (7-18) H 12/19/17 05:30 Creatinine 1.0 mg/dL (0.55-1.3) 12/19/17 05:30 Creat Clearance w eGFR 52.69 (>60) 12/19/17 05:30 Random Glucose 141 mg/dL (74-106) H 12/19/17 05:30 Calcium 8.6 mg/dL (8.5-10.1) 12/19/17 05:30 Total Bilirubin 0.6 mg/dL (0.2-1) 12/19/17 05:30 AST 15 U/L (15-37) 12/19/17 05:30 ALT 17 U/L (13-61) 12/19/17 05:30 Alkaline Phosphatase 95 U/L (45-117) 12/19/17 05:30 Total Protein 6.4 g/dl (6.4-8.2) 12/19/17 05:30 Albumin 3.0 g/dl (3.4-5.0) L 12/19/17 05:30 CARDIAC ENZYMES Creatine Kinase 106 IU/L (26-192) 12/17/17 05:30 Troponin I < 0.02 ng/ml (0.00-0.05) 12/17/17 05:30 ASSESSMENT/PLAN: 87 y/o lady with a significant past medical history of HTN, HLD, Verigo, hypothyroidism, CAD, CHF, and AFIB presented to [facility] via ambulance c/o dizziness for the past 2 days. Pt describes her dizziness as a "swaying" sensation which is becomes worse when she rises from a seated position as well as when she tries to ambulate. Pt endorsed that she has been experiencing vertiginous symptoms for the past 1 year but that her most recent episodes have been worse. Pt was recently started on Meclizine 25 mg po tid by her equipment installer but stated this had not assuaged her symptoms. Per EMS, pt's blood pressure was 89/56 when they first came to her assistance. Pt also endorsed increased dyspnea on exertion. Pt was recently admitted to [facility] on December 01 of this year for rapid A-fib, and acute on chronic CHF. Pt stated that her INR is checked once a week by a nurse who visits her home and draws her blood. 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 Is on Statin and AC, can be continued. Patient denies room spinning sensation, per nurse, orthostatic on blood pressure readings. Advised increased hydration. Description is more of lightheadness than dizziness (but can give meclezine as needed, ordered). 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 Neurologically stable for discharge.
[2017-12-20 09:39] LABS: ANION GAP 8 MMOL/L (8-16); BLOOD UREA NITROGEN 21 mg/dL (7-18); CALCIUM 8.8 mg/dL (8.5-10.1); CHLORIDE 98 mmol/L (98-107); CO2 32 mmol/L (21-32); CREATININE 1.1 mg/dL (0.55-1.3); GLUCOSE,RANDOM 152 mg/dL (74-106); POTASSIUM 3.9 mmol/L (3.5-5.1); SODIUM 138 mmol/L (136-145)
[2017-12-20] MEDS: CYANOCOBALAMIN 1,000 MCG TABLET (FP) PO SCH (09:57)
[2017-12-20] MEDS: FOLIC ACID 1 MG TABLET (FP) PO SCH (09:57)
[2017-12-20] MEDS: CHOLECALCIFEROL (VITAMIN D3) 1,000 UNIT TABLET (FP) PO SCH (09:57)
[2017-12-20] MEDS: POTASSIUM CHLORIDE TABS 20 MEQ TABLET.ER (FP) PO SCH (09:57)
[2017-12-20] MEDS: DIGOXIN 0.25 MG TABLET (FP) PO SCH (09:57)
[2017-12-20] MEDS: CALCIUM 500MG/VIT-D 200 UNITS COMBO TABLET (FP) PO SCH (09:57)
[2017-12-20] MEDS: BRIMONIDINE TARTRATE 0.1% OPHTHALMIC 5 ML BOTTLE OU SCH (09:57)
[2017-12-20] MEDS: POLYETHYLENE GLYCOL 3350 255 GM BTL PO SCH (09:58)
[2017-12-20] MEDS: PYRIDOXINE HCL (B-6) 50 MG TABLET (FP) PO SCH (09:58)
[2017-12-20] MEDS: VITAMIN B COMPLEX W/C COMBO TABLET (FP) PO SCH (09:58)
[2017-12-20] MEDS: ERYTHROMYCIN 0.5% OPHTHALMIC OINTMENT 3.5 GM TUBE OD SCH (09:58)
[2017-12-20 09:59] VITALS: PULSE 98
[2017-12-20 10:03] LABS: INR 3.37 (0.83-1.09); PROTHROMBIN TIME (PATIENT) 40.3 SEC (9.7-13.0)
== END 2017-12-20 12:17 | disposition home health service (06) | DRG 683 ==
LOC: JER 17:58 → JERBED 21:35 → J4W 12-16 04:47 → OBSVTOIN 12-16 11:14
PROVIDERS: ADMIT Internal Medicine; ATTEND Internal Medicine
DX: N17.9 Acute kidney failure, unspecified (principal); I13.0 Hypertensive heart and chronic kidney disease with heart failure and stage 1 through stage 4 chronic kidney disease, or unspecified chronic kidney disease; I50.32 Chronic diastolic (congestive) heart failure; J98.11 Atelectasis; I48.1 Persistent atrial fibrillation; E78.5 Hyperlipidemia, unspecified; I95.1 Orthostatic hypotension; E03.9 Hypothyroidism, unspecified; I25.10 Atherosclerotic heart disease of native coronary artery without angina pectoris; J44.9 Chronic obstructive pulmonary disease, unspecified; R42 Dizziness and giddiness; E66.9 Obesity, unspecified; Z68.33 Body mass index [BMI] 33.0-33.9, adult; E86.0 Dehydration; N18.9 Chronic kidney disease, unspecified; D75.1 Secondary polycythemia; Z79.01 Long term (current) use of anticoagulants
CPT/HCPCS: 36415; 70450-TC; 71045-TC-FY; 76775-TC; 76856-TC; 80048; 80053; 80162; 81003; 81015; 82550; 83735; 83880; 84100; 84443; 84484; 85025; 85610; 85730; 87086; 93005; 93010; 93880-TC; 94761; 97116-GP; 97161-GP; 99285-25; G0378; J7030

== ENCOUNTER 2017-12-27 08:54 | Inpatient (IN) | payer OTHER, BC ==
--- NOTE | 2017-12-27 09:12 | PDOC ---
History of Present Illness - General History Source: Patient, Old Records Exam Limitations: No Limitations - History of Present Illness Initial Comments: The patient is an 87-year-old female with past medical history significant for CAD, CHF, HTN, Afib, chronic postural vertigo, R. eye blindness, and hypothyroidism presents to the emergency department with weakness, shortness of breath and lightheadedness. The patient reports the symptoms presented last night; patient endorses shortness of breath, weakness, and lightheadedness. The patient states she felt unsteady while ambulating, even with her walker. The patient states she felt as if she was going to fall, denies falling or LOC. The patient states the symptoms were worsened today, without relief after medication. The patient states at 7:00 am, following breakfast patient did have all her medication. Denies fever, chills, chest pain, blurry vision, cough, recent URI, dysuria, hematuria, headache. The patient denies palpitations, but state she feels as if her heart rate is going up or down. Prior records indicate the patient was admitted to the hospital on 12/15/2017 for similar concern. The patient was seen by Dr. Martínez of business objects report developer and Dr. Wall of neurology. The patient states she was informed by Dr. Martínez to follow up at the ER if the symptoms worsen. Allergies: NKA Social history: No past or present use of tobacco, alcohol or recreational drug use. Surgical history: Hernia repair. PCP: Dr. Vaughn <Zaynab Alvarado - Last Filed: 12/27/17 10:27> <Shruti Mitchell - Last Filed: 12/27/17 11:30> - General Stated Complaint: WEAKNESS,DIZZINESS Time Seen by Provider: 12/27/17 09:11 Past History <Zaynab Alvarado - Last Filed: 12/27/17 10:27> - Past Medical History Anemia: No Asthma: No Cancer: No Cardiac Disorders: Yes (CAD, AF) CVA: No COPD: Yes CHF: Yes Dementia: No Diabetes: No GI Disorders: No Disorders: No HTN: Yes Hypercholesterolemia: Yes Liver Disease: No Seizures: No Thyroid Disease: Yes (hypo) - Surgical History Abdominal Surgery: Yes (hernia sx) Orthopedic Surgery: Yes (wrist) - Immunization History Immunization Up to Date: Yes - Suicide/Smoking/Psychosocial Hx Smoking Status: No Smoking History: Never smoked Have you smoked in the past 12 months: No Number of Cigarettes Smoked Daily: 0 Hx Alcohol Use: No Drug/Substance Use Hx: No Substance Use Type: None Hx Substance Use Treatment: No <Shruti Mitchell - Last Filed: 12/27/17 11:30> - Past Medical History Allergies/Adverse Reactions: Allergies Allergy/AdvReac Type Severity Reaction Status Date / Time No Known Allergies Allergy Verified 12/27/17 09:19 Home Medications: Ambulatory Orders Ca Cmb No.1/Vit D3/B-6/FA/B12 [Vitamin D3 1,000 Unit Tablet] 1 each PO DAILY Calcium Carbonate/Vitamin D3 [Oysco 500-Vit D3 200 Tablet] 1 each PO DAILY 09/03 Cyanocobalamin/FA/Pyridoxine [B Complex-Folic Acid Tablet] 1 each PO DAILY 09/03 Meclizine HCl [Antivert -] 25 mg PO TID PRN #20 tablet 09/03/12 Pitavastatin Calcium [Livalo] 2 mg PO DAILY 09/03/12 Atorvastatin Ca [Lipitor] 10 mg PO HS #90 tablet 10/14/17 Bisacodyl [Bisacodyl -] 5 mg PO DAILY PRN tablet. 10/14/17 Levothyroxine [Synthroid -] 100 mcg PO DAILY@0700 #90 tablet 10/14/17 Polyethylene Glycol 3350 [Miralax 255 gm Btl -] 17 gm PO DAILY btl 10/14/17 Warfarin Sodium 5 mg PO DAILY #90 tablet 10/14/17 Acetaminophen [Tylenol] 650 mg PO Q4H PRN 12/02/17 Brimonidine Tartrate [Alphagan P 0.1% -] 1 drop OU BID drops 12/04/17 Erythromycin 0.5% Eye Ointment [Erythromycin 0.5% Eye Ointment -] 1 applic OD BID tube 12/04/17 Furosemide [Lasix -] 20 mg PO BID #90 tablet 12/04/17 Latanoprost 0.005% Eye Drops [Xalatan 0.005% Eye Drops -] 1 drop OU HS drops Metoprolol Succinate [Toprol XL -] 50 mg PO BID #180 tab.sr.24h 12/04/17 Miconazole Nitrate [Monistat -] 1 applic TP BID tube 12/04/17 Acetaminophen [Tylenol .Regular Strength -] 650 mg PO Q6H PRN tablet 12/20/17 Cyanocobalamin [Vitamin B12 -] 1,000 mcg PO DAILY tablet 12/20/17 Digoxin [Lanoxin -] 0.25 mg PO DAILY #90 tablet 12/20/17 Diltiazem Cd [Cardizem Cd -] 180 mg PO BID #180 cap.cd.24h 12/20/17 Folic Acid - 1 mg PO DAILY tablet 12/20/17 Meclizine HCl [Antivert -] 25 mg PO TID PRN tablet 12/20/17 Potassium Chloride [K-Dur -] 20 meq PO BID #180 tablet.er 12/20/17 Pyridoxine HCl (B-6) [Vitamin B6 -] 50 mg PO DAILY #0 tablet 12/20/17 Review of Systems - Review of Systems Able to Perform ROS?: Yes Comments:: 12/27/17 10:28 GENERAL/CONSTITUTIONAL: No fever or chills. (+) weakness. HEAD, EYES, EARS, NOSE AND THROAT: No change in vision. No ear pain or discharge. No sore throat. CARDIOVASCULAR: No chest pain. (+) shortness of breath. RESPIRATORY: No cough, wheezing, or hemoptysis. GASTROINTESTINAL: No nausea, vomiting, diarrhea or constipation. GENITOURINARY: No dysuria, frequency, or change in urination. MUSCULOSKELETAL: No joint or muscle swelling or pain. No neck or back pain. SKIN: No rash NEUROLOGIC: (+) Lightheadedness and unsteady gait. No headache, vertigo, loss of consciousness, or change in strength/sensation. ENDOCRINE: No increased thirst. No abnormal weight change. HEMATOLOGIC/LYMPHATIC: No anemia, easy bleeding, or history of blood clots. ALLERGIC/IMMUNOLOGIC: No hives or skin allergy. <Zaynab Alvarado - Last Filed: 12/27/17 10:27> *Physical Exam - Vital Signs Last Vital Signs Temp Pulse Resp BP Pulse Ox 97.9 F 90 18 121/84 99 12/27/17 09:19 12/27/17 09:41 12/27/17 09:19 12/27/17 09:19 12/27/17 09:41 - Physical Exam Comments: 10/12/18 10:28 GENERAL: Awake, alert, and fully oriented, in no acute distress HEAD: No signs of trauma LUNGS: Breath sounds equal, clear to auscultation bilaterally. No wheezes, and no crackles HEART: (+) Mildly tachycardia. Irregularly, irregular rhythm, normal S1 and S2 , no murmurs, rubs or gallops ABDOMEN: Soft, nontender, nondistended, normoactive bowel sounds. No guarding, no rebound. No masses EXTREMITIES: (+) trace edema to the ankles, L. greater than right. No clubbing or cyanosis. No cords, erythema, or tenderness NEUROLOGICAL: grossly intact. Oriented x3. Normal mood and affect. SKIN: Warm, Dry, normal turgor, no rashes or lesions noted. <Zaynab Alvarado - Last Filed: 12/27/17 10:27> ED Treatment Course - LABORATORY CBC & Chemistry Diagram: 12/27/17 09:59 12/27/17 09:59 - ADDITIONAL ORDERS Additional order review: 12/27/17 09:59 RBC 5.67 H MCV 90.9 MCHC 33.1 RDW 14.8 MPV 7.8 Neutrophils % 75.4 Lymphocytes % 14.7 D Monocytes % 8.9 Eosinophils % 0.5 Basophils % 0.5 <Zaynab Alvarado - Last Filed: 12/27/17 10:27> - LABORATORY CBC & Chemistry Diagram: 12/27/17 09:59 12/27/17 09:59 <Shruti Mitchell - Last Filed: 12/27/17 11:30> Medical Decision Making - Medical Decision Making 12/27/17 11:27 Pt presents to the ED complaining of worsening shortness of breath and dizziness. Patient has a long standing history of poorly controlled A fib despite maximal medications. Labs show polycythemia but are otherwise unremarkable. Questionable mediastinal mass on CXR--will check non contrast CT chest . Will admit to medicine for medication management. Case discussed with patient's business objects report developer Dr. Pena and Dr. Vaughn. <Shruti Mitchell - Last Filed: 12/27/17 11:30> *DC/Admit/Observation/Transfer - Attestations Scribe Attestion: 10/12/18 10:29 Documentation prepared by Zaynab Alvraado, acting as medical insurance claims processor for Shruti Mitchell MD. <Zaynab Alvarado - Last Filed: 12/27/17 10:27> - Discharge Dispostion Decision to Admit order: Yes <Shruti Mitchell - Last Filed: 12/27/17 11:30> Diagnosis at time of Disposition: Atrial fibrillation Qualifiers: Atrial fibrillation type: persistent Qualified Code(s): I48.1 - Persistent atrial fibrillation - Discharge Dispostion Condition at time of disposition: Stable - Referrals Referrals: Jane Vaughn [Primary Care Provider] - - Patient Instructions - Post Discharge Activity
[2017-12-27 09:54] VITALS: BMI 33.5
--- NOTE | 2017-12-27 09:57 | HP ---
Admitting History and Physical - Primary Care Physician PCP: Jane Vaughn S - Admission Chief Complaint: SOB dizziness palpitations History of Present Illness: The patient is an 87-year-old female with past medical history significant for CAD, CHF, HTN, Afib, chronic postural vertigo, R. eye blindness, and hypothyroidism presents to the emergency department with weakness, shortness of breath and lightheadedness. The patient reports the symptoms presented last night; patient endorses shortness of breath, weakness, and lightheadedness. The patient states she felt unsteady while ambulating, even with her walker. The patient states she felt as if she was going to fall, denies falling or LOC. The patient states the symptoms were worsened today, without relief after medication. The patient states at 7:00 am, following breakfast patient did have all her medication. Denies fever, chills, chest pain, blurry vision, cough, recent URI, dysuria, hematuria, headache. The patient denies palpitations, but state she feels as if her heart rate is going up or down. History Source: Patient, Medical Record Limitations to Obtaining History: No Limitations - Past Medical History OPERATIONS [employer]AR[employer]: Yes: Vertigo Cardiovascular: Yes: AFIB, CAD, HTN Endocrine: Yes: Hypothyroidism - Past Surgical History Past Surgical History: Yes: Hernia Repair - Smoking History Smoking history: Never smoked Have you smoked in the past 12 months: No Aproximately how many cigarettes per day: 0 - Alcohol/Substance Use Hx Alcohol Use: No History of Substance Use: reports: None - Social History Usual Living Arrangement: Yes: Alone ADL: Independent History of Recent Travel: No Home Medications - Allergies Allergies/Adverse Reactions: Allergies Allergy/AdvReac Type Severity Reaction Status Date / Time No Known Allergies Allergy Verified 12/27/17 09:19 - Home Medications Home Medications: Ambulatory Orders Atorvastatin Calcium [Lipitor] 10 mg PO DAILY 12/27/17 Brimonidine Tartrate [Alphagan P 0.1% -] 1 drop OU BID 12/27/17 Digoxin [Digitek] 250 mcg PO DAILY 12/27/17 Diltiazem Cd [Cardizem Cd -] 180 mg PO BID 12/27/17 Furosemide [Lasix -] 20 mg PO BID 12/27/17 Latanoprost 0.005% Eye Drops [Xalatan 0.005% Eye Drops -] 1 drop OU HS 12/27/17 Levothyroxine [Synthroid -] 100 mcg PO DAILY 12/27/17 Meclizine HCl 25 mg PO TID PRN 12/27/17 Metolazone [Zaroxolyn -] 2.5 mg PO DAILY 12/27/17 Metoprolol Succinate [Toprol Xl -] 50 mg PO BID 12/27/17 Pitavastatin Calcium [Livalo] 2 mg PO MOWEFR 12/27/17 Potassium Chloride [K-Dur -] 20 meq PO BID 12/27/17 Warfarin Sodium [Coumadin] 2.5 mg PO MOTUWETHFR 12/27/17 Warfarin Sodium [Coumadin] 5 mg PO SUSA 12/27/17 Family Disease History - Family Disease History Family History: Unremarkable Review of Systems - Review of Systems Constitutional: denies: Chills, Fever Eyes: denies: Blurred Vision, Eye Pain HENT: denies: Epistaxis Neck: denies: Stiffness, Tenderness Cardiovascular: reports: Palpitations, Shortness of Breath. denies: Chest Pain Respiratory: reports: SOB, SOB on Exertion Gastrointestinal: denies: Abdominal Pain, Diarrhea, Vomiting Genitourinary: denies: Flank Pain Musculoskeletal: denies: Extremity Pain Integumentary: denies: Eczema, Erythema Neurological: reports: Dizziness. denies: Confusion, Syncope Hematology/Lymphatic: denies: Easily Bruised, Excessive Bleeding Psychiatric: denies: Anxiety, Depression Physical Examination Vital Signs: Vital Signs Temperature 97.9 F 12/27/17 09:19 Pulse Rate 90 12/27/17 09:41 Respiratory Rate 18 12/27/17 09:19 Blood Pressure 121/84 12/27/17 09:19 O2 Sat by Pulse Oximetry (%) 99 12/27/17 09:41 Constitutional: Yes: No Distress, Calm Eyes: Yes: Conjunctiva Clear HENT: Yes: Atraumatic Neck: Yes: Supple Cardiovascular: Yes: Tachycardia, Pulse Irregular. No: Regular Rate and Rhythm Respiratory: Yes: CTA Bilaterally Gastrointestinal: Yes: Soft. No: Distention Renal/: No: CVA Tenderness - Left, CVA Tenderness - Right Musculoskeletal: No: Joint Stiffness, Joint Swelling Extremities: No: Cold, Cool Edema: No Integumentary: No: Rash, Venous Stasis Changes Neurological: Yes: WNL, Alert, Oriented ...Motor Strength: WNL Psychiatric: Yes: WNL, Alert, Oriented. No: Agitated, Suicidal Ideation Imaging - Results Other: Report Reviewed Assessment/Plan The patient is an 87-year-old female with past medical history significant for CAD, CHF, HTN, Afib, chronic postural vertigo, R. eye blindness, and hypothyroidism presents to the emergency department with weakness, shortness of breath and lightheadedness. Rafib tachycardia d/w cardiology dr Martínez admit HR control will transfer to [facility] fo possible cardioversion and cardiac cath d/w pt and daughter and ER staff falls PFX coumadin per INR continue meds dig toprol ca blockers t time 75 min
[2017-12-27 10:16] LABS: INR 2.03 (0.83-1.09); PROTHROMBIN TIME (PATIENT) 24.1 SEC (9.7-13.0)
[2017-12-27 10:17] LABS: BASO % 0.5 % (0-2.0); EOS % 0.5 % (0-4.5); HEMATOCRIT 51.5 % (32.4-45.2); HEMOGLOBIN 17.1 GM/dL (10.7-15.3); LYMPH % 14.7 % (8-40); MCH 30.1 pg (25.7-33.7); MCHC 33.1 g/dl (32.0-36.0); MEAN CELL VOLUME 90.9 fl (80-96); MEAN PLT VOLUME 7.8 fl (7.5-11.1); MONO % 8.9 % (3.8-10.2); NEUT % 75.4 % (42.8-82.8); PLATELET COUNT 351 K/MM3 (134-434); RBC 5.67 M/mm3 (3.60-5.2); RDW 14.8 % (11.6-15.6); WHITE BLOOD COUNT 10.8 K/mm3 (4.0-10.0)
[2017-12-27 10:18] LABS: ACTIVATED PTT 47.7 SECONDS (25.2-36.5)
[2017-12-27 10:30] LABS: ALBUMIN 3.7 g/dl (3.4-5.0); ALK PHOS 103 U/L (45-117); ANION GAP 10 MMOL/L (8-16); BLOOD UREA NITROGEN 29 mg/dL (7-18); CALCIUM 9.1 mg/dL (8.5-10.1); CHLORIDE 98 mmol/L (98-107); CO2 29 mmol/L (21-32); CREATININE 1.3 mg/dL (0.55-1.3); GLUCOSE,RANDOM 113 mg/dL (74-106); POTASSIUM 3.6 mmol/L (3.5-5.1); SGOT/AST 20 U/L (15-37); SGPT/ALT 26 U/L (13-61); SODIUM 138 mmol/L (136-145)
[2017-12-27] MEDS ORDERED: BISACODYL 5 MG TABLET.DR (FP) PO PRN (10:40)
[2017-12-27] MEDS ORDERED: ACETAMINOPHEN 325 MG TABLET (FP) PO PRN (10:40)
[2017-12-27] MEDS ORDERED: MECLIZINE HCL 25 MG TABLET (FP) PO PRN (10:40)
[2017-12-27 11:27] LABS: N-TERMINAL BNP 569.1 pg/ml (5-450)
--- NOTE | 2017-12-27 13:02 | PN ---
Progress Note, Physician History of Present Illness: 87 year old female was seen in the office on 12/26/17 with weakness, lightheadedness, unsteady gait and dyspnea on minimal exertion. Patient has longstanding history of hypertension, HCVD, hypercholesterolemia, supraventricular premature beats, left ventricular diastolic dysfunction, coronary artery disease, 60% proximal LAD stenosis diagnosed by cath in 09/2009, and nonobstructive 20% stenosis of the posterior coronary artery, history of recent onset atrial fibrillation with rapid ventricular response, poorly responsive to therapy, traumatic blindness, involving the right eye, vitamin D deficiency, hypothyroidism and history of benign postural vertigo. No history of chest pain or discomfort either at rest or with exertion. Has been complaining of progressive exertional dyspnea and is now unable to walk more than a few feet. No history of paroxysmal nocturnal dyspnea or orthopnea. There is generalized fatigue and weakness. Patient also has been complaining of increasing lightheadedness, wooziness and an unsteady gait. She was recently hospitalized with significant unsteadiness and dizziness. On her visit on 12/26/17, she was advised hospitalization. Patient came to the hospital today with similar complaints. Her ECG on 12/26/17 revealed slow atrial fibrillation/flutter with rapid ventricular response and ST segment depressions involving the right precordial leads. Active Medications Warfarin 5 mg alternating with 2.5 mg PO daily. Furosemide 20 mg PO BID. Metolazone 2.5 mg PO daily. Potassium 20 meq BID. Lavalo 2 mg 3 times a week. Metoprolol Succinate 50 mg PO BID. Levothyroxine 100 mcg daily. Digoxin 0.25 mg PO daily. Diltiazem 180 mg PO BID. Brimonidine Tartrate 1 drop OU BID. Latanoprost 1 drop OU HS. Meclizine HCl 25 mg PO TID PRN Atorvastatin Calcium 10 mg PO daily Medication list was obtained from [facility] pharmacy. Review of Systems: Constitutional: No history of chills, fever, or night sweats, no history of unintentional weight loss. HEENT: No history of headaches, traumatic blindness of the right eye, see history of present illness. No history of hoarseness, tinnitus, or hearing loss. Respiratory:See history of present illness. Cardiovascular: See history of present illness. Gastrointestinal: No history of nausea, vomiting, melena or hematemesis. Denies having abdominal pain or discomfort, no change in bowel habits. Genitourinary: No history of hematuria, urgency, frequency, nocturia. Musculoskeletal: No history myalgias or arthralgias. Endocrine: No history of polyuria or polydipsia. No history of intolerance to cold or warmth. Neurological: No history of dizziness, seizures, focal weakness or presyncope or syncope. Hematological/lymphatic: No history of bleeding, anemia, no history of ecchymosis. Last Vital Signs Temp Pulse Resp BP Pulse Ox 97.9 F 79 18 113/58 L 96 12/27/17 09:19 12/27/17 12:01 12/27/17 12:01 12/27/17 12:01 12/27/17 12:01 O: 87-year-old female was in no distress, no pallor, cyanosis, clubbing or jaundice. Neck: Supple, no jugular venous distention, hepatojugular reflux was negative, carotids were 2+, upstrokes were normal, no bruits were heard and no thyromegaly was present. Heart: PMI was in the fifth intercostal space, no heaves or thrills, unable to appreciate murmur or gallops. Lungs: Clear on auscultation. Abdomen: Soft, obese and nontender. No hepatosplenomegaly or palpable masses were felt. Extremities: No calf tenderness or dependent edema, pulses were equal. Laboratory Results - last 24 hr 12/27/17 12/27/17 12/27/17 09:59 09:59 09:59 WBC 10.8 H RBC 5.67 H Hgb 17.1 H Hct 51.5 H D MCV 90.9 MCH 30.1 MCHC 33.1 RDW 14.8 Plt Count 351 D MPV 7.8 Absolute Neuts (auto) 8.2 H Neutrophils % 75.4 Lymphocytes % 14.7 D Monocytes % 8.9 Eosinophils % 0.5 Basophils % 0.5 Nucleated RBC % 0 PT with INR 24.10 H INR 2.03 H PTT (Actin FS) 47.7 H Sodium 138 Potassium 3.6 Chloride 98 Carbon Dioxide 29 Anion Gap 10 BUN 29 H Creatinine 1.3 Creat Clearance w eGFR 38.93 Random Glucose 113 H Calcium 9.1 Total Bilirubin 1.0 AST 20 ALT 26 Alkaline Phosphatase 103 Creatine Kinase 46 Troponin I < 0.02 B-Natriuretic Peptide 569.1 H Total Protein 8.0 Albumin 3.7 TSH 7.56 H Impression: 1. Persistent atrial fibrillation with rapid and poorly controlled ventricular response. 2. Exertional dyspnea on minimal exertion, etiology: a. Angina equivalent needs exclusion. b. Secondary to left ventricular diastolic dysfunction. 3. Coronary artery disease. 4. Hypertension, HCVD. 5. Lightheadedness, weakness, may partly be related to diuretic induced dehydration and to Meniere's disease. 6. Hypercholesterolemia. 7. Elevated hemoglobin/hematocrit, etiology: a. Related to dehydration. b. Polycythemia needs exclusion 8. Hypothyroidism, poorly controlled (see TSH levels). 9. Traumatic blindness involving the right eye. 10. Glaucoma in the right eye. Recommendations: 1. Patient is to be transferred to tertiary care center for cardiac catheterization and to be evaluated for radiofrequency ablation for atrial fibrillation. 2. Digoxin level. 3. Check blood pressure supine and standing. 4. Cautious hydration. 5. Continue beta blockers and reduce the dose of diltiazem 120 mg PO BID. 6. Continue digoxin. 7. Will need to discontinue Coumadin and switch over to IV Heparin in anticipation of catheterization. 8. Correction of hypothyroidism should wait until she has had the above mentioned procedures. Herberth Martínez MD. Documentation prepared by Torrie Carr, acting as a medical terminologist for Herberth Martínez MD. - Current Medication List Current Medications: Active Medications Acetaminophen (Tylenol -) 650 mg PO Q6H PRN PRN Reason: PAIN LEVEL 3 - 6 Atorvastatin Calcium (Lipitor -) 10 mg PO HS CLAUDIA Bisacodyl (Dulcolax -) 5 mg PO DAILY PRN PRN Reason: CONSTIPATION Brimonidine Tartrate (Alphagan P 0.1% -) 1 drop OU BID CLAUDIA Calcium Carbonate/Cholecalciferol (Os-Jaylan 500+D -) 1 tab PO DAILY CLAUDIA Cyanocobalamin (Vitamin B12 -) 1,000 mcg PO DAILY CLAUDIA Digoxin (Lanoxin -) 0.25 mg PO DAILY CLAUDIA Diltiazem HCl (Cardizem Cd -) 180 mg PO BID CLAUDIA Erythromycin (Erythromycin 0.5% Eye Ointment) 1 applic OD BID CLAUDIA Folic Acid (Folic Acid -) 1 mg PO DAILY CLAUDIA Furosemide (Lasix -) 20 mg PO BID CLAUDIA Latanoprost (Xalatan 0.005% Eye Drops -) 1 drop OU HS CLAUDIA Levothyroxine Sodium (Synthroid -) 100 mcg PO DAILY@0700 [facility] Meclizine HCl (Antivert -) 25 mg PO TID PRN PRN Reason: VERTIGO Non-Formulary Medication (Pitavastatin Calcium [Livalo]) 2 mg PO DAILY [facility] Polyethylene Glycol (Miralax (For Bowel Prep) -) 17 gm PO DAILY [facility] - Objective Vital Signs: Vital Signs Temperature 97.9 F 12/27/17 09:19 Pulse Rate 79 12/27/17 12:01 Respiratory Rate 18 12/27/17 12:01 Blood Pressure 113/58 L 12/27/17 12:01 O2 Sat by Pulse Oximetry (%) 96 12/27/17 12:01 Labs: CBC, BMP 12/27/17 09:59 12/27/17 09:59 INR, PTT INR 2.03 (0.83-1.09) H 12/27/17 09:59
[2017-12-27 16:47] VITALS: BP 126/85; PULSE 85; TEMP 98.1
--- NOTE | 2017-12-27 20:21 | DS ---
Physical Examination Vital Signs: Vital Signs Temperature 98.1 F 12/27/17 17:09 Pulse Rate 85 12/27/17 16:47 Respiratory Rate 20 12/27/17 17:09 Blood Pressure 126/85 12/27/17 16:47 O2 Sat by Pulse Oximetry (%) 98 12/27/17 16:47 Findings/Remarks: pt transferred to [facility] today from ER by cardio dr Martínez for further w/u and treatment see PE done in H&P Labs: CBC, BMP 12/27/17 09:59 12/27/17 09:59 Discharge Summary Reason For Visit: ATRIAL FIBRILLATION Procedures: Principal: RAFIB CHF ASHD Other Procedures: cardio eval Hospital Course: transferred to [facility] per cardio Condition: Stable - Instructions Referrals: Jane Vaughn [Primary Care Provider] - Disposition: TRANSFER ACUTE CARE/OTHER HOSP - Home Medications Comprehensive Discharge Medication List: Ambulatory Orders Atorvastatin Calcium [Lipitor] 10 mg PO DAILY 12/27/17 Brimonidine Tartrate [Alphagan P 0.1% -] 1 drop OU BID 12/27/17 Digoxin [Digitek] 250 mcg PO DAILY 12/27/17 Diltiazem Cd [Cardizem Cd -] 180 mg PO BID 12/27/17 Furosemide [Lasix -] 20 mg PO BID 12/27/17 Latanoprost 0.005% Eye Drops [Xalatan 0.005% Eye Drops -] 1 drop OU HS 12/27/17 Levothyroxine [Synthroid -] 100 mcg PO DAILY 12/27/17 Meclizine HCl 25 mg PO TID PRN 12/27/17 Metolazone [Zaroxolyn -] 2.5 mg PO DAILY 12/27/17 Metoprolol Succinate [Toprol Xl -] 50 mg PO BID 12/27/17 Pitavastatin Calcium [Livalo] 2 mg PO MOWEFR 12/27/17 Potassium Chloride [K-Dur -] 20 meq PO BID 12/27/17 Warfarin Sodium [Coumadin] 2.5 mg PO MOTUWETHFR 12/27/17 Warfarin Sodium [Coumadin] 5 mg PO SUSA 12/27/17
[2017-12-27] MEDS ORDERED: FUROSEMIDE 20 MG TABLET (FP) PO SCH (22:00)
[2017-12-27] MEDS ORDERED: ERYTHROMYCIN 0.5% OPHTHALMIC OINTMENT 3.5 GM TUBE OD SCH (22:00)
[2017-12-27] MEDS ORDERED: LATANOPROST 0.005% OPHTH SOLN 2.5ML BOTTLE OU SCH (22:00)
[2017-12-27] MEDS ORDERED: BRIMONIDINE TARTRATE 0.1% OPHTHALMIC 5 ML BOTTLE OU SCH (22:00)
[2017-12-27] MEDS ORDERED: ATORVASTATIN CA 10 MG TABLET (FP) PO SCH (22:00)
[2017-12-28] MEDS ORDERED: LEVOTHYROXINE NA 100 MCG TABLET (FP) PO SCH (07:00)
[2017-12-28] MEDS ORDERED: CYANOCOBALAMIN 1,000 MCG TABLET (FP) PO SCH (10:00)
[2017-12-28] MEDS ORDERED: POLYETHYLENE GLYCOL 3350 255 GM BTL PO SCH (10:00)
[2017-12-28] MEDS ORDERED: CALCIUM 500MG/VIT-D 200 UNITS COMBO TABLET (FP) PO SCH (10:00)
[2017-12-28] MEDS ORDERED: DIGOXIN 0.25 MG TABLET (FP) PO SCH (10:00)
[2017-12-28] MEDS ORDERED: PATIENT'S OWN MEDICATION (NON-FORMULARY) (Pitavastatin Calcium [Livalo] 2 MG) PO SCH (10:00)
[2017-12-28] MEDS ORDERED: FOLIC ACID 1 MG TABLET (FP) PO SCH (10:00)
--- NOTE | 2017-12-30 10:41 | EKG ---
Test Reason : Blood Pressure : / mmHG Vent. Rate : 088 BPM Atrial Rate : 127 BPM P-R Int : 000 ms QRS Dur : 068 ms QT Int : 340 ms P-R-T Axes : 000 -45 003 degrees QTc Int : 411 ms ATRIAL FIBRILLATION LEFT AXIS DEVIATION LOW VOLTAGE QRS ABNORMAL ECG WHEN COMPARED WITH ECG OF 15-DEC-2017 18:18, NO SIGNIFICANT CHANGE WAS FOUND Confirmed by GREGORIO KEITH MD ([id number]) on 12/30/2017 10:40:57 AM Referred By: Confirmed By:GREGORIO KEITH MD
== END 2017-12-27 17:11 | disposition short-term general hospital (02) | DRG 309 ==
LOC: JER 08:54 → JERBED 11:30
PROVIDERS: ADMIT Internal Medicine; ATTEND Internal Medicine
DX: I48.91 Unspecified atrial fibrillation (principal); I50.30 Unspecified diastolic (congestive) heart failure; H40.9 Unspecified glaucoma; I11.0 Hypertensive heart disease with heart failure; E86.0 Dehydration; E03.9 Hypothyroidism, unspecified; I25.119 Atherosclerotic heart disease of native coronary artery with unspecified angina pectoris; H54.7 Unspecified visual loss; D38.3 Neoplasm of uncertain behavior of mediastinum; D75.1 Secondary polycythemia; T50.1X5A Adverse effect of loop [high-ceiling] diuretics, initial encounter; H81.09 Meniere's disease, unspecified ear
CPT/HCPCS: 36415; 71045-TC-FY; 71250-TC; 80053; 82550; 83880; 84443; 84484; 85025; 85610; 85730; 93005; 93010; 99285-25

== ENCOUNTER 2018-09-02 22:22 | Emergency (ER) | payer OTHER, BC | END 2018-09-03 01:18 | disposition home or self-care (01) | LOC: JER 22:22 | DX: M25.512 Pain in left shoulder (principal); I25.10 Atherosclerotic heart disease of native coronary artery without angina pectoris; I11.0 Hypertensive heart disease with heart failure; I50.9 Heart failure, unspecified; I48.91 Unspecified atrial fibrillation; Z79.01 Long term (current) use of anticoagulants; R42 Dizziness and giddiness; E03.9 Hypothyroidism, unspecified ==

== ENCOUNTER 2018-10-27 19:30 | Inpatient (IN) | payer OTHER, BC ==
--- NOTE | 2018-10-27 21:02 | PDOC ---
History of Present Illness - General Chief Complaint: Shortness of Breath Stated Complaint: DIZZY Time Seen by Provider: 10/27/18 20:16 - History of Present Illness Initial Comments: 10/27/18 21:13 87y/o F hx of CAD,HTN, CHF, Afib on coumadin, hypothyroidism, and chronic postural vertigo, presents to the ED with few hours of shortness of breath. SOB occurs both at rest and exertion and there where no particular exacerbating/ relieving factors. She denies any chest pain, pleuritic pain, orthopnea, PND, cough or hemoptysis. She also denies any hx of blood clots in the past. Equally denied headaches, blurry vision, numbness, tingling, weakness.She suffers from vertigo at baseline and consequently uses a walker to get around. Has ltd vision in the right eye at baseline. Past History - Past Medical History Allergies/Adverse Reactions: Allergies Allergy/AdvReac Type Severity Reaction Status Date / Time No Known Allergies Allergy Verified 10/27/18 20:11 Home Medications: Ambulatory Orders Atorvastatin Calcium [Lipitor] 10 mg PO DAILY 12/27/17 Brimonidine Tartrate [Alphagan P 0.1% -] 1 drop OU BID 12/27/17 Digoxin [Digitek] 250 mcg PO DAILY 12/27/17 Diltiazem Cd [Cardizem Cd -] 180 mg PO BID 12/27/17 Furosemide [Lasix -] 20 mg PO BID 12/27/17 Latanoprost 0.005% Eye Drops [Xalatan 0.005% Eye Drops -] 1 drop OU HS 12/27/17 Levothyroxine [Synthroid -] 100 mcg PO DAILY 12/27/17 Meclizine HCl 25 mg PO TID PRN 12/27/17 Metolazone [Zaroxolyn -] 2.5 mg PO DAILY 12/27/17 Metoprolol Succinate [Toprol Xl -] 50 mg PO BID 12/27/17 Pitavastatin Calcium [Livalo] 2 mg PO MOWEFR 12/27/17 Potassium Chloride [K-Dur -] 20 meq PO BID 12/27/17 Warfarin Sodium [Coumadin] 2.5 mg PO MOTUWETHFR 12/27/17 Warfarin Sodium [Coumadin] 5 mg PO SUSA 12/27/17 Anemia: No Asthma: No Cancer: No Cardiac Disorders: Yes (CAD, AF) CVA: No COPD: Yes CHF: Yes Dementia: No Diabetes: No GI Disorders: No Disorders: No HTN: Yes Hypercholesterolemia: Yes Liver Disease: No Seizures: No Thyroid Disease: Yes (hypo) - Surgical History Abdominal Surgery: Yes (hernia sx) Orthopedic Surgery: Yes (wrist) - Immunization History Immunization Up to Date: Yes - Suicide/Smoking/Psychosocial Hx Smoking Status: No Smoking History: Unknown if ever smoked Have you smoked in the past 12 months: No Number of Cigarettes Smoked Daily: 0 Hx Alcohol Use: No Drug/Substance Use Hx: No Substance Use Type: None Hx Substance Use Treatment: No Review of Systems - Review of Systems Constitutional: No: Chills, Fever HEENTM: No: Eye Pain, Blurred Vision Respiratory: No: Cough, Orthopnea Cardiac (ROS): Yes: Lightheadedness. No: Chest Pain ABD/GI: No: Abdominal cramping : No: Burning, Dysuria Musculoskeletal: No: Back Pain, Joint Pain Integumentary: Yes: Rash (has improved at home) Neurological: Yes: Symptoms reported, Headache *Physical Exam - Vital Signs Last Vital Signs Temp Pulse Resp BP Pulse Ox 98.3 F 77 18 141/79 96 10/27/18 20:10 10/27/18 20:10 10/27/18 20:10 10/27/18 20:10 10/27/18 20:23 - Physical Exam General Appearance: Yes: Nourished, Appropriately Dressed. No: Apparent Distress HEENT: positive: EOMI, Normal Voice. negative: Scleral Icterus (R), Scleral Icterus (L) Neck: positive: Trachea midline, Supple. negative: Tender Respiratory/Chest: positive: Crackles (present in lowre lung gardner bilaterally) . negative: Chest Tender, Respiratory Distress, Accessory Muscle Use, Wheezing Cardiovascular: positive: S1, S2. negative: JVD, Murmur, Gallop/S3, Gallop/S4 Vascular Pulses: Dorsalis-Pedis (R): 2+, Doralis-Pedis (L): 2+ Gastrointestinal/Abdominal: positive: Normal Bowel Sounds, Soft, Protuberent. negative: Pulsatile Mass, Tenderness Musculoskeletal: positive: Normal Inspection. negative: CVA Tenderness Extremity: positive: Normal Capillary Refill, Normal Range of Motion Integumentary: positive: Normal Color, Dry, Warm Neurologic: positive: Fully Oriented, Alert, Normal Mood/Affect, Normal Response ED Treatment Course - LABORATORY CBC & Chemistry Diagram: 10/27/18 21:15 10/27/18 23:00 Medical Decision Making - Medical Decision Making 10/27/18 21:24 87y/o F hx of CAD,HTN, CHF, Afib on coumadin, hypothyroidism, and chronic postural vertigo, Labs/Imaging/Meds: cbc, cmp, ekg, bnp, troponin, cxr portable 10/27/18 21:28 EKG: ventricular paced rhythm. abnormal EKG 10/27/18 22:21 -BNP- 869.3 and increase from 569.1 on 12/27/17 -CXR: Increased pulmonary congestion on the right compared to previous CXR in August. -Received 40mg of Lasix IV - Dr. Martínez (breakfast host) contacted agrees with our plan for patient to be admitted. Pt. was not initially amenable to this plan but has agreed once dr. Martínez's opinion was conveyed. 10/27/18 23:10 10/27/18 23:[address] Walt Vaughn's messaging service for possible admission 10/27/18 23:[address] Walt Vaughn will be admitted to telemetry 10/27/18 23:53 Troponin < 0.02 *DC/Admit/Observation/Transfer Diagnosis at time of Disposition: CHF exacerbation Qualifiers: Heart failure type: unspecified Qualified Code(s): I50.9 - Heart failure, unspecified - Discharge Dispostion Condition at time of disposition: Stable - Referrals - Patient Instructions - Post Discharge Activity
[2018-10-27 21:31] LABS: BASO % 1.2 % (0-2.0); EOS % 1.4 % (0-4.5); HEMATOCRIT 48.6 % (32.4-45.2); LYMPH % 25.5 % (8-40); MCH 31.2 pg (25.7-33.7); MEAN CELL VOLUME 94.5 fl (80-96); MEAN PLT VOLUME 8.8 fl (7.5-11.1); MONO % 9.7 % (3.8-10.2); NEUT % 62.2 % (42.8-82.8); PLATELET COUNT 299 K/MM3 (134-434); RBC 5.14 M/mm3 (3.60-5.2); RDW 14.3 % (11.6-15.6); WHITE BLOOD COUNT 8.7 K/mm3 (4.0-10.0)
[2018-10-27] MEDS ORDERED: FUROSEMIDE 40 MG/4 ML INJECTABLE VIAL IVPUSH ONE (22:11)
--- NOTE | 2018-10-27 22:16 | PDOC ---
Documentation entered by Maria Elena Lainez SCRIBE, acting as scribe for Vishal Briggs MD. Vishal Briggs MD: This documentation has been prepared by the [email or web address], Maria Elena Lainez SCRIBE, under my direction and personally reviewed by me in its entirety. I confirm that the documentation accurately reflects all work, treatment, procedures, and medical decision making performed by me. Attending Attestation - Resident Resident Name: Eron Bass - ED Attending Attestation I have performed the following: I have examined & evaluated the patient, The case was reviewed & discussed with the resident, I agree w/resident's findings & plan, Exceptions are as noted - HPI HPI: 10/27/18 20:58 The patient is an 87-year-old female, with a past medical history of CAD, CHF, HTN, Afib, chronic postural vertigo, R. eye blindness, and hypothyroidism, who presents to the ED with shortness of breath that began a few hours prior to arrival. Pt reports that she was outside walking when she had sudden onset SOB. Since arriving to the ER, her breathing has improved. Pt denies CP. Denies leg swelling. Patient states that she called her Strategic Planning Manager (Dr. Dupont) who advised the patient to report to the ED for further evaluation. She also reports mild dizziness, which she experiences at baseline. The patient denies fevers, chills, nausea, vomiting, diarrhea, or abdominal pain. Denies any chest pain or palpitations. Denies any weakness, dizziness, or changes in strength or sensation. Allergies: NKA Strategic Planning Manager: Dr. Dupont - Physicial Exam PE: 10/27/18 20:58 GENERAL: Awake, alert, and fully oriented, in no acute distress. HEAD: No signs of trauma EYES: PERRLA, EOMI, sclera anicteric, conjunctiva clear ENT: Auricles normal inspection, hearing grossly normal, nares patent, oropharynx clear without exudates. Moist mucosa NECK: Nontender, no stepoffs, Normal ROM, supple, no lymphadenopathy, JVD, or masses LUNGS: + bibasilar rales HEART: Regular rate and rhythm, normal S1 and S2, no murmurs, rubs or gallops ABDOMEN: Soft, nontender, normoactive bowel sounds. No guarding, no rebound. No masses EXTREMITIES: Normal range of motion, no edema. No clubbing or cyanosis. No cords, erythema, or tenderness NEUROLOGICAL: Cranial nerves II through XII intact. 5/5 strength and sensation in all extremities, Normal speech, normal gait, normal cerebellar function SKIN: Warm, Dry, normal turgor, no rashes or lesions noted. - Medical Decision Making 10/27/18 22:17 87 F with SOB. Exam notable for bibasilar rales, suspicious for CHF exacerbation. - labs, trop, BNP - CXR - Diuresis 10/27/18 23:[address] Martínez, who agrees with plan to admit for IV diuresis. Lasix 40mg IV given
[2018-10-27] MEDS ORDERED: FUROSEMIDE 40 MG/4 ML INJECTABLE VIAL ONE (22:53)
[2018-10-27 23:46] LABS: ALBUMIN 3.6 g/dl (3.4-5.0); ALK PHOS 104 U/L (45-117); ANION GAP 8 MMOL/L (8-16); BILIRUBIN,TOTAL 0.6 mg/dL (0.2-1); BLOOD UREA NITROGEN 28.7 mg/dL (7-18); CALCIUM 9.4 mg/dL (8.5-10.1); CHLORIDE 108 mmol/L (98-107); CO2 26 mmol/L (21-32); CREATININE 1.1 mg/dL (0.55-1.3); GLUCOSE,RANDOM 110 mg/dL (74-106); POTASSIUM 4.6 mmol/L (3.5-5.1); SGOT/AST 25 U/L (15-37); SGPT/ALT 31 U/L (13-61); SODIUM 142 mmol/L (136-145); TOT PROT 7.4 g/dl (6.4-8.2)
[2018-10-28 05:09] VITALS: BMI 32.6
[2018-10-28] MEDS ORDERED: MECLIZINE HCL 25 MG TABLET (FP) PO PRN (06:46)
[2018-10-28] MEDS: LEVOTHYROXINE NA 100 MCG TABLET (FP) PO SCH (07:24)
--- NOTE | 2018-10-28 07:29 | HP ---
Admitting History and Physical - Primary Care Physician PCP: Jane Vaughn S - Admission Chief Complaint: SOB History of Present Illness: 87y/o F hx of CAD,HTN, CHF, Afib on coumadin, hypothyroidism, and chronic postural vertigo, presents to the ED with 1 day shortness of breath. SOB occurs both at rest and exertion and there where no particular exacerbating/relieving factors. She denies any chest pain, pleuritic pain, orthopnea, PND, cough or hemoptysis, denied headaches, blurry vision, numbness, tingling, weakness.She suffers from vertigo at baseline and consequently uses a walker to get around. Has limited vision in the right eye at baseline. 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 Cardiovascular: Yes: AFIB, CAD, HTN Endocrine: Yes: Hypothyroidism - Past Surgical History Past Surgical History: Yes: Hernia Repair - Smoking History Smoking history: Unknown if ever smoked Have you smoked in the past 12 months: No Aproximately how many cigarettes per day: 0 - Alcohol/Substance Use Hx Alcohol Use: No History of Substance Use: reports: None - Social History Usual Living Arrangement: Yes: Alone ADL: Independent History of Recent Travel: No Home Medications - Allergies Allergies/Adverse Reactions: Allergies Allergy/AdvReac Type Severity Reaction Status Date / Time No Known Allergies Allergy Verified 10/27/18 20:11 - Home Medications Home Medications: Ambulatory Orders Atorvastatin Calcium [Lipitor] 10 mg PO DAILY 12/27/17 Brimonidine Tartrate [Alphagan P 0.1% -] 1 drop OU BID 12/27/17 Digoxin [Digitek] 250 mcg PO DAILY 12/27/17 Diltiazem Cd [Cardizem Cd -] 180 mg PO BID 12/27/17 Furosemide [Lasix -] 20 mg PO BID 12/27/17 Latanoprost 0.005% Eye Drops [Xalatan 0.005% Eye Drops -] 1 drop OU HS 12/27/17 Levothyroxine [Synthroid -] 100 mcg PO DAILY 12/27/17 Meclizine HCl 25 mg PO TID PRN 12/27/17 Metolazone [Zaroxolyn -] 2.5 mg PO DAILY 12/27/17 Metoprolol Succinate [Toprol Xl -] 50 mg PO BID 12/27/17 Pitavastatin Calcium [Livalo] 2 mg PO MOWEFR 12/27/17 Potassium Chloride [K-Dur -] 20 meq PO BID 12/27/17 Warfarin Sodium [Coumadin] 2.5 mg PO MOTUWETHFR 12/27/17 Warfarin Sodium [Coumadin] 5 mg PO SUSA 12/27/17 Family Disease History - Family Disease History Family History: Unremarkable Review of Systems - Review of Systems Constitutional: denies: Chills, Fever, Lethargy, Weakness Eyes: denies: Blind Spots, Blurred Vision, Double Vision HENT: denies: Ear Pain, Epistaxis Neck: denies: Stiffness, Tenderness Cardiovascular: reports: Shortness of Breath. denies: Chest Pain, Edema, Palpitations Respiratory: reports: Orthopnea, PND, SOB, SOB on Exertion. denies: Cough, Hemoptysis, Wheezing Gastrointestinal: denies: Abdominal Pain, Constipation, Diarrhea, Vomiting Genitourinary: denies: Dysuria, Flank Pain Musculoskeletal: denies: Back Pain, Joint Pain Neurological: denies: Change in LOC, Change in Speech, Confusion, Dizziness, Seizure, Syncope, Weakness Hematology/Lymphatic: denies: Easily Bruised, Excessive Bleeding Psychiatric: denies: Altered Sleep Pattern, Anxiety, Depression, Suicidal Physical Examination Vital Signs: Vital Signs Temperature 97.6 F 10/28/18 06:00 Pulse Rate 82 10/28/18 06:00 Respiratory Rate 18 10/28/18 06:00 Blood Pressure 111/63 10/28/18 06:00 O2 Sat by Pulse Oximetry (%) 96 10/28/18 02:21 Constitutional: Yes: No Distress, Calm Eyes: Yes: Conjunctiva Clear, Other (R eye exophtalmia chronic) HENT: Yes: Atraumatic Neck: Yes: Supple. No: Tenderness Cardiovascular: Yes: Pulse Irregular, S3. No: Regular Rate and Rhythm Respiratory: Yes: Diminished Gastrointestinal: Yes: Soft. No: Tenderness Renal/: No: CVA Tenderness - Left, CVA Tenderness - Right, Hematuria Musculoskeletal: No: Joint Stiffness, Joint Swelling Extremities: No: Cold, Cool, Cyanosis Edema: No Integumentary: No: Rash, Venous Stasis Changes Neurological: Yes: WNL, Alert, Oriented ...Motor Strength: WNL Psychiatric: Yes: WNL, Alert, Oriented. No: Agitated, Suicidal Ideation Labs: CBC, BMP 10/27/18 21:15 10/27/18 23:00 Imaging - Results Chest X-ray: Report Reviewed Other: Report Reviewed Assessment/Plan 87y/o F hx of CAD,HTN, CHF, Afib on coumadin, hypothyroidism, and chronic postural vertigo, presents to the ED with 1 day shortness of breath. CXR c/w Pulm edema admit to telemetry; AFib rate control coumadin per INR iv lasix, f/u CE cardiology eval; further management per cardio d/w pt LS diet; f/u labs dw pt do not get OOB alone call nurse if needs OOB falls PFX d/w pt and daughter Daija at bedside, d/w staff
[2018-10-28] MEDS: METOLAZONE 2.5 MG TABLET (FP) PO SCH (09:08)
[2018-10-28] MEDS: DIGOXIN 0.25 MG TABLET (FP) PO SCH (09:08)
[2018-10-28] MEDS: POTASSIUM CHLORIDE TABS 20 MEQ TABLET.ER (FP) PO SCH ×2 (09:08→21:13)
[2018-10-28] MEDS: BRIMONIDINE TARTRATE 0.1% OPHTHALMIC 5 ML BOTTLE OU SCH ×2 (09:11→21:14)
[2018-10-28] MEDS: FUROSEMIDE 40 MG/4 ML INJECTABLE VIAL IVPUSH SCH (09:12)
--- NOTE | 2018-10-28 11:25 | EKG ---
Test Reason : Blood Pressure : / mmHG Vent. Rate : 077 BPM Atrial Rate : 375 BPM P-R Int : 000 ms QRS Dur : 152 ms QT Int : 466 ms P-R-T Axes : 000 -16 080 degrees QTc Int : 527 ms Ventricular-paced rhythm ABNORMAL ECG WHEN COMPARED WITH ECG OF 02-SEP-2018 23:38, NO SIGNIFICANT CHANGE WAS FOUND Confirmed by Nadeem Dukes MD ([id number]) on 10/28/2018 11:25:13 AM Referred By: Confirmed By:Nadeem Dukes MD
--- NOTE | 2018-10-28 13:11 | CON.CARD ---
Consult Consult Specialty:: Cardiology - History of Present Illness History of Present Illness: CHIEF COMPLAINTS: Lightheadedness, slight dizziness. HISTORY OF PRESENT ILLNESS: An 87-year-old female who was recently discharged from the hospital, was readmitted with recurring lightheadedness and dizziness which would occur mostly on standing up from a recumbent position or if she was bending and straightened up. She denies having vertigo but has been experiencing these symptoms for over a year and had been evaluated by multiple specialties. Patient stated that today her symptoms became more pronounced, and 911 was summoned, and apparently, her blood pressure was 89 mm systolic. She has had no episodes of presyncope or syncope. There is no history of tinnitus. Patient, on her last admission, had atrial fibrillation with a rapid ventricular response and continues to have periods of rapid ventricular response. She recently had congestive heart failure in association with atrial fibrillation. No history of exertional dyspnea, paroxysmal nocturnal dyspnea, or orthopnea reported. PAST HISTORY: As mentioned in the history of present illness. History of fracture of the left wrist. 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 SURGICAL HISTORY: Status post left cataract extraction. History of section x1. History of a buckle involving the right eye. SOCIAL HISTORY: She is a . She is retired, has 2 sons and 2 daughters who are healthy. One of the daughters has Farrell syndrome. She has never smoked and does not drink. FAMILY HISTORY: Father at age 79 of unknown cause. Mother at age 75 of a brain tumor. She was the only child. Active Medications Acetaminophen (Tylenol -) 650 mg PO Q6H PRN PRN Reason: NEEDS A PAIN SCALE Atorvastatin Calcium (Lipitor -) 10 mg PO [facility] Brimonidine Tartrate (Alphagan P 0.1% -) 1 drop OU BID [facility] Last Admin: 10/28/18 09:11 Dose: 1 drop Digoxin (Lanoxin -) 0.25 mg PO DAILY [facility] Last Admin: 10/28/18 09:08 Dose: 0.25 mg Diltiazem HCl (Cardizem Cd -) 180 mg PO BID [facility] Last Admin: 10/28/18 09:08 Dose: 180 mg Furosemide (Lasix Injection -) 40 mg IVPUSH DAILY [facility] Last Admin: 10/28/18 09:12 Dose: 40 mg Latanoprost (Xalatan 0.005% Eye Drops -) 1 drop OU HS [facility] Levothyroxine Sodium (Synthroid -) 100 mcg PO 0700 [facility] Last Admin: 10/28/18 07:24 Dose: 100 mcg Meclizine HCl (Antivert -) 25 mg PO TID PRN PRN Reason: dizziness Metolazone (Zaroxolyn -) 2.5 mg PO 0930 [facility] Last Admin: 10/28/18 09:08 Dose: Not Given Metoprolol Succinate (Toprol Xl -) 50 mg PO BID [facility] Last Admin: 10/28/18 09:08 Dose: 50 mg Potassium Chloride (K-Dur -) 20 meq PO BID [facility] Last Admin: 10/28/18 09:08 Dose: 20 meq Warfarin Sodium (Coumadin -) 2.5 mg PO MoTuWeThFr@1800 CLAUDIA Warfarin Sodium (Coumadin -) 5 mg PO SuSa@1800 CLAUDIA PHYSICAL EXAMINATION: General: An 87-year-old female, at the time of examination, was in no distress. No pallor, cyanosis, clubbing, or jaundice. Last Vital Signs Temp Pulse Resp BP Pulse Ox 97.6 F 80 18 111/63 96 10/28/18 06:00 10/28/18 09:08 10/28/18 06:00 10/28/18 06:00 10/28/18 02:21 Neck: Supple. No jugular venous distention. Hepatojugular reflux was negative. Carotids were 2+. Upstrokes were normal. No bruits were heard. No thyromegaly was appreciated. Heart: PMI was in the fifth intercostal space. No heaves or thrills. Heart sounds were distant. No murmur or gallops were appreciated. Lungs: Clear on auscultation. Abdomen: Obese, soft, and nontender. No hepatosplenomegaly or palpable masses were felt. Bowel sounds are present. Extremities: No calf tenderness or dependent edema. Laboratory Results - last 24 hr 10/27/18 10/27/18 10/27/18 21:15 21:15 21:15 WBC 8.7 RBC 5.14 Hgb 16.0 H Hct 48.6 H MCV 94.5 MCH 31.2 MCHC 33.0 RDW 14.3 Plt Count 299 MPV 8.8 D Absolute Neuts (auto) 5.4 Neutrophils % 62.2 Lymphocytes % 25.5 D Monocytes % 9.7 Eosinophils % 1.4 D Basophils % 1.2 Nucleated RBC % 0 Sodium Cancelled Potassium Cancelled Chloride Cancelled Carbon Dioxide Cancelled Anion Gap Cancelled BUN Cancelled Creatinine Cancelled Est GFR (CKD-EPI)AfAm Cancelled Est GFR (CKD-EPI)NonAf Cancelled Random Glucose Cancelled Calcium Cancelled Total Bilirubin Cancelled AST Cancelled ALT Cancelled Alkaline Phosphatase Cancelled Troponin I B-Natriuretic Peptide 869.3 H Total Protein Cancelled Albumin Cancelled 10/27/18 10/27/18 21:15 23:00 WBC RBC Hgb Hct MCV MCH MCHC RDW Plt Count MPV Absolute Neuts (auto) Neutrophils % Lymphocytes % Monocytes % Eosinophils % Basophils % Nucleated RBC % Sodium 142 Potassium 4.6 Chloride 108 H Carbon Dioxide 26 Anion Gap 8 BUN 28.7 H Creatinine 1.1 Est GFR (CKD-EPI)AfAm 53.02 Est GFR (CKD-EPI)NonAf 45.74 Random Glucose 110 H Calcium 9.4 Total Bilirubin 0.6 AST 25 ALT 31 Alkaline Phosphatase 104 Troponin I Cancelled < 0.02 B-Natriuretic Peptide Total Protein 7.4 Albumin 3.6 X-ray chest: Dated 10/28/18 A single AP view of the chest has been submitted. The patient is rotated to the right with widening mediastinum, large heart, unfolded aorta, pacemaker but no sign of infiltrate or failure. There is old rib trauma. The angles are sharp. The soft tissues are intact. There are some degenerative changes. Correlation recommended. ECG: IMPRESSION: 1. Recurring postural lightheadedness; etiology: A. Secondary to postural hypotension precipitated by combination of medications including diuretics, calcium channel blockers, beta-blockers, ophthalmic solutions, and dehydration. 2. Atrial fibrillation with rapid ventricular response is also contributing to her symptoms. 3. History of hypertension, hypertensive cardiovascular disease. 4. Hypothyroidism. 5. Congestive heart failure, clinically appears to be compensated. 6. Hypercholesterolemia. 7. History of B12 deficiency. 8. History of vitamin D deficiency. 9. 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 10. History of hyperactive bladder. 11. Exogenous obesity. RECOMMENDATIONS: 1. Kindly obtain all her medications for reconciliation. 2. In view of persistent rapid ventricular response, digitalization. 3. Patient is undergoing cautious hydration. 4. Echocardiogram for evaluation of left ventricular size and function. 5. Follow up thyroid function tests. 6. Obtain chest x-ray PA and lateral. 7. Further suggestions will depend upon the results of the above-mentioned tests. 8. Consider ophthalmic followup to determine if the ophthalmic solutions are also a contributing factor. PROGNOSIS: Guarded. Thank you for your referral. Yours sincerely, HOLLI NG M.D. - Past Medical History LANGUAGE PATHOLOGIST: Yes: Vertigo Cardio/Vascular: Yes: AFIB, CAD, HTN Endocrine: Yes: Hypothyroidism - Past Surgical History Past Surgical History: Yes: Hernia Repair - Alcohol/Substance Use Hx Alcohol Use: No History of Substance Use: reports: None - Smoking History Smoking history: Unknown if ever smoked Have you smoked in the past 12 months: No Aproximately how many cigarettes per day: 0 - Social History ADL: Independent History of Recent Travel: No Home Medications - Allergies Allergies/Adverse Reactions: Allergies Allergy/AdvReac Type Severity Reaction Status Date / Time No Known Allergies Allergy Verified 10/27/18 20:11 - Home Medications Home Medications: Ambulatory Orders Atorvastatin Calcium [Lipitor] 10 mg PO DAILY 12/27/17 Brimonidine Tartrate [Alphagan P 0.1% -] 1 drop OU BID 12/27/17 Digoxin [Digitek] 250 mcg PO DAILY 12/27/17 Diltiazem Cd [Cardizem Cd -] 180 mg PO BID 12/27/17 Furosemide [Lasix -] 20 mg PO BID 12/27/17 Latanoprost 0.005% Eye Drops [Xalatan 0.005% Eye Drops -] 1 drop OU HS 12/27/17 Levothyroxine [Synthroid -] 100 mcg PO DAILY 12/27/17 Metolazone [Zaroxolyn -] 2.5 mg PO DAILY 12/27/17 Metoprolol Succinate [Toprol Xl -] 50 mg PO BID 12/27/17 Pitavastatin Calcium [Livalo] 2 mg PO MOWEFR 12/27/17 Potassium Chloride [K-Dur -] 20 meq PO BID 12/27/17 RX: Meclizine HCl 25 mg PO TID PRN 12/27/17 Warfarin Sodium [Coumadin] 2.5 mg PO MOTUWETHFR 12/27/17 Warfarin Sodium [Coumadin] 5 mg PO SUSA 12/27/17 Vital Signs: Vital Signs Temperature 97.6 F 10/28/18 06:00 Pulse Rate 80 10/28/18 09:08 Respiratory Rate 18 10/28/18 06:00 Blood Pressure 111/63 10/28/18 06:00 O2 Sat by Pulse Oximetry (%) 96 10/28/18 02:21 - Other Data Labs, Other Data: CBC, BMP 10/27/18 21:15 10/27/18 23:00 Troponin, BNP 10/27/18 10/27/18 10/27/18 21:15 21:15 23:00 Troponin I Cancelled < 0.02 B-Natriuretic Peptide 869.3 H Troponin, BNP 10/27/18 10/27/18 10/27/18 21:15 21:15 23:00 Troponin I Cancelled < 0.02 B-Natriuretic Peptide 869.3 H
[2018-10-28] MEDS: ACETAMINOPHEN 325 MG TABLET (FP) PO PRN (15:04)
[2018-10-28] MEDS ORDERED: WARFARIN NA 2.5 MG TABLET (FP) PO SCH (18:00)
--- NOTE | 2018-10-28 18:53 | CONS ---
DATE OF CONSULTATION: DATE OF DICTATION: 10/28/2018 CARDIOLOGY CONSULTATION REQUESTING PHYSICIAN: Jane Vaughn M.D. CHIEF COMPLAINT: Shortness of breath. HISTORY OF PRESENT ILLNESS: The patient is an 87-year-old female who hails from [facility] and has longstanding history of hypertension, hypertensive cardiovascular disease, history of congestive heart failure, hypercholesterolemia, hypothyroidism, history of chest pain syndrome suggestive of coronary artery disease, angina pectoris, history of chronic postural vertigo. The patient states that 2 days prior to admission (feeling out of sorts). Patient said she was also experiencing dyspnea on minimal exertion both at rest and with exertion. No history of paroxysmal nocturnal dyspnea or orthopnea reported. No history of chest pain or discomfort either at rest or with exertion, no history of recent partial dizziness or lightheadedness. No history of palpitations, presyncope or syncope. No history of cough or expectoration. Denies having diabetes mellitus. History of permanent pacemaker for sick sinus syndrome. PAST HISTORY: 1. As mentioned in the history of present illness. 2. History of glaucoma, both eyes. 3. History of traumatic loss of vision involving the right eye. 4. History of proptosis of the right eye. SURGICAL HISTORY: 1. Status post section. 2. Status post permanent pacemaker insertion. 3. Multiple surgeries of the right eye. 4. Status post left cataract extraction. 5. Status post surgery for fracture of the left wrist. SOCIAL HISTORY: , retired. Has 2 sons and 2 daughters who apparently are healthy, except one of the daughters was born with Farrell's syndrome, bilateral deafness, and hypothyroidism. She never smoked and does not drink. FAMILY HISTORY: Father in his late 70s related to natural causes. Mother at age 75 related to malignant brain tumor. She was the only child. ALLERGIES: None reported. CURRENT MEDICATIONS: 1. Warfarin 5 mg p.o. daily. 2. Metoprolol succinate 50 mg p.o. b.i.d. 3. Diltiazem 180 mg p.o. b.i.d. 4. Brimonidine 0.1% 1 drop both eyes b.i.d. 5. Digoxin 0.25 mg p.o. daily. 6. Atorvastatin 10 mg p.o. daily. 7. Furosemide 40 mg IV daily. 8. Latanoprost 0.005% 1 drop both eyes daily. 9. Potassium chloride 20 mEq 1 p.o. daily. 10. Zaroxolyn 2.5 mg was ordered but not given. 11. Levothyroxine 100 mg p.o. daily. REVIEW OF SYSTEMS: Constitutional: No history of chills, fever, or night sweats. No history of unintentional weight loss. HEENT: No history of headaches, history of blindness of right eye, history of glaucoma. Denies history of diplopia. History of intermittent vertigo, history of deafness. Cardiovascular: See history of present illness. Respiratory: History of COPD. No history of cough, expectoration or hemoptysis. No history of tuberculosis. Gastrointestinal: No history of nausea, vomiting, melena, or hematemesis. No history of abdominal pain or change in bowel habits reported. Musculoskeletal: Denies any myalgias or arthralgias. Endocrine: See history of present illness. No history of polyuria or polydipsia. Neurological: No history of seizures, presyncope or syncope. No history of focal weakness. Hematological: No history of anemia, bleeding, or ecchymosis. PHYSICAL EXAMINATION: General: An 87-year-old female who is hard of hearing, was in no acute distress , no pallor, cyanosis, clubbing or jaundice. Vital signs: Blood pressure 114/65 mmHg, pulse 85 beats per minute and regular, temperature 97.7 degrees Fahrenheit, respirations 18 per minute, weight was not recorded. Neck: Supple. No jugulovenous distention. Hepatojugular reflex was negative. Carotids were 2+, upstrokes were normal, no bruits were heard, and no thyromegaly. Heart: PMI was not localized. Heart sounds were distant, ? grade 1/6 decrescendo systolic murmur was heard along the left sternal border, no diastolic murmur or gallops were heard. Lungs: Clear on auscultation. Abdomen: Obese, soft and nontender. No hepatosplenomegaly or palpable masses were felt. Bowel sounds were present, no bruits were heard. Extremities: No calf tenderness or dependent edema, femoral pulses were 1 to 2+ . Dorsalis pedis and posterior tibial pulses could not be palpated. There was fungal infestation involving the nail of the right big toe. ECG: Underlying rhythm is coarse atrial flutter. Permanent pacemaker was functioning in a fixed rate mode with consistent ventricular capture. CBC: WBC 8700, hemoglobin 16.0 g/dL. Hematocrit 48.6%. Platelet count 299,000. Differential: neutrophils 62%, lymphocytes 25.5%, monocytes 9.7%, eosinophils 1.4%, basophils 1.2%. Chemistry: 10/27/2018, sodium 142, potassium 4.6, chloride 108, CO2 of 26 mmol/ L. BUN 28. BNP on 10/27/2018: 869.3. Liver function tests were not available. X-ray chest, 10/27/2018: A single AP view of the chest has been submitted. The patient is rotated to the right with widening mediastinum. Large heart, unfolded aorta, pacemaker but no sign of infiltrate or failure. There is an old rib trauma, the angles are sharp. The soft tissues are intact. There are some degenerative changes. Correlation recommended. IMPRESSION: 1. Dyspnea. Etiology most likely related to congestive heart failure, [place] Heart Classification 2 to 3. Etiology: A. Secondary to left ventricular diastolic dysfunction. B. Left ventricular systolic dysfunction needs exclusion. 2. History of chronic obstructive pulmonary disease. 3. Hypertension, hypertensive cardiovascular disease. 4. Hypercholesterolemia. 5. History of chest pain syndrome compatible with coronary artery disease, angina pectoris. 6. Hypercholesterolemia. 7. Hypothyroidism, on replacement therapy. 8. Sick sinus syndrome with periods of uncontrolled ventricular response. 9. Status post permanent pacemaker. 10. History of traumatic blindness of the right eye. 11. Glaucoma. 12. History of deafness. 13. History of dietary noncompliance. 14. Exogenous obesity. 15. History of hyperactive urinary bladder. 16. History of B12 deficiency. 17. History of vitamin D deficiency. RECOMMENDATION: 1. Counseled regarding dietary restrictions, especially curtailing sodium intake. According to the patient, she had been choosing excessive amount of tomato catsup. 2. Counseled regarding weight reduction. 3. T3, T4, TSH. 4. Vitamin B12 and vitamin D levels. 5. Daily weight. 6. Pacemaker interrogation, which could be done on an outpatient basis. Prognosis guarded. Thank you for your referral. HOLLI NG M.D. [id number] MTDD
[2018-10-28] MEDS ORDERED: ATORVASTATIN CA 10 MG TABLET (FP) PO SCH (22:00)
[2018-10-28] MEDS ORDERED: LATANOPROST 0.005% OPHTH SOLN 2.5ML BOTTLE OU SCH (22:00)
[2018-10-29] MEDS: ACETAMINOPHEN 325 MG TABLET (FP) PO PRN (00:49)
[2018-10-29] MEDS: LEVOTHYROXINE NA 100 MCG TABLET (FP) PO SCH (06:48)
[2018-10-29 07:37] LABS: BASO % 0.7 % (0-2.0); EOS % 1.2 % (0-4.5); HEMATOCRIT 52.1 % (32.4-45.2); HEMOGLOBIN 17.4 GM/dL (10.7-15.3); LYMPH % 19.5 % (8-40); MCH 31.4 pg (25.7-33.7); MCHC 33.5 g/dl (32.0-36.0); MEAN CELL VOLUME 93.8 fl (80-96); MEAN PLT VOLUME 8.7 fl (7.5-11.1); MONO % 10.5 % (3.8-10.2); NEUT % 68.1 % (42.8-82.8); PLATELET COUNT 309 K/MM3 (134-434); RBC 5.55 M/mm3 (3.60-5.2); RDW 14.8 % (11.6-15.6); WHITE BLOOD COUNT 9.6 K/mm3 (4.0-10.0)
[2018-10-29 08:12] LABS: ALBUMIN 3.6 g/dl (3.4-5.0); ALK PHOS 100 U/L (45-117); ANION GAP 7 MMOL/L (8-16); BILIRUBIN,TOTAL 0.8 mg/dL (0.2-1); CALCIUM 9.7 mg/dL (8.5-10.1); CHLORIDE 103 mmol/L (98-107); CO2 28 mmol/L (21-32); CREATININE 1.2 mg/dL (0.55-1.3); GLUCOSE,RANDOM 102 mg/dL (74-106); POTASSIUM 5.1 mmol/L (3.5-5.1); SGOT/AST 12 U/L (15-37); SGPT/ALT 27 U/L (13-61); SODIUM 138 mmol/L (136-145); TOT PROT 7.6 g/dl (6.4-8.2)
[2018-10-29 08:26] LABS: INR 2.14 (0.83-1.09); PROTHROMBIN TIME (PATIENT) 25.4 SEC (9.7-13.0)
--- NOTE | 2018-10-29 09:59 | DS ---
Physical Examination Vital Signs: Vital Signs Temperature 97.6 F 10/29/18 02:00 Pulse Rate 79 10/29/18 02:00 Respiratory Rate 20 10/29/18 02:00 Blood Pressure 120/56 L 10/29/18 02:00 O2 Sat by Pulse Oximetry (%) 96 10/28/18 21:00 Findings/Remarks: feels well no c/o wants to go home today; if cleared by cardio no objections to DC home and f/u in office d.w cardio dr Martínez OK to DC home, pt has an eric with him soon in his office meds and diet d/w pt Constitutional: Yes: No Distress, Calm Eyes: Yes: Conjunctiva Clear HENT: Yes: Atraumatic Neck: Yes: Supple Cardiovascular: Yes: Pulse Irregular. No: Regular Rate and Rhythm Respiratory: Yes: CTA Bilaterally Gastrointestinal: Yes: Soft. No: Tenderness Renal/: No: Hematuria Musculoskeletal: No: Joint Stiffness, Joint Swelling Extremities: No: Cold, Cool, Cyanosis Edema: No Integumentary: No: Rash, Venous Stasis Changes Neurological: Yes: WNL, Alert, Oriented ...Motor Strength: WNL Psychiatric: Yes: WNL, Alert, Oriented. No: Agitated, Suicidal Ideation Labs: CBC, BMP 10/29/18 06:35 10/29/18 06:35 Discharge Summary Reason For Visit: ACUTE ON CHRONIC CONGESTIVE HEART FAILURE Current Active Problems CHF exacerbation (Acute) Procedures: Principal: 87 YOF ASHD AFib CHF obesity admitted with SOB CHF exac Other Procedures: admit to telemetry, seen by cardiology dr Martínez;. labs WNL; coumadin therapeutic; CE negative; Hospital Course: diuresed with IV lasix with improvement in symtoms; d/w pt to be compliant with meds and LS diet; f/u with cardiology and PCP as advised; take meds as advised; RTER if worse or recurrent d/w cardio no objections for DC from hospital today Condition: Improved - Instructions Diet, Activity, Other Instructions: f/u PCP and cardiology in 1-2 weeks; take meds as prescribed; Low salt diet; coumadin per INR; f/u labs RTER if worse or recurrent c/o; falls pfx Referrals: Jane Vaughn [Primary Care Provider] - Herberth Martínez MD [Staff Physician] - Disposition: VNS/HOME HEALTH CARE - Home Medications Comprehensive Discharge Medication List: Ambulatory Orders Atorvastatin Calcium [Lipitor] 10 mg PO DAILY 12/27/17 Brimonidine Tartrate [Alphagan P 0.1% -] 1 drop OU BID 12/27/17 Digoxin [Digitek] 250 mcg PO DAILY 12/27/17 Diltiazem Cd [Cardizem Cd -] 180 mg PO BID 12/27/17 Furosemide [Lasix -] 20 mg PO BID 12/27/17 Latanoprost 0.005% Eye Drops [Xalatan 0.005% Eye Drops -] 1 drop OU HS 12/27/17 Levothyroxine [Synthroid -] 100 mcg PO DAILY 12/27/17 Meclizine HCl 25 mg PO TID PRN 12/27/17 Metolazone [Zaroxolyn -] 2.5 mg PO DAILY 12/27/17 Metoprolol Succinate [Toprol XL -] 50 mg PO BID 12/27/17 Pitavastatin Calcium [Livalo] 2 mg PO MOWEFR 12/27/17 Potassium Chloride [K-Dur -] 20 meq PO BID 12/27/17 Warfarin Sodium [Coumadin] 2.5 mg PO MOTUWETHFR 12/27/17 Warfarin Sodium [Coumadin] 5 mg PO SUSA 12/27/17 Acetaminophen [Tylenol .Regular Strength -] 650 mg PO Q6H PRN tablet 10/29/18
[2018-10-29] MEDS: METOLAZONE 2.5 MG TABLET (FP) PO SCH (11:47)
[2018-10-29] MEDS: POTASSIUM CHLORIDE TABS 20 MEQ TABLET.ER (FP) PO SCH (11:48)
[2018-10-29] MEDS: DIGOXIN 0.25 MG TABLET (FP) PO SCH (11:48)
[2018-10-29] MEDS: BRIMONIDINE TARTRATE 0.1% OPHTHALMIC 5 ML BOTTLE OU SCH (11:48)
[2018-10-29] MEDS: FUROSEMIDE 40 MG/4 ML INJECTABLE VIAL IVPUSH SCH (11:48)
--- NOTE | 2018-10-29 13:21 | PN ---
Progress Note (short form) - Note Progress Note: The patient is an 87-year-old female who hails from [facility] and has longstanding history of hypertension, hypertensive cardiovascular disease, history of congestive heart failure, hypercholesterolemia, hypothyroidism, history of chest pain syndrome suggestive of coronary artery disease, angina pectoris, history of chronic postural vertigo. The patient states that 2 days prior to admission (feeling out of sorts). Patient said she was also experiencing dyspnea on minimal exertion both at rest and with exertion. No history of paroxysmal nocturnal dyspnea or orthopnea reported. No history of chest pain or discomfort either at rest or with exertion, no history of recent partial dizziness or lightheadedness. No history of palpitations, presyncope or syncope. No history of cough or expectoration. Denies having diabetes mellitus. History of permanent pacemaker for sick sinus syndrome. ALLERGIES: None reported. Active Medications Acetaminophen (Tylenol -) 650 mg PO Q6H PRN PRN Reason: PAIN 1-5 Last Admin: 10/29/18 00:49 Dose: 650 mg Atorvastatin Calcium (Lipitor -) 10 mg PO HS [facility] Last Admin: 10/28/18 21:13 Dose: 10 mg Brimonidine Tartrate (Alphagan P 0.1% -) 1 drop OU BID [facility] Last Admin: 10/29/18 11:48 Dose: 1 drop Digoxin (Lanoxin -) 0.25 mg PO DAILY [facility] Last Admin: 10/29/18 11:48 Dose: 0.25 mg Diltiazem HCl (Cardizem Cd -) 180 mg PO BID [facility] Last Admin: 10/29/18 11:48 Dose: 180 mg Furosemide (Lasix Injection -) 40 mg IVPUSH DAILY [facility] Last Admin: 10/29/18 11:48 Dose: 40 mg Latanoprost (Xalatan 0.005% Eye Drops -) 1 drop OU HS [facility] Last Admin: 10/28/18 21:12 Dose: 1 drop Levothyroxine Sodium (Synthroid -) 100 mcg PO 0700 [facility] Last Admin: 10/29/18 06:48 Dose: 100 mcg Meclizine HCl (Antivert -) 25 mg PO TID PRN PRN Reason: dizziness Metolazone (Zaroxolyn -) 2.5 mg PO 0930 [facility] Last Admin: 10/29/18 11:47 Dose: 2.5 mg Metoprolol Succinate (Toprol Xl -) 50 mg PO BID [facility] Last Admin: 10/29/18 11:48 Dose: 50 mg Potassium Chloride (K-Dur -) 20 meq PO BID [facility] Last Admin: 10/29/18 11:48 Dose: 20 meq Warfarin Sodium (Coumadin -) 2.5 mg PO [id number]@1800 [facility] Last Admin: 10/28/18 18:26 Dose: 2.5 mg Warfarin Sodium (Coumadin -) 5 mg PO SuSa@1800 [facility] PHYSICAL EXAMINATION: General: An 87-year-old female who is hard of hearing, was in no acute distress , no pallor, cyanosis, clubbing or jaundice. Last Vital Signs Temp Pulse Resp BP Pulse Ox 97.6 F 88 20 120/56 L 96 10/29/18 02:00 10/29/18 11:48 10/29/18 02:00 10/29/18 02:00 10/28/18 21:00 Neck: Supple. No jugulovenous distention. Hepatojugular reflex was negative.Carotids were 2+, upstrokes were normal, no bruits were heard, and no thyromegaly. Heart: PMI was not localized. Heart sounds were distant, ? grade I/ decrescendo systolic murmur was heard along the left sternal border, no diastolic murmur or gallops were heard. Lungs: Clear on auscultation. Abdomen: Obese, soft and nontender. No hepatosplenomegaly or palpable masses were felt. Bowel sounds were present, no bruits were heard. Extremities: No calf tenderness or dependent edema, femoral pulses were 1 to 2+ . Dorsalis pedis and posterior tibial pulses could not be palpated. There was fungal infestation involving the nail of the right big toe. CBC, BMP 10/29/18 06:35 10/29/18 06:35 IMPRESSION: 1. Dyspnea. Etiology most likely related to congestive heart failure, [place] Heart Classification 2 to 3. Etiology: A. Secondary to left ventricular diastolic dysfunction. B. Left ventricular systolic dysfunction needs exclusion. 2. History of chronic obstructive pulmonary disease. 3. Hypertension, hypertensive cardiovascular disease. 4. Hypercholesterolemia. 5. History of chest pain syndrome compatible with coronary artery disease, angina pectoris. 6. Hypercholesterolemia. 7. Hypothyroidism, on replacement therapy. 8. Sick sinus syndrome with periods of uncontrolled ventricular response. 9. Status post permanent pacemaker. 10. History of traumatic blindness of the right eye. 11. Glaucoma. 12. History of deafness. 13. History of dietary noncompliance. 14. Exogenous obesity. 15. History of hyperactive urinary bladder. 16. History of B12 deficiency. 17. History of vitamin D deficiency. RECOMMENDATION: 1. Counseled regarding dietary restrictions, especially curtailing sodium intake. According to the patient, she had been choosing excessive amount of tomato catsup. 2. Counseled regarding weight reduction. 3. T3, T4, TSH. 4. Vitamin B12 and vitamin D levels. 5. Daily weight. 6. Pacemaker interrogation, which could be done on an outpatient basis. Prognosis guarded. HOLLI NG M.D.
[2018-10-29 15:34] VITALS: BP 117/75; PULSE 76; TEMP 97.7
[2018-10-29] MEDS ORDERED: ATORVASTATIN CA 10 MG TABLET (FP) PO SCH (22:00)
[2018-11-01] MEDS ORDERED: WARFARIN NA 5 MG TABLET (UD) PO SCH (18:00)
== END 2018-10-29 16:13 | disposition home health service (06) | DRG 293 ==
LOC: JER 19:30 → JERBED 23:18 → J4W 10-28 02:30
PROVIDERS: ADMIT Internal Medicine; ATTEND Internal Medicine
DX: I11.0 Hypertensive heart disease with heart failure (principal); I50.33 Acute on chronic diastolic (congestive) heart failure; I25.10 Atherosclerotic heart disease of native coronary artery without angina pectoris; I48.91 Unspecified atrial fibrillation; E03.9 Hypothyroidism, unspecified; H40.9 Unspecified glaucoma; E66.09 Other obesity due to excess calories; Z68.32 Body mass index [BMI] 32.0-32.9, adult
CPT/HCPCS: 36415; 71045-TC-FY; 80053; 80162; 82550; 82668; 83880; 84484; 85025; 85610; 93005; 93010; 99285-25

== ENCOUNTER 2019-04-12 00:13 | Inpatient (IN) | payer OTHER, BC ==
--- NOTE | 2019-04-12 00:46 | PDOC ---
History of Present Illness - General Chief Complaint: Nasal Bleeding Stated Complaint: NOSE BLEED Time Seen by Provider: 04/12/19 00:43 History Source: Patient Exam Limitations: No Limitations - History of Present Illness Initial Comments: 04/12/19 00:45 HPI: 88 yo F pmh CAD,HTN, CHF, Afib on coumadin, hypothyroidism, and chronic postural vertigo present to the ED with nose bleed that woke her from sleep. Patient on Coumadin, reports she held pressure but bleeding was not stopping so she called 911. Continued to hold pressure, bleeding stopped while en route with EMS after abotu 30 minutes. Patient denies frequent nose bleeds, bleeding/ clotting disorders. Now complaining only of nausea. Denies fevers, chills, chest pain, shortness of breath, palpitations. All: NKDA Meds: Per chart PMH: As above PSH: Per chart Past History - Past Medical History Allergies/Adverse Reactions: Allergies Allergy/AdvReac Type Severity Reaction Status Date / Time No Known Allergies Allergy Verified 04/12/19 00:16 Home Medications: Ambulatory Orders Atorvastatin Calcium [Lipitor] 10 mg PO DAILY 12/27/17 Brimonidine Tartrate [Alphagan P 0.1% -] 1 drop OU BID 12/27/17 Digoxin [Digitek] 250 mcg PO DAILY 12/27/17 Diltiazem Cd [Cardizem Cd -] 180 mg PO BID 12/27/17 Furosemide [Lasix -] 20 mg PO BID 12/27/17 Latanoprost 0.005% Eye Drops [Xalatan 0.005% Eye Drops -] 1 drop OU HS 12/27/17 Levothyroxine [Synthroid -] 100 mcg PO DAILY 12/27/17 Meclizine HCl 25 mg PO TID PRN 12/27/17 Metolazone [Zaroxolyn -] 2.5 mg PO DAILY 12/27/17 Metoprolol Succinate [Toprol XL -] 50 mg PO BID 12/27/17 Pitavastatin Calcium [Livalo] 2 mg PO MOWEFR 12/27/17 Potassium Chloride [K-Dur -] 20 meq PO BID 12/27/17 Warfarin Sodium [Coumadin] 2.5 mg PO MOTUWETHFR 12/27/17 Warfarin Sodium [Coumadin] 5 mg PO SUSA 12/27/17 Acetaminophen [Tylenol .Regular Strength -] 650 mg PO Q6H PRN tablet 10/29/18 Anemia: No Asthma: No Cancer: No Cardiac Disorders: Yes (CAD, AF) CVA: No COPD: Yes CHF: Yes Dementia: No Diabetes: No GI Disorders: No Disorders: No HTN: Yes Hypercholesterolemia: Yes Liver Disease: No Seizures: No Thyroid Disease: Yes (hypo) - Surgical History Abdominal Surgery: Yes (hernia sx) Orthopedic Surgery: Yes (wrist) - Immunization History Immunization Up to Date: Yes - Psycho Social/Smoking Cessation Hx Smoking Status: No Smoking History: Unknown if ever smoked Have you smoked in the past 12 months: No Number of Cigarettes Smoked Daily: 0 Hx Alcohol Use: No Drug/Substance Use Hx: No Substance Use Type: None Hx Substance Use Treatment: No Review of Systems - Review of Systems Able to Perform ROS?: Yes Comments:: 04/12/19 01:25 Able to Perform ROS?: Yes Is the patient limited Danish proficient: Yes Constitutional: No: Chills, Fever, Weakness HEENTM: Yes: See HPI, Nose Pain, Nose Bleeding. No: Nose Congestion, Throat Pain, Difficulty Swallowing Respiratory: No: Cough, Shortness of Breath, Wheezing Cardiac (ROS): No: Chest Pain, Edema, Irregular Heart Rate, Chest Tightness ABD/GI: Yes: See HPI, Nausea. No: Constipated, Diarrhea, Vomiting : No: Burning, Dysuria, Hematuria, Incontinence, Pain, Urgency Musculoskeletal: No: Muscle Pain, Muscle Weakness Integumentary: No: Pruritus, Rash Neurological: No: Headache, Numbness, Tingling, Weakness Psychiatric: No: Stressors, Change in Appetite Endocrine: No: Increased Thirst, Increased Urine Hematologic/Lymphatic: Yes: Other (on Coumadin). No: Anemia, Blood Clots, Easy Bleeding, Easy Bruising, Bleeding Diathesis All Other Systems: Reviewed and Negative Is the patient limited Danish proficient: Yes *Physical Exam - Physical Exam 04/12/19 01:31 Vitals reviewed, Sat 91% on RA, otherwise AF, HDS GEN: Well appearing, appears stated age, NAD, comfortable. AAOx3. HEENT: NCAT, EOMI, PERRL. No facial asymmetry. Dried blood at bilateral nares and in mouth. Normal voice. Trachea midline. CV: RRR, S1/S2, no murmurs / rubs / gallops appreciated. LUNG: CTAB, normal work of breathing. No wheezes, rales, rhonchi. No cough. Speaking full sentences. GI: Soft, NTND, +BS, no guarding, no rebound. No masses. Neg CVAT b/l. EXTREMITIES: 2+ distal pulses. No LE edema. No obvious deformities of all extremities. SKIN: Warm, dry, no rashes appreciated, non-jaundiced. PSYCH: Normal mood and affect. Cooperative and appropriate. NEURO: CN grossly intact. Moving all extremities well. Normal strength and sensation grossly. ED Treatment Course - LABORATORY CBC & Chemistry Diagram: 04/12/19 01:28 04/12/19 01:28 Medical Decision Making - Medical Decision Making 04/12/19 00:45 88 yo F pmh CAD,HTN, CHF, Afib on Coumadin, hypothyroidism, and chronic postural vertigo present to the ED with nose bleed that woke her from sleep. Concerning for poor oxygen saturation. Will obtain basic labs, check INR for supratherapeutic levels. - CBC, CMP, Coags - EKG, initial poor quality, repeat ordered - CXR given poor Sat s/p bleeding 04/12/19 01:33 - Patient nausea improved s/p smelling alcohol swab - No zofran given QTc >500 on initial EKG 04/12/19 01:48 - Very minimal leukocytosis / elevation in hgb 04/12/19 01:51 - INR in the therapeutic range 04/12/19 01:57 - Sign out given to night team - F/u CXR, repeat EKG, CMP, Repeat Vitals > Dispo Discharge - Discharge Information Problems reviewed: Yes Clinical Impression/Diagnosis: Epistaxis not due to trauma Condition: Improved Disposition: HOME - Admission No - Follow up/Referral Referrals: Jane Vaughn [Primary Care Provider] - - Patient Discharge Instructions Patient Printed Discharge Instructions: DI for Nosebleed Additional Instructions: You were seen and evaluated for nosebleed. Continue your home medications as directed. Follow up with your primary care doctor on Saturday. Return for any new or concerning symptoms. - Post Discharge Activity
--- NOTE | 2019-04-12 01:22 | PDOC ---
History of Present Illness - General Chief Complaint: Nasal Bleeding Stated Complaint: NOSE BLEED Time Seen by Provider: 04/12/19 00:43 History Source: Patient Exam Limitations: No Limitations - History of Present Illness Initial Comments: 04/12/19 01:13 HPI: 88 yo F pmh CAD,HTN, CHF, Afib on coumadin, hypothyroidism, and chronic postural vertigo present to the ED with nose bleed that woke her from sleep. Patient on Coumadin, reports she held pressure but bleeding was not stopping so she called 911. Continued to hold pressure, bleeding stopped while en route with EMS. Patient denies frequent nose bleeds, bleeding/clotting disorders. Now complaining only of nausea. Denies fevers, chills, chest pain, shortness of breath, palpitations. All: NKDA Meds: Per chart PMH: As above PSH: Per chart Past History - Past Medical History Allergies/Adverse Reactions: Allergies Allergy/AdvReac Type Severity Reaction Status Date / Time No Known Allergies Allergy Verified 04/12/19 00:16 Home Medications: Ambulatory Orders Atorvastatin Calcium [Lipitor] 10 mg PO DAILY 12/27/17 Brimonidine Tartrate [Alphagan P 0.1% -] 1 drop OU BID 12/27/17 Digoxin [Digitek] 250 mcg PO DAILY 12/27/17 Diltiazem Cd [Cardizem Cd -] 180 mg PO BID 12/27/17 Furosemide [Lasix -] 20 mg PO BID 12/27/17 Latanoprost 0.005% Eye Drops [Xalatan 0.005% Eye Drops -] 1 drop OU HS 12/27/17 Levothyroxine [Synthroid -] 100 mcg PO DAILY 12/27/17 Meclizine HCl 25 mg PO TID PRN 12/27/17 Metolazone [Zaroxolyn -] 2.5 mg PO DAILY 12/27/17 Metoprolol Succinate [Toprol XL -] 50 mg PO BID 12/27/17 Pitavastatin Calcium [Livalo] 2 mg PO MOWEFR 12/27/17 Potassium Chloride [K-Dur -] 20 meq PO BID 12/27/17 Warfarin Sodium [Coumadin] 2.5 mg PO MOTUWETHFR 12/27/17 Warfarin Sodium [Coumadin] 5 mg PO SUSA 12/27/17 Acetaminophen [Tylenol .Regular Strength -] 650 mg PO Q6H PRN tablet 10/29/18 Anemia: No Asthma: No Cancer: No Cardiac Disorders: Yes (CAD, AF) CVA: No COPD: Yes CHF: Yes Dementia: No Diabetes: No GI Disorders: No Disorders: No HTN: Yes Hypercholesterolemia: Yes Liver Disease: No Seizures: No Thyroid Disease: Yes (hypo) - Surgical History Abdominal Surgery: Yes (hernia sx) Orthopedic Surgery: Yes (wrist) - Immunization History Immunization Up to Date: Yes - Psycho Social/Smoking Cessation Hx Smoking Status: No Smoking History: Unknown if ever smoked Have you smoked in the past 12 months: No Number of Cigarettes Smoked Daily: 0 Hx Alcohol Use: No Drug/Substance Use Hx: No Substance Use Type: None Hx Substance Use Treatment: No Review of Systems - Review of Systems Able to Perform ROS?: Yes Is the patient limited Azeri proficient: Yes Constitutional: No: Chills, Fever, Weakness HEENTM: Yes: See HPI, Nose Pain, Nose Bleeding. No: Nose Congestion, Throat Pain, Difficulty Swallowing Respiratory: No: Cough, Shortness of Breath, Wheezing Cardiac (ROS): No: Chest Pain, Edema, Irregular Heart Rate, Chest Tightness ABD/GI: Yes: See HPI, Nausea. No: Constipated, Diarrhea, Vomiting : No: Burning, Dysuria, Hematuria, Incontinence, Pain, Urgency Musculoskeletal: No: Muscle Pain, Muscle Weakness Integumentary: No: Pruritus, Rash Neurological: No: Headache, Numbness, Tingling, Weakness Psychiatric: No: Stressors, Change in Appetite Endocrine: No: Increased Thirst, Increased Urine Hematologic/Lymphatic: Yes: Other (on Coumadin). No: Anemia, Blood Clots, Easy Bleeding, Easy Bruising, Bleeding Diathesis All Other Systems: Reviewed and Negative *Physical Exam - Vital Signs Last Vital Signs Temp Pulse Resp BP Pulse Ox 97 04/12/19 00:57 Discharge - Follow up/Referral Referrals: Jane Vaughn [Primary Care Provider] - - Patient Discharge Instructions - Post Discharge Activity
[2019-04-12 01:40] LABS: BASO % 0.3 % (0-2.0); EOS % 1.2 % (0-4.5); HEMATOCRIT 50.1 % (32.4-45.2); HEMOGLOBIN 16.6 GM/dL (10.7-15.3); LYMPH % 19.4 % (8-40); MCH 30.8 pg (25.7-33.7); MCHC 33.1 g/dl (32.0-36.0); MEAN CELL VOLUME 92.9 fl (80-96); MEAN PLT VOLUME 8.7 fl (7.5-11.1); NEUT % 72.1 % (42.8-82.8); PLATELET COUNT 314 K/MM3 (134-434); RBC 5.39 M/mm3 (3.60-5.2); RDW 13.5 % (11.6-15.6); WHITE BLOOD COUNT 11.7 K/mm3 (4.0-10.0)
[2019-04-12 01:50] LABS: INR 2.82 (0.83-1.09); PROTHROMBIN TIME (PATIENT) 33.6 SEC (9.7-13.0)
--- NOTE | 2019-04-12 01:54 | PDOC ---
Documentation entered by Zaynab Alvarado SCRIBE, acting as scribe for Viry Rehman MD. Viry Rehman MD: This documentation has been prepared by the [email or web address], Zaynab Alvarado SCRIBE, under my direction and personally reviewed by me in its entirety. I confirm that the documentation accurately reflects all work, treatment, procedures, and medical decision making performed by me. Attending Attestation - Resident Resident Name: Joseph Deleon - ED Attending Attestation I have performed the following: I have examined & evaluated the patient, The case was reviewed & discussed with the resident, I agree w/resident's findings & plan, Exceptions are as noted - HPI HPI: 04/12/19 01:33 The patient is an 88 year old female with a past medical history significant for CAD, HTN, CHF, Afib on coumadin, hypothyroidism who presents to the emergency department via EMS with epistaxis. 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 The patient states she held pressure on the nose without improving, so she called EMS. Enroute to the ER, the bleeding subsided. The family member at bedside reports the patients room is arid. Allergies: NKA PCP: Dr. Walt Vaughn. - Physicial Exam PE: 04/12/19 01:39 GENERAL: Awake, alert and oriented. Answering questions appropriately. The patient is in no acute distress. ENT: Dry blood at the nares, dry blood on the tongue and teeth. No active bleeding in the pharynx. Ears normal, oropharynx clear without exudates. Moist mucous membranes. NECK: Normal range of motion, supple, no nuchal rigidity LUNGS: Breath sounds equal, clear to auscultation bilaterally. No wheezes, and no crackles. HEART: Regular rate and rhythm, normal S1 and S2 without murmur, rub or gallop. ABDOMEN: Soft, nontender, normoactive bowel sounds. No guarding, no rebound. No masses palpable. EXTREMITIES:Not edematous Normal range of motion. NEUROLOGICAL: Answering all questions. Cranial nerves II through XII grossly intact. Normal speech. No focal neurological deficits. SKIN: Warm, Dry, normal turgor, no rashes or lesions noted. - Medical Decision Making 04/12/19 01:48 Ms. Ratliff is an 88y/o F hx of CAD, HTN, CHF, Afib on coumadin, hypothyroidism, and chronic postural vertigo, presents to the ED with epistaxis Symptoms began while sleeping in bed No nasal picking Pt denies headache Pt denies nasal trauma Air possibly dry in her home Pt did apply pressure but after 30 minutes, when it did not stop, she called her son who told her to call 911 Upon EMS arrival, nose bleeding stopped Pt does not know how what her last INR is and when it was last checked ? supratherapeutic INR, nasal trauma, Epistaxis appears to be due to an anterior bleed Of note, pt O2 saturation documented as 97% At the bedside, pt noted to be 92% (she is also sleeping) 04/12/19 01:51 Will do labs Will do CXR Will do EKG Will monitor for additional bleeding (NO Epistasis noted)
--- NOTE | 2019-04-12 02:02 | PDOC ---
*Physical Exam - Vital Signs Last Vital Signs Temp Pulse Resp BP Pulse Ox 97 04/12/19 00:57 ED Treatment Course - LABORATORY CBC & Chemistry Diagram: 04/12/19 01:28 04/12/19 01:28 - ADDITIONAL ORDERS Additional order review: Laboratory Results 04/12/19 01:28 PT with INR 33.60 H INR 2.82 H 04/12/19 01:28 RBC 5.39 H MCV 92.9 MCHC 33.1 RDW 13.5 MPV 8.7 Neutrophils % 72.1 Lymphocytes % 19.4 Monocytes % 7.0 Eosinophils % 1.2 Basophils % 0.3 Medical Decision Making - Medical Decision Making 04/12/19 01:59 on coumadin had a nose bleed for about 30 minutes no more bleeding at this time complaining of nausea (prolonged qtc so no zofran given) pending EKG, chest x-ray,cmp if all normal go home repeat vitals 04/12/19 04:39 pt complaining of persistent nausea and not tolerating PO admitted to 's service 04/12/19 04:42 repeat EKG ventricular paced rhythm QTc 535 Discharge - Discharge Information Problems reviewed: Yes Clinical Impression/Diagnosis: Epistaxis not due to trauma Condition: Stable - Admission Yes - Follow up/Referral - Patient Discharge Instructions - Post Discharge Activity
[2019-04-12 02:07] LABS: ALBUMIN 3.5 g/dl (3.4-5.0); ALK PHOS 116 U/L (45-117); ANION GAP 9 MMOL/L (8-16); BILIRUBIN,TOTAL 0.3 mg/dL (0.2-1); BLOOD UREA NITROGEN 34.4 mg/dL (7-18); CALCIUM 9.4 mg/dL (8.5-10.1); CHLORIDE 105 mmol/L (98-107); CO2 24 mmol/L (21-32); CREATININE 1.2 mg/dL (0.55-1.3); GLUCOSE,RANDOM 178 mg/dL (74-106); POTASSIUM 4.6 mmol/L (3.5-5.1); SGOT/AST 15 U/L (15-37); SGPT/ALT 22 U/L (13-61); SODIUM 138 mmol/L (136-145); TOT PROT 7.4 g/dl (6.4-8.2)
[2019-04-12 04:00] LABS: MAGNESIUM 2.2 mg/dL (1.8-2.4); PHOSPHOROUS 4.2 mg/dL (2.5-4.9)
--- NOTE | 2019-04-12 09:00 | HP ---
Admitting History and Physical - Primary Care Physician PCP: Jane Vaughn S - Admission Chief Complaint: epistaxis, nausea History of Present Illness: 88 yo F pmh CAD,HTN, CHF, Afib on coumadin, hypothyroidism, and chronic postural vertigo presented to the ED with nose bleed that woke her from sleep last night. Patient on Coumadin, reports she held pressure but bleeding was not stopping so she called 911. Continued to hold pressure, bleeding stopped while en route with EMS after about 30 minutes. Patient denies previous nose bleeds, bleeding/clotting disorders. Now complaining only of nausea. Denies fevers, chills, chest pain, shortness of breath, palpitations. History Source: Patient, Medical Record Limitations to Obtaining History: No Limitations - Past Medical History [employer]AD[employer]ENDER: Yes: Vertigo Cardiovascular: Yes: AFIB, CAD, HTN Endocrine: Yes: Hypothyroidism - Past Surgical History Past Surgical History: Yes: Hernia Repair - Smoking History Smoking history: Never smoked Have you smoked in the past 12 months: No Aproximately how many cigarettes per day: 0 - Alcohol/Substance Use Hx Alcohol Use: No History of Substance Use: reports: None - Social History Usual Living Arrangement: Yes: Alone Do you think of yourself as: Straight/Heterosexual ADL: Independent History of Recent Travel: No Home Medications - Allergies Allergies/Adverse Reactions: Allergies Allergy/AdvReac Type Severity Reaction Status Date / Time No Known Allergies Allergy Verified 04/12/19 00:16 - Home Medications Home Medications: Ambulatory Orders Diltiazem Cd [Cardizem Cd -] 180 mg PO BID 12/27/17 Furosemide [Lasix -] 20 mg PO BID 12/27/17 Metoprolol Succinate [Toprol XL -] 50 mg PO BID 12/27/17 Potassium Chloride [K-Dur -] 20 meq PO BID 12/27/17 Warfarin Sodium [Coumadin] 5 mg PO SUSA 12/27/17 Family Medical History Family History: Unremarkable Review of Systems - Review of Systems Constitutional: reports: Weakness (general). denies: Chills, Fever, Lethargy, Loss of Appetite Eyes: denies: Blind Spots, Blurred Vision, Double Vision HENT: reports: Epistaxis (L nostril). denies: Difficult Swallowing, Ear Pain Neck: denies: Decreased ROM, Pain on Movement, Stiffness, Tenderness Cardiovascular: denies: Chest Pain, Shortness of Breath Respiratory: denies: Cough, Hemoptysis, Orthopnea, SOB, SOB on Exertion, Wheezing Gastrointestinal: reports: Constipation, Nausea. denies: Abdominal Pain, Diarrhea, Dysphagia, Melena, Rectal Bleeding, Vomiting, Vomiting Blood Genitourinary: denies: Dysuria, Flank Pain Musculoskeletal: denies: Back Pain, Crepitus, Decreased ROM, Extremity Pain Integumentary: denies: Blister, Change in Color, Eczema, Erythema, Wound Neurological: denies: Change in LOC, Change in Speech, Confusion, Dizziness, Headache, Seizure, Syncope, Unsteady Gait, Weakness Endocrine: denies: Excessive Sweating, Flushing, Intolerance to Heat, Unexplained Weight Loss Hematology/Lymphatic: denies: Easily Bruised, Excessive Bleeding Psychiatric: denies: Altered Sleep Pattern, Anxiety, Depression, Suicidal Physical Examination Vital Signs: Vital Signs Temperature 97.8 F 04/12/19 03:08 Pulse Rate 85 04/12/19 05:06 Respiratory Rate 17 04/12/19 05:06 Blood Pressure 138/73 04/12/19 05:06 O2 Sat by Pulse Oximetry (%) 100 04/12/19 05:06 Constitutional: Yes: No Distress, Calm Eyes: Yes: Conjunctiva Clear HENT: Yes: Atraumatic, Other (no epistaxis now). No: Epistaxis Neck: Yes: Supple Cardiovascular: No: Regular Rate and Rhythm Respiratory: Yes: CTA Bilaterally Gastrointestinal: Yes: Soft. No: Tenderness Renal/: No: Hematuria Musculoskeletal: No: Joint Stiffness, Joint Swelling Extremities: No: Cold, Cool, Cyanosis Edema: No Integumentary: No: Rash, Venous Stasis Changes Neurological: Yes: WNL, Alert, Oriented ...Motor Strength: WNL Psychiatric: Yes: WNL, Alert, Oriented. No: Agitated, Suicidal Ideation Labs: CBC, BMP 04/12/19 01:28 04/12/19 01:28 Imaging - Results Chest X-ray: Report Reviewed Other: Report Reviewed Assessment/Plan HPI: 88 yo F pmh CAD,HTN, CHF, Afib on coumadin, hypothyroidism, and chronic postural vertigo present to the ED with nose bleed that woke her from sleep. Patient on Coumadin, INR therapeuric; VSS and H&H stable d/w ENT dr St covering dr Jalloh: NS and afrin sprays; suggested to hold coumadin until seen by ENT, rhinoscopy to be done preferab;y in the office (per ENT) so if stable and no recurrent bleeding over the next 24H DC home tomorrow and see ENT in 1-2 days in office; d/w pt risks bleeding with coumadin vs risks CVA off coumadin she is aware nausea: bland diet; close f/u; KUB; if recurrent will ask GI input; f/u labs in am falls PFX d/w pt and staff d/w cardio dr Roper
[2019-04-12] MEDS ORDERED: WARFARIN NA 5 MG TABLET (UD) PO SCH (09:15)
[2019-04-12 09:31] VITALS: BMI 31.6
--- NOTE | 2019-04-12 09:50 | CON.CARD ---
Consult Consult Specialty:: Cardiology for Dr. Martínez Referred by:: Dr. Vaughn Reason for Consultation:: Management of anticoagulation in setting severe epistaxis - History of Present Illness Chief Complaint: Nosebleed History of Present Illness: 88 year old female with a past medical history significant for CAD, HTN, CHF, Afib on coumadin, hypothyroidism who presents to the emergency department via EMS with epistaxis. 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 The patient states she held pressure on the nose without improving, so she called EMS. Enroute to the ER, the bleeding subsided. The family member at bedside reports the patients room is arid. Denies CP, SOB, palps. No edema, PND. Walks with a cane. BP has been normal. Dr. Vaughn has discussed with ENT and measures to control bleeding including saline spray and Afrin spray started, consult pending. 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 Cardio/Vascular: Yes: AFIB, CAD, HTN Gastrointestinal: No: Ascites, Cancer, Constipation, Crohn's Disease, Diverticulitis, Diverticulosis, Esophageal Varices, Gastritis, GERD, GI Bleed, Hemorrhoids, Hiatal Hernia, Inflamatory Bowel Disease, Irritable Bowel Disease, Pancreatitis, Peptic Ulcer Disease, Ulcerative Colitis, Other Hepatobiliary: No: Cirrhosis, Cholelithiasis, Cholecystitis, Choledocholithiasis , Hepatitis A, Hepatitis B, Hepatitis C, Other Renal/: No: Renal Failure, Renal Inusuff, BPH, Cancer, Hematuria, Hemodialysis , Neurogenic Bladder, Renal Calculi, UTI, Other Reproductive: No: Ectopic , Endometriosis, Fibroids, PID, Polycystic Ovary Syndrome, Postmenopausal, Other Heme/Onc: No: Anemia, B12 Deficiency, Bleeding Disorder, Cancer, Current Chemotherapy, Current Radiation Therapy, Hemochromatosis, Hypercoaguable State, Myeloproliferative Synd, Sickle Cell Disease, Sickle Cell Trait, Thrombocytopenia, Other Infectious Disease: No: AIDS, C-Diff, Herpes Zoster, HIV, MRSA, STD's, Tuberculosis, VREF, Other Psych: No: Addictions, Anxiety, Bipolar, Depression, Panic, Psychosis, Schizophrenia, Other Musculoskeletal: No: Bursitis, Chronic low back pain, Hemiparesis, Hemiplegia, Osteoarthritis, Paraplegia, Other Rheumatology: No: Fibromyalgia, Gout, Lupus, Rheumatoid Arthritis, Sarcoidosis, Vasculitis, Other ENT: No: Allergic Rhinitis, Sinusitis, Other Endocrine: Yes: Hypothyroidism - Past Surgical History Past Surgical History: Yes: Hernia Repair - Alcohol/Substance Use Hx Alcohol Use: No History of Substance Use: reports: None - Smoking History Smoking history: Never smoked Have you smoked in the past 12 months: No Aproximately how many cigarettes per day: 0 - Social History ADL: Independent History of Recent Travel: No Home Medications - Allergies Allergies/Adverse Reactions: Allergies Allergy/AdvReac Type Severity Reaction Status Date / Time No Known Allergies Allergy Verified 04/12/19 00:16 - Home Medications Home Medications: Ambulatory Orders Diltiazem Cd [Cardizem Cd -] 180 mg PO BID 12/27/17 Furosemide [Lasix -] 20 mg PO BID 12/27/17 Metoprolol Succinate [Toprol XL -] 50 mg PO BID 12/27/17 Potassium Chloride [K-Dur -] 20 meq PO BID 12/27/17 Warfarin Sodium [Coumadin] 5 mg PO SUSA 12/27/17 Family Medical History Family History: Unremarkable (not pertinent to this presentation) Review of Systems Unable to obtain ROS, reason: see HPI - Review of Systems Constitutional: reports: No Symptoms Eyes: reports: No Symptoms HENT: reports: Epistaxis Neck: denies: No Symptoms, Decreased ROM, Lumps, Pain on Movement, Stiffness, Swollen Glands, Tenderness, Other Cardiovascular: denies: No Symptoms, Chest Pain, Edema, Palpitations, Shortness of Breath, Other Respiratory: denies: No Symptoms, Cough, Exercise Intolerance, Hemoptysis, Orthopnea, PND, Snoring, SOB, SOB on Exertion, Wheezing, Other Gastrointestinal: denies: No Symptoms, Abdominal Pain, Bloating, Constipation, Diarrhea, Dysphagia, Indigestion, Melena, Nausea, Rectal Bleeding, Vomiting, Vomiting Blood, Other Genitourinary: denies: No Symptoms, Burning, Discharge, Dysuria, Flank Pain, Frequency, Hematuria, Incontinence, Lesions, Menses, Pain, Testicular Mass, Testicular Pain, Testicular Swelling, Urgency, Vaginal Bleeding, Other Breasts: denies: No Symptoms Reported, See HPI, Breast Implants, Discharge from Nipple, Lumps, Pain, Skin Changes, Other Musculoskeletal: denies: No Symptoms, Back Pain, Crepitus, Decreased ROM, Extremity Pain, Joint Pain, Joint Swelling, Muscle Pain, Muscle Cramps, Muscle Weakness, Other Integumentary: denies: No Symptoms, Blister, Bruising, Change in Color, Eczema, Erythema, Incision, Lesions, Lump, Pallor, Pruritis, Rash, Wound, Other Neurological: denies: No Symptoms, Change in LOC, Change in Speech, Confusion, Dizziness, Headache, Incoordination, Numbness, Parasthesia, Pre-Existing Deficit , Seizure, Syncope, Tremors, Unsteady Gait, Weakness, Other Endocrine: denies: No Symptoms, Excessive Sweating, Flushing, Increased Hunger, Increased Thirst, Intolerance to Cold, Intolerance to Heat, Unexplained Weight Gain, Unexplained Weight Loss, Other Hematology/Lymphatic: denies: No Symptoms, Easily Bruised, Excessive Bleeding, Swollen Glands, Other Psychiatric: denies: No Symptoms, Altered Sleep Pattern, Anxiety, Depression, Hallucinations, Panic, Paranoia, Suicidal, Other - Risk Factors Known Risk Factors: Yes: Hypertension Vital Signs: Vital Signs Temperature 97.4 F L 04/12/19 04:12 Pulse Rate 85 04/12/19 05:06 Respiratory Rate 17 04/12/19 05:06 Blood Pressure 138/73 04/12/19 05:06 O2 Sat by Pulse Oximetry (%) 94 L 04/12/19 09:22 Constitutional: Yes: No Distress Eyes: Yes: Conjunctiva Clear Respiratory: Yes: CTA Bilaterally Gastrointestinal: Yes: Soft Cardiovascular: Yes: Regular Rate and Rhythm JVD: No Carotid Bruit: No Heart Sounds: Yes: S1, S2 (rrr) Edema: No Peripheral Pulses WNL: Yes Neurological: Yes: Alert, Oriented ...Motor Strength: WNL - Other Data Labs, Other Data: CBC, BMP 04/12/19 01:28 04/12/19 01:28 INR, PTT INR 2.82 (0.83-1.09) H 04/12/19 01:28 Troponin, BNP 04/12/19 01:28 Troponin I < 0.02 Troponin, BNP 04/12/19 01:28 Troponin I < 0.02 Laboratory Tests 04/12/19 04/12/19 04/12/19 01:28 01:28 01:28 WBC 11.7 H Hgb 16.6 H Plt Count 314 INR 2.82 H Sodium 138 Potassium 4.6 AST 15 ALT 22 Alkaline Phosphatase 116 V-Paced , underlying Aflutter Imaging - Results X-ray: Image Reviewed (PPM, no I/E) EKG: Image Reviewed Assessment/Plan DATA: Echo here 2017: Grossly normal LVEF, Trace AR. ECG 04-12-2019: Underlying Aflutter, V-paced IMP: 1. Sick sinus syndrome/AF with periods of uncontrolled ventricular response 2. Status post permanent pacemaker. 3. Epistaxis, recurrent- on Warfarin 4. Chronic diastolic CHF 5. Non-obstructive CAD REC: 1. Agree to hold Warfarin until ENT evaluation completed to identify and potentially treat/cauterize source. 2. Continue Cardizem, currently rate controlled. 3. BP controlled at present, euvolemic on usual home dose of Lasix. 4. Routine outpatient PPM interrogations with Dr. Martínez. 5. Agree that concomitant use of ASA (with Warfarin) for her chronic stable CAD is not necessary and increases the bleed risk without significant additional benefit. Will follow.
[2019-04-12] MEDS: FUROSEMIDE 20 MG TABLET (FP) PO SCH ×3 (09:58→18:24)
[2019-04-12] MEDS: POTASSIUM CHLORIDE TABS 20 MEQ TABLET.ER (FP) PO SCH ×2 (09:58→22:02)
[2019-04-12] MEDS ORDERED: SODIUM CHLORIDE NASAL SPRAY 44 ML BOTTLE NS PRN (11:44)
[2019-04-12] MEDS ORDERED: OXYMETAZOLINE 0.05% NASAL SOLUTION 15 ML BOTTLE NS PRN (11:44)
--- NOTE | 2019-04-12 12:22 | EKG ---
Test Reason : Blood Pressure : / mmHG Vent. Rate : 078 BPM Atrial Rate : 079 BPM P-R Int : 000 ms QRS Dur : 150 ms QT Int : 470 ms P-R-T Axes : 000 015 066 degrees QTc Int : 535 ms Ventricular-paced rhythm ABNORMAL ECG WHEN COMPARED WITH ECG OF 12-APR-2019 00:37, VENT. RATE HAS INCREASED BY 6 BPM Confirmed by ELIGIO BARRERA MD ([id number]) on 04/12/2019 12:22:22 PM Referred By: Confirmed By:ELIGIO BARRERA MD
--- NOTE | 2019-04-12 12:24 | EKG ---
Test Reason : Blood Pressure : / mmHG Vent. Rate : 072 BPM Atrial Rate : 312 BPM P-R Int : 000 ms QRS Dur : 152 ms QT Int : 480 ms P-R-T Axes : 000 019 057 degrees QTc Int : 525 ms Ventricular-paced rhythm ATRIAL FLUTTER ABNORMAL ECG WHEN COMPARED WITH ECG OF 27-OCT-2018 21:06, VENT. RATE HAS DECREASED BY 5 BPM Confirmed by ELIGIO BARRERA MD ([id number]) on 04/12/2019 12:23:49 PM Referred By: Confirmed By:ELIGIO BARRERA MD
[2019-04-13] MEDS: FUROSEMIDE 20 MG TABLET (FP) PO SCH ×2 (06:12→18:23)
[2019-04-13 08:44] LABS: BASO % 0.7 % (0-2.0); EOS % 1.2 % (0-4.5); HEMATOCRIT 48.9 % (32.4-45.2); HEMOGLOBIN 16.1 GM/dL (10.7-15.3); LYMPH % 23.7 % (8-40); MCH 30.9 pg (25.7-33.7); MEAN CELL VOLUME 93.6 fl (80-96); MEAN PLT VOLUME 8.7 fl (7.5-11.1); MONO % 9.9 % (3.8-10.2); NEUT % 64.5 % (42.8-82.8); PLATELET COUNT 290 K/MM3 (134-434); RBC 5.22 M/mm3 (3.60-5.2)
--- NOTE | 2019-04-13 09:02 | DS ---
Physical Examination Vital Signs: Vital Signs Temperature 97.2 F L 04/13/19 05:57 Pulse Rate 74 04/13/19 05:57 Respiratory Rate 18 04/13/19 05:57 Blood Pressure 115/52 L 04/13/19 05:57 O2 Sat by Pulse Oximetry (%) 94 L 04/12/19 21:00 Findings/Remarks: NAD no new c/o no recurrent epistaxis awaiting ENT and cardio eval; if OK with ENT will resume coumadin tonight (INR today 2.1 pt was home on 5 / 2.5 mg QOD) will d/w cardio ? switch to eliquis? or cont coumadin, then if stable pt can go home d/w pt risks bleeding with AC and with INR > 3 (AC with couamdin, or eliquis) vs risks CVA without AC or low INR <2 , risks coumadin vs eliquis; she will also d/w cardio dr Martínez Constitutional: Yes: No Distress, Calm Eyes: Yes: Conjunctiva Clear HENT: Yes: Atraumatic Neck: Yes: Supple Cardiovascular: No: Regular Rate and Rhythm Respiratory: Yes: CTA Bilaterally Gastrointestinal: Yes: Soft. No: Tenderness Renal/: No: Hematuria Musculoskeletal: No: Joint Stiffness, Joint Swelling Extremities: No: Cold, Cool, Cyanosis Edema: No Integumentary: No: Rash, Venous Stasis Changes Neurological: Yes: Alert, Oriented ...Motor Strength: WNL Psychiatric: Yes: Alert, Oriented. No: Agitated, Suicidal Ideation Labs: CBC, BMP 04/13/19 07:50 Discharge Summary Problems reviewed: Yes Reason For Visit: NAUSEA AND VOMITING Current Active Problems Epistaxis not due to trauma (Acute) Procedures: Principal: 88 YOF ASHD HTN CHF AFib admitted with epistaxis, INR 2.8 on coumadin for AFib; coumadin held, ENT eval and cardio eval Other Procedures: seen by cardiology and ENT; nasal sprays per ENT; resume coumadin Hospital Course: improved with above; DC home f/u ENT and cardiology in 1-2 weeks; RTER if recurrent epistaxis Condition: Stable - Instructions Diet, Activity, Other Instructions: f/u PCP ENT and cardiology in 1-2 weeks; take coumadin per INR; RTER if recurrent bleed; Referrals: Jane Vaughn [Primary Care Provider] - Huey Jalloh MD [Staff Physician] - Herberth Martínez MD [Staff Physician] - - Home Medications Comprehensive Discharge Medication List: Ambulatory Orders Diltiazem Cd [Cardizem Cd -] 180 mg PO BID 12/27/17 Furosemide [Lasix -] 20 mg PO BID 12/27/17 Metoprolol Succinate [Toprol XL -] 50 mg PO BID 12/27/17 Potassium Chloride [K-Dur -] 20 meq PO BID 12/27/17 Warfarin Sodium [Coumadin] 5 mg PO SUSA 12/27/17
[2019-04-13 09:11] LABS: INR 2.18 (0.83-1.09); PROTHROMBIN TIME (PATIENT) 25.9 SEC (9.7-13.0)
[2019-04-13 09:26] LABS: BLOOD UREA NITROGEN 33.5 mg/dL (7-18); CALCIUM 9.8 mg/dL (8.5-10.1); POTASSIUM 4.4 mmol/L (3.5-5.1)
[2019-04-13] MEDS: POLYETHYLENE GLYCOL 3350 119 GM BTL PO SCH ×3 (10:06→23:31)
[2019-04-13] MEDS: POTASSIUM CHLORIDE TABS 20 MEQ TABLET.ER (FP) PO SCH ×2 (10:06→23:31)
[2019-04-13] MEDS ORDERED: WARFARIN NA 5 MG TABLET (UD) PO SCH ×2 (12:00→18:00)
[2019-04-13] MEDS: ACETAMINOPHEN 325 MG TABLET (FP) PO PRN (14:52)
[2019-04-13] MEDS ORDERED: WARFARIN NA 2.5 MG TABLET (FP) PO SCH (18:00)
[2019-04-13] MEDS ORDERED: PT OWN MED DRAWER 7, Y5N ONE (18:00)
--- NOTE | 2019-04-13 18:18 | CON.ENT ---
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 Cardio/Vascular: Yes: AFIB, CAD, HTN Gastrointestinal: No: Ascites, Cancer, Constipation, Crohn's Disease, Diverticulitis, Diverticulosis, Esophageal Varices, Gastritis, GERD, GI Bleed, Hemorrhoids, Hiatal Hernia, Inflamatory Bowel Disease, Irritable Bowel Disease, Pancreatitis, Peptic Ulcer Disease, Ulcerative Colitis, Other Hepatobiliary: No: Cirrhosis, Cholelithiasis, Cholecystitis, Choledocholithiasis, Hepatitis A, Hepatitis B, Hepatitis C, Other Renal/: No: Renal Failure, Renal Inusuff, BPH, Cancer, Hematuria, Hemodialysis, Neurogenic Bladder, Renal Calculi, UTI, Other Infectious Disease: No: AIDS, C-Diff, Herpes Zoster, HIV, MRSA, STD's, Tuberculosis, VREF, Other Psych: No: Addictions, Anxiety, Bipolar, Depression, Panic, Psychosis, Schizophrenia, Other Musculoskeletal: No: Bursitis, Chronic low back pain, Hemiparesis, Hemiplegia, Osteoarthritis, Paraplegia, Other Rheumatology: No: Fibromyalgia, Gout, Lupus, Rheumatoid Arthritis, Sarcoidosis, Vasculitis, Other ENT: No: Allergic Rhinitis, Sinusitis, Other Endocrine: Yes: Hypothyroidism - Past Surgical History Past Surgical History: Yes: Hernia Repair - Alcohol/Substance Use Hx Alcohol Use: No History of Substance Use: reports: None - Smoking History Smoking history: Never smoked Have you smoked in the past 12 months: No Aproximately how many cigarettes per day: 0 - Social History ADL: Independent History of Recent Travel: No Home Medications - Allergies Allergies/Adverse Reactions: Allergies Allergy/AdvReac Type Severity Reaction Status Date / Time No Known Allergies Allergy Verified 04/12/19 00:16 - Home Medications Home Medications: Ambulatory Orders Diltiazem Cd [Cardizem Cd -] 180 mg PO BID 12/27/17 Furosemide [Lasix -] 20 mg PO BID 12/27/17 Metoprolol Succinate [Toprol XL -] 50 mg PO BID 12/27/17 Potassium Chloride [K-Dur -] 20 meq PO BID 12/27/17 Warfarin Sodium [Coumadin] 5 mg PO SUSA 12/27/17 Family Medical History Other Family History: daughter has sensorineural hearing loss Physical Exam-ENT Vital Signs: Vital Signs Temperature 98.5 F 04/13/19 14:00 Pulse Rate 77 04/13/19 14:00 Respiratory Rate 18 04/13/19 14:00 Blood Pressure 102/51 L 04/13/19 14:00 O2 Sat by Pulse Oximetry (%) 98 04/13/19 09:00 Constitutional: Yes: No Distress, Calm Head: Yes: WNL Face: Yes: WNL Eyes: Yes: WNL Nose: Yes: Other (mucosa sl dry, no blood, ?site of prior bleeding left anteiror septum, punctate, no telangiectasias, no pus or polyp) Nasal Passage: Yes: WNL Oral/Pharynx: Yes: WNL Ear Canal: Yes: WNL Neck: Yes: WNL Problem List - Problems (1) Epistaxis not due to trauma Assessment/Plan: acute epistaxis, now resolved without packing HTN and anticoagulation (warfarin for atrial fibrillation) risk factors no active bleeding now Recommend: do not blow nose nasal saline spray food and beverages may be warm but not hot bathwater should be warm, not hot. monitor INR to therapeutic range call if further bleeding if no further bleeding ok for discharge from ENT perspective follow-up in office after discharge Thank you for consultation, Huey Jalloh MD FACS Problems reviewed: Yes Code(s): R04.0 - EPISTAXIS
[2019-04-14] MEDS: FUROSEMIDE 20 MG TABLET (FP) PO SCH (05:29)
[2019-04-14] MEDS: ACETAMINOPHEN 325 MG TABLET (FP) PO PRN (05:29)
--- NOTE | 2019-04-14 06:44 | PN ---
Progress Note, Physician Chief Complaint: in bed no recurrent epistaxis; BP 90/60 lasix held INR 1.7 coumadin resumed seen by ENT and cardio dr Davalos, d/w dr Martínez; pt can go home close f/u outpt, RTER if recurrent bleed; pt to see ENT outpt within 1 week; check INR within 1 week dw pt importance to keep INR 2-3 (risk of bleeding > 3 and risk of CVA <2 she is aware) - Current Medication List Current Medications: Active Medications Acetaminophen (Tylenol -) 650 mg PO Q6H PRN PRN Reason: PAIN 1-6 Last Admin: 04/14/19 05:29 Dose: 650 mg Diltiazem HCl (Cardizem Cd -) 180 mg PO BID [facility] Last Admin: 04/13/19 23:30 Dose: 180 mg Furosemide (Lasix -) 20 mg PO BID@0600,1800 [facility] Last Admin: 04/14/19 05:29 Dose: Not Given Metoprolol Succinate (Toprol Xl -) 50 mg PO BID [facility] Last Admin: 04/13/19 23:31 Dose: 50 mg Oxymetazoline HCl (Afrin -) 2 spray NS BID PRN PRN Reason: NASAL CONGESTION Polyethylene Glycol (Miralax (For Daily Use) -) 17 gm PO BID [facility] Last Admin: 04/13/19 23:31 Dose: Not Given Potassium Chloride (K-Dur -) 20 meq PO BID [facility] Last Admin: 04/13/19 23:31 Dose: 20 meq Sodium Chloride ([place] Nasal [place] -) 2 spray NS TID PRN PRN Reason: NASAL CONGESTION Warfarin Sodium (Coumadin -) 2.5 mg PO Q48H [facility] Last Admin: 04/13/19 18:23 Dose: 2.5 mg Warfarin Sodium (Coumadin -) 5 mg PO Q48H [facility] - Objective Vital Signs: Vital Signs Temperature 97.8 F 04/14/19 06:00 Pulse Rate 85 04/14/19 06:00 Respiratory Rate 18 04/14/19 06:00 Blood Pressure 90/54 L 04/14/19 06:00 O2 Sat by Pulse Oximetry (%) 95 04/13/19 21:00 Constitutional: Yes: No Distress, Calm Eyes: Yes: Conjunctiva Clear HENT: Yes: Atraumatic Neck: Yes: Supple Cardiovascular: No: Regular Rate and Rhythm Respiratory: Yes: CTA Bilaterally Gastrointestinal: Yes: Soft. No: Tenderness Genitourinary: No: Hematuria Musculoskeletal: No: Joint Stiffness, Joint Swelling Extremities: No: Cold, Cool, Cyanosis Edema: No Integumentary: No: Rash, Venous Stasis Changes Neurological: Yes: Alert, Oriented ...Motor Strength: WNL Psychiatric: Yes: Alert, Oriented. No: Agitated, Suicidal Ideation Labs: CBC, BMP 04/13/19 07:50 04/13/19 07:50 INR, PTT INR 2.18 (0.83-1.09) H 04/13/19 07:50 - ....Imaging Other: Report Reviewed Assessment/Plan HPI: 88 yo F pmh CAD,HTN, CHF, Afib on coumadin, hypothyroidism, and chronic postural vertigo present to the ED with nose bleed. Patient on Coumadin. Seen by cardio and ENT; coumadin held but then restarted last evening; now INR 1.7 DC home close f/u as d/w pt; pt to take meds and do labs tests and consults as advised d/w pt and daughter at bedside; d/w staff.
[2019-04-14 09:11] LABS: BASO % 0.4 % (0-2.0); EOS % 1.1 % (0-4.5); HEMATOCRIT 47.9 % (32.4-45.2); LYMPH % 18.2 % (8-40); MCH 31.1 pg (25.7-33.7); MCHC 33.3 g/dl (32.0-36.0); MEAN CELL VOLUME 93.3 fl (80-96); MEAN PLT VOLUME 8.7 fl (7.5-11.1); MONO % 10.2 % (3.8-10.2); NEUT % 70.1 % (42.8-82.8); PLATELET COUNT 277 K/MM3 (134-434); RBC 5.13 M/mm3 (3.60-5.2); RDW 13.8 % (11.6-15.6); WHITE BLOOD COUNT 10.3 K/mm3 (4.0-10.0)
[2019-04-14 09:15] VITALS: BP 144/80; PULSE 76; TEMP 97.2
[2019-04-14 09:23] LABS: INR 1.69 (0.83-1.09)
--- NOTE | 2019-04-14 10:27 | PN ---
Progress Note (short form) - Note Progress Note: 88-year-old female with history of coronary artery disease, angina pectoris, persistent atrial fibrillation, hypertension, hypertensive cardiovascular disease, hypercholesterolemia, benign postural vertigo, status post AV zoraida ablationfor uncontrolled ventricular response, status post permanent pacemaker, , history ofleft ventricular diastolic dysfunction, status post congestive heart failure. Patient was admitted with left nasal epistaxis. On questioning she states that her dwelling has no humidifier. She has been evaluated by ENT and is being managed conservatively.She is being anticoagulated Active Medications Generic Name Dose Route Start Last Admin Trade Name Freq PRN Reason Stop Dose Admin Acetaminophen 650 mg 04/13/19 14:25 04/14/19 05:29 Tylenol - PO 650 mg Q6H PRN Administration PAIN 1-6 Diltiazem HCl 180 mg 04/14/19 10:00 Cardizem Cd - PO DAILY CLAUDIA Furosemide 20 mg 04/12/19 09:30 04/14/19 05:29 Lasix - PO Not Given BID@0600,1800 CLAUDIA Metoprolol Succinate 50 mg 04/12/19 10:00 04/13/19 23:31 Toprol Xl - PO 50 mg BID CLAUDIA Administration Oxymetazoline HCl 2 spray 04/12/19 11:44 Afrin - NS BID PRN NASAL CONGESTION Polyethylene Glycol 17 gm 04/13/19 10:00 04/13/19 23:31 Miralax (For Daily Use) - PO Not Given BID CLAUDIA Potassium Chloride 20 meq 04/12/19 10:00 04/13/19 23:31 K-Dur - PO 20 meq BID CLAUDIA Administration Sodium Chloride 2 spray 04/12/19 11:44 [place] Nasal [place] - NS TID PRN NASAL CONGESTION Warfarin Sodium 2.5 mg 04/13/19 18:00 04/13/19 18:23 Coumadin - PO 2.5 mg Q48H CLAUDIA Administration Warfarin Sodium 5 mg 04/14/19 18:00 Coumadin - PO Q48H CLAUDIA Last Vital Signs Temp Pulse Resp BP Pulse Ox 97.2 F L 76 18 144/80 95 04/14/19 09:13 04/14/19 09:13 04/14/19 09:13 04/14/19 09:13 04/13/19 21:00 Neck: Supple, no jugular venous distention, carotids were 2+, upstrokes were normal, no bruits were heard and no thyromegaly was present. Heart: PMI was in the fifth intercostal space, no heaves or thrills, S1 was variable, S2 was normal. Unable to appreciate a murmur or gallop. Lungs: Clear on auscultation. Abdomen: Soft, nontender, no hepatosplenomegaly or palpable masses were felt. Bowel sounds were active, no bruits were heard. Extremities: No calf tenderness or dependent edema, pulses were equal. CBC, BMP 04/14/19 07:45 04/13/19 07:50 Impression: 1. Epistaxis from the left nares most likely related to dryness and aggravated byaanticoagulation. 2. Permanent atrial fibrillation, status post AV zoraida ablation/permanent pacemaker insertion. 3. Hypertension, hypertensive cardiovascular disease, currently normotensive. 4. Nonobstructive coronary artery disease, stable angina pectoris. 5. Hypothyroidism, on replacement therapy. 6. Left ventricular diastolic dysfunction. 7. Status post left ventricular failure, presently compensated. Recommendations: 1. Recommendations as outlined by ENT. 2. Patient was counseled that she should have a humidifier during the winter months that may help prevent recurrence of epistaxis. 3. Continue medications as outlined. 4. Close follow-up of INR and CBC. 5. Cautious hydration in view of elevated BUN. if there are any further questions please do not hesitate to contact me Herberth Martínez MD
[2019-04-14] MEDS ORDERED: PT OWN MED DRAWER 7, Y5N ONE (10:55)
[2019-04-14] MEDS: POTASSIUM CHLORIDE TABS 20 MEQ TABLET.ER (FP) PO SCH (11:06)
[2019-04-14] MEDS: POLYETHYLENE GLYCOL 3350 119 GM BTL PO SCH (11:08)
[2019-04-14] MEDS ORDERED: WARFARIN NA 5 MG TABLET (UD) PO SCH (18:00)
== END 2019-04-14 14:35 | disposition home health service (06) | DRG 151 ==
LOC: JER 00:13 → JERBED 04:12 → J5S 06:51
PROVIDERS: ADMIT Internal Medicine; ATTEND Internal Medicine
DX: R04.0 Epistaxis (principal); I50.32 Chronic diastolic (congestive) heart failure; I48.21 Permanent atrial fibrillation; I25.10 Atherosclerotic heart disease of native coronary artery without angina pectoris; I11.0 Hypertensive heart disease with heart failure; E03.9 Hypothyroidism, unspecified
CPT/HCPCS: 36415; 71045-TC-FY; 74018-TC-FY; 80048; 80053; 83735; 84100; 84484; 85025; 85610; 93005; 93010; 99284-25